=== PATIENT | female | born 1945 | race Caucasian/White ===

== ENCOUNTER 2016-07-27 15:07 | Inpatient (IN) ==
[2016-07-27] MEDS ORDERED: 0.9 % SODIUM CHLORIDE 1,000 ML IV ONE (15:54)
[2016-07-27] MEDS ORDERED: ONDANSETRON 4 MG/2 ML VIAL IV ONE (15:54)
[2016-07-27] MEDS ORDERED: PROMETHAZINE 25 MG/ML VIAL IV ONE (17:00)
[2016-07-27] MEDS ORDERED: FUROSEMIDE 40 MG/4 ML VIAL IV ONE (17:00)
[2016-07-27] MEDS ORDERED: PROMETHAZINE 50 MG/ML AMPUL IM ONE (17:02)
[2016-07-27] MEDS ORDERED: diphenhydrAMINE 50 MG/ML VIAL ONE (17:17)
[2016-07-27] MEDS ORDERED: diphenhydrAMINE 50 MG/ML VIAL IV ONE (17:32)
--- NOTE | 2016-07-27 18:26 | Cat Scan Report ---
CLINICAL INFORMATION: Reason for Exam:acute renal failure, severe refractory n/v . FINDINGS: The patient was imaged without IV contrast. She was too nauseated to drink any oral contrast. There are a few bands of scar or discoid atelectasis in the lung bases. Evaluation of abdominal organs without contrast is limited. The liver and spleen are normal in size and appear homogeneous. The gallbladder is been removed. The bile ducts are nondilated. There is atrophy of the pancreas with some fatty infiltration. The adrenals are normal. Both kidneys are relatively small with thinning of the cortex. There is no hydronephrosis in either kidney a 1 mm stone is present laterally in the lower pole of left kidney. There is no apparent mass or cyst in either kidney. There is urine in a relatively small bladder. The stomach duodenum and jejunum are abnormally distended. There are several air-fluid levels in the jejunum and duodenum. The jejunum measures up to 4 cm in thickness. The wall does not appear to be thickened or inflamed area the ileum is normal in caliber. The transition point is difficult to clearly identify. There is some stranding of the fat in the root of the mesentery in the right mid abdomen area this is surrounded by distended loops of jejunum. The colon is decompressed. There are multiple scattered diverticula, predominantly involving the sigmoid colon. The uterus and ovaries are been removed. There is no ascites abscess. There is a multilobulated midline ventral hernia which has a broad neck and contains fat. There is no entrapment of bowel. Moderate atherosclerotic disease is present in the aorta and visceral arteries within the abdomen. IMPRESSION: Mid small bowel obstruction. This may be due to an adhesion. Diverticulosis but without evidence of diverticulitis Dr. Williamson was called with results Interpreted and Authenticated by: Eduard Rhoades 07/27/16
--- NOTE | 2016-07-27 18:38 | Emergency Department Note ---
Abdominal Pain HPI - General Chief Complaint: Nausea/Vomiting/Diarrhea Stated Complaint: vomiting, abd pain Time Seen by Provider: 07/27/16 15:51 Source: patient Mode of arrival: wheelchair Limitations: no limitations - History of Present Illness HPI Narrative: 70-year-old female with an 8 day history of nausea vomiting but no diarrhea- had a small bowel movement yesterday. She was seen [address] Salazar out in [place] 3 days ago. She has chronic renal failure (stage IV but she still makes urine not on dialysis) and was seen by Dr. Hernandez who sent her to the ER today after getting laboratory this morning in [place]. denies fever or shortness of breath - Related Data Home Medications Medication Instructions Recorded Confirmed allopurinol 100 mg tablet 100 mg PO QDAY tab 12/18/14 07/27/16 atorvastatin 40 mg tablet 40 mg PO QHS tab 12/18/14 07/27/16 clonidine HCl 0.2 mg tablet 0.2 mg PO BID tab 12/18/14 07/27/16 metoprolol succinate ER 50 mg 150 mg PO QDAY tab 12/18/14 07/27/16 tablet,extended release 24 hr nitroglycerin 0.4 mg sublingual 0.4 mg SUBLINGUAL Q5-15MIN PRN tab 12/18/14 tablet ranitidine 150 mg tablet 150 mg PO QDAY tab 12/18/14 07/27/16 glipizide 10 mg tablet 10 mg PO QDAY tab 12/20/14 07/27/16 letrozole 2.5 mg tablet 2.5 mg PO QDAY tab 12/20/14 07/27/16 levothyroxine 137 mcg tablet 137 mcg PO QDAY 04/01/15 07/27/16 torsemide 20 mg tablet 40 mg PO BID tab 08/28/15 07/27/16 aspirin 325 mg tablet 325 mg PO QDAY 03/30/16 07/27/16 dipyridamole 50 mg tablet 200 mg PO BID tab 03/30/16 07/27/16 amlodipine 5 mg tablet 5 mg PO QDAY 07/12/16 07/27/16 ferrous sulfate 325 mg (65 mg 325 mg PO QDAY 07/12/16 07/27/16 iron) tablet Previous Rx's Medication Instructions Recorded calcium acetate 667 mg capsule 667 mg PO TID 30 Days 12/08/16 hydralazine 100 mg tablet 100 mg PO TID 90 Days 05/10/16 Allergies Allergy/AdvReac Type Severity Reaction Status Date / Time Sulfa (Sulfonamide Allergy Severe SWELLING/HI Verified 07/27/16 15:18 Antibiotics) VES [SULFA (SULFONAMIDE ANTIBIOTICS)] BRENTON Inhibitors Allergy Unknown Unknown Verified 07/27/16 15:18 clopidogrel [From Plavix] Allergy Unknown Unknown Verified 07/27/16 15:18 meloxicam [From Mobic] Allergy Unknown Unknown Verified 07/27/16 15:18 chlorhexidine Allergy Hives Verified 07/27/16 15:18 [From Hibiclens] Review of Systems All systems ED: reviewed and negative except as stated. Abdominal Pain PMH - Past Medical History Attestation: Yes: The following information was validated with the patient. Medical history: Reports: coronary artery disease, CVA, hyperlipidemia, hypertension, renal disease (with associated complications including chronic anemia, hyperparathyroidism,osteodystrophy,), thyroid disease, other (gout) Surgical history ED: Reports: angioplasty/stent, cholecystectomy, colectomy, hysterectomy - Social History Smoking status: Never smoker Physical Exam No acute distress. Overweight. Normocephalic atraumatic. Conjunctiva clear sclerae anicteric. No nasal discharge or congestion. Buccal mucosa is dry. Neck is supple without lymphadenopathy or thyromegaly. Heart is regular rate and rhythm no murmurs appreciated. Lungs are clear to auscultation bilaterally without wheezes rales rhonchi or respiratory distress. Abdomen is soft and diffusely tender all over. Nondistended. No peritoneal signs or guarding. Trace pedal edema bilaterally. +2 radial pulse. Alert and oriented - General Limitations: no limitations Course Vital Signs Temperature 97.6 F 07/27/16 15:08 Pulse Rate 87 07/27/16 15:08 Respiratory Rate 16 07/27/16 15:08 Blood Pressure 183/66 07/27/16 15:08 Pulse Oximetry (%) 97 07/27/16 15:08 Temperature 97.6 F 07/27/16 15:08 Pulse Rate 91 H 07/27/16 18:23 Respiratory Rate 24 07/27/16 18:23 Blood Pressure 191/50 07/27/16 18:23 Pulse Oximetry (%) 96 07/27/16 18:23 Abdominal Pain - Lab Data Lab results reviewed: Yes I reviewed the patient's lab results. Lab Results 07/27/16 07/27/16 Range/Units 16:00 16:00 POC Hct 35.0 L (36.0-48.0) % VBG Lactic Acid 0.9 (0.5-2.2) mmol/L POC Sodium 139 (133-145) mmol/L POC Potassium 3.7 (3.3-5.1) mmol/L POC Chloride 103 (96-108) mmol/L POC Total CO2 22 (22-30) mmol/L POC BUN 67 H (8-23) mg/dl POC Creatinine 3.9 H (0.6-1.1) mg/dl POC Glucose 91 (70-105) mg/dL POC WB Ioniz Calcium 1.13 L (1.16-1.32) mmol/L Magnesium 2.0 (1.6-2.5) mg/dL [place] labs are reviewed : CBC shows a white count of 14.5 hemoglobin 11.6 and platelets at 269 CMP shows a sodium of 141 potassium 3.9 chloride 104 bicarbonate 22 BUN is 78 creatinine of 3.99 and glucose 119 - Radiology Data Radiology results reviewed: Yes I reviewed the patient's radiology results. CT scan of the abdomen and pelvis with oral contrast only shows a complete small bowel obstruction with compression of the ileum. Cause of the bowel obstruction is not identified- there is no masses seen- likely adhesions per radiology A post NG tube insertion abdominal series is done- pending review Disposition Clinical Impression: Small bowel obstruction, Hypertension, essential, Chronic kidney disease, stage IV (severe) Summary: Patient was treated with IV fluids antiemetics and pain medicine- NG tube was placed after discovery of a small bowel obstruction hypertension was initially treated with furosemide, I then added back her home hydralazine. she may need her home clonidine and amlodipine as well I initially discussed this case with Dr. Hernandez, her teacher public health- she will consult when patient is admitted I also discussed this case with Dr. Magnus Ruth and Dr. Mcmahan- patient will be admitted to Dr. Ruth for surgical care of complete bowel obstruction and Dr. Mcmahan the hospitalist will consult and care for her other nonsurgical issues. Disposition: Xfer As Inpt ([facility]) Condition: Fair Referrals: Princess Carrasco MD [Primary Care Provider] - Arie Peguero MD [Physician] -
[2016-07-27] MEDS ORDERED: hydrALAZINE 20 MG/ML VIAL IV ONE (18:39)
[2016-07-27] MEDS ORDERED: MAGNESIUM SULFATE 2 GM/50 ML BAG IV PRN (20:00)
[2016-07-27] MEDS ORDERED: ACETAMINOPHEN 1,000 MG/100 ML BOTTLE IV PRN (20:00)
[2016-07-27] MEDS ORDERED: ACETAMINOPHEN 325 MG TABLET PO PRN (20:00)
[2016-07-27] MEDS ORDERED: LEVOFLOXACIN 750 MG/150 ML BAG IV SCH (20:00)
[2016-07-27] MEDS ORDERED: ONDANSETRON 4 MG/2 ML VIAL IV PRN (20:00)
[2016-07-27] MEDS ORDERED: LACTATED RINGERS 1,000 ML IV SCH (20:00)
[2016-07-27] MEDS ORDERED: POTASSIUM CHLORIDE 40 MEQ in DEXTROSE 5% IN WATER 500 ML IV PRN (20:00)
[2016-07-27] MEDS ORDERED: PROMETHAZINE 25 MG/ML VIAL IV PRN (20:00)
[2016-07-27] MEDS ORDERED: HYDROmorphone 2 MG/ML SYRINGE IV PRN (20:00)
[2016-07-27] MEDS ORDERED: 0.9 % SODIUM CHLORIDE 250 ML IV SCH (20:30)
[2016-07-27] MEDS ORDERED: SENNOSIDES/DOCUSATE SODIUM 1 TAB TABLET PO SCH (21:00)
[2016-07-27] MEDS: 0.9 % SODIUM CHLORIDE 10 ML SYRINGE IV SCH (21:00)
[2016-07-27] MEDS ORDERED: HEPARIN 5,000 UNIT/ML VIAL SQ SCH (21:00)
[2016-07-27] MEDS ORDERED: metroNIDAZOLE 500 MG/100 ML BAG IV ONE (23:01)
[2016-07-27] MEDS: metroNIDAZOLE 500 MG/100 ML BAG IV SCH (23:27)
[2016-07-27 23:57] LABS: Basophils # (Auto) 0.1 K/mcL (0.0-0.3); Basophils % (Auto) 0.5 % (0.0-2.0); Eosinophils # (Auto) 0.1 K/mcL (0.0-0.7); Eosinophils % (Auto) 0.4 % (0.0-7.0); Granulocytes % (Auto) 80.6 % (38.0-78.0); Lymphocytes # (Auto) 1.5 K/mcL (1.5-4.8); Lymphocytes % (Auto) 10.8 % (15.5-49.0); Mean Corpuscular HGB Conc 33.7 g/dL (31.0-36.0); Mean Corpuscular Hemoglobin 32.4 pg (26.0-34.0); Monocytes % (Auto) 7.7 % (1.0-9.0); Platelet Count 248 K/mcL (140-440); RBC 3.31 M/mcL (4.00-5.20); Red Cell Distribution Width 14.3 % (11.5-14.5)
[2016-07-28] MEDS ORDERED: DEXTROSE 50% 50 ML VIAL IV ONE (05:40)
[2016-07-28] MEDS ORDERED: DEXTROSE 5%-LR 1,000 ML IV SCH (05:45)
[2016-07-28] MEDS ORDERED: DEXTROSE 50% 50 ML VIAL IV PRN ×2 (05:45→13:57)
[2016-07-28 05:48] LABS: Mean Cell Volume 98.7 fL (80.0-100.0); Mean Corpuscular HGB Conc 32.3 g/dL (31.0-36.0); Mean Corpuscular Hemoglobin 31.9 pg (26.0-34.0); Platelet Count 256 K/mcL (140-440); RBC 3.25 M/mcL (4.00-5.20); Red Cell Distribution Width 15.1 % (11.5-14.5)
[2016-07-28] MEDS: 0.9 % SODIUM CHLORIDE 10 ML SYRINGE IV SCH ×5 (06:10→21:30)
[2016-07-28 06:40] LABS: ALT/SGPT 9 U/l (0-40); Albumin 3.4 gm/dL (3.2-5.2); Albumin/Globulin Ratio 1.4 (1.0-2.3); Alkaline Phosphatase 80 U/L (39-117); Bilirubin,Direct < 0.2 mg/dL (0.0-0.3); Blood Urea Nitrogen 68 mg/dl (8-23); Gamma Glutamyl Transpeptidase 14 U/L (5-36); Magnesium 1.9 mg/dL (1.6-2.5); Phosphorous 3.7 mg/dL (2.7-4.5); Uric Acid 9.4 mg/dL (2.5-8.0)
[2016-07-28] MEDS ORDERED: PANTOPRAZOLE 40 MG VIAL IV SCH (07:30)
[2016-07-28] MEDS: metroNIDAZOLE 500 MG/100 ML BAG IV SCH ×3 (07:54→21:29)
[2016-07-28] MEDS: hydrALAZINE 20 MG/ML VIAL IV PRN ×4 (08:02→22:29)
--- NOTE | 2016-07-28 08:07 | XRay Report ---
HISTORY: Reason for Exam:post ng placement and small bowel obstruction FINDINGS: There is nasogastric tube in the upper fundus of the stomach. The tip overlies the spleen. There is a dilated segment of jejunum in the left mid abdomen. The stomach is not abnormally distended. Small amount stool is present in decompressed colon. There are clips in the gallbladder fossa. IMPRESSION: Small bowel obstruction with a well-positioned nasogastric tube in the upper fundus of the stomach Interpreted and Authenticated by: Eduard Rhoades 07/28/16
--- NOTE | 2016-07-28 08:26 | XRay Report ---
HISTORY: Reason for Exam:preop for surgery for small bowel obstruction FINDINGS: The lungs are clear and well expanded. Heart size is normal and there are dense calcifications in the mitral annulus. No congestive heart failure or pleural effusion are present. There is nasogastric tube passing through the esophagus into the stomach. There has been little change since 10/02/09. IMPRESSION: Normal chest. Interpreted and Authenticated by: Eduard Rhoades 07/28/16
[2016-07-28 08:55] LABS: Anisocytosis 1+ (NONE SEEN); Band Neutrophils % 2 % (0-10); Lymphocytes % 18 % (15-49); Monocytes % (Manual) 8 % (1-9); Ovalocytes 1+ (NONE SEEN); Platelet Estimate NORMAL (NORMAL); RBC Morphology ABNORM (NORMAL); Segmented Neutrophils % 71 % (38-78)
--- NOTE | 2016-07-28 09:46 | Consultation ---
DATE OF CONSULTATION: 07/27/2016 REQUESTING PHYSICIAN: Dr. Williamson for Dr. Ruth. REASON FOR CONSULTATION: Management of medical issues. CONSULTANTS INVOLVED: Dr. Hernandez for renal failure and hypertension. HISTORY OF CHIEF COMPLAINT: The patient is a 70-year-old who lives in [place], who comes to [facility] Emergency Room with roughly 8 days onset of persistent nausea, vomiting, abdominal pain and loss of appetite. She denies associated diarrhea, bloody stool, but endorses to abdominal distention along with fever and weakness. She was evaluated a few days ago at [place] and diagnosed with URI. However, symptoms have continued to persist. In the ER, initial workup was significant for complete bowel obstruction along with systemic inflammatory response syndrome with a white count over 14,000. Surgery was consulted for evaluation. The patient received NG tube along with crystalloids. Hospitalist Service was consulted. At the time of examination, the patient is alert and oriented. She is very distressed, complains of significant sore throat from NG tube but able to provide answers to most of the questions. She endorses to prior colectomy along with cholecystectomy and hysterectomy. She denies weight loss, recent changes in medication and change in bowel habits, including change in stool caliber. REVIEW OF SYSTEMS: Ten-point review of system was performed and negative except the ones discussed above. PAST MEDICAL HISTORY: 1. CAD. 2. Hyperlipidemia. 3. History of CVA. 4. Hypertension. 5. Chronic kidney disease stage 4, managed by Dr. Hernandez. 6. Chronic anemia. 7. Hypoparathyroidism. 8. Hypothyroidism. 9. rior bowel surgeries including colectomy/hysterectomy/cholecystectomy. CURRENT MEDICATIONS: 1. Allopurinol 100 mg. 2. Atorvastatin 40 mg. 3. Clonidine 0.2 mg b.i.d. 4. Metoprolol 150 mg. 5. Ranitidine 150 mg. 6. Glipizide 10 mg. 7. Letrozole 2.5 mg. 8. Levothyroxine 137 mcg. 9. Torsemide 40 mg b.i.d. 10. Aspirin 325 mg. 11. Dipyridamole 200 mg b.i.d. 12. Amlodipine 5 mg. 13. Ferrous sulfate 325 mg. ALLERGIES: KNOWN TO: 1. SULFA. 2. BRENTON INHIBITORS. 3. PLAVIX. 4. MELOXICAM. 5. CHLORHEXIDINE. SOCIAL HISTORY: The patient lives in [place] along with her . She is a former smoker, but no history of alcoholism. She is a FULL CODE STATUS. FAMILY HISTORY: Significant for breast cancer, COPD and hypertension in mother; father alcohol dependency. PHYSICAL EXAMINATION: GENERAL: The patient is in moderate distress. BMI 32. Height 5'3''. VITAL SIGNS: Blood pressure 192/50, respiratory rate 24, temperature 97.6, pulse 100, sats 92% on room air. HEENT: Pupils symmetric. Oral cavity is dry. No ear or nose discharge. Head is normocephalic and atraumatic. NECK: No lymphadenopathy. HEART: S1, S2, tachycardia. ESM grade 1. CHEST: Diminished breath sounds posterior and lateral chest, but no adventitious sounds. ABDOMEN: Slightly distended. She has epigastric tenderness but no rebound or guarding. LOWER EXTREMITIES: No cyanosis or clubbing. No joint swelling. SKIN: No suspicious lesions. PSYCHIATRIC: Anxious, but alert and cooperative. NEURO: Nonfocal, moving all four extremities. LABS AND IMAGING: White count 13.5, hemoglobin 10.7, neutrophils 81%. INR 1. Lactic acid 0.9. Sodium 139, potassium 3.7, creatinine 3.9, baseline creatinine 2, BUN 67, calcium 1.13, magnesium 2. LFTs unremarkable. X-ray chest: Unremarkable. X-ray abdomen: Small bowel obstruction. Abdomen and pelvis CT: Small bowel obstruction. ASSESSMENT AND PLAN: An 70-year-old admitted with bowel obstruction and being managed by surgical service. Hospitalist Service consultation for management of medical issues, 1. Systemic inflammatory response syndrome secondary to SBO. Continue Flagyl, Levaquin, crystalloids and close hemodynamic monitoring. 2. Abdominal pain, will be managed on as-needed opioids; bowel obstruction, will be managed as per surgery. 3. History of prior medical issues including history of coronary artery disease. Continue aspirin, beta leanne. 4. History of gout. Continue allopurinol. 5. Hypertension. Continue amlodipine, hydralazine, clonidine and metoprolol. 6. Acute on chronic kidney disease, will be managed by Nephrology, likely secondary to volume depletion from excessive vomiting from bowel obstruction along with sepsis end organ effect. PLAN FOR TODAY: 1. Continue medical management as above. 2. Nephrology consultation. 3. Antibiotic coverage. 4. Bowel obstruction management per surgery, Dr. Ruth. AA:oscar Job ID: [id number] Doc ID: [id number] Arie Peguero MD MTDD
--- NOTE | 2016-07-28 10:37 | Internal Med Progress Note ---
Medical - PN: Subj Patient information: Note initiated : 07/28/16 at 10:34 am Service Date, if different from initiated Date: [] Patient: Dania Nesbitt 70 y/o F admitted on 07/27/16 for Small Bowel Obstruction, Hypertension, CKD. Chief Complaint: [] Interval history: 07/2717-8-zwcg-old with stage IV CKD admitted after 8 days onset of nausea vomiting abdominal pain. initial workup revealed bowel obstruction /acute renal failure from dehydration and continuous nausea vomiting. Admitted by surgery. On NG tube decompression. Possible surgery in a.m.. Nephrology on board. On IV crystalloids/IV opioids. creatinine at 4. White count 13.5. started on Levaquin and Flagyl. systolics around 190 with when necessary hydralazine orders 07/28- patient due for surgical intervention. Currently nothing by mouth/NG tube. No overnight events. Creatinine improved from 4-3.1. White count 14.8. On Levaquin and Flagyl. nephrology on board. review post operatively. Continue telemetry in light of renal failure and post surgical close monitoring. patient alert and responsive. Does not have any questions at this time. - Constitutional Vitals: Vital Signs Temp Pulse Resp BP Pulse Ox 98.5 F 100 H 16 212/56 99 07/28/16 08:00 07/28/16 08:00 07/28/16 08:00 07/28/16 08:00 07/28/16 08:00 Period Temp Pulse Resp BP Sys/Garza Pulse Ox Last 24 Hr 98.3 F-99.1 F 100-100 16-20 175-212/45-56 93-99 Intake and Output 07/27/16 07/28/16 07/28/16 21:59 05:59 13:59 Intake Total 1172 / 1172 0 / 0 Output Total 1000 / 1000 Balance 172 / 172 0 / 0 Weight 184 lb 9.6 oz Intake & Output: Intake & Output 07/27/16 07/28/16 07/28/16 21:59 05:59 13:59 Intake Total 1172 / 1172 0 / 0 Output Total 1000 / 1000 Balance 172 / 172 0 / 0 Weight 184 lb 9.6 oz Intake: IV 1172 / 1172 Lactated Ringers 1,000 ml 922 / 922 @ 100 mls/hr IV .Q10H JIAN Rx#:[id number] FLAGYL 500 mg In 100 ml 100 / 100 As IV .STK-MED ONE Rx#: [id number] Oral 0 / 0 Output: Gastric Drainage 400 / 400 [place]-Sump 400 / 400 Void Amount 600 / 600 General appearance: cooperative, no acute distress Exam: NG tube in place Sanchez is draining clear urine Nondistended abdomen Complains of sore throat Nonlabored breathing minimal anxiety Medical - PN: Obj Da - Labs CBC & Chem 7: 07/28/16 03:38 07/28/16 03:38 Labs: Abnormal Lab Results 07/28/16 07/28/16 07/27/16 03:38 03:38 23:09 WBC 14.8 H 13.5 H RBC 3.25 L 3.31 L Hgb 10.4 L 10.7 L Hct 32.1 L 31.8 L RDW 15.1 H Gran % 80.6 H Lymph % (Auto) 10.8 L Gran # 10.8 H [place] # 1.0 H RBC Morphology Abnorm A Anisocytosis 1+ A Ovalocytes 1+ A Anion Gap 17.0 H BUN 68 H Creatinine 3.1 H Glucose 32 L* Uric Acid 9.4 H Calcium 8.4 L Total Protein 5.8 L Triglycerides 194 H Meds: Medications Acetaminophen (Tylenol) 650 mg PO Q4-6HP PRN PRN Reason: PAIN/FEVER > 101 Dextrose (Dextrose 50%) 25 ml IV UD PRN PRN Reason: Hypoglycemia Diagnostic Test (Pha) (Accu-Chek) 1 each FS Q6 JIAN Last Admin: 07/28/16 05:48 Dose: 1 each Hydralazine HCl (Apresoline) 20 mg IV Q4-6HP PRN PRN Reason: Hypertension Last Admin: 07/28/16 08:02 Dose: 20 mg Hydromorphone HCl (Dilaudid) 0 mg IV Q4HP PRN PRN Reason: Pain Last Admin: 07/28/16 01:10 Dose: 0.5 mg Potassium Chloride 40 meq/ (Dextrose) 520 mls @ 130 mls/hr IV UD PRN PRN Reason: K+ = or < 3.5 Levofloxacin (Levaquin) 750 mg in 150 mls @ 100 mls/hr IV Q48H [facility] Last Infusion: 07/27/16 23:28 Dose: Infused Magnesium Sulfate (Magnesium Sulfate) 2 gm in 50 mls @ 50 mls/hr IV UD PRN PRN Reason: MG = or < 1.7 Acetaminophen (Ofirmev) 1,000 mg in 100 mls @ 200 mls/hr IV Q6HP PRN PRN Reason: PAIN/FEVER > 101 Metronidazole (Flagyl) 500 mg in 100 mls @ 100 mls/hr IV Q8H [facility] Last Admin: 07/28/16 07:54 Dose: 100 mls/hr Dextrose/Lactated Ringer's (Dextrose 5%-Lactated Ringers) 1,000 mls @ 200 mls/ hr IV .Q5H JIAN Ondansetron HCl (Zofran) 4 mg IV Q4-6HP PRN PRN Reason: Nausea And Vomiting Pantoprazole Sodium (Protonix) 40 mg IV QAMAC [facility] Last Admin: 07/28/16 08:22 Dose: 40 mg Sodium Chloride (Saline Flush) 10 ml IV Q8 [facility] Last Admin: 07/28/16 08:27 Dose: 10 ml Medical - PN: A/P - Time Spent With Patient Total time spent is greater than 50% in coordination of care (as documented) at patient's floor/unit and/or counseling patient: 25 - 35 minutes (1) Small bowel obstruction Status: Acute Assessment and plan: * Small bowel obstruction-managed by surgery. Hospitalist consult * Systemic Inflammatory response syndrome-secondary to bowel obstruction. Continue crystalloids antibiotics close hemodynamic monitoring * abdominal pain-continue as needed IV opioids * Acute on chronic renal failure-managed by nephrology. Creatinine down from 3.9- 3.1 * suboptimally controlled hypertension-managed by nephrology * prior medical issues- all oral medications held. * DM type II- Transition to sliding scale insulin Plan * Review post operatively * Continue pain management * DVT prophylaxis-SCDs until approved by surgery use of heparin Current Visit: Yes Medical - PN: Qual - VTE Deep Vein Thrombosis/Pulmonary Embolism Present on Admission: No
--- NOTE | 2016-07-28 10:39 | General Surg History&Physical ---
History of Present Illness Patient information: Note initiated : 07/28/16 at 10:34 am Service Date, if different from initiated Date: [] Patient: Dania Nesbitt 70 y/o F admitted on 07/27/16 for Small Bowel Obstruction, Hypertension, CKD. Chief Complaint: [] Chief complaint: nausea and vomiting and abdominal pain HPI: Ms. Nesbitt is a 70 year old female admitted with small bowel obstruction. The patient has an eight-day history of recurrent episodes of crampy abdoinal pain which was diffuse. She had multiple episodes of nausea with vomiting with emesis of stool-like substance. She finally came to the emergency room because her labs that were drawn and dialysis were abnormal. She had had significant increase in the urine and creatinine. She states that she was seen in the emergency room and morphine 3 days ago and was released.Her last bowel movement was on Tuesday and she has not had any flatus since then She has had multiple operations including left colon hysterectomy and gallbladdder surgery.abdominal x-rays show dilated loops of sl bowel with decompressed colon and this is confi confirmed by CT of the abdomen and pelvis. She has suspected adhesive disease with small bowbstruction and dehydration and progressive renal failure. Review of Systems - Constitutional anorexia, fatigue, malaise, weakness, weight loss - EENT Nose, mouth and throat: dizziness, vertigo - Breasts skin changes (operative changes left upper breast) - Cardiovascular dyspnea on exertion, no chest pain at rest, no claudication, no edema, no palpatations, no rapid heart rate - Respiratory no cough, no dyspnea on exertion, no wheezing, no chest congestion - Gastrointestinal abdominal pain, belching, bloating, constipation, cramping, dyspepsia, early satiety, heartburn, nausea, vomiting - Genitourinary Genitourinary: no dysuria, no flank pain, no urinary frequency - Musculoskeletal arthralgias, joint swelling - Integumentary no changing lesions, no new lesions, no pruritus, no rash - Neurological dizziness, weakness, no abnormal hearing, no confusion, no convulsions - Psychiatric no anxiety, no confusion, no depression - Endocrine cold intolerance, no palpitations, no polydipsia, no polyphagia, no polyuria - Hematologic/Lymphatic easy bruising, lymphadenopathy, no easy bleeding - Allergic/Immunologic no tongue swelling, no throat swelling, no uticaria, no wheezing (visit 79), no lip swelling (() Past History Past medical history: metabolic acidosis Renal osteodystrophy Anemia of chronic disease Hypertension uncontro Irritable bowel syndrome Diabetes mellitus type 2 uncontrolled Coronary artery disea status postpost angioplasty and [id number] Nephrotic syndrome Chronic renal failure stage IV Past surgical history: left upper extremity AV fistula Left colectomy Coronary angioplasty with stenting Cholecystectomy Total abdominal hsterectomy Left breast lumpectomy with radiation Past family history: father age 64 alcohol disease Mother is age 84 breast cancer chronic obstructive lung disease hypertension Siblings with chronic kidney disease hypertension cervical cancer Past social history: former smoker denies alcohol use Medications and Allergies Home Medications Medication Instructions Recorded Confirmed Type allopurinol 100 mg tablet 100 mg PO QDAY tab 12/18/14 07/27/16 History atorvastatin 40 mg tablet 40 mg PO QHS tab 12/18/14 07/27/16 History clonidine HCl 0.2 mg tablet 0.2 mg PO BID tab 12/18/14 07/27/16 History metoprolol succinate ER 50 mg 150 mg PO QDAY tab 12/18/14 07/27/16 History tablet,extended release 24 hr nitroglycerin 0.4 mg sublingual 0.4 mg SUBLINGUAL Q5-15MIN PRN tab 12/18/14 History tablet ranitidine 150 mg tablet 150 mg PO QDAY tab 12/18/14 07/27/16 History glipizide 10 mg tablet 10 mg PO QDAY tab 12/20/14 07/27/16 History letrozole 2.5 mg tablet 2.5 mg PO QDAY tab 12/20/14 07/27/16 History levothyroxine 137 mcg tablet 137 mcg PO QDAY 04/01/15 07/27/16 History torsemide 20 mg tablet 40 mg PO BID tab 08/28/15 07/27/16 History aspirin 325 mg tablet 325 mg PO QDAY 03/30/16 07/27/16 History dipyridamole 50 mg tablet 200 mg PO BID tab 03/30/16 07/27/16 History calcium acetate 667 mg capsule 667 mg PO TID 30 Days 05/06/16 07/27/16 Rx hydralazine 100 mg tablet 100 mg PO TID 90 Days 05/10/16 07/27/16 Rx amlodipine 5 mg tablet 5 mg PO QDAY 07/12/16 07/27/16 History ferrous sulfate 325 mg (65 mg 325 mg PO QDAY 07/12/16 07/27/16 History iron) tablet Allergies Allergy/AdvReac Type Severity Reaction Status Date / Time Sulfa (Sulfonamide Allergy Severe SWELLING/HI Verified 07/27/16 15:18 Antibiotics) VES [SULFA (SULFONAMIDE ANTIBIOTICS)] BRENTON Inhibitors Allergy Unknown Unknown Verified 07/27/16 15:18 clopidogrel [From Plavix] Allergy Unknown Unknown Verified 07/27/16 15:18 meloxicam [From Mobic] Allergy Unknown Unknown Verified 07/27/16 15:18 chlorhexidine Allergy Hives Verified 07/27/16 15:18 [From Hibiclens] Exam Temp Pulse Resp BP Pulse Ox 98.5 F 100 H 16 212/56 99 07/28/16 08:00 07/28/16 08:00 07/28/16 08:00 07/28/16 08:00 07/28/16 08:00 - General physical appearance well developed, well nourished, no distress - Eyes PERRL, normal ocular movement - ENT normal pinna, normal nares, normal mucosa, no hearing loss, no congestion - Head Head exam IM: Present: atraumatic, normocephalic - Neck no masses, no bruits, trachea midline, no lymphadectomy, no venous distension - Cardiovascular Cardiovascular exam IM: Present: normal rate and rhythm, RRR, +S1, +S2, systolic murmur. Absent: JVD Intensity IM: 2/6 - Respiratory normal expansion, normal respiratory effort, clear to percussion, clear to auscultation - Abdomen Abdomen: Present: soft, non tender, bowel sounds (hyperactive bowel sounds;well- healed surgical incision lower midline; no palpable masses) Hernia: Present: none - Genitourinary Present: normal external genitalia - Integumentary Present: no rash, no growths, no abnormal pigmentation - Neurologic Present: normal coordination, normal sensation - Musculoskeletal Present: normal gait, normal posture - Psychiatric Present: oriented to time, oriented to person, oriented to place, speech is normal, memory intact Results - Results Abdominal x-ray: report reviewed, image reviewed CT scan - abdomen: report reviewed, image reviewed Assessment and Plan (1) Small bowel obstruction Status: Acute (2) Hypertension, essential patient will have nasogastric decompression and rehydration. Baseline labs will be checked. Nephrology will beotified as well as hospitalists. She is counseled f exploratory laparotom with probable adhesional lysis in the morning. Status: Acute (3) Chronic kidney disease, stage IV (severe) Status: Chronic (4) CAD (coronary artery disease) Status: Acute (5) Diabetes mellitus, type II Status: Acute (6) Hyperparathyroidism due to renal insufficiency Status: Acute (7) Hypertension, essential Status: Acute (8) Metabolic acidosis Status: Acute Comment: CKD
[2016-07-28] MEDS ORDERED: ONDANSETRON 4 MG/2 ML VIAL IV ONE (10:40)
[2016-07-28] MEDS ORDERED: PHENYLEPHRINE 10 MG/ML VIAL IV ONE (10:40)
[2016-07-28] MEDS ORDERED: ROCURONIUM 10 MG/ML ML IV ONE (10:40)
[2016-07-28] MEDS ORDERED: LIDOCAINE HCL/PF 100 MG/5 ML SYRINGE IV ONE (10:40)
[2016-07-28] MEDS ORDERED: fentaNYL 250 MCG/5 ML VIAL IV ONE (10:40)
[2016-07-28] MEDS ORDERED: HYDROmorphone 2 MG/ML SYRINGE IV ONE (10:40)
[2016-07-28] MEDS ORDERED: MIDAZOLAM 5 MG/5 ML VIAL IV ONE (10:40)
[2016-07-28] MEDS ORDERED: PROPOFOL 200 MG/20 ML VIAL IV ONE (10:40)
[2016-07-28] MEDS ORDERED: ePHEDrine 50 MG/ML AMPUL IV ONE (10:40)
[2016-07-28] MEDS ORDERED: KETAMINE 100 MG/ML ML IV ONE (10:40)
[2016-07-28] MEDS ORDERED: DEXAMETHASONE 10 MG/ML VIAL IV ONE (10:40)
[2016-07-28] MEDS ORDERED: SUCCINYLCHOLINE 20 MG/ML ML IV ONE (10:40)
[2016-07-28] MEDS ORDERED: FLUMAZENIL 0.1 MG/ML ML IV PRN (11:37)
[2016-07-28] MEDS ORDERED: PROMETHAZINE 25 MG/ML VIAL IV PRN (11:37)
[2016-07-28] MEDS ORDERED: IPRATROPIUM/ALBUTEROL 3 ML AMPUL.NEB NEB PRN (11:37)
[2016-07-28] MEDS ORDERED: BENZOCAINE/MENTHOL 1 LOZENGE PO PRN (11:37)
[2016-07-28] MEDS ORDERED: diphenhydrAMINE 50 MG/ML VIAL IV PRN (11:37)
[2016-07-28] MEDS ORDERED: NALOXONE HCL 0.4 MG/ML VIAL IV PRN (11:37)
[2016-07-28] MEDS ORDERED: ePHEDrine 50 MG/ML AMPUL IV PRN (11:37)
[2016-07-28] MEDS ORDERED: ONDANSETRON 4 MG/2 ML VIAL IV PRN ×2 (11:37→13:57)
[2016-07-28] MEDS ORDERED: LACTATED RINGERS 250 ML IV PRN (11:37)
[2016-07-28] MEDS ORDERED: PROMETHAZINE 25 MG/ML VIAL IM ONE (11:37)
[2016-07-28] MEDS ORDERED: MEPERIDINE 25 MG/ML SYRINGE IV PRN (11:37)
[2016-07-28] MEDS ORDERED: fentaNYL 100 MCG/2 ML VIAL IV PRN (11:37)
[2016-07-28] MEDS ORDERED: MEPERIDINE 50 MG/ML SYRINGE IM ONE (11:37)
[2016-07-28] MEDS ORDERED: HYDROmorphone 2 MG/ML SYRINGE IV PRN (11:37)
[2016-07-28] MEDS ORDERED: LACTATED RINGERS 1,000 ML IV SCH ×2 (11:45→12:45)
--- NOTE | 2016-07-28 12:30 | Brief Operative Note ---
Date of procedure: 07/28/16 Pre-op diagnosis: small bowel obstruction Post-op diagnosis: other (extensive intraabdominal adhesions with small bowel obstruction at 2 different foci with closed loop obstruction) Procedure: exploratory laparotomy with extensive adhesiolysis Grafts/Implants: No Anesthesia: GETA Findings: extensive intraabdominal adhesions of omentum to root of small bowel mesentery and across 2 separate loops of bowel with closed loop obstruction Complications: none Surgeon: Brittani Ruth Estimated blood loss (cc): 25 Specimens Removed/Pathology: none sent Condition: stable Disposition: PACU
[2016-07-28] MEDS: LABETALOL 5 MG/ML ML IV PRN ×2 (13:00→13:10)
[2016-07-28] MEDS ORDERED: LABETALOL HCL 20 MG/4 ML SYRINGE IV ONE (13:00)
[2016-07-28] MEDS ORDERED: LABETALOL 5 MG/ML ML IV ONE (13:25)
[2016-07-28] MEDS ORDERED: ACETAMINOPHEN 1,000 MG/100 ML BOTTLE IV PRN (13:57)
[2016-07-28] MEDS ORDERED: MAGNESIUM SULFATE 2 GM/50 ML BAG IV PRN (13:57)
[2016-07-28] MEDS ORDERED: POTASSIUM CHLORIDE 40 MEQ in DEXTROSE 5% IN WATER 500 ML IV PRN (13:57)
[2016-07-28] MEDS: DEXTROSE 5%-LR 1,000 ML IV SCH ×4 (14:09→23:39)
[2016-07-28] MEDS: LACTATED RINGERS 1,000 ML IV SCH ×2 (14:10→20:59)
[2016-07-28] MEDS: HYDROmorphone 2 MG/ML SYRINGE IV PRN ×2 (16:56→21:28)
--- NOTE | 2016-07-28 17:27 | Nephrology Consult Note ---
History of Present Illness - Reason for Consult Patient information: Note initiated : 07/28/16 at 5:22 pm Service Date, if different from initiated Date: [] Patient: Dania Nesbitt a 70 y/o F admitted on 07/27/16 for Small Bowel Obstruction, Hypertension, CKD. Chief Complaint: [] Consult date: 07/28/16 chronic renal failure Requesting physician: Arie Peguero - Chief Complaint nausea and vomiting - History of Present Illness Ms Nesbitt is a 70 y/o pleasant white female with multiple medical co morbidities including CKD stage IV who is admitted with samll bowel obstruction Patient called me yesterday with c/o refractory nausea, vomiting for more than week, was seen in ED at [facility] on Tuesday and was advised to call given concerns of worsening renal function Patient c/o nausea and vomiting for 8 days, unable to keep anything by mouth She also had constipation She c/o diffuse abdominal pain she had no fever no sick contacts no chest pain, SOB, edema BP was extremely high as she was unable to take her home meds on evaluation in the ED sh was diagnosed to have small bowel obstruction and she underwent surgery today with lysis of adhesions Review of Systems All systems PM: reviewed and no additional remarkable complaints except as stated (as in HPI) Past History Past medical history: htn DM type 2\ CKD stage IV/V anemia of CKD renal osteodystrophy dyslipidemia CVA CAD obesity Past surgical history: history fo mastectomy for breast cancer s/p AVF surgery multiple abdominal surgeries in the past Past family history: not contributory to current hospitalisation Past social history: lives with her in [place] no current addictions Medications and Allergies Home Medications Medication Instructions Recorded Confirmed Type allopurinol 100 mg tablet 100 mg PO QDAY tab 12/18/14 07/27/16 History atorvastatin 40 mg tablet 40 mg PO QHS tab 12/18/14 07/27/16 History clonidine HCl 0.2 mg tablet 0.2 mg PO BID tab 12/18/14 07/27/16 History metoprolol succinate ER 50 mg 150 mg PO QDAY tab 12/18/14 07/27/16 History tablet,extended release 24 hr nitroglycerin 0.4 mg sublingual 0.4 mg SUBLINGUAL Q5-15MIN PRN tab 12/18/14 History tablet ranitidine 150 mg tablet 150 mg PO QDAY tab 12/18/14 07/27/16 History glipizide 10 mg tablet 10 mg PO QDAY tab 12/20/14 07/27/16 History letrozole 2.5 mg tablet 2.5 mg PO QDAY tab 12/20/14 07/27/16 History levothyroxine 137 mcg tablet 137 mcg PO QDAY 04/01/15 07/27/16 History torsemide 20 mg tablet 40 mg PO BID tab 08/28/15 07/27/16 History aspirin 325 mg tablet 325 mg PO QDAY 03/30/16 07/27/16 History dipyridamole 50 mg tablet 200 mg PO BID tab 03/30/16 07/27/16 History calcium acetate 667 mg capsule 667 mg PO TID 30 Days 05/06/16 07/27/16 Rx hydralazine 100 mg tablet 100 mg PO TID 90 Days 05/10/16 07/27/16 Rx amlodipine 5 mg tablet 5 mg PO QDAY 07/12/16 07/27/16 History ferrous sulfate 325 mg (65 mg 325 mg PO QDAY 07/12/16 07/27/16 History iron) tablet Allergies Allergy/AdvReac Type Severity Reaction Status Date / Time Sulfa (Sulfonamide Allergy Severe SWELLING/HI Verified 07/27/16 15:18 Antibiotics) VES [SULFA (SULFONAMIDE ANTIBIOTICS)] chlorhexidine Allergy Mild Hives Verified 07/28/16 16:36 [From Hibiclens] clopidogrel [From Plavix] Allergy Mild Hives Verified 07/28/16 16:36 BRENTON Inhibitors Allergy Unknown Unknown Verified 07/28/16 16:36 meloxicam [From Mobic] AdvReac Mild Gastrointestinal Verified 07/28/16 16:36 Upset Exam - Vital Signs Vital signs: Temp Pulse Resp BP Pulse Ox 97.7 F 94 H 14 179/60 96 07/28/16 15:11 07/28/16 16:45 07/28/16 16:45 07/28/16 16:45 07/28/16 16:45 - General Appearance General appearance: well-nourished, appears started age EENT: mucous membranes dry Neck: no JVD Respiratory: clear Cardiology: no rub, no edema, normal S1, normal S2 Gastrointestinal: tenderness Integumentary: no rash, warm and dry Neurologic: no focal deficit, no asterixis, alert and oriented x3 Musculoskeletal: no erythema, no cyanosis Psychiatric: mood/affect appropriate Results - Lab Results 07/28/16 03:38 07/28/16 03:38 Most recent lab results Calcium 8.4 mg/dl (8.6-10.4) L 07/28/16 03:38 Phosphorus 3.7 mg/dL (2.7-4.5) 07/28/16 03:38 Magnesium 1.9 mg/dL (1.6-2.5) 07/28/16 03:38 Assessment and Plan (1) Acute on chronic renal failure Patient had a s.creatinien of 2.4 last visit less than a mth ago s.creat was 3.9 yesterday, 3.1 today, improved with hydration acute worsening likely from dehydration from profound nausea and vomiting non oliguric will monitor closely for now has AVF ready for dialysis when and if needed please dose meds to egfr and avoid nephrotoxic meds if possible continue IVF as patient still seems volume depleted on exam uncontrolled HTN from unable to take medications on prn labetalol and hydralazine would keep BP to less than 160/100 small bowel obstruction: s/p exploratory laprotomy with lysis of adhesions Status: Acute
[2016-07-29] MEDS: HYDROmorphone 2 MG/ML SYRINGE IV PRN ×4 (01:05→20:10)
[2016-07-29] MEDS: hydrALAZINE 20 MG/ML VIAL IV PRN ×2 (04:04→11:18)
[2016-07-29] MEDS: LACTATED RINGERS 1,000 ML IV SCH ×4 (05:22→22:16)
[2016-07-29] MEDS: DEXTROSE 5%-LR 1,000 ML IV SCH (05:23)
[2016-07-29] MEDS: metroNIDAZOLE 500 MG/100 ML BAG IV SCH ×3 (05:23→22:15)
[2016-07-29 05:24] LABS: Mean Cell Volume 98.8 fL (80.0-100.0); Mean Corpuscular HGB Conc 31.7 g/dL (31.0-36.0); Mean Corpuscular Hemoglobin 31.3 pg (26.0-34.0); Platelet Count 225 K/mcL (140-440); Red Cell Distribution Width 15.3 % (11.5-14.5)
[2016-07-29] MEDS: 0.9 % SODIUM CHLORIDE 10 ML SYRINGE IV SCH ×3 (05:41→22:17)
[2016-07-29 05:50] LABS: ALT/SGPT 8 U/l (0-40); Albumin 2.8 gm/dL (3.2-5.2); Albumin/Globulin Ratio 1.1 (1.0-2.3); Alkaline Phosphatase 69 U/L (39-117); Bilirubin,Direct < 0.2 mg/dL (0.0-0.3); Blood Urea Nitrogen 50 mg/dl (8-23); Gamma Glutamyl Transpeptidase 12 U/L (5-36); Magnesium 1.8 mg/dL (1.6-2.5); Phosphorous 3.2 mg/dL (2.7-4.5); Uric Acid 7.9 mg/dL (2.5-8.0)
[2016-07-29] MEDS: PANTOPRAZOLE 40 MG VIAL IV SCH (07:06)
[2016-07-29 08:06] LABS: Band Neutrophils % 9 % (0-10); Lymphocytes % 8 % (15-49); Monocytes % (Manual) 3 % (1-9); Platelet Estimate NORMAL (NORMAL); RBC Morphology NORMAL (NORMAL); Segmented Neutrophils % 80 % (38-78)
[2016-07-29] MEDS: LEVOFLOXACIN 750 MG/150 ML BAG IV SCH (08:57)
--- NOTE | 2016-07-29 11:41 | Internal Med Progress Note ---
Medical - PN: Subj Patient information: Note initiated : 07/29/16 at 11:38 am Service Date, if different from initiated Date: [] Patient: Dania Nesbitt 70 y/o F admitted on 07/27/16 for Small Bowel Obstruction, Hypertension, CKD. Chief Complaint: [] Interval history: 07/2710-5-epnb-old with stage IV CKD admitted after 8 days onset of nausea vomiting abdominal pain. initial workup revealed bowel obstruction /acute renal failure from dehydration and continuous nausea vomiting. Admitted by surgery. On NG tube decompression. Possible surgery in a.m.. Nephrology on board. On IV crystalloids/IV opioids. creatinine at 4. White count 13.5. started on Levaquin and Flagyl. systolics around 190 with when necessary hydralazine orders 07/28- patient due for surgical intervention. Currently nothing by mouth/NG tube. No overnight events. Creatinine improved from 4-3.1. White count 14.8. On Levaquin and Flagyl. nephrology on board. review post operatively. Continue telemetry in light of renal failure and post surgical close monitoring. patient alert and responsive. Does not have any questions at this time. 07/29- Patient seen in room. No overnight events. Stable hemodynamics. NG tube in place. postoperative Pain in good control. No telemetry events. No fever chills abdominal pain. No flatus. no other concerns per patient or staff - Constitutional Vitals: Vital Signs Temp Pulse Resp BP Pulse Ox 98.7 F 89 20 188/48 99 07/29/16 11:00 07/29/16 11:00 07/29/16 11:00 07/29/16 11:00 07/29/16 11:00 Period Temp Pulse Resp BP Sys/Garza Pulse Ox Last 24 Hr 97.3 F-98.8 F 75-108 12-23 154-220/41-71 96-100 Intake and Output 07/28/16 07/29/16 07/29/16 21:59 05:59 13:59 Intake Total 1878 / 1878 1150 / 1150 1410 / 1410 Output Total 1125 / 1125 775 / 775 425 / 425 Balance 753 / 753 375 / 375 985 / 985 Weight 185 lb 9.6 oz 185 lb 9.6 oz Patient Weight 07/30/16 05:59 Weight 185 lb 9.6 oz Intake & Output: Intake & Output 07/28/16 07/29/16 07/29/16 21:59 05:59 13:59 Intake Total 1878 / 1878 1150 / 1150 1410 / 1410 Output Total 1125 / 1125 775 / 775 425 / 425 Balance 753 / 753 375 / 375 985 / 985 Weight 185 lb 9.6 oz 185 lb 9.6 oz Intake: IV 1878 / 1878 1100 / 1100 1350 / 1350 Lactated Ringers 1,000 ml 1000 / 1000 @ 150 mls/hr IV .Q6H40M JIAN Rx#:[id number] Dextrose 5% in Water 500 1700 / 1700 ml @ 130 mls/hr IV UD PRN with Potassium Chloride 40 Meq Rx#:[id number] Oral 50 / 50 60 / 60 Output: Gastric Drainage 200 / 200 300 / 300 Hawkins-Sump 100 / 100 300 / 300 Urine Catheter Amount 925 / 925 475 / 475 125 / 125 Emesis 300 / 300 Other: # Emeses 2 General appearance: cooperative, no acute distress Exam: nondistended abdomen no anxiety nG tube in place Nonlabored breathing Medical - PN: Obj Da - Labs CBC & Chem 7: 07/29/16 03:45 07/29/16 03:45 Labs: Abnormal Lab Results 07/29/16 07/29/16 07/28/16 03:45 03:45 03:38 WBC 14.4 H RBC 3.10 L Hgb 9.7 L Hct 30.6 L RDW 15.3 H Gran % Lymph % (Auto) Gran # [place] # Seg Neutrophils % 80 H Lymphocytes % 8 L RBC Morphology Anisocytosis Ovalocytes Carbon Dioxide 21 L Anion Gap 17.0 H BUN 50 H 68 H Creatinine 2.3 H 3.1 H Glucose 149 H 32 L* Uric Acid 9.4 H Calcium 8.3 L 8.4 L Total Protein 5.3 L 5.8 L Albumin 2.8 L Triglycerides 194 H 07/28/16 07/27/16 03:38 23:09 WBC 14.8 H 13.5 H RBC 3.25 L 3.31 L Hgb 10.4 L 10.7 L Hct 32.1 L 31.8 L RDW 15.1 H Gran % 80.6 H Lymph % (Auto) 10.8 L Gran # 10.8 H [place] # 1.0 H Seg Neutrophils % Lymphocytes % RBC Morphology Abnorm A Anisocytosis 1+ A Ovalocytes 1+ A Carbon Dioxide Anion Gap BUN Creatinine Glucose Uric Acid Calcium Total Protein Albumin Triglycerides Meds: Medications Dextrose (Dextrose 50%) 25 ml IV UD PRN PRN Reason: Hypoglycemia Diagnostic Test (Pha) (Accu-Chek) 1 each FS Q6 JIAN Last Admin: 07/29/16 05:40 Dose: 1 each Hydralazine HCl (Apresoline) 20 mg IV Q4-6HP PRN PRN Reason: Hypertension Last Admin: 07/29/16 11:18 Dose: 20 mg Hydromorphone HCl (Dilaudid) 0 mg IV Q4HP PRN PRN Reason: Pain Last Admin: 07/29/16 08:56 Dose: 0.5 mg Potassium Chloride 40 meq/ (Dextrose) 520 mls @ 130 mls/hr IV UD PRN PRN Reason: K+ = or < 3.5 Levofloxacin (Levaquin) 750 mg in 150 mls @ 100 mls/hr IV Q48H [facility] Last Infusion: 07/29/16 11:18 Dose: Infused Magnesium Sulfate (Magnesium Sulfate) 2 gm in 50 mls @ 50 mls/hr IV UD PRN PRN Reason: MG = or < 1.7 Acetaminophen (Ofirmev) 1,000 mg in 100 mls @ 200 mls/hr IV Q6HP PRN PRN Reason: PAIN/FEVER > 101 Lactated Ringer's (Lactated Ringers) 1,000 mls @ 150 mls/hr IV .Q6H40M [facility] Last Admin: 07/29/16 11:19 Dose: Not Given Metronidazole (Flagyl) 500 mg in 100 mls @ 100 mls/hr IV Q8H [facility] Last Infusion: 07/29/16 06:30 Dose: Infused Ondansetron HCl (Zofran) 4 mg IV Q4-6HP PRN PRN Reason: Nausea And Vomiting Last Admin: 07/29/16 08:56 Dose: 4 mg Pantoprazole Sodium (Protonix) 40 mg IV QAMAC [facility] Last Admin: 07/29/16 07:06 Dose: 40 mg Sodium Chloride (Saline Flush) 10 ml IV Q8 [facility] Last Admin: 07/29/16 05:41 Dose: 10 ml Medical - PN: A/P - Time Spent With Patient Total time spent is greater than 50% in coordination of care (as documented) at patient's floor/unit and/or counseling patient: 15 - 24 minutes (1) Small bowel obstruction Status: Acute Assessment and plan: * Small bowel obstruction-. Postop day 2. managed by surgery. NG tube in place Hospitalist consult * Systemic Inflammatory response syndrome-secondary to bowel obstruction. white count at 14.8. On ABX coverage. * abdominal pain-continue as needed IV opioids * Acute on chronic renal failure-managed by nephrology. Creatinine down from 3.9- 3.1->2.3 * Suboptimally controlled hypertension-managed by nephrology * prior medical issues- all oral medications held. * DM type II- Transition to sliding scale insulin Plan * postop management per surgery * Continue pain management * renal failure/hypertension management per nephrology Current Visit: Yes Medical - PN: Qual - VTE Deep Vein Thrombosis/Pulmonary Embolism Present on Admission: No
--- NOTE | 2016-07-29 13:19 | General Surgery Progress Note ---
Subjective Patient reports: feels better, still having pain, pain is less, no flatus, no bowel movement, afebrile Narrative: Note initiated : 07/29/16 at 1:16 pm Service Date, if different from initiated Date: [] Patient: Dania Nesbitt 70 y/o F admitted on 07/27/16 for Small Bowel Obstruction, Hypertension, CKD. Chief Complaint: [patient is having moderate amount of nausea due to malfunctioning nasogastric tube. Since that tube has been fixed she has less nausea. She has not had flatus or bowel movement. Her pain is improved and controlled with analgesics. She still has significantly elevated blood pressures.] Objective Temp Pulse Resp BP Pulse Ox 97.5 F L 102 H 19 183/47 98 07/29/16 12:00 07/29/16 12:00 07/29/16 12:00 07/29/16 12:00 07/29/16 12:00 - Additional Data Intake & Output - Last 24 hours: Intake & Output 07/27/16 07/28/16 07/29/16 07/30/16 05:59 05:59 05:59 05:59 Intake Total 1172 / 2172 4728 / 4728 1410 / 1410 Output Total 1000 / 1420 2500 / 2500 425 / 425 Balance 172 / 752 2228 / 2228 985 / 985 Weight 184 lb 9.6 oz 185 lb 9.6 oz 185 lb 9.6 oz - Additional Exam patient is lying in bed in no acute distress. She is alert awake and aware. HEENT unremarkable Neck supple no JVD Chest clear bilaterally no rales rhonchi or wheezes Heart resting tachycardia rate 110 and regular Abdomen mild distention with active bowel sounds; incision looks good Extremities positive edema Neurological exam no focal deficit - Labs 07/29/16 03:45 07/29/16 03:45 Diabetes panel 07/29/16 Range/Units 03:45 Sodium 143 (133-145) mmol/L Potassium 4.0 (3.3-5.1) mmol/L Chloride 107 (96-108) mmol/L Carbon Dioxide 21 L (22-30) mmol/L BUN 50 H (8-23) mg/dl Creatinine 2.3 H (0.6-1.1) mg/dl Glucose 149 H (70-105) mg/dL Calcium 8.3 L (8.6-10.4) mg/dl AST 19 (0-37) U/l ALT 8 (0-40) U/l Alkaline Phosphatase 69 (39-117) U/L Total Protein 5.3 L (5.9-8.4) gm/dL Albumin 2.8 L (3.2-5.2) gm/dL Triglycerides 80 (<150) mg/dl Calcium panel 07/29/16 Range/Units 03:45 Calcium 8.3 L (8.6-10.4) mg/dl Phosphorus 3.2 (2.7-4.5) mg/dL Albumin 2.8 L (3.2-5.2) gm/dL Pituitary panel 07/29/16 Range/Units 03:45 Sodium 143 (133-145) mmol/L Potassium 4.0 (3.3-5.1) mmol/L Chloride 107 (96-108) mmol/L Carbon Dioxide 21 L (22-30) mmol/L BUN 50 H (8-23) mg/dl Creatinine 2.3 H (0.6-1.1) mg/dl Glucose 149 H (70-105) mg/dL Calcium 8.3 L (8.6-10.4) mg/dl Adrenal panel 07/29/16 Range/Units 03:45 Sodium 143 (133-145) mmol/L Potassium 4.0 (3.3-5.1) mmol/L Chloride 107 (96-108) mmol/L Carbon Dioxide 21 L (22-30) mmol/L BUN 50 H (8-23) mg/dl Creatinine 2.3 H (0.6-1.1) mg/dl Glucose 149 H (70-105) mg/dL Calcium 8.3 L (8.6-10.4) mg/dl Total Bilirubin 0.3 (0.0-1.0) mg/dL AST 19 (0-37) U/l ALT 8 (0-40) U/l Alkaline Phosphatase 69 (39-117) U/L Total Protein 5.3 L (5.9-8.4) gm/dL Albumin 2.8 L (3.2-5.2) gm/dL Medical - PN: A/P - Time Spent With Patient Total time spent is greater than 50% in coordination of care (as documented) at patient's floor/unit and/or counseling patient: (1) Small bowel obstruction Status: Acute Assessment and plan: improved status post extensive adhesio lysis Plan--continue nasogastric suction Start Reglan 10 mg IV every 6 hours Continue other therapy Current Visit: Yes (2) Hypertension, essential Status: Acute Current Visit: Yes (3) Chronic kidney disease, stage IV (severe) Status: Chronic Current Visit: Yes (4) CAD (coronary artery disease) Status: Acute Current Visit: No (5) Diabetes mellitus, type II Status: Acute Current Visit: No (6) Hyperparathyroidism due to renal insufficiency Status: Acute Current Visit: No (7) Hypertension, essential Status: Acute Current Visit: No (8) Metabolic acidosis Problem details: CKD Status: Acute Current Visit: No
--- NOTE | 2016-07-29 16:53 | Nephrology Progress Note ---
Subjective Patient information: Note initiated : 07/29/16 at 4:51 pm Service Date, if different from initiated Date: [] Patient: Dania Nesbitt 70 y/o F admitted on 07/27/16 for Small Bowel Obstruction, Hypertension, CKD. Chief Complaint: [] Principal diagnosis: small bowel obstruction Interval history: post day 1 no overnight events c/o pain, still has nausea still has NG tube and is NPO blood pressure persistently elevated, on multiple meds at home, now cannot take them due to gi issues no SOB, CP,d izziness No edema Pertinent ROS: as above Objective - Vital Signs Vital signs: Vital Signs Temp Pulse Resp BP Pulse Ox 07/29/16 16:00 98.7 F 91 H 16 182/54 98 07/29/16 15:00 98.7 F 100 H 14 168/61 97 07/29/16 14:00 98.7 F 102 H 14 178/56 98 07/29/16 13:00 106 H 20 187/52 97 07/29/16 12:00 97.5 F L 102 H 19 183/47 98 07/29/16 11:00 98.7 F 89 20 188/48 99 07/29/16 08:00 99 07/29/16 07:59 101 H 14 181/52 98 07/29/16 07:26 97 07/29/16 07:00 98.8 F 105 H 16 165/54 98 07/29/16 05:58 12 154/41 97 07/29/16 05:00 14 184/55 97 07/29/16 04:35 186/57 07/29/16 04:00 98.5 F 16 190/62 98 07/29/16 03:00 14 170/58 97 07/29/16 02:00 14 171/53 97 07/29/16 01:00 16 191/53 98 07/29/16 00:00 98.2 F 15 192/48 99 07/28/16 23:00 12 187/50 98 07/28/16 22:00 13 192/50 98 07/28/16 21:00 12 199/60 97 07/28/16 20:00 98.2 F 16 189/60 99 07/28/16 19:05 98 07/28/16 19:00 23 176/61 97 Intake and Output 07/29/16 07/29/1607/29/17 05:59 13:59 21:59 Intake Total 1150 / 1150 2410 / 2410 260 / 260 Output Total 775 / 775 425 / 425 700 / 700 Balance 375 / 375 1984 -440 / -440 Intake: IV 1100 / 1100 2350 / 2350 100 / 100 Lactated Ringers 1,000 ml 1000 / 1000 1000 / 1000 @ 150 mls/hr IV .Q6H40M JIAN Rx#:[id number] Oral 50 / 50 60 / 60 160 / 160 Output: Gastric Drainage 300 / 300 250 / 250 [place]-Sump 300 / 300 250 / 250 Urine Catheter Amount 475 / 475 125 / 125 450 / 450 Emesis 300 / 300 Other: # Emeses 2 Weight 185 lb 9.6 oz Patient Weight 07/30/16 05:59 Weight 185 lb 9.6 oz Intake & Output: Intake & Output 07/29/16 07/29/16 07/29/16 05:59 13:59 21:59 Intake Total 1150 / 1150 2410 / 2410 260 / 260 Output Total 775 / 775 425 / 425 700 / 700 Balance 375 / 375 1984 -440 / -440 Weight 185 lb 9.6 oz Intake: IV 1100 / 1100 2350 / 2350 100 / 100 Lactated Ringers 1,000 ml 1000 / 1000 1000 / 1000 @ 150 mls/hr IV .Q6H40M JIAN Rx#:[id number] Oral 50 / 50 60 / 60 160 / 160 Output: Gastric Drainage 300 / 300 250 / 250 [place]-Sump 300 / 300 250 / 250 Urine Catheter Amount 475 / 475 125 / 125 450 / 450 Emesis 300 / 300 Other: # Emeses 2 - General Appearance General appearance: appears started age, chronically ill EENT: mucous membranes moist Neck: no JVD Respiratory: clear Cardiology: no rub, normal S1, normal S2 Integumentary: no rash, warm and dry Neurologic: no focal deficit, alert and oriented x3 Musculoskeletal: no deformities, no erythema Psychiatric: mood/affect appropriate - Lab 07/29/16 03:45 07/29/16 03:45 Most recent lab results Calcium 8.3 mg/dl (8.6-10.4) L 07/29/16 03:45 Phosphorus 3.2 mg/dL (2.7-4.5) 07/29/16 03:45 Magnesium 1.8 mg/dL (1.6-2.5) 07/29/16 03:45 Assessment and Plan (1) Acute on chronic renal failure s.creatinine down to 2.3, at baseline no electrolyte issues uncontrolled HTN: will start on labetaolol gtt as cannot take po meds and intermittent IV meds are not keeping it down will follow along Status: Acute
[2016-07-29] MEDS ORDERED: LABETALOL 500 MG in DEXTROSE 5% IN WATER 150 ML IV SCH (17:00)
[2016-07-29] MEDS: METOCLOPRAMIDE 10 MG/2 ML VIAL IV SCH (17:36)
[2016-07-29] MEDS: 0.9 % SODIUM CHLORIDE 250 ML IV SCH (17:50)
[2016-07-30] MEDS: METOCLOPRAMIDE 10 MG/2 ML VIAL IV SCH ×4 (00:13→17:20)
[2016-07-30] MEDS: LACTATED RINGERS 1,000 ML IV SCH ×2 (05:47→17:29)
[2016-07-30] MEDS: hydrALAZINE 20 MG/ML VIAL IV PRN ×2 (05:47→21:30)
[2016-07-30] MEDS: metroNIDAZOLE 500 MG/100 ML BAG IV SCH ×3 (05:48→22:45)
[2016-07-30 06:28] LABS: Mean Cell Volume 99.1 fL (80.0-100.0); Mean Corpuscular HGB Conc 31.7 g/dL (31.0-36.0); Mean Corpuscular Hemoglobin 31.4 pg (26.0-34.0); Platelet Count 191 K/mcL (140-440); RBC 2.66 M/mcL (4.00-5.20); Red Cell Distribution Width 15.8 % (11.5-14.5)
[2016-07-30 06:53] LABS: ALT/SGPT 8 U/l (0-40); Albumin 2.5 gm/dL (3.2-5.2); Albumin/Globulin Ratio 1.1 (1.0-2.3); Alkaline Phosphatase 74 U/L (39-117); Bilirubin,Direct < 0.2 mg/dL (0.0-0.3); Blood Urea Nitrogen 45 mg/dl (8-23); Gamma Glutamyl Transpeptidase 11 U/L (5-36); Magnesium 1.7 mg/dL (1.6-2.5); Phosphorous 1.9 mg/dL (2.7-4.5)
[2016-07-30] MEDS: PANTOPRAZOLE 40 MG VIAL IV SCH (07:35)
[2016-07-30] MEDS: 0.9 % SODIUM CHLORIDE 10 ML SYRINGE IV SCH ×3 (07:35→21:31)
[2016-07-30 07:48] LABS: Anisocytosis 1+ (NONE SEEN); Band Neutrophils % 3 % (0-10); Lymphocytes % 13 % (15-49); Monocytes % (Manual) 3 % (1-9); Ovalocytes 1+ (NONE SEEN); Platelet Estimate NORMAL (NORMAL); RBC Morphology ABNORM (NORMAL); Segmented Neutrophils % 81 % (38-78)
[2016-07-30] MEDS: HYDROmorphone 2 MG/ML SYRINGE IV PRN ×2 (08:00→12:26)
[2016-07-30] MEDS: 0.9 % SODIUM CHLORIDE 250 ML IV SCH ×2 (11:00→19:33)
--- NOTE | 2016-07-30 14:49 | Internal Med Progress Note ---
Medical - PN: Subj Patient information: Note initiated : 07/30/16 at 2:45 pm Service Date, if different from initiated Date: [] Patient: Dania Nesbitt 70 y/o F admitted on 07/27/16 for Small Bowel Obstruction, Hypertension, CKD. Chief Complaint: [] Interval history: 07/2719-4-ysrh-old with stage IV CKD admitted after 8 days onset of nausea vomiting abdominal pain. initial workup revealed bowel obstruction /acute renal failure from dehydration and continuous nausea vomiting. Admitted by surgery. On NG tube decompression. Possible surgery in a.m.. Nephrology on board. On IV crystalloids/IV opioids. creatinine at 4. White count 13.5. started on Levaquin and Flagyl. systolics around 190 with when necessary hydralazine orders 07/28- patient due for surgical intervention. Currently nothing by mouth/NG tube. No overnight events. Creatinine improved from 4-3.1. White count 14.8. On Levaquin and Flagyl. nephrology on board. review post operatively. Continue telemetry in light of renal failure and post surgical close monitoring. patient alert and responsive. Does not have any questions at this time. 3/- Patient seen in room. No overnight events. Stable hemodynamics. NG tube in place. white count 14.4. postoperative Pain in good control. No telemetry events. No fever chills abdominal pain. No flatus. no other concerns per patient or staff. 3/-downtrending leukocytosis to 12.3. Patient doing well. NG tube bilious output. No abdominal pain. at bedside. No telemetry events. especially nursing staff. - Constitutional Vitals: Vital Signs Temp Pulse Resp BP Pulse Ox 98.1 F 81 18 146/48 95 07/30/16 12:00 07/30/16 12:00 07/30/16 12:00 07/30/16 12:00 07/30/16 12:00 Period Temp Pulse Resp BP Sys/Garza Pulse Ox Last 24 Hr 98.1 F-98.9 F 68-102 12-20 119-189/40-65 91-99 Intake and Output 07/30/16 07/30/16 07/30/16 05:59 13:59 21:59 Intake Total 2444 / 2444 832 / 832 Output Total 2530 / 2530 450 / 450 Balance -86 / -86 382 / 382 Intake & Output: Intake & Output 07/30/16 07/30/16 07/30/16 05:59 13:59 21:59 Intake Total 2444 / 2444 832 / 832 Output Total 2530 / 2530 450 / 450 Balance -86 / -86 382 / 382 Intake: IV 2444 / 2444 624 / 624 Sodium Chloride 0.9% 250 240 / 240 0 / 0 ml @ 20 mls/hr IV . [id number] JIAN Rx#:[id number] Trandate 500 mg In 154 / 154 Dextrose 5% in Water 150 ml @ 2 MG/MIN 60 mls/hr IV DUR JIAN Rx#:[id number] Lactated Ringers 1,000 ml 1950 / 1950 524 / 524 @ 150 mls/hr IV .Q6H40M JIAN Rx#:[id number] Oral 208 / 208 Output: Gastric Drainage 100 / 100 300 / 300 [place]-Sump 300 / 300 Urine Catheter Amount 430 / 430 150 / 150 Void Amount 1200 / 1200 Emesis 600 / 600 Estimated Blood Loss 200 / 200 Other: # Emeses 0 General appearance: cooperative, no acute distress Exam: NG tube Foleys draining clear urine Abdomen nontender nondistended nonlabored breathing No telemetry events Medical - PN: Obj Da - Labs CBC & Chem 7: 07/30/16 03:58 07/30/16 03:58 Labs: Abnormal Lab Results 07/30/16 07/30/16 07/29/16 03:58 03:58 03:45 WBC 12.3 H RBC 2.66 L Hgb 8.4 L Hct 26.3 L RDW 15.8 H Gran % Lymph % (Auto) Gran # [place] # Seg Neutrophils % 81 H Lymphocytes % 13 L RBC Morphology Abnorm A Polychromasia Few A Anisocytosis 1+ A Ovalocytes 1+ A Chloride 109 H Carbon Dioxide 21 L Anion Gap BUN 45 H 50 H Creatinine 2.1 H 2.3 H Glucose 149 H Uric Acid Calcium 8.3 L 8.3 L Phosphorus 1.9 L Lactate Dehydrogenase 263 H Total Protein 4.7 L 5.3 L Albumin 2.5 L 2.8 L Triglycerides 07/29/16 07/28/16 07/28/16 03:45 03:38 03:38 WBC 14.4 H 14.8 H RBC 3.10 L 3.25 L Hgb 9.7 L 10.4 L Hct 30.6 L 32.1 L RDW 15.3 H 15.1 H Gran % Lymph % (Auto) Gran # [place] # Seg Neutrophils % 80 H Lymphocytes % 8 L RBC Morphology Abnorm A Polychromasia Anisocytosis 1+ A Ovalocytes 1+ A Chloride Carbon Dioxide Anion Gap 17.0 H BUN 68 H Creatinine 3.1 H Glucose 32 L* Uric Acid 9.4 H Calcium 8.4 L Phosphorus Lactate Dehydrogenase Total Protein 5.8 L Albumin Triglycerides 194 H 07/27/16 23:09 WBC 13.5 H RBC 3.31 L Hgb 10.7 L Hct 31.8 L RDW Gran % 80.6 H Lymph % (Auto) 10.8 L Gran # 10.8 H [place] # 1.0 H Seg Neutrophils % Lymphocytes % RBC Morphology Polychromasia Anisocytosis Ovalocytes Chloride Carbon Dioxide Anion Gap BUN Creatinine Glucose Uric Acid Calcium Phosphorus Lactate Dehydrogenase Total Protein Albumin Triglycerides Meds: Medications Dextrose (Dextrose 50%) 25 ml IV UD PRN PRN Reason: Hypoglycemia Diagnostic Test (Pha) (Accu-Chek) 1 each FS Q6 JIAN Last Admin: 07/30/16 11:42 Dose: 1 each Hydralazine HCl (Apresoline) 20 mg IV Q4-6HP PRN PRN Reason: Hypertension Last Admin: 07/30/16 05:47 Dose: 20 mg Hydromorphone HCl (Dilaudid) 0 mg IV Q4HP PRN PRN Reason: Pain Last Admin: 07/30/16 12:26 Dose: 0.5 mg Potassium Chloride 40 meq/ (Dextrose) 520 mls @ 130 mls/hr IV UD PRN PRN Reason: K+ = or < 3.5 Levofloxacin (Levaquin) 750 mg in 150 mls @ 100 mls/hr IV Q48H JIAN Last Infusion: 07/29/16 11:18 Dose: Infused Magnesium Sulfate (Magnesium Sulfate) 2 gm in 50 mls @ 50 mls/hr IV UD PRN PRN Reason: MG = or < 1.7 Acetaminophen (Ofirmev) 1,000 mg in 100 mls @ 200 mls/hr IV Q6HP PRN PRN Reason: PAIN/FEVER > 101 Lactated Ringer's (Lactated Ringers) 1,000 mls @ 150 mls/hr IV .Q6H40M [facility] Last Infusion: 07/30/16 11:02 Dose: 50 mls/hr Metronidazole (Flagyl) 500 mg in 100 mls @ 100 mls/hr IV Q8H [facility] Last Admin: 07/30/16 14:33 Dose: 100 mls/hr Labetalol HCl 500 mg/ Dextrose 250 mls @ 60 mls/hr IV DUR JIAN; 2 MG/MIN PRN Reason: Protocol Last Titration: 07/29/16 23:45 Dose: 0 mg/min, 0 mls/hr Sodium Chloride (Sodium Chloride 0.9%) 250 mls @ 20 mls/hr IV .[id number] [facility] Last Admin: 07/30/16 11:00 Dose: Not Given Metoclopramide HCl (Reglan) 10 mg IV Q6 [facility] Last Admin: 07/30/16 11:42 Dose: 10 mg Ondansetron HCl (Zofran) 4 mg IV Q4-6HP PRN PRN Reason: Nausea And Vomiting Last Admin: 07/29/16 08:56 Dose: 4 mg Pantoprazole Sodium (Protonix) 40 mg IV QAMAC [facility] Last Admin: 07/30/16 07:35 Dose: 40 mg Sodium Chloride (Saline Flush) 10 ml IV Q8 [facility] Last Admin: 07/30/16 07:35 Dose: 10 ml Medical - PN: A/P - Time Spent With Patient Total time spent is greater than 50% in coordination of care (as documented) at patient's floor/unit and/or counseling patient: 15 - 24 minutes (1) Small bowel obstruction Status: Acute Assessment and plan: * Small bowel obstruction-. Postop day 3. managed by surgery. NG tube draining bilious output. Hospitalist consult * Systemic Inflammatory response syndrome-secondary to bowel obstruction. white count improved to 12.3. * ostoperative abdominal pain-clinically improved. * Acute on chronic renal failure-nephrology on board. Cr 3.9- 3.1->2.3->2.1. * Suboptimally controlled hypertension-managed by nephrology.off labetalol drip. Systolics around 150. Managed by nephrology * prior medical issues- all oral medications held until patient able to take orally. * DM type II- Transition to sliding scale insulin Plan * postop management per surgery * renal failure/hypertension management per nephrology * pre-existing medical condition management -restart on home meds once patient able to take orally Current Visit: Yes Medical - PN: Qual - VTE Deep Vein Thrombosis/Pulmonary Embolism Present on Admission: No
--- NOTE | 2016-07-30 15:14 | Nephrology Progress Note ---
Subjective Patient information: Note initiated : 07/30/16 at 3:11 pm Service Date, if different from initiated Date: [] Patient: Dania Nesbitt 70 y/o F admitted on 07/27/16 for Small Bowel Obstruction, Hypertension, CKD. Chief Complaint: [] Principal diagnosis: small bowel obstruction Interval history: patient continues to be NPO as still has poor bowel movement BP control better with labetalol gtt, this is on hold for now getting IVF but now seems to be getting fluid overloaded no edema no SOB No CP no other issues reported Pertinent ROS: as above Objective - Vital Signs Vital signs: Vital Signs Temp Pulse Pulse Pulse Resp BP Pulse Ox 07/30/16 12:00 98.1 F 81 18 146/48 95 07/30/16 11:00 98 H 14 119/65 97 07/30/16 10:00 98 H 18 127/65 96 07/30/16 09:00 96 H 18 119/65 97 07/30/16 08:04 92 07/30/16 08:00 98.8 F 82 18 148/48 92 07/30/16 07:00 98.9 F 77 20 149/45 91 07/30/16 06:00 94 H 15 149/49 91 07/30/16 05:00 76 16 149/56 95 07/30/16 04:00 98.5 F 78 17 141/45 95 07/30/16 03:00 98.4 F 75 76 79 18 140/57 95 07/30/16 02:00 98.4 F 75 14 144/40 95 07/30/16 01:00 68 14 144/42 98 07/30/16 00:00 98.4 F 68 15 142/44 97 07/29/16 23:00 68 16 139/57 96 07/29/16 22:00 70 16 134/47 97 07/29/16 21:00 69 12 130/44 96 07/29/16 20:00 74 14 139/50 97 07/29/16 19:45 157/48 07/29/16 19:00 98.7 F 78 15 152/48 98 07/29/16 18:15 80 20 168/48 98 07/29/16 18:00 86 20 186/50 99 07/29/16 17:00 102 H 20 189/57 98 07/29/16 16:00 98.7 F 91 H 16 182/54 98 Intake and Output 07/30/16 07/30/16 07/30/16 05:59 13:59 21:59 Intake Total 2444 / 2444 832 / 832 Output Total 2530 / 2530 450 / 450 Balance -86 / -86 382 / 382 Intake: IV 2444 / 2444 624 / 624 Sodium Chloride 0.9% 250 240 / 240 0 / 0 ml @ 20 mls/hr IV . [id number] JIAN Rx#:[id number] Trandate 500 mg In 154 / 154 Dextrose 5% in Water 150 ml @ 2 MG/MIN 60 mls/hr IV DUR JIAN Rx#:[id number] Lactated Ringers 1,000 ml 1951 / 1949 524 / 524 @ 150 mls/hr IV .Q6H40M JIAN Rx#:[id number] Oral 208 / 208 Output: Gastric Drainage 100 / 100 300 / 300 [place]-Sump 300 / 300 Urine Catheter Amount 430 / 430 150 / 150 Void Amount 1200 / 1200 Emesis 600 / 600 Estimated Blood Loss 200 / 200 Other: # Emeses 0 Intake & Output: Intake & Output 07/30/16 07/30/16 07/30/16 05:59 13:59 21:59 Intake Total 2444 / 2444 832 / 832 Output Total 2530 / 2530 450 / 450 Balance -86 / -86 382 / 382 Intake: IV 2444 / 2444 624 / 624 Sodium Chloride 0.9% 250 240 / 240 0 / 0 ml @ 20 mls/hr IV . [id number] JIAN Rx#:[id number] Trandate 500 mg In 154 / 154 Dextrose 5% in Water 150 ml @ 2 MG/MIN 60 mls/hr IV DUR JIAN Rx#:[id number] Lactated Ringers 1,000 ml 1949 / 1950 524 / 524 @ 150 mls/hr IV .Q6H40M JIAN Rx#:[id number] Oral 208 / 208 Output: Gastric Drainage 100 / 100 300 / 300 [place]-Sump 300 / 300 Urine Catheter Amount 430 / 430 150 / 150 Void Amount 1200 / 1200 Emesis 600 / 600 Estimated Blood Loss 200 / 200 Other: # Emeses 0 - General Appearance General appearance: appears started age, obese EENT: mucous membranes dry Neck: no JVD Respiratory: clear Cardiology: no edema, normal S1, normal S2 Gastrointestinal: no tenderness Integumentary: warm and dry Neurologic: alert and oriented x3 Musculoskeletal: no cyanosis, no clubbing Psychiatric: mood/affect appropriate - Lab 07/30/16 03:58 07/30/16 03:58 Most recent lab results Calcium 8.3 mg/dl (8.6-10.4) L 07/30/16 03:58 Phosphorus 1.9 mg/dL (2.7-4.5) L 07/30/16 03:58 Magnesium 1.7 mg/dL (1.6-2.5) 07/30/16 03:58 Assessment and Plan (1) Acute on chronic renal failure s.creatinine down to 2.1, at baseline Will reduce IVF to 50cc/hour no electrolyte issues uncontrolled HTN: use labetalol gtt prn to keep systolic BP less than 160/100 Malnutrition: patient continues to be NPO, if this will be prolonged please consider TPN, albumin low at 2.5 Anemia: Hb at 8.4, Has h/o iron deficiency and CKD and recent surgery all contributing will monitor will follow along Status: Acute
--- NOTE | 2016-07-30 15:48 | General Surgery Progress Note ---
Subjective Patient reports: feels better, pain is less, no flatus, no bowel movement, afebrile Narrative: Note initiated : 07/30/16 at 3:45 pm Service Date, if different from initiated Date: [] Patient: Dania Nesbitt 70 y/o F admitted on 07/27/16 for Small Bowel Obstruction, Hypertension, CKD. Chief Complaint: [patient is doing well She states that she has less pain She denies shortness of breath or chest pain. She has not had flatus or bowel movement. She denies nausea. She has mildgeneralized edema which is notunexpected. Her blood pressure is still fluctuating widely but is generally controlled.] Objective Temp Pulse Resp BP Pulse Ox 98.1 F 81 18 146/48 95 07/30/16 12:00 07/30/16 12:00 07/30/16 12:00 07/30/16 12:00 07/30/16 12:00 - Additional Data Intake & Output - Last 24 hours: Intake & Output 07/28/16 07/29/16 07/30/16 07/31/16 05:59 05:59 05:59 05:59 Intake Total 1172 / 2172 4728 / 4728 5184 / 5184 832 / 832 Output Total 1000 / 1420 2500 / 2500 3655 / 3655 450 / 450 Balance 172 / 752 2228 / 2228 1529 / 1529 382 / 382 Weight 184 lb 9.6 oz 185 lb 9.6 oz 191 lb 4.8 oz - Additional Exam patient is sitting upright in no acute distress HEENT unremarkable Neck supple without JVD Chest clear to auscultation bilaterally no wheezes or rales Heart regular rhythm rate about 90 no murmur Abdomen nondistended and soft with hypoactive bowel sounds; incision looks good; Extremities trace edema Neurologic exam no focal motor sensory or cerebellar deficits - Labs 07/30/16 03:58 07/30/16 03:58 Diabetes panel 07/30/16 Range/Units 03:58 Sodium 145 (133-145) mmol/L Potassium 3.5 (3.3-5.1) mmol/L Chloride 109 H (96-108) mmol/L Carbon Dioxide 23 (22-30) mmol/L BUN 45 H (8-23) mg/dl Creatinine 2.1 H (0.6-1.1) mg/dl Glucose 84 (70-105) mg/dL Calcium 8.3 L (8.6-10.4) mg/dl AST 17 (0-37) U/l ALT 8 (0-40) U/l Alkaline Phosphatase 74 (39-117) U/L Total Protein 4.7 L (5.9-8.4) gm/dL Albumin 2.5 L (3.2-5.2) gm/dL Triglycerides 71 (<150) mg/dl Calcium panel 07/30/16 Range/Units 03:58 Calcium 8.3 L (8.6-10.4) mg/dl Phosphorus 1.9 L (2.7-4.5) mg/dL Albumin 2.5 L (3.2-5.2) gm/dL Pituitary panel 07/30/16 Range/Units 03:58 Sodium 145 (133-145) mmol/L Potassium 3.5 (3.3-5.1) mmol/L Chloride 109 H (96-108) mmol/L Carbon Dioxide 23 (22-30) mmol/L BUN 45 H (8-23) mg/dl Creatinine 2.1 H (0.6-1.1) mg/dl Glucose 84 (70-105) mg/dL Calcium 8.3 L (8.6-10.4) mg/dl Adrenal panel 07/30/16 Range/Units 03:58 Sodium 145 (133-145) mmol/L Potassium 3.5 (3.3-5.1) mmol/L Chloride 109 H (96-108) mmol/L Carbon Dioxide 23 (22-30) mmol/L BUN 45 H (8-23) mg/dl Creatinine 2.1 H (0.6-1.1) mg/dl Glucose 84 (70-105) mg/dL Calcium 8.3 L (8.6-10.4) mg/dl Total Bilirubin 0.2 (0.0-1.0) mg/dL AST 17 (0-37) U/l ALT 8 (0-40) U/l Alkaline Phosphatase 74 (39-117) U/L Total Protein 4.7 L (5.9-8.4) gm/dL Albumin 2.5 L (3.2-5.2) gm/dL Medical - PN: A/P - Time Spent With Patient Total time spent is greater than 50% in coordination of care (as documented) at patient's floor/unit and/or counseling patient: (1) Small bowel obstruction Status: Acute Assessment and plan: improved status post extensive adhesio lysis Plan--continue nasogastric suction milk of magnesia 30 cc every 6 hours via nasogastric tube 3 doses Continue other therapy if no bowel movement we'll get abdominal series in the morning Current Visit: Yes (2) Hypertension, essential Status: Acute Current Visit: Yes (3) Chronic kidney disease, stage IV (severe) Status: Chronic Current Visit: Yes (4) CAD (coronary artery disease) Status: Acute Current Visit: No (5) Diabetes mellitus, type II Status: Acute Current Visit: No (6) Hyperparathyroidism due to renal insufficiency Status: Acute Current Visit: No (7) Hypertension, essential Status: Acute Current Visit: No (8) Metabolic acidosis Problem details: CKD Status: Acute Current Visit: No
[2016-07-30] MEDS: MAGNESIUM HYDROXIDE 30 ML ORAL.SUSP PO SCH ×2 (17:18→23:17)
[2016-07-30] MEDS ORDERED: HYDROmorphone 2 MG/ML SYRINGE IV PRN (20:01)
[2016-07-30] MEDS ORDERED: METOPROLOL TARTRATE 5 MG/5 ML VIAL IV PRN (21:09)
[2016-07-30] MEDS ORDERED: METOPROLOL TARTRATE 5 MG/5 ML VIAL IV ONE (22:43)
[2016-07-30] MEDS ORDERED: HYDROmorphone 2 MG/ML SYRINGE ONE (23:16)
[2016-07-30] MEDS ORDERED: NITROGLYCERIN/D5W 25 MG/250 ML BOTTLE IV SCH (23:45)
[2016-07-31] MEDS: LACTATED RINGERS 1,000 ML IV SCH ×2 (00:23→04:10)
[2016-07-31] MEDS: METOCLOPRAMIDE 10 MG/2 ML VIAL IV SCH ×4 (00:24→18:58)
[2016-07-31] MEDS ORDERED: NITROGLYCERIN/D5W 250 ML IV ONE ×2 (01:09→06:29)
[2016-07-31] MEDS: 0.9 % SODIUM CHLORIDE 250 ML IV SCH ×2 (01:15→12:30)
[2016-07-31] MEDS: hydrALAZINE 20 MG/ML VIAL IV PRN ×2 (04:15→08:20)
[2016-07-31 05:01] LABS: Mean Corpuscular HGB Conc 31.3 g/dL (31.0-36.0); Mean Corpuscular Hemoglobin 31.3 pg (26.0-34.0); Platelet Count 218 K/mcL (140-440); RBC 2.74 M/mcL (4.00-5.20)
[2016-07-31] MEDS ORDERED: cloNIDine TTS 2 1 PATCH PATCH TD ONE (05:08)
[2016-07-31] MEDS ORDERED: LACTATED RINGERS 1,000 ML IV SCH (05:15)
[2016-07-31] MEDS: MAGNESIUM HYDROXIDE 30 ML ORAL.SUSP PO SCH (05:30)
[2016-07-31] MEDS: 0.9 % SODIUM CHLORIDE 10 ML SYRINGE IV SCH (05:32)
[2016-07-31 05:42] LABS: ALT/SGPT 8 U/l (0-40); Albumin 2.6 gm/dL (3.2-5.2); Albumin/Globulin Ratio 1.2 (1.0-2.3); Alkaline Phosphatase 59 U/L (39-117); Bilirubin,Direct < 0.2 mg/dL (0.0-0.3); Blood Urea Nitrogen 38 mg/dl (8-23); Gamma Glutamyl Transpeptidase 11 U/L (5-36); Phosphorous 2.1 mg/dL (2.7-4.5); Uric Acid 8.4 mg/dL (2.5-8.0)
[2016-07-31 06:58] LABS: Band Neutrophils % 1 % (0-10); Eosinophils % (Manual) 3 % (0-7); Lymphocytes % 16 % (15-49); Monocytes % (Manual) 5 % (1-9); Platelet Estimate NORMAL (NORMAL); RBC Morphology NORMAL (NORMAL); Segmented Neutrophils % 74 % (38-78)
[2016-07-31] MEDS: metroNIDAZOLE 500 MG/100 ML BAG IV SCH ×3 (08:13→21:47)
[2016-07-31] MEDS: LEVOFLOXACIN 750 MG/150 ML BAG IV SCH (10:29)
[2016-07-31] MEDS: PANTOPRAZOLE 40 MG VIAL IV SCH (10:51)
[2016-07-31] MEDS ORDERED: FUROSEMIDE 20 MG/2 ML VIAL IV ONE (10:52)
[2016-07-31] MEDS: 0.45 % SODIUM CHLORIDE 1,000 ML IV SCH (11:00)
[2016-07-31] MEDS ORDERED: amLODIPine 5 MG TABLET PO SCH (11:00)
[2016-07-31] MEDS: LABETALOL 100 MG TABLET PO SCH ×2 (11:09→20:29)
--- NOTE | 2016-07-31 12:47 | Internal Med Progress Note ---
Medical - PN: Subj Patient information: Note initiated : 07/31/16 at 12:47 pm Service Date, if different from initiated Date: [] Patient: Dania Nesbitt 70 y/o F admitted on 07/27/16 for Small Bowel Obstruction, Hypertension, CKD. Chief Complaint: [] Interval history: 07/2775-8-paij-old with stage IV CKD admitted after 8 days onset of nausea vomiting abdominal pain. initial workup revealed bowel obstruction /acute renal failure from dehydration and continuous nausea vomiting. Admitted by surgery. On NG tube decompression. Possible surgery in a.m.. Nephrology on board. On IV crystalloids/IV opioids. creatinine at 4. White count 13.5. started on Levaquin and Flagyl. systolics around 190 with when necessary hydralazine orders 07/28- patient due for surgical intervention. Currently nothing by mouth/NG tube. No overnight events. Creatinine improved from 4-3.1. White count 14.8. On Levaquin and Flagyl. nephrology on board. review post operatively. Continue telemetry in light of renal failure and post surgical close monitoring. patient alert and responsive. Does not have any questions at this time. 3/2- Patient seen in room. No overnight events. Stable hemodynamics. NG tube in place. white count 14.4. postoperative Pain in good control. No telemetry events. No fever chills abdominal pain. No flatus. no other concerns per patient or staff. 3/3-downtrending leukocytosis to 12.3. Patient doing well. NG tube bilious output. No abdominal pain. at bedside. No telemetry events. especially nursing staff. 3/4-patient doing well. Last BM this morning. NG tube no significant output. Passing flatus. Feels hungry. at bedside. No overnight fever chills nausea vomiting. No telemetry events. On nitroglycerin drip for uncontrolled hypertension along with Lopressor/IV hydralazine. Nephrology on board. Hemoglobin at 8.6. no further determinations from hospitalist service - Constitutional Vitals: Vital Signs Temp Pulse Resp BP Pulse Ox 97.7 F 106 H 18 146/76 96 07/31/16 12:00 07/31/16 08:10 07/31/16 12:00 07/31/16 12:00 07/31/16 12:00 Period Temp Pulse Resp BP Sys/Garza Pulse Ox Last 24 Hr 97.7 F-99.3 F 76-108 12-20 143-216/46-113 90-96 Intake and Output 07/30/16 07/31/16 07/31/16 21:59 05:59 13:59 Intake Total 474 / 474 751 / 751 358 / 358 Output Total 705 / 705 555 / 555 140 / 140 Balance -231 / -231 196 / 196 218 / 218 Weight 191 lb 12.8 oz Intake & Output: Intake & Output 07/30/16 07/31/16 07/31/16 21:59 05:59 13:59 Intake Total 474 / 474 751 / 751 358 / 358 Output Total 705 / 705 555 / 555 140 / 140 Balance -231 / -231 196 / 196 218 / 218 Weight 191 lb 12.8 oz Intake: IV 100 / 100 376 / 376 258 / 258 Sodium Chloride 0.9% 250 158 / 158 ml @ 20 mls/hr IV . [id number] [facility] Rx#:[id number] Lactated Ringers 1,000 ml 276 / 276 @ 150 mls/hr IV .Q6H40M [facility] Rx#:[id number] Nitroglycerin/D5w 250 ml 0 / 0 0 / 0 As IV .STK-MED [facility] Rx#: [id number] Oral 374 / 374 375 / 375 100 / 100 Output: Gastric Drainage 270 / 270 [place] 270 / 270 Urine Catheter Amount 705 / 705 285 / 285 140 / 140 Other: # Bowel Movements 1 Medical - PN: Obj Da - Labs CBC & Chem 7: 07/31/16 03:45 07/31/16 15:45 Labs: Abnormal Lab Results 07/31/16 07/31/16 07/30/16 03:45 03:45 03:58 WBC 14.0 H RBC 2.74 L Hgb 8.6 L Hct 27.5 L RDW 16.0 H Seg Neutrophils % Lymphocytes % RBC Morphology Polychromasia Anisocytosis Ovalocytes Sodium 149 H Chloride 112 H 109 H Carbon Dioxide BUN 38 H 45 H Creatinine 1.7 H 2.1 H Glucose 114 H Uric Acid 8.4 H Calcium 8.5 L 8.3 L Phosphorus 2.1 L 1.9 L Lactate Dehydrogenase 265 H 263 H Total Protein 4.8 L 4.7 L Albumin 2.6 L 2.5 L 07/30/16 07/29/16 07/29/16 03:58 03:45 03:45 WBC 12.3 H 14.4 H RBC 2.66 L 3.10 L Hgb 8.4 L 9.7 L Hct 26.3 L 30.6 L RDW 15.8 H 15.3 H Seg Neutrophils % 81 H 80 H Lymphocytes % 13 L 8 L RBC Morphology Abnorm A Polychromasia Few A Anisocytosis 1+ A Ovalocytes 1+ A Sodium Chloride Carbon Dioxide 21 L BUN 50 H Creatinine 2.3 H Glucose 149 H Uric Acid Calcium 8.3 L Phosphorus Lactate Dehydrogenase Total Protein 5.3 L Albumin 2.8 L Meds: Medications Amlodipine Besylate (Norvasc) 5 mg PO DAILY [facility] Last Admin: 07/31/16 11:09 Dose: 5 mg Dextrose (Dextrose 50%) 25 ml IV UD PRN PRN Reason: Hypoglycemia Diagnostic Test (Pha) (Accu-Chek) 1 each FS Q6 [facility] Last Admin: 07/31/16 12:29 Dose: 1 each Hydralazine HCl (Apresoline) 20 mg IV Q4-6HP PRN PRN Reason: Hypertension Last Admin: 07/31/16 08:20 Dose: 20 mg Hydromorphone HCl (Dilaudid) 0 mg IV Q4HP PRN PRN Reason: Pain Last Admin: 07/30/16 23:18 Dose: 0.5 mg Potassium Chloride 40 meq/ (Dextrose) 520 mls @ 130 mls/hr IV UD PRN PRN Reason: K+ = or < 3.5 Levofloxacin (Levaquin) 750 mg in 150 mls @ 100 mls/hr IV Q48H [facility] Last Admin: 07/31/16 10:29 Dose: 100 mls/hr Magnesium Sulfate (Magnesium Sulfate) 2 gm in 50 mls @ 50 mls/hr IV UD PRN PRN Reason: MG = or < 1.7 Acetaminophen (Ofirmev) 1,000 mg in 100 mls @ 200 mls/hr IV Q6HP PRN PRN Reason: PAIN/FEVER > 101 Metronidazole (Flagyl) 500 mg in 100 mls @ 100 mls/hr IV Q8H [facility] Last Infusion: 07/31/16 12:33 Dose: Infused Labetalol HCl 500 mg/ Dextrose 250 mls @ 60 mls/hr IV DUR [facility]IAN; 2 MG/MIN PRN Reason: Protocol Last Titration: 07/29/16 23:45 Dose: 0 mg/min, 0 mls/hr Nitroglycerin/Dextrose (Nitroglycerin/D5w) 25 mg in 250 mls @ 3 mls/hr IV .Q24H [facility]; 5 MCG/MIN PRN Reason: Protocol Last Admin: 07/31/16 01:17 Dose: Not Given Sodium Chloride (Sodium Chloride 0.9%) 250 mls @ 20 mls/hr IV .[id number] [facility] Last Infusion: 07/31/16 12:31 Dose: 20 mls/hr Lactated Ringer's (Lactated Ringers) 1,000 mls @ 50 mls/hr IV .Q20H [facility] Last Admin: 07/31/16 08:16 Dose: 50 mls/hr Sodium Chloride (Sodium Chloride 0.45%) 1,000 mls @ 20 mls/hr IV .Q24H [facility] Last Admin: 07/31/16 11:00 Dose: 20 mls/hr Labetalol HCl (Trandate) 200 mg PO TID [facility] Last Admin: 07/31/16 11:09 Dose: 200 mg Metoclopramide HCl (Reglan) 10 mg IV Q6 [facility] Last Admin: 07/31/16 12:35 Dose: 10 mg Metoprolol Tartrate (Lopressor) 5 mg IV Q8HP PRN PRN Reason: Tachyarrhythmias Last Admin: 07/30/16 22:45 Dose: 5 mg Ondansetron HCl (Zofran) 4 mg IV Q4-6HP PRN PRN Reason: Nausea And Vomiting Last Admin: 07/29/16 08:56 Dose: 4 mg Pantoprazole Sodium (Protonix) 40 mg IV QAMAC [facility] Last Admin: 07/31/16 10:51 Dose: 40 mg Medical - PN: A/P - Time Spent With Patient Total time spent is greater than 50% in coordination of care (as documented) at patient's floor/unit and/or counseling patient: 15 - 24 minutes (1) Small bowel obstruction Status: Acute Assessment and plan: * Small bowel obstruction-. Postop day 4. managed by surgery. NG tube draining bilious output. * Systemic Inflammatory response syndrome-clinically resolved. * Postoperative abdominal pain-resolved * Acute on chronic renal failure-nephrology on board. Cr 3.9- 3.1->2.3->2.1. * Suboptimally controlled hypertension-managed by nephrology.on nitroglycerin/ hydralazine Hospitalist consult * prior medical issues- restart home meds once approved by surgery * DM type II- continue sliding scale insulin plan * Cntinue postop management per surgery * Continue renal failure/hypertension management per nephrology * restart home meds Current Visit: Yes Medical - PN: Qual - VTE Deep Vein Thrombosis/Pulmonary Embolism Present on Admission: No
--- NOTE | 2016-07-31 14:08 | General Surgery Progress Note ---
Subjective Patient reports: feels better, pain is less, tolerating liquids well, flatus, bowel movement, diarrhea, afebrile Narrative: Note initiated : 07/31/16 at 2:06 pm Service Date, if different from initiated Date: [] Patient: Dania Nesbitt 70 y/o F admitted on 07/27/16 for Small Bowel Obstruction, Hypertension, CKD. Chief Complaint: [Mrs. Nesbitt continues to do well. She had multiple bowel movements and has passed large volumes of flatus. She was given clear liquids and tolerated it very well. She denies shortness of breath or chest pain. Her blood pressure is still uncontrolled but she has been started on oral medications and hopefully she'll start to stabilize. She is stable enough to be moved to the regular floor when okayed by Dr. Mcmahan.] Objective Temp Pulse Resp BP Pulse Ox 97.7 F 106 H 19 166/47 93 07/31/16 12:00 07/31/16 08:10 07/31/16 13:00 07/31/16 13:00 07/31/16 13:00 - Additional Data Intake & Output - Last 24 hours: Intake & Output 07/29/16 07/30/16 07/31/16 08/01/16 05:59 05:59 05:59 05:59 Intake Total 4728 / 4728 5184 / 5184 2117 / 2117 508 / 508 Output Total 2500 / 2500 3655 / 3655 2590 / 2590 140 / 140 Balance 2228 / 2228 1529 / 1529 -473 / -473 368 / 368 Weight 185 lb 9.6 oz 191 lb 4.8 oz 191 lb 12.8 oz - Additional Exam patient is lying in bed in no acute dis distress HEENT no abnormalities noted Neck supple no JVD Chest clear to auscultation bilaterally no rales Heart regular rate and rhythm with resting tachycardia heart rate about 108 Abdomen soft no tenderness good active bowel sounds incision looks good Extremities no cyanosis or edema Neurologic exam no focal deficits - Labs 07/31/16 03:45 07/31/16 03:45 Diabetes panel 07/31/16 Range/Units 03:45 Sodium 149 H (133-145) mmol/L Potassium 3.6 (3.3-5.1) mmol/L Chloride 112 H (96-108) mmol/L Carbon Dioxide 22 (22-30) mmol/L BUN 38 H (8-23) mg/dl Creatinine 1.7 H (0.6-1.1) mg/dl Glucose 114 H (70-105) mg/dL Calcium 8.5 L (8.6-10.4) mg/dl AST 19 (0-37) U/l ALT 8 (0-40) U/l Alkaline Phosphatase 59 (39-117) U/L Total Protein 4.8 L (5.9-8.4) gm/dL Albumin 2.6 L (3.2-5.2) gm/dL Triglycerides 67 (<150) mg/dl Calcium panel 07/31/16 Range/Units 03:45 Calcium 8.5 L (8.6-10.4) mg/dl Phosphorus 2.1 L (2.7-4.5) mg/dL Albumin 2.6 L (3.2-5.2) gm/dL Pituitary panel 07/31/16 Range/Units 03:45 Sodium 149 H (133-145) mmol/L Potassium 3.6 (3.3-5.1) mmol/L Chloride 112 H (96-108) mmol/L Carbon Dioxide 22 (22-30) mmol/L BUN 38 H (8-23) mg/dl Creatinine 1.7 H (0.6-1.1) mg/dl Glucose 114 H (70-105) mg/dL Calcium 8.5 L (8.6-10.4) mg/dl Adrenal panel 07/31/16 Range/Units 03:45 Sodium 149 H (133-145) mmol/L Potassium 3.6 (3.3-5.1) mmol/L Chloride 112 H (96-108) mmol/L Carbon Dioxide 22 (22-30) mmol/L BUN 38 H (8-23) mg/dl Creatinine 1.7 H (0.6-1.1) mg/dl Glucose 114 H (70-105) mg/dL Calcium 8.5 L (8.6-10.4) mg/dl Total Bilirubin 0.3 (0.0-1.0) mg/dL AST 19 (0-37) U/l ALT 8 (0-40) U/l Alkaline Phosphatase 59 (39-117) U/L Total Protein 4.8 L (5.9-8.4) gm/dL Albumin 2.6 L (3.2-5.2) gm/dL Medical - PN: A/P - Time Spent With Patient Total time spent is greater than 50% in coordination of care (as documented) at patient's floor/unit and/or counseling patient: (1) Small bowel obstruction Status: Acute Assessment and plan: improved status post extensive adhesio lysis Pllan--- clear liquid diet as tolerated Advanced to full liquids in the morning Discontinue Sanchez catheter Transferred to [facility] [place] when cleared by Dr. Mcmahan Current Visit: Yes (2) Hypertension, essential Status: Acute Current Visit: Yes (3) Chronic kidney disease, stage IV (severe) Status: Chronic Current Visit: Yes (4) CAD (coronary artery disease) Status: Acute Current Visit: No (5) Diabetes mellitus, type II Status: Acute Current Visit: No (6) Hyperparathyroidism due to renal insufficiency Status: Acute Current Visit: No (7) Hypertension, essential Status: Acute Current Visit: No (8) Metabolic acidosis Problem details: CKD Status: Acute Current Visit: No
--- NOTE | 2016-07-31 15:11 | Nephrology Progress Note ---
Subjective Patient information: Note initiated : 07/31/16 at 3:09 pm Service Date, if different from initiated Date: [] Patient: Dania Nesbitt 70 y/o F admitted on 07/27/16 for Small Bowel Obstruction, Hypertension, CKD. Chief Complaint: [] Principal diagnosis: small bowel obstruction Interval history: Patient feeling much better today She has been started on clear liquid diet she denies SOB, CP, dizziness She is noted to have persistently elevated HTN, not responding to NTG gtt, lopressor IV and IV hydralazine I will resume her oral meds gradually Pertinent ROS: 10 point ROS done and pertinent positive and negative documented above Objective - Vital Signs Vital signs: Vital Signs Temp Pulse Pulse Resp BP BP BP 07/31/16 14:00 170/43 07/31/16 13:00 19 166/47 07/31/16 12:00 97.7 F 18 146/76 07/31/16 08:10 106 H 20 07/31/16 07:54 102 H 18 192/65 07/31/16 07:49 108 H 07/31/16 07:00 99.3 F 100 H 18 192/57 07/31/16 05:00 100 H 19 163/50 07/31/16 04:00 99.1 F 91 H 14 193/50 07/31/16 03:45 196/56 07/31/16 03:30 193/53 07/31/16 03:15 190/55 07/31/16 03:00 91 H 14 196/52 07/31/16 02:45 202/56 07/31/16 02:30 216/58 07/31/16 02:15 199/50 07/31/16 02:00 87 16 179/54 07/31/16 01:50 186/47 07/31/16 01:45 166/51 07/31/16 01:40 179/53 07/31/16 01:35 212/51 07/31/16 01:30 195/50 07/31/16 01:25 199/49 07/31/16 01:23 203/54 07/31/16 01:21 196/54 07/31/16 01:00 83 13 199/56 07/31/16 00:15 79 07/31/16 00:00 98.7 F 90 14 169/47 07/30/16 23:00 84 17 199/51 07/30/16 22:00 107 H 19 174/113 07/30/16 21:00 97 H 17 172/58 07/30/16 20:00 99.3 F 105 H 19 181/64 07/30/16 19:34 99 H 07/30/16 19:00 95 H 17 175/52 07/30/16 18:00 91 H 16 170/50 07/30/16 17:00 76 16 174/56 07/30/16 16:00 98.3 F 93 H 16 168/48 Pulse Ox 07/31/16 14:00 07/31/16 13:00 93 07/31/16 12:00 96 07/31/16 08:10 95 07/31/16 07:54 96 07/31/16 07:49 95 07/31/16 07:00 95 07/31/16 05:00 95 07/31/16 04:00 95 07/31/16 03:45 07/31/16 03:30 07/31/16 03:15 07/31/16 03:00 95 07/31/16 02:45 07/31/16 02:30 07/31/16 02:15 07/31/16 02:00 96 07/31/16 01:50 07/31/16 01:45 07/31/16 01:40 07/31/16 01:35 07/31/16 01:30 07/31/16 01:25 07/31/16 01:23 07/31/16 01:21 07/31/16 01:00 96 07/31/16 00:15 95 07/31/16 00:00 94 07/30/16 23:00 96 07/30/16 22:00 95 07/30/16 21:00 96 07/30/16 20:00 96 07/30/16 19:34 95 07/30/16 19:00 07/30/16 18:00 90 07/30/16 17:00 94 07/30/16 16:00 95 Intake and Output 07/31/16 07/31/16 07/31/16 05:59 13:59 21:59 Intake Total 751 / 751 508 / 508 560 / 560 Output Total 555 / 555 140 / 140 300 / 300 Balance 196 / 196 368 / 368 260 / 260 Intake: IV 376 / 376 408 / 408 Sodium Chloride 0.9% 250 158 / 158 ml @ 20 mls/hr IV . [id number] [facility] Rx#:[id number] Lactated Ringers 1,000 ml 276 / 276 @ 150 mls/hr IV .Q6H40M [facility] Rx#:[id number] Nitroglycerin/D5w 250 ml 0 / 0 0 / 0 As IV .STK-MED [facility] Rx#: [id number] Oral 375 / 375 100 / 100 560 / 560 Output: Gastric Drainage 270 / 270 [place]-Sump 270 / 270 Urine Catheter Amount 285 / 285 140 / 140 300 / 300 Other: # Bowel Movements 1 Intake & Output: Intake & Output 07/31/16 07/31/16 07/31/16 05:59 13:59 21:59 Intake Total 751 / 751 508 / 508 560 / 560 Output Total 555 / 555 140 / 140 300 / 300 Balance / 196 368 / 368 260 / 260 Intake: IV 376 / 376 408 / 408 Sodium Chloride 0.9% 250 158 / 158 ml @ 20 mls/hr IV . [id number] [facility] Rx#:[id number] Lactated Ringers 1,000 ml 276 / 276 @ 150 mls/hr IV .Q6H40M [facility] Rx#:[id number] Nitroglycerin/D5w 250 ml 0 / 0 0 / 0 As IV .STK-MED [facility] Rx#: [id number] Oral 375 / 375 100 / 100 560 / 560 Output: Gastric Drainage 270 / 270 [place]-Sump 270 / 270 Urine Catheter Amount 285 / 285 140 / 140 300 / 300 Other: # Bowel Movements 1 - General Appearance General appearance: appears started age, obese EENT: mucous membranes moist Neck: no JVD Respiratory: clear Cardiology: no rub, no edema, normal S1, normal S2 Integumentary: no rash, warm and dry Neurologic: no focal deficit, alert and oriented x3 Musculoskeletal: no erythema, no cyanosis Psychiatric: mood/affect appropriate - Lab 07/31/16 03:45 07/31/16 03:45 Most recent lab results Calcium 8.5 mg/dl (8.6-10.4) L 07/31/16 03:45 Phosphorus 2.1 mg/dL (2.7-4.5) L 07/31/16 03:45 Magnesium 2.0 mg/dL (1.6-2.5) 07/31/16 03:45 Assessment and Plan (1) Acute on chronic renal failure s.creatinine down to 1.7 d/c IVF enocurage free water intake as patient is hypernatremic uncontrolled HTN: restarted on amlodipine labetalol and hydralazine BP control improving will follow and optimize meds Malnutrition: will need nepro/suplena once can tolerate po Anemia: Hb at 8.4, Has h/o iron deficiency and CKD and recent surgery all contributing will monitor will follow along Status: Acute
[2016-07-31] MEDS ORDERED: amLODIPine 5 MG TABLET PO ONE (15:15)
[2016-07-31 16:39] LABS: Blood Urea Nitrogen 38 mg/dl (8-23)
[2016-07-31] MEDS: hydrALAZINE 25 MG TABLET PO SCH ×2 (17:26→20:28)
[2016-07-31] MEDS ORDERED: DEXTROSE 50% 50 ML VIAL IV PRN (18:41)
[2016-07-31] MEDS: INSULIN LISPRO 1 UNIT/0.01 ML UNIT SQ SCH (21:47)
[2016-08-01] MEDS: METOCLOPRAMIDE 10 MG/2 ML VIAL IV SCH ×4 (00:13→18:11)
[2016-08-01] MEDS: 0.9 % SODIUM CHLORIDE 250 ML IV SCH ×2 (03:11→14:49)
[2016-08-01] MEDS: DEXTROSE 5%-LR 1,000 ML IV SCH (03:16)
[2016-08-01] MEDS: hydrALAZINE 20 MG/ML VIAL IV PRN (05:05)
[2016-08-01 05:09] LABS: Mean Cell Volume 99.5 fL (80.0-100.0); Mean Corpuscular Hemoglobin 31.9 pg (26.0-34.0); Platelet Count 196 K/mcL (140-440); RBC 2.58 M/mcL (4.00-5.20); Red Cell Distribution Width 15.7 % (11.5-14.5)
[2016-08-01] MEDS: metroNIDAZOLE 500 MG/100 ML BAG IV SCH ×3 (05:12→22:40)
[2016-08-01 05:32] LABS: ALT/SGPT 8 U/l (0-40); Albumin 2.4 gm/dL (3.2-5.2); Albumin/Globulin Ratio 1.1 (1.0-2.3); Alkaline Phosphatase 53 U/L (39-117); Bilirubin,Direct < 0.2 mg/dL (0.0-0.3); Blood Urea Nitrogen 36 mg/dl (8-23); Gamma Glutamyl Transpeptidase 11 U/L (5-36); Magnesium 2.1 mg/dL (1.6-2.5); Phosphorous 1.5 mg/dL (2.7-4.5); Uric Acid 8.7 mg/dL (2.5-8.0)
[2016-08-01 05:47] LABS: Anisocytosis 1+ (NONE SEEN); Band Neutrophils % 2 % (0-10); Eosinophils % (Manual) 4 % (0-7); Lymphocytes % 14 % (15-49); Monocytes % (Manual) 10 % (1-9); Platelet Estimate NORMAL (NORMAL); RBC Morphology ABNORM (NORMAL); Segmented Neutrophils % 70 % (38-78)
[2016-08-01] MEDS: PANTOPRAZOLE 40 MG VIAL IV SCH (07:14)
[2016-08-01] MEDS: amLODIPine 10 MG TABLET PO SCH (08:16)
[2016-08-01] MEDS: INSULIN LISPRO 1 UNIT/0.01 ML UNIT SQ SCH ×4 (08:16→21:35)
[2016-08-01] MEDS: LEVOTHYROXINE SODIUM 112 MCG TABLET PO SCH (08:18)
[2016-08-01] MEDS: LABETALOL 100 MG TABLET PO SCH ×3 (08:18→20:09)
[2016-08-01] MEDS: LEVOTHYROXINE 25 MCG TABLET PO SCH (08:18)
[2016-08-01] MEDS: hydrALAZINE 25 MG TABLET PO SCH ×3 (08:22→20:10)
[2016-08-01] MEDS ORDERED: amLODIPine 5 MG TABLET PO SCH (09:00)
--- NOTE | 2016-08-01 10:21 | Internal Med Progress Note ---
Medical - PN: Subj Patient information: Note initiated : 08/01/16 at 10:18 am Service Date, if different from initiated Date: [] Patient: Dania Nesbitt 70 y/o F admitted on 07/27/16 for Small Bowel Obstruction, Hypertension, CKD. Chief Complaint: [] Interval history: 07/[id number]-nodc-old with stage IV CKD admitted after 8 days onset of nausea vomiting abdominal pain. initial workup revealed bowel obstruction /acute renal failure from dehydration and continuous nausea vomiting. Admitted by surgery. On NG tube decompression. Possible surgery in a.m.. Nephrology on board. On IV crystalloids/IV opioids. creatinine at 4. White count 13.5. started on Levaquin and Flagyl. systolics around 190 with when necessary hydralazine orders 07/28- patient due for surgical intervention. Currently nothing by mouth/NG tube. No overnight events. Creatinine improved from 4-3.1. White count 14.8. On Levaquin and Flagyl. nephrology on board. review post operatively. Continue telemetry in light of renal failure and post surgical close monitoring. patient alert and responsive. Does not have any questions at this time. /- Patient seen in room. No overnight events. Stable hemodynamics. NG tube in place. white count 14.4. postoperative Pain in good control. No telemetry events. No fever chills abdominal pain. No flatus. no other concerns per patient or staff. 3/-downtrending leukocytosis to 12.3. Patient doing well. NG tube bilious output. No abdominal pain. at bedside. No telemetry events. especially nursing staff. /-patient doing well. Last BM this morning. NG tube no significant output. Passing flatus. Feels hungry. at bedside. No overnight fever chills nausea vomiting. No telemetry events. On nitroglycerin drip for uncontrolled hypertension along with Lopressor/IV hydralazine. Nephrology on board. Hemoglobin at 8.6. no further determinations from hospitalist service 08/01- patient doing well. Tolerating diet and advancing as per surgery recommendations. Off nitro drip. Requiring intermittent hydralazine. hypertension management ongoing as per nephrology. Patient may be able to transfer out of the unit if adequate blood pressure control achieved on oral home meds. No other concerns per staff. No overnight fever chills abdominal pain. 4 BM since yesterday. No further recommendations from hospitalist service - Constitutional Vitals: Vital Signs Temp Pulse Resp BP Pulse Ox 98.5 F 80 14 169/44 95 08/01/16 04:00 08/01/16 00:00 08/01/16 05:59 08/01/16 05:59 08/01/16 05:59 Period Temp Pulse Resp BP Sys/Garza Pulse Ox Last 24 Hr 97.7 F-99.0 F 80-96 14-23 116-210/41-93 93-97 Intake and Output 07/31/16 08/01/16 08/01/16 21:59 05:59 13:59 Intake Total 1140 / 1140 1150 / 1150 Output Total 1100 / 1100 300 / 300 400 / 400 Balance 40 / 40 850 / 850 -400 / -400 Weight 196 lb 4.8 oz Intake & Output: Intake & Output 07/31/16 08/01/16 08/01/16 21:59 05:59 13:59 Intake Total 1140 / 1140 1150 / 1150 Output Total 1100 / 1100 300 / 300 400 / 400 Balance 40 / 40 850 / 850 -400 / -400 Weight 196 lb 4.8 oz Intake: IV 100 / 100 100 / 100 Oral 1040 / 1040 1050 / 1050 Output: Gastric Drainage 100 / 100 Urine Catheter Amount 300 / 300 400 / 400 Void Amount 200 / 200 Urine/Stool Mix 500 / 500 300 / 300 Other: Meal Dinner Percent of Meal Consumed 75% Feeding Ability Independent # Emeses 0 0 General appearance: cooperative, no acute distress Exam: onlabored breathing NG tube discontinued no anxiety Medical - PN: Obj Da - Labs CBC & Chem 7: 08/01/16 03:32 08/01/16 03:32 Labs: Abnormal Lab Results 08/01/16 08/01/16 07/31/16 03:32 03:32 15:45 WBC 12.6 H RBC 2.58 L Hgb 8.2 L Hct 25.6 L RDW 15.7 H Seg Neutrophils % Lymphocytes % 14 L Monocytes % (Manual) 10 H RBC Morphology Abnorm A Polychromasia Anisocytosis 1+ A Ovalocytes RBC Fragments Few A Sodium Chloride BUN 36 H 38 H Creatinine 1.9 H 1.7 H Glucose 132 H Uric Acid 8.7 H Calcium 7.8 L 8.1 L Phosphorus 1.5 L Lactate Dehydrogenase 291 H Total Protein 4.6 L Albumin 2.4 L 07/31/16 07/31/16 07/30/16 03:45 03:45 03:58 WBC 14.0 H RBC 2.74 L Hgb 8.6 L Hct 27.5 L RDW 16.0 H Seg Neutrophils % Lymphocytes % Monocytes % (Manual) RBC Morphology Polychromasia Anisocytosis Ovalocytes RBC Fragments Sodium 149 H Chloride 112 H 109 H BUN 38 H 45 H Creatinine 1.7 H 2.1 H Glucose 114 H Uric Acid 8.4 H Calcium 8.5 L 8.3 L Phosphorus 2.1 L 1.9 L Lactate Dehydrogenase 265 H 263 H Total Protein 4.8 L 4.7 L Albumin 2.6 L 2.5 L 07/30/16 03:58 WBC 12.3 H RBC 2.66 L Hgb 8.4 L Hct 26.3 L RDW 15.8 H Seg Neutrophils % 81 H Lymphocytes % 13 L Monocytes % (Manual) RBC Morphology Abnorm A Polychromasia Few A Anisocytosis 1+ A Ovalocytes 1+ A RBC Fragments Sodium Chloride BUN Creatinine Glucose Uric Acid Calcium Phosphorus Lactate Dehydrogenase Total Protein Albumin Meds: Medications Amlodipine Besylate (Norvasc) 10 mg PO DAILY [facility] Last Admin: 08/01/16 08:16 Dose: 10 mg Dextrose (Dextrose 50%) 0 ml IV UD PRN PRN Reason: Hypoglycemia Diagnostic Test (Pha) (Accu-Chek) 1 each FS ACHS [facility] Last Admin: 08/01/16 08:17 Dose: 1 each Hydralazine HCl (Apresoline) 20 mg IV Q4-6HP PRN PRN Reason: Hypertension Last Admin: 08/01/16 05:05 Dose: 20 mg Hydralazine HCl (Apresoline) 100 mg PO TID [facility] Last Admin: 08/01/16 08:22 Dose: 100 mg Hydromorphone HCl (Dilaudid) 0 mg IV Q4HP PRN PRN Reason: Pain Last Admin: 07/30/16 23:18 Dose: 0.5 mg Potassium Chloride 40 meq/ (Dextrose) 520 mls @ 130 mls/hr IV UD PRN PRN Reason: K+ = or < 3.5 Levofloxacin (Levaquin) 750 mg in 150 mls @ 100 mls/hr IV Q48H [facility] Last Infusion: 07/31/16 12:52 Dose: Infused Magnesium Sulfate (Magnesium Sulfate) 2 gm in 50 mls @ 50 mls/hr IV UD PRN PRN Reason: MG = or < 1.7 Acetaminophen (Ofirmev) 1,000 mg in 100 mls @ 200 mls/hr IV Q6HP PRN PRN Reason: PAIN/FEVER > 101 Metronidazole (Flagyl) 500 mg in 100 mls @ 100 mls/hr IV Q8H [facility] Last Admin: 08/01/16 05:12 Dose: 100 mls/hr Labetalol HCl 500 mg/ Dextrose 250 mls @ 60 mls/hr IV DUR JIAN; 2 MG/MIN PRN Reason: Protocol Last Titration: 07/29/16 23:45 Dose: 0 mg/min, 0 mls/hr Sodium Chloride (Sodium Chloride 0.9%) 250 mls @ 20 mls/hr IV .[id number] [facility] Last Admin: 08/01/16 03:11 Dose: Not Given Sodium Chloride (Sodium Chloride 0.45%) 1,000 mls @ 20 mls/hr IV .Q24H [facility] Last Admin: 07/31/16 11:00 Dose: 20 mls/hr Insulin Human Lispro (Humalog) 0 unit SQ ACHS JIAN PRN Reason: Protocol Last Admin: 08/01/16 08:16 Dose: Not Given Labetalol HCl (Trandate) 200 mg PO TID [facility] Last Admin: 08/01/16 08:18 Dose: 200 mg Levothyroxine Sodium (Synthroid) 112 mcg PO QAMAC [facility] Last Admin: 08/01/16 08:18 Dose: 112 mcg Levothyroxine Sodium (Synthroid) 25 mcg PO QAMAC [facility] Last Admin: 08/01/16 08:18 Dose: 25 mcg Metoclopramide HCl (Reglan) 10 mg IV Q6 [facility] Last Admin: 08/01/16 07:14 Dose: 10 mg Metoprolol Tartrate (Lopressor) 5 mg IV Q8HP PRN PRN Reason: Tachyarrhythmias Last Admin: 07/30/16 22:45 Dose: 5 mg Ondansetron HCl (Zofran) 4 mg IV Q4-6HP PRN PRN Reason: Nausea And Vomiting Last Admin: 07/29/16 08:56 Dose: 4 mg Pantoprazole Sodium (Protonix) 40 mg IV QAMAC JIAN Last Admin: 08/01/16 07:14 Dose: 40 mg Medical - PN: A/P - Time Spent With Patient Total time spent is greater than 50% in coordination of care (as documented) at patient's floor/unit and/or counseling patient: 15 - 24 minutes (1) Small bowel obstruction Status: Acute Assessment and plan: * Small bowel obstruction-. Postop day 5. managed by surgery. NG tube draining bilious output. * Systemic Inflammatory response syndrome-clinically resolved. * Postoperative abdominal pain-resolved * Acute on chronic renal failure-nephrology on board. Cr 3.9- 3.1->2.3->2.1. * Suboptimally controlled hypertension-managed by nephrology.off nitroglycerin drip. Restarting on home meds as per nephrology Hospitalist consult * prior medical issues- estart home meds * DM type II- continue sliding scale insulin plan * Cntinue postop management per surgery. likely discharge in 24 hours * Continue renal failure/hypertension management per nephrology * restart home meds including allopurinol,dipyridamole,aspirin, statin, levothyroxine and torsemide Current Visit: Yes Medical - PN: Qual - VTE Deep Vein Thrombosis/Pulmonary Embolism Present on Admission: No
[2016-08-01] MEDS: CALCIUM ACETATE 667 MG CAPSULE PO SCH ×2 (12:39→18:11)
[2016-08-01] MEDS: 0.45 % SODIUM CHLORIDE 1,000 ML IV SCH (13:03)
--- NOTE | 2016-08-01 14:38 | General Surgery Progress Note ---
Subjective Patient reports: feels better, pain is less, tolerating liquids well, flatus, bowel movement, afebrile Narrative: Note initiated : 08/01/16 at 2:38 pm Service Date, if different from initiated Date: [] Patient: Dania Nesbitt 70 y/o F admitted on 07/27/16 for Small Bowel Obstruction, Hypertension, CKD. Chief Complaint: [+patient is well without complaints.. She has tolerated her full liquids without difficulty. She has had multiple bowel movements. Her blood pressure remains uncontrolledthat she is otherwise doing well. She is afebrile] Objective Temp Pulse Resp BP Pulse Ox 98.4 F 80 20 156/58 94 08/01/16 12:00 08/01/16 00:00 08/01/16 13:00 08/01/16 13:00 08/01/16 13:00 - Additional Data Intake & Output - Last 24 hours: Intake & Output 07/30/16 07/31/16 08/01/16 08/02/16 05:59 05:59 05:59 05:59 Intake Total 5184 / 5184 2117 / 2117 2798 / 2798 300 / 300 Output Total 3655 / 3655 2590 / 2590 1540 / 1540 600 / 600 Balance 1529 / 1529 -473 / -473 1258 / 1258 -300 / -300 Weight 191 lb 4.8 oz 191 lb 12.8 oz 196 lb 4.8 oz - General physical appearance no distress, no pain - Eyes PERRL - ENT no congestion - Neck no masses, no venous distension - Respiratory normal expansion, clear to auscultation - Cardiovascular Cardiovascular exam: Present: normal rate and rhythm, RRR, +S1, +S2, tachycardia. Absent: JVD - Abdomen non tender, bowel sounds, surgical scars (abdomen is nondistended she has active bowel sounds. Her incision looks good.), distended - Integumentary no rash - Neurologic normal coordination, normal sensation - Musculoskeletal normal gait - Psychiatric oriented to time, oriented to person, oriented to place, speech is normal, memory intact - Labs 08/02/16 04:34 08/02/16 04:34 Diabetes panel 07/31/16 08/01/16 Range/Units 15:45 03:32 Sodium 140 140 (133-145) mmol/L Potassium 3.5 3.3 (3.3-5.1) mmol/L Chloride 105 105 (96-108) mmol/L Carbon Dioxide 24 24 (22-30) mmol/L BUN 38 H 36 H (8-23) mg/dl Creatinine 1.7 H 1.9 H (0.6-1.1) mg/dl Glucose 132 H 105 (70-105) mg/dL Calcium 8.1 L 7.8 L (8.6-10.4) mg/dl AST 21 (0-37) U/l ALT 8 (0-40) U/l Alkaline Phosphatase 53 (39-117) U/L Total Protein 4.6 L (5.9-8.4) gm/dL Albumin 2.4 L (3.2-5.2) gm/dL Triglycerides 65 (<150) mg/dl Calcium panel 07/31/16 08/01/16 Range/Units 15:45 03:32 Calcium 8.1 L 7.8 L (8.6-10.4) mg/dl Phosphorus 1.5 L (2.7-4.5) mg/dL Albumin 2.4 L (3.2-5.2) gm/dL Pituitary panel 07/31/16 08/01/16 Range/Units 15:45 03:32 Sodium 140 140 (133-145) mmol/L Potassium 3.5 3.3 (3.3-5.1) mmol/L Chloride 105 105 (96-108) mmol/L Carbon Dioxide 24 24 (22-30) mmol/L BUN 38 H 36 H (8-23) mg/dl Creatinine 1.7 H 1.9 H (0.6-1.1) mg/dl Glucose 132 H 105 (70-105) mg/dL Calcium 8.1 L 7.8 L (8.6-10.4) mg/dl Adrenal panel 07/31/16 08/01/16 Range/Units 15:45 03:32 Sodium 140 140 (133-145) mmol/L Potassium 3.5 3.3 (3.3-5.1) mmol/L Chloride 105 105 (96-108) mmol/L Carbon Dioxide 24 24 (22-30) mmol/L BUN 38 H 36 H (8-23) mg/dl Creatinine 1.7 H 1.9 H (0.6-1.1) mg/dl Glucose 132 H 105 (70-105) mg/dL Calcium 8.1 L 7.8 L (8.6-10.4) mg/dl Total Bilirubin 0.3 (0.0-1.0) mg/dL AST 21 (0-37) U/l ALT 8 (0-40) U/l Alkaline Phosphatase 53 (39-117) U/L Total Protein 4.6 L (5.9-8.4) gm/dL Albumin 2.4 L (3.2-5.2) gm/dL Medical - PN: A/P - Time Spent With Patient Total time spent is greater than 50% in coordination of care (as documented) at patient's floor/unit and/or counseling patient: (1) Small bowel obstruction Status: Acute Assessment and plan: improved status post extensive adhesio lysis Pllan---advanced to full liquid diet with soft diet inorning [facility] cleared[facility] Possible discharge in 1-2 days Current Visit: Yes (2) Hypertension, essential Status: Acute Current Visit: Yes (3) Chronic kidney disease, stage IV (severe) Status: Chronic Current Visit: Yes (4) CAD (coronary artery disease) Status: Acute Current Visit: No (5) Diabetes mellitus, type II Status: Acute Current Visit: No (6) Hyperparathyroidism due to renal insufficiency Status: Acute Current Visit: No (7) Hypertension, essential Status: Acute Current Visit: No (8) Metabolic acidosis Problem details: CKD Status: Acute Current Visit: No
[2016-08-01] MEDS: DIPYRIDAMOLE 50 MG TABLET PO SCH (20:12)
[2016-08-01] MEDS ORDERED: FAMOTIDINE 20 MG TABLET PO SCH (21:00)
[2016-08-01] MEDS ORDERED: ATORVASTATIN 20 MG TABLET PO SCH (21:00)
[2016-08-02] MEDS: 0.9 % SODIUM CHLORIDE 250 ML IV SCH ×3 (02:16→13:57)
[2016-08-02] MEDS: METOCLOPRAMIDE 10 MG/2 ML VIAL IV SCH ×4 (02:18→17:40)
[2016-08-02] MEDS: metroNIDAZOLE 500 MG/100 ML BAG IV SCH (05:04)
[2016-08-02 06:43] LABS: Basophils # (Auto) 0.1 K/mcL (0.0-0.3); Basophils % (Auto) 0.6 % (0.0-2.0); Eosinophils # (Auto) 0.8 K/mcL (0.0-0.7); Eosinophils % (Auto) 6.4 % (0.0-7.0); Granulocytes % (Auto) 66.2 % (38.0-78.0); Lymphocytes # (Auto) 2.3 K/mcL (1.5-4.8); Lymphocytes % (Auto) 18.7 % (15.5-49.0); Mean Cell Volume 99.6 fL (80.0-100.0); Mean Corpuscular HGB Conc 31.1 g/dL (31.0-36.0); Monocytes % (Auto) 8.1 % (1.0-9.0); Platelet Count 192 K/mcL (140-440); RBC 2.63 M/mcL (4.00-5.20); Red Cell Distribution Width 16.1 % (11.5-14.5)
[2016-08-02] MEDS: LEVOTHYROXINE 25 MCG TABLET PO SCH (07:12)
[2016-08-02] MEDS: INSULIN LISPRO 1 UNIT/0.01 ML UNIT SQ SCH ×4 (07:17→21:09)
[2016-08-02] MEDS: LEVOTHYROXINE SODIUM 112 MCG TABLET PO SCH (07:20)
[2016-08-02] MEDS ORDERED: glipiZIDE 5 MG TABLET PO SCH (07:30)
[2016-08-02] MEDS ORDERED: PANTOPRAZOLE 40 MG PACKET PO SCH (07:30)
[2016-08-02 07:37] LABS: ALT/SGPT 8 U/l (0-40); Albumin 2.6 gm/dL (3.2-5.2); Albumin/Globulin Ratio 1.4 (1.0-2.3); Alkaline Phosphatase 48 U/L (39-117); Bilirubin,Direct < 0.2 mg/dL (0.0-0.3); Blood Urea Nitrogen 35 mg/dl (8-23); Gamma Glutamyl Transpeptidase 9 U/L (5-36); Magnesium 2.1 mg/dL (1.6-2.5); Phosphorous 1.7 mg/dL (2.7-4.5); Uric Acid 8.4 mg/dL (2.5-8.0)
[2016-08-02] MEDS: hydrALAZINE 20 MG/ML VIAL IV PRN (07:45)
[2016-08-02] MEDS: amLODIPine 10 MG TABLET PO SCH (08:29)
[2016-08-02] MEDS: DIPYRIDAMOLE 50 MG TABLET PO SCH ×2 (08:29→21:04)
[2016-08-02] MEDS: CALCIUM ACETATE 667 MG CAPSULE PO SCH ×3 (08:29→17:30)
[2016-08-02] MEDS: hydrALAZINE 25 MG TABLET PO SCH ×3 (08:34→21:03)
[2016-08-02] MEDS: LABETALOL 100 MG TABLET PO SCH (08:34)
[2016-08-02] MEDS: LETROZOLE 2.5 MG PO SCH ×2 (08:42→09:47)
[2016-08-02] MEDS ORDERED: METOPROLOL SUCCINATE 50 MG TAB.XL.24H PO SCH (09:00)
[2016-08-02] MEDS ORDERED: TORSEMIDE 10 MG TABLET PO SCH (09:00)
[2016-08-02] MEDS ORDERED: ALLOPURINOL 100 MG TABLET PO SCH (09:00)
[2016-08-02] MEDS ORDERED: ASPIRIN 325 MG ENTERIC COATED TABLET PO SCH (09:00)
[2016-08-02] MEDS ORDERED: hydrALAZINE 20 MG/ML VIAL IV PRN (13:36)
[2016-08-02] MEDS ORDERED: DEXTROSE 50% 50 ML VIAL IV PRN (13:36)
[2016-08-02] MEDS ORDERED: POTASSIUM CHLORIDE 40 MEQ in DEXTROSE 5% IN WATER 500 ML IV PRN (13:36)
[2016-08-02] MEDS ORDERED: LABETALOL 500 MG in DEXTROSE 5% IN WATER 150 ML IV SCH (13:36)
[2016-08-02] MEDS ORDERED: HYDROmorphone 2 MG/ML SYRINGE IV PRN (13:36)
[2016-08-02] MEDS ORDERED: MAGNESIUM SULFATE 2 GM/50 ML BAG IV PRN (13:36)
[2016-08-02] MEDS ORDERED: METOPROLOL TARTRATE 5 MG/5 ML VIAL IV PRN (13:36)
[2016-08-02] MEDS ORDERED: ONDANSETRON 4 MG/2 ML VIAL IV PRN (13:36)
--- NOTE | 2016-08-02 14:14 | Operative Note ---
DATE OF OPERATION: 07/28/2016 PREOPERATIVE DIAGNOSIS: Small bowel obstruction. POSTOPERATIVE DIAGNOSIS: Extensive intraabdominal adhesions with two __ of small bowel obstruction with a separate closed loop obstruction. PROCEDURE: Exploratory laparotomy with extensive adhesiolysis. SURGEON: Brittani Ruth MD. FINDINGS: Extensive intraabdominal adhesions of the omentum to the root of the small bowel mesentery and across two separate loops of bowel with one causing a closed loop obstruction. DESCRIPTION OF PROCEDURE: Under general anesthesia, the patient's abdomen was prepped and draped in the sterile field. A timeout procedure was carried out as per protocol. A midline incision was made. There were extensive adhesions of the omentum to the anterior abdominal wall. This had to be taken down sharply using electrocautery and Metzenbaum scissors. Once this was done, I could readily see that there were two loops of small bowel that had traversed through an opening in the omentum and were adherent to the left lateral lower pelvic gutter. This was causing obstruction. I was able to free this up using Metzenbaum scissors, and when this was done I could see that the distal bowel was decompressed suggesting that this was one area of obstruction. These loops were followed back to the area of transition, and there was a tight stricture causing a closed loop obstruction since the bowel had twisted around the stenotic area. Using Metzenbaum scissors these adhesions were released and this released the major of obstruction. The omentum was then from the rest of the loops of the bowel. There were two pieces of omentum that were densely adherent to the root of the small bowel mesentery. When these adhesions were released, another area of obstruction was encountered. The bowel was then run from the ligament of Treitz back to the ileocecal valve. There were no other areas of obstruction. There were two areas where there was a tight loop, but the bowel was not totally obstructed, but these areas were also released, and the bowel was straightened. Irrigation was carried out. The colon appeared to be uninvolved. Sponge, needle, instrument and blade counts were verified as correct. The fascia was closed using #1 Prolene. Subcutaneous tissue was irrigated and then closed with 2-0 Monocryl. The skin was closed with ruby. The patient tolerated the procedure well. She was awakened, transferred to a bed and taken to the postoperative care unit in stable, satisfactory condition. LCS:reggie Job ID: [id number] Doc ID: [id number] Brittani Ruth M.D.
--- NOTE | 2016-08-02 14:17 | General Surgery Progress Note ---
Subjective Patient reports: feels better, tolerating a regular diet, flatus, bowel movement , afebrile Narrative: Note initiated : 08/02/16 at 2:15 pm Service Date, if different from initiated Date: [] Patient: Dania Nesbitt 70 y/o F admitted on 07/27/16 for Small Bowel Obstruction, Hypertension, CKD. Chief Complaint: [atient has fully recovered from her operative procedure and her GI function is back to baseline. She is tolerating a regular dietand is stable for transfer home] Objective Temp Pulse Resp BP Pulse Ox 98.3 F 72 16 136/44 98 08/02/16 12:00 08/02/16 13:00 08/02/16 13:00 08/02/16 12:00 08/02/16 13:00 - Additional Data Intake & Output - Last 24 hours: Intake & Output 07/31/16 08/01/16 08/02/16 08/03/16 05:59 05:59 05:59 05:59 Intake Total 2117 / 2117 2798 / 2798 1600 / 1600 240 / 240 Output Total 2590 / 2590 1540 / 1540 1300 / 1300 100 / 100 Balance -473 / -473 1258 / 1258 300 / 300 140 / 140 Weight 191 lb 12.8 oz 196 lb 4.8 oz 197 lb 11.2 oz - General physical appearance well developed, no distress, no pain - ENT no congestion - Neck no venous distension - Respiratory normal expansion, normal respiratory effort, clear to auscultation - Cardiovascular Cardiovascular exam: Present: normal rate and rhythm, RRR, +S1, +S2. Absent: JVD - Abdomen soft, non tender, bowel sounds, distended (abdominal exam is totally benign) - Integumentary no rash - Neurologic normal coordination, normal sensation - Musculoskeletal normal gait, normal posture - Psychiatric oriented to time, oriented to person, oriented to place, speech is normal, memory intact - Labs 08/02/16 04:34 08/02/16 04:34 Diabetes panel 08/02/16 Range/Units 04:34 Sodium 138 (133-145) mmol/L Potassium 3.1 L (3.3-5.1) mmol/L Chloride 104 (96-108) mmol/L Carbon Dioxide 24 (22-30) mmol/L BUN 35 H (8-23) mg/dl Creatinine 2.1 H (0.6-1.1) mg/dl Glucose 109 H (70-105) mg/dL Calcium 8.0 L (8.6-10.4) mg/dl AST 20 (0-37) U/l ALT 8 (0-40) U/l Alkaline Phosphatase 48 (39-117) U/L Total Protein 4.5 L (5.9-8.4) gm/dL Albumin 2.6 L (3.2-5.2) gm/dL Triglycerides 116 (<150) mg/dl Calcium panel 08/02/16 Range/Units 04:34 Calcium 8.0 L (8.6-10.4) mg/dl Phosphorus 1.7 L (2.7-4.5) mg/dL Albumin 2.6 L (3.2-5.2) gm/dL Pituitary panel 08/02/16 Range/Units 04:34 Sodium 138 (133-145) mmol/L Potassium 3.1 L (3.3-5.1) mmol/L Chloride 104 (96-108) mmol/L Carbon Dioxide 24 (22-30) mmol/L BUN 35 H (8-23) mg/dl Creatinine 2.1 H (0.6-1.1) mg/dl Glucose 109 H (70-105) mg/dL Calcium 8.0 L (8.6-10.4) mg/dl Adrenal panel 08/02/16 Range/Units 04:34 Sodium 138 (133-145) mmol/L Potassium 3.1 L (3.3-5.1) mmol/L Chloride 104 (96-108) mmol/L Carbon Dioxide 24 (22-30) mmol/L BUN 35 H (8-23) mg/dl Creatinine 2.1 H (0.6-1.1) mg/dl Glucose 109 H (70-105) mg/dL Calcium 8.0 L (8.6-10.4) mg/dl Total Bilirubin 0.3 (0.0-1.0) mg/dL AST 20 (0-37) U/l ALT 8 (0-40) U/l Alkaline Phosphatase 48 (39-117) U/L Total Protein 4.5 L (5.9-8.4) gm/dL Albumin 2.6 L (3.2-5.2) gm/dL Medical - PN: A/P - Time Spent With Patient Total time spent is greater than 50% in coordination of care (as documented) at patient's floor/unit and/or counseling patient: (1) Small bowel obstruction Status: Acute Assessment and plan: patient is doing well and is stable for discharge from general surgery perspective Will follow-up in the office 10 August 2016 Current Visit: Yes (2) Hypertension, essential Status: Acute Current Visit: Yes (3) Chronic kidney disease, stage IV (severe) Status: Chronic Current Visit: Yes (4) CAD (coronary artery disease) Status: Acute Current Visit: No (5) Diabetes mellitus, type II Status: Acute Current Visit: No (6) Hyperparathyroidism due to renal insufficiency Status: Acute Current Visit: No (7) Hypertension, essential Status: Acute Current Visit: No (8) Metabolic acidosis Problem details: CKD Status: Acute Current Visit: No
[2016-08-02] MEDS ORDERED: POTASSIUM CHLORIDE 20 MEQ PACKET PO ONE (14:18)
[2016-08-02] MEDS ORDERED: LABETALOL 100 MG TABLET PO SCH (15:00)
--- NOTE | 2016-08-02 15:20 | Internal Med Progress Note ---
Medical - PN: Subj Patient information: Note initiated : 08/02/16 at 3:17 pm Service Date, if different from initiated Date: [] Patient: Dania Nesbitt 70 y/o F admitted on 07/27/16 for Small Bowel Obstruction, Hypertension, CKD. Chief Complaint: [] Interval history: 07/2771-3-iviq-old with stage IV CKD admitted after 8 days onset of nausea vomiting abdominal pain. initial workup revealed bowel obstruction /acute renal failure from dehydration and continuous nausea vomiting. Admitted by surgery. On NG tube decompression. Possible surgery in a.m.. Nephrology on board. On IV crystalloids/IV opioids. creatinine at 4. White count 13.5. started on Levaquin and Flagyl. systolics around 190 with when necessary hydralazine orders 07/28- patient due for surgical intervention. Currently nothing by mouth/NG tube. No overnight events. Creatinine improved from 4-3.1. White count 14.8. On Levaquin and Flagyl. nephrology on board. review post operatively. Continue telemetry in light of renal failure and post surgical close monitoring. patient alert and responsive. Does not have any questions at this time. 07/29- Patient seen in room. No overnight events. Stable hemodynamics. NG tube in place. white count 14.4. postoperative Pain in good control. No telemetry events. No fever chills abdominal pain. No flatus. no other concerns per patient or staff. 3/-downtrending leukocytosis to 12.3. Patient doing well. NG tube bilious output. No abdominal pain. at bedside. No telemetry events. especially nursing staff. 07/31-patient doing well. Last BM this morning. NG tube no significant output. Passing flatus. Feels hungry. at bedside. No overnight fever chills nausea vomiting. No telemetry events. On nitroglycerin drip for uncontrolled hypertension along with Lopressor/IV hydralazine. Nephrology on board. Hemoglobin at 8.6. no further determinations from hospitalist service 08/01- patient doing well. Tolerating diet and advancing as per surgery recommendations. Off nitro drip. Requiring intermittent hydralazine. hypertension management ongoing as per nephrology. Patient may be able to transfer out of the unit if adequate blood pressure control achieved on oral home meds. No other concerns per staff. No overnight fever chills abdominal pain. 4 BM since yesterday. No further recommendations from hospitalist service 3/6 Pt seen examined, no acute overnight events, BP high this AM but overall has shown a good trend, pt wanting to go home. Plan was for pt to go home if possible and bp ok, PT eval appreciated, they have recommended skilled PT for the patient. Discussed same with the patient who agrees to go to SNF for rehabl Low K noted and PO replacement given. Pt is clear for D/C from surgery stand point. She is able to tolerate PO diet well. Pertinent ROS: Denies headache, dizziness Denies chest pain, palpitations Denies cough or shortness of breath Denies abdominal pain, nausea or vomiting. - Constitutional Vitals: Vital Signs Temp Pulse Resp BP Pulse Ox 97.9 F 70 16 145/69 96 08/02/16 14:27 08/02/16 14:27 08/02/16 14:27 08/02/16 14:27 08/02/16 14:27 Period Temp Pulse Resp BP Sys/Garza Pulse Ox Last 24 Hr 97.9 F-98.6 F 62-88 12-20 135-191/37-69 89-100 Intake and Output 08/02/16 08/02/16 08/02/16 05:59 13:59 21:59 Intake Total 710 / 710 240 / 240 Output Total 400 / 400 100 / 100 Balance 310 / 310 140 / 140 Weight 197 lb 11.2 oz Patient Weight 08/03/16 05:59 Weight 197 lb 11.2 oz Intake & Output: Intake & Output 08/02/16 08/02/16 08/02/16 05:59 13:59 21:59 Intake Total 710 / 710 240 / 240 Output Total 400 / 400 100 / 100 Balance 310 / 310 140 / 140 Weight 197 lb 11.2 oz Intake: IV 200 / 200 Oral 510 / 510 240 / 240 Output: Void Amount 100 / 100 Urine/Stool Mix 400 / 400 Other: Meal Dinner Breakfast Percent of Meal Consumed 75% 100% Feeding Ability Assist with Tray Set Up Exam: Constitutional; Afebrile, cooperative, alert, not in distress. Eyes- No icterus, Pupils equal, reactive, No periorbital swelling Ears- Ext ear normal, hearing normal to conversation. Neck- Midline trachea, supple Respiratory system: Air Entry equal on both sides, No crackles or wheezing, no rhonchi. CVS- Rate rhythm regular, S1,S2 heard, no gallop, no rub. Abdomen- Soft nontender abdomen, no organomegaly, no tenderness, no guarding or rigidity, [employer] DES[employer]ER- AOOx3, moving all extremities, no focal deficit noted. Medical - PN: Obj Da - Labs CBC & Chem 7: 08/02/16 04:34 08/02/16 04:34 Labs: Abnormal Lab Results 08/02/16 08/02/16 08/01/16 04:34 04:34 03:32 WBC 12.3 H RBC 2.63 L Hgb 8.1 L Hct 26.2 L RDW 16.1 H Gran # 8.1 H Garza # 1.0 H Eos # 0.8 H Lymphocytes % Monocytes % (Manual) RBC Morphology Anisocytosis RBC Fragments Sodium Potassium 3.1 L Chloride BUN 35 H 36 H Creatinine 2.1 H 1.9 H Glucose 109 H Uric Acid 8.4 H 8.7 H Calcium 8.0 L 7.8 L Phosphorus 1.7 L 1.5 L Lactate Dehydrogenase 291 H Total Protein 4.5 L 4.6 L Albumin 2.6 L 2.4 L Globulin 1.9 L 08/01/16 07/31/16 07/31/16 03:32 15:45 03:45 WBC 12.6 H RBC 2.58 L Hgb 8.2 L Hct 25.6 L RDW 15.7 H Gran # Garza # Eos # Lymphocytes % 14 L Monocytes % (Manual) 10 H RBC Morphology Abnorm A Anisocytosis 1+ A RBC Fragments Few A Sodium 149 H Potassium Chloride 112 H BUN 38 H 38 H Creatinine 1.7 H 1.7 H Glucose 132 H 114 H Uric Acid 8.4 H Calcium 8.1 L 8.5 L Phosphorus 2.1 L Lactate Dehydrogenase 265 H Total Protein 4.8 L Albumin 2.6 L Globulin 07/31/16 03:45 WBC 14.0 H RBC 2.74 L Hgb 8.6 L Hct 27.5 L RDW 16.0 H Gran # Garza # Eos # Lymphocytes % Monocytes % (Manual) RBC Morphology Anisocytosis RBC Fragments Sodium Potassium Chloride BUN Creatinine Glucose Uric Acid Calcium Phosphorus Lactate Dehydrogenase Total Protein Albumin Globulin Meds: Medications Allopurinol (Zyloprim) 100 mg PO QDAY JIAN Amlodipine Besylate (Norvasc) 10 mg PO DAILY JIAN Aspirin (Ecotrin) 325 mg PO DAILY JIAN Atorvastatin Calcium (Lipitor) 40 mg PO HS JIAN Calcium Acetate (Phoslo) 667 mg PO TIDCC JIAN Dextrose (Dextrose 50%) 0 ml IV UD PRN PRN Reason: Hypoglycemia Diagnostic Test (Pha) (Accu-Chek) 1 each FS ACHS JIAN Famotidine (Pepcid) 40 mg PO HS JIAN Glipizide (Glucotrol) 10 mg PO QAMAC JIAN Hydralazine HCl (Apresoline) 20 mg IV Q8HP PRN PRN Reason: Hypertension Hydralazine HCl (Apresoline) 100 mg PO TID JIAN Hydromorphone HCl (Dilaudid) 0 mg IV Q4HP PRN PRN Reason: Pain Potassium Chloride 40 meq/ (Dextrose) 520 mls @ 130 mls/hr IV UD PRN PRN Reason: K+ = or < 3.5 Labetalol HCl 500 mg/ Dextrose 250 mls @ 60 mls/hr IV DUR JIAN; 2 MG/MIN PRN Reason: Protocol Magnesium Sulfate (Magnesium Sulfate) 2 gm in 50 mls @ 50 mls/hr IV UD PRN PRN Reason: MG = or < 1.7 Sodium Chloride (Sodium Chloride 0.9%) 250 mls @ 20 mls/hr IV .[id number] [facility] Last Admin: 08/02/16 13:56 Dose: Not Given Sodium Chloride (Sodium Chloride 0.9%) 250 mls @ 20 mls/hr IV .[id number] [facility] Last Admin: 08/02/16 13:57 Dose: Not Given Insulin Human Lispro (Humalog) 0 unit SQ ACHS JIAN PRN Reason: Protocol Labetalol HCl (Trandate) 200 mg PO TID JIAN Levothyroxine Sodium (Synthroid) 25 mcg PO QAMAC JIAN Levothyroxine Sodium (Synthroid) 112 mcg PO QAMAC JIAN Metoclopramide HCl (Reglan) 10 mg IV Q6 JIAN Metoprolol Succinate (Toprol Xl) 150 mg PO QDAY JIAN Metoprolol Tartrate (Lopressor) 5 mg IV Q8HP PRN PRN Reason: Tachyarrhythmias Dipyridamole 50 Mg (Tablet) 1 dose PO BID JIAN Ondansetron HCl (Zofran) 4 mg IV Q4-6HP PRN PRN Reason: Nausea And Vomiting Pantoprazole Sodium (Protonix) 40 mg PO BIDAC JIAN Letrozole [Femara] 2 (.5 Mg Tablet) 1 dose PO DAILY JIAN Torsemide (Demadex) 20 mg PO DAILY JIAN Medical - PN: A/P - Time Spent With Patient Total time spent is greater than 50% in coordination of care (as documented) at patient's floor/unit and/or counseling patient: - Narrative A/P Narrative: SBO- Resolved s/p surgery Hypokalemia- Po replacement given HTN- IV hydralazine used this AM, D/c clonidine patch, d/c labetalol and resume po clonidine at home dose 0.2mg bid, continue metoprolol at 150, continue amlodipine 10mg , torsemide 20mg. Monitor BP overnight Debility/ Weakness- Due to surgery/ Hospital stay, will need ongoing PT at SNF anticipate D/C to SNF in AM DM glucose levels ok, continue to monitor, sliding scale insulin. Medical - PN: Qual - VTE Deep Vein Thrombosis/Pulmonary Embolism Present on Admission: No
--- NOTE | 2016-08-02 17:01 | Nephrology Progress Note ---
Subjective Patient information: Note initiated : 08/02/16 at 4:59 pm Service Date, if different from initiated Date: [] Patient: Dania Nesbitt 70 y/o F admitted on 07/27/16 for Small Bowel Obstruction, Hypertension, CKD. Chief Complaint: [] Principal diagnosis: small bowel obstruction Interval history: no new issues eating well, started on full diet no SOB, CP, dizziness no nausea, vomiting BP control improving with resuming of home meds Pertinent ROS: as above Objective - Vital Signs Vital signs: Vital Signs Temp Pulse Pulse Pulse Resp BP Pulse Ox 08/02/16 14:27 97.9 F 70 16 145/69 96 08/02/16 13:00 72 16 98 08/02/16 12:00 98.3 F 20 136/44 97 08/02/16 11:00 62 16 150/37 96 08/02/16 10:00 66 18 135/39 100 08/02/16 09:00 84 18 163/57 99 08/02/16 08:00 88 16 184/43 99 08/02/16 07:25 98 08/02/16 07:00 77 16 191/48 97 08/02/16 06:37 72 18 98 08/02/16 05:57 12 161/47 98 08/02/16 05:00 14 152/47 98 08/02/16 04:00 98.2 F 12 157/45 98 08/02/16 03:00 16 160/43 97 08/02/16 02:00 68 20 160/48 97 08/02/16 00:49 98.6 F 16 158/49 98 08/02/16 00:00 16 154/41 98 08/01/16 23:00 16 153/47 98 08/01/16 22:00 14 148/40 89 L 08/01/16 21:00 18 140/44 94 08/01/16 20:00 98.5 F 16 175/45 97 08/01/16 19:00 20 175/47 08/01/16 18:00 20 163/44 Intake and Output 08/02/16 08/02/16 08/02/16 05:59 13:59 21:59 Intake Total 710 / 710 240 / 240 Output Total 400 / 400 100 / 100 Balance 310 / 310 140 / 140 Intake: IV 200 / 200 Oral 510 / 510 240 / 240 Output: Void Amount 100 / 100 Urine/Stool Mix 400 / 400 Other: Meal Dinner Breakfast Percent of Meal Consumed 75% 100% Feeding Ability Assist with Tray Set Up Weight 197 lb 11.2 oz Patient Weight 08/03/16 05:59 Weight 197 lb 11.2 oz Intake & Output: Intake & Output 08/02/16 08/02/16 08/02/16 05:59 13:59 21:59 Intake Total 710 / 710 240 / 240 Output Total 400 / 400 100 / 100 Balance 310 / 310 140 / 140 Weight 197 lb 11.2 oz Intake: IV 200 / 200 Oral 510 / 510 240 / 240 Output: Void Amount 100 / 100 Urine/Stool Mix 400 / 400 Other: Meal Dinner Breakfast Percent of Meal Consumed 75% 100% Feeding Ability Assist with Tray Set Up - General Appearance General appearance: appears started age, obese EENT: mucous membranes moist Neck: no JVD Respiratory: clear Cardiology: no rub, no edema, normal S1, normal S2 Gastrointestinal: no tenderness, no guarding Integumentary: no rash, warm and dry Neurologic: no asterixis, alert and oriented x3 Musculoskeletal: no erythema, no cyanosis Psychiatric: mood/affect appropriate - Lab 08/02/16 04:34 08/02/16 04:34 Most recent lab results Calcium 8.0 mg/dl (8.6-10.4) L 08/02/16 04:34 Phosphorus 1.7 mg/dL (2.7-4.5) L 08/02/16 04:34 Magnesium 2.1 mg/dL (1.6-2.5) 08/02/16 04:34 Assessment and Plan (1) Acute on chronic renal failure s.creatinine is at 2.1 baseline 2.6-3.0 so will monitor, this may get worse as BP control improves will monitor will follow in 2 weeks after discharge uncontrolled HTN: BP much control with resuming home meds will follow will follow as outpt in 2 weeks she will be discharged to rehab facility Status: Acute
[2016-08-02] MEDS: PANTOPRAZOLE 40 MG PACKET PO SCH (17:30)
[2016-08-02] MEDS ORDERED: FAMOTIDINE 20 MG TABLET PO SCH (21:00)
[2016-08-02] MEDS ORDERED: ATORVASTATIN 20 MG TABLET PO SCH (21:00)
[2016-08-02] MEDS: cloNIDine HCL 0.1 MG TABLET PO SCH (21:02)
[2016-08-02] MEDS: 0.9 % SODIUM CHLORIDE 10 ML SYRINGE IV SCH (21:04)
[2016-08-03] MEDS: METOCLOPRAMIDE 10 MG/2 ML VIAL IV SCH ×3 (00:20→12:24)
[2016-08-03] MEDS: 0.9 % SODIUM CHLORIDE 250 ML IV SCH ×2 (02:14)
[2016-08-03 06:43] LABS: Basophils # (Auto) 0.1 K/mcL (0.0-0.3); Basophils % (Auto) 0.8 % (0.0-2.0); Eosinophils % (Auto) 6.6 % (0.0-7.0); Granulocytes % (Auto) 64.4 % (38.0-78.0); Lymphocytes % (Auto) 20.4 % (15.5-49.0); Mean Cell Volume 98.6 fL (80.0-100.0); Mean Corpuscular HGB Conc 31.6 g/dL (31.0-36.0); Mean Corpuscular Hemoglobin 31.2 pg (26.0-34.0); Monocytes # (Auto) 1.1 K/mcL (0.1-0.9); Monocytes % (Auto) 7.8 % (1.0-9.0); Platelet Count 194 K/mcL (140-440); RBC 2.73 M/mcL (4.00-5.20)
[2016-08-03 07:21] LABS: ALT/SGPT 9 U/l (0-40); Albumin 2.7 gm/dL (3.2-5.2); Albumin/Globulin Ratio 1.6 (1.0-2.3); Alkaline Phosphatase 54 U/L (39-117); Bilirubin,Direct < 0.2 mg/dL (0.0-0.3); Blood Urea Nitrogen 38 mg/dl (8-23); Gamma Glutamyl Transpeptidase 11 U/L (5-36); Magnesium 2.1 mg/dL (1.6-2.5); Phosphorous 1.7 mg/dL (2.7-4.5); Uric Acid 8.6 mg/dL (2.5-8.0)
[2016-08-03] MEDS: PANTOPRAZOLE 40 MG PACKET PO SCH (07:22)
[2016-08-03] MEDS: INSULIN LISPRO 1 UNIT/0.01 ML UNIT SQ SCH ×2 (07:23→11:26)
[2016-08-03] MEDS ORDERED: LEVOTHYROXINE 25 MCG TABLET PO SCH (07:30)
[2016-08-03] MEDS ORDERED: LEVOTHYROXINE SODIUM 112 MCG TABLET PO SCH (07:30)
[2016-08-03] MEDS ORDERED: glipiZIDE 5 MG TABLET PO SCH (07:30)
[2016-08-03] MEDS: CALCIUM ACETATE 667 MG CAPSULE PO SCH ×2 (07:57→12:24)
[2016-08-03] MEDS ORDERED: METOPROLOL SUCCINATE 50 MG TAB.XL.24H PO SCH (09:00)
[2016-08-03] MEDS ORDERED: ALLOPURINOL 100 MG TABLET PO SCH (09:00)
[2016-08-03] MEDS ORDERED: LETROZOLE 2.5 MG PO SCH (09:00)
[2016-08-03] MEDS ORDERED: amLODIPine 10 MG TABLET PO SCH (09:00)
[2016-08-03] MEDS ORDERED: ASPIRIN 325 MG ENTERIC COATED TABLET PO SCH (09:00)
[2016-08-03] MEDS ORDERED: TORSEMIDE 10 MG TABLET PO SCH (09:00)
[2016-08-03] MEDS: hydrALAZINE 25 MG TABLET PO SCH (09:21)
[2016-08-03] MEDS: cloNIDine HCL 0.1 MG TABLET PO SCH (09:23)
[2016-08-03] MEDS: DIPYRIDAMOLE 50 MG TABLET PO SCH (09:24)
--- NOTE | 2016-08-03 10:28 | XRay Report ---
CLINICAL INFORMATION: Elevated white blood cell count COMPARISON: 07/27/2016. FINDINGS: Moderate cardiomegaly has increased slightly. Mediastinum and pulmonary vessels are normal. Lungs are clear. No effusions IMPRESSION: Moderate cardiomegaly. No infiltrates Interpreted and Authenticated by: Kurtis Lizama 08/03/16
--- NOTE | 2016-08-03 11:27 | Discharge Summary ---
Medical - DS: Prov Patient information: Note initiated : 08/03/16 at 11:22 am Service Date, if different from initiated Date: [] Patient: Dania Nesbitt 70 y/o F admitted on 07/27/16 for Small Bowel Obstruction, Hypertension, CKD. Chief Complaint: [] Date of admission: 07/27/16 19:50 Discharge date: 08/03/16 Primary care physician: [f_Reg Prim Care Provider] Admitting clinician: Arie Peguero Consults: Surgery- Small bowel obstruction- S/p adhesion lysis in the OR, Nephrology- CKD and Uncontrolled HTN. PT- for therapy Discharging clinician: Heraclio Youssef Medical - DS: Meds - Discharge Medications Prescriptions: amLODIPine BESYLATE [Amlodipine Besylate] 10 mg PO DAILY #1 tablet Active and Home Medications: Home Medications allopurinol 100 mg tablet 100 mg PO QDAY tab 12/18/14 [History Confirmed Last Taken 1 Week Ago] atorvastatin 40 mg tablet 40 mg PO QHS tab 12/18/14 [History Confirmed Last Taken 1 Week Ago] clonidine HCl 0.2 mg tablet 0.2 mg PO BID tab 12/18/14 [History Confirmed 07/27 Last Taken 1 Week Ago] metoprolol succinate ER 50 mg tablet,extended release 24 hr 150 mg PO QDAY tab 12/18/14 [History Confirmed 07/27/16 Last Taken 1 Week Ago] nitroglycerin 0.4 mg sublingual tablet 0.4 mg SUBLINGUAL Q5-15MIN PRN tab 12/18 [History Confirmed 07/27/16 Last Taken Unknown] ranitidine 150 mg tablet 150 mg PO QDAY tab 12/18/14 [History Confirmed Last Taken 1 Week Ago] glipizide 10 mg tablet 10 mg PO QDAY tab 12/20/14 [History Confirmed 07/27/16 Last Taken 1 Week Ago] letrozole 2.5 mg tablet 2.5 mg PO QDAY tab 12/20/14 [History Confirmed Last Taken 1 Week Ago] levothyroxine 137 mcg tablet 137 mcg PO QDAY 04/01/15 [History Confirmed Last Taken 1 Week Ago] torsemide 20 mg tablet 40 mg PO BID tab 08/28/15 [History Confirmed 07/27/16 Last Taken 1 Week Ago] aspirin 325 mg tablet 325 mg PO QDAY 03/30/16 [History Confirmed 07/27/16 Last Taken 1 Week Ago] dipyridamole 50 mg tablet 200 mg PO BID tab 03/30/16 [History Confirmed Last Taken 1 Week Ago] calcium acetate 667 mg capsule 667 mg PO TID 30 Days 05/06/16 [Rx Confirmed Last Taken 1 Week Ago] hydralazine 100 mg tablet 100 mg PO TID 90 Days 05/10/16 [Rx Confirmed 07/27/16 Last Taken 1 Week Ago] amlodipine 5 mg tablet 5 mg PO QDAY 07/12/16 [History Confirmed 07/27/16 Last Taken 1 Week Ago] ferrous sulfate 325 mg (65 mg iron) tablet 325 mg PO QDAY 07/12/16 [History Confirmed 07/27/16 Last Taken 1 Week Ago] Medical - DS: Hosp Hospital course: Mrs. Nesbitt is a 70 year old female who presented to the hospital with nausea and vomiting, due to small bowel obstruction See below for hospital Course. 07/2787-0-pvmx-old with stage IV CKD admitted after 8 days onset of nausea vomiting abdominal pain. initial workup revealed bowel obstruction /acute renal failure from dehydration and continuous nausea vomiting. Admitted by surgery. On NG tube decompression. Possible surgery in a.m.. Nephrology on board. On IV crystalloids/IV opioids. creatinine at 4. White count 13.5. started on Levaquin and Flagyl. systolics around 190 with when necessary hydralazine orders 07/28- patient due for surgical intervention. Currently nothing by mouth/NG tube. No overnight events. Creatinine improved from 4-3.1. White count 14.8. On Levaquin and Flagyl. nephrology on board. review post operatively. Continue telemetry in light of renal failure and post surgical close monitoring. patient alert and responsive. Does not have any questions at this time. 3/2- Patient seen in room. No overnight events. Stable hemodynamics. NG tube in place. white count 14.4. postoperative Pain in good control. No telemetry events. No fever chills abdominal pain. No flatus. no other concerns per patient or staff. 3/3-downtrending leukocytosis to 12.3. Patient doing well. NG tube bilious output. No abdominal pain. at bedside. No telemetry events. especially nursing staff. 3/4-patient doing well. Last BM this morning. NG tube no significant output. Passing flatus. Feels hungry. at bedside. No overnight fever chills nausea vomiting. No telemetry events. On nitroglycerin drip for uncontrolled hypertension along with Lopressor/IV hydralazine. Nephrology on board. Hemoglobin at 8.6. no further determinations from hospitalist service 08/01- patient doing well. Tolerating diet and advancing as per surgery recommendations. Off nitro drip. Requiring intermittent hydralazine. hypertension management ongoing as per nephrology. Patient may be able to transfer out of the unit if adequate blood pressure control achieved on oral home meds. No other concerns per staff. No overnight fever chills abdominal pain. 4 BM since yesterday. No further recommendations from hospitalist service 08/02 Pt seen examined, no acute overnight events, BP high this AM but overall has shown a good trend, pt wanting to go home. Plan was for pt to go home if possible and bp ok, PT eval appreciated, they have recommended skilled PT for the patient. Discussed same with the patient who agrees to go to SNF for rehabl Low K noted and PO replacement given. Pt is clear for D/C from surgery stand point. She is able to tolerate PO diet well. 08/03 Pt continues to do well, BP this AM good, tolerating PO well, ok to d/c home as per PT, needs outpatient PT, pt also wants to go home Will d/c home today with outpatient PT her WBC count was uptrending today, but she has no fever, no chills, no urinary s ymptoms. X ray chest is negative today, she has some mild inflammation at the site of IV access, but no edema, no other skin breakdown. Not sure about the etiology of WBC count, but pt does not appear to have a septic focus at this time. Even the surgical site appeared clean. Small Bowel Obstruction- s/p treatment with adhensoion lysis, Surg consult appreciated, pt was able to tolerate PO well, good BM on discharge. follow up with Surger in the clinic. HTN- BP was uncontrolled during the hospital stay, Nephrology consulted for same , we increased the dose of amlodipine from 5mg to 10mg, rest of medication remain the same, bp on discharge is in the normal range CKD- creat slightly worsening on discharge, but she has waxing and waning numbers, She will follow up with nephrology as outpatient. Leucocytosis- Likely post op- etiology not clear, clinically not clear e/o infection. Follow up with pcp for further eval. Discharge diagnosis: Small bowel obstruction. - Time Spent with Patient Total time spent providing and/or coordinating discharge services: Greater than 30 minutes Medical - DS: Exam - Constitutional Vitals: Vital Signs Temp Pulse Resp BP Pulse Ox 08/03/16 06:50 97.5 F L 64 16 164/67 96 08/03/16 04:00 98.1 F 74 24 167/63 96 08/03/16 00:00 98.1 F 71 24 142/55 94 08/02/16 20:00 98.6 F 72 24 147/56 95 08/02/16 14:27 97.9 F 70 16 145/69 96 08/02/16 13:00 72 16 98 08/02/16 12:00 98.3 F 20 136/44 97 Intake and Output 08/02/16 08/03/16 08/03/16 21:59 05:59 13:59 Intake Total 480 / 480 100 / 100 120 / 120 Balance 480 / 480 100 / 100 120 / 120 Intake: Oral 480 / 480 100 / 100 120 / 120 Other: Meal Lunch Breakfast Percent of Meal Consumed 100% 100% Feeding Ability Independent Independent # Voids 1 1 # Bowel Movements 1 Weight 198 lb Additional comments: Constitutional; Afebrile, cooperative, alert, not in distress. Eyes- No icterus, Pupils equal, reactive, No periorbital swelling Ears- Ext ear normal, hearing normal to conversation. Neck- Midline trachea, supple Respiratory system: Air Entry equal on both sides, No crackles or wheezing, no rhonchi. CVS- Rate rhythm regular, S1,S2 heard, no gallop, no rub. Abdomen- Soft nontender abdomen, no organomegaly, no tenderness, no guarding or rigidity, ruby in place, no discharge, no localized tenderness. BILLER- AOOx3, moving all extremities, no focal deficit noted. Medical - DS: Data Labs on day of discharge: Labs from last 24 hours 08/03/16 08/03/16 05:07 05:07 WBC 14.6 H RBC 2.73 L Hgb 8.5 L Hct 26.9 L MCV 98.6 MCH 31.2 MCHC 31.6 RDW 16.0 H Plt Count 194 MPV 9.1 Gran % 64.4 Lymph % (Auto) 20.4 [place] % (Auto) 7.8 Eos % (Auto) 6.6 Baso % (Auto) 0.8 Gran # 9.4 H Lymph # 3.0 [place] # 1.1 H Eos # 1.0 H Baso # 0.1 Sodium 139 Potassium 4.0 Chloride 105 Carbon Dioxide 23 Anion Gap 11.0 BUN 38 H Creatinine 2.3 H GFR Calculation 21 Glucose 54 L Uric Acid 8.6 H Calcium 8.1 L Phosphorus 1.7 L Magnesium 2.1 Total Bilirubin 0.3 Direct Bilirubin < 0.2 GGT 11 AST 21 ALT 9 Alkaline Phosphatase 54 Lactate Dehydrogenase 235 Total Protein 4.4 L Albumin 2.7 L Globulin 1.7 L Albumin/Globulin Ratio 1.6 Triglycerides 151 H Medical - DS: A/P - Patient/Caregiver Discharge Instructions Activity: as per physical therapy, increase activity as tolerated Diet: Renal Additional Instructions: Follow up with nephrology in 10-14 days Follow up with surgery as per surgery instructions. Follow up with PCP in 7-10 days Go to the ER if fever, chest pain or shortness of breath or intractable nausea and vomiting. - Follow up Plan Follow up with: Brittani Ruth MD [Physician] - 08/10/16 9:15 am Princess Carrasco MD [Primary Care Provider] - Monique Hernandez MD [Physician] - Disposition: Home, Self-Care Prognosis: Fair Rehab Potential: Fair I certify that the patient requires SNF services: No Overall status at discharge: patient is progressing back to baseline Medical - DS: Qual - VTE Deep Vein Thrombosis/Pulmonary Embolism Present on Admission: No
== END 2016-08-03 13:15 | disposition home or self-care (01) | DRG 336 ==
LOC: ED 15:07 → ICU 19:48 → MEDSUR 08-02 14:00
PROVIDERS: ADMIT Family Medicine Adult Medicine; ATTEND Internal Medicine

== ENCOUNTER 2022-02-20 13:50 | Inpatient (IN) ==
--- NOTE | 2022-02-20 14:26 | Internal Med History&Physical ---
HPI History of Present Illness Patient information: Note initiated : 02/20/22 at 2:20 pm Service Date, if different from initiated Date: [] Patient: Dania Nesbitt a 76 y/o F admitted on for Hypoglycemia, dialysis. Chief Complaint: [] Chief complaint: lethargic History of present illness: Ms. Nesbitt is a 76 year old F history of breast cancer, type 2 diabetes mellitus, end-stage renal disease on peritoneal dialysis, essential hypertensions, mixed dyslipidemia, CAD status post PCI with drug-eluting stents, CVA, gout, hypothyroidism, atrial fibrillation, presenting with lethargy and syncope. Patient is on glipizide and her is helping her to manage the medications. She was found to be extremely lethargic and syncope/near syncope by day of . EMS recall and blood glucose level was checked at the scene in the 20s. D50 X2 were given in route to the outside ER, where she was being started on D10 drip. Repeat blood sugar level was 120s, D10 drip started. Transfer request called for peritoneal dialysis capacity in our facility. [employer] Dr. Pleitez consulted for peritoneal dialysis needs. Constitutional Constitutional: Absent chills, excessive sweating, fatigue, fever(s) or weakness EENT Eyes: Absent blurry vision, change in vision, loss of vision or other visual disturbances Ears: Absent decreased hearing or tinnitus Nose, mouth and throat: Absent abnormal hearing, dry mouth, headache(s), nasal congestion or sore throat Cardiovascular Cardiovascular: Absent chest pain, chest pain at rest, edema, irregular heart rhythm or palpatations Respiratory Respiratory: Absent cough, dyspnea or wheezing Gastrointestinal Gastrointestinal: Absent abdominal pain, constipation, diarrhea, nausea or vomiting Musculoskeletal Musculoskeletal: Absent back pain, deformity, limited range of motion, muscle cramps, muscle weakness or numbness Integumentary Integumentary: Absent lesions, rash or wounds Neurological Neurological: Absent focal weakness, headache(s) or numbness Psychiatric Psychiatric: Absent anxiety, depression or hallucinations PFSH PFSH All Active Problems (Updated 02/20/22 @ 14:56 by Socrates Penny MD) Hypoglycemia associated with type 2 diabetes mellitus (Acute) On home O2 (Acute) Breast cancer (Acute) Atrial fibrillation (Acute) Hypothyroidism (acquired) (Acute) ESRD on peritoneal dialysis (Chronic) Acute non-ST elevation myocardial infarction (NSTEMI) (Acute) Abnormal electrocardiogram finding (Acute) Localized edema due to fluid overload (Chronic) Left carotid artery stenosis (Chronic) Iron deficiency anemia, unspecified (Chronic) Hypertension, essential (Chronic) History of hysterectomy (Chronic) History of coronary angioplasty (Chronic) History of colectomy (Chronic) History of cholecystectomy (Acute) Vitamin D deficiency (Acute) Stroke (Chronic) Secondary hyperparathyroidism of renal origin (Chronic) Disturbance of skin sensation (Chronic) Morbid obesity (Acute) care home current use of aspirin (Acute) IBS (irritable bowel syndrome) (Acute) Hypertension, essential (Chronic) Hyperlipidemia (Acute) Homocystinemia (Acute) Gout (Chronic) Edema (Chronic) Diabetes mellitus, type II (Chronic ~2002) CAD (coronary artery disease) (Chronic) Medical History (Updated 02/20/22 @ 14:56 by Socrates Penny MD) CAD (coronary artery disease) Diabetes mellitus, type II (~2002) Disturbance of skin sensation Numbness, tingling, burning. Edema Gout Homocystinemia Hyperlipidemia Hypertension, essential Hypertension, essential IBS (irritable bowel syndrome) manager intermediate current use of aspirin Morbid obesity Secondary hyperparathyroidism of renal origin Small bowel obstruction Stroke Most recent in March 2019; obtain records from [facility]. Vitamin D deficiency Surgical History History of cholecystectomy History of colectomy History of coronary angioplasty History of exploratory laparotomy 07/28/2016-with extensive adhesiolysis History of hysterectomy Family History Father Alcohol abuse, Onset Age: 64 Mother Malignant neoplasm of breast Chronic obstructive pulmonary disease, Onset Age: 84 Essential hypertension Unknown Malignant neoplasm of cervix Chronic Kidney Disease Disorder of metabolism Social History marital status: education level: high school occupational status: retired alcohol intake frequency: does not drink MEDS/ALLERGIES Home Medications and Allergies Home Medications Medication Instructions Recorded Confirmed Type allopurinol 100 mg tablet 100 mg PO QDAY 12/18/14 05/20/20 History atorvastatin 40 mg tablet 40 mg PO QHS 12/18/14 05/20/20 History nitroglycerin 0.4 mg sublingual 0.4 mg sublingual Q5-15MIN PRN 12/18/14 05/20/20 History tablet chest pain 3 doses ranitidine HCl 150 mg tablet 150 mg PO QDAY 12/18/14 05/20/20 History levothyroxine 137 mcg tablet 137 mcg PO QDAY 04/01/15 05/20/20 History hydralazine 100 mg tablet 100 mg PO TID 90 days #270 tabs 05/10/16 05/20/20 Rx amlodipine 10 mg tablet 10 mg PO QDAY 04/05/17 05/20/20 History glipizide 5 mg tablet, extended 5 mg PO QDAY 12/19/17 05/20/20 History release 24 hr clonidine HCl 0.2 mg tablet 0.2 mg PO TID 05/08/19 05/20/20 History torsemide 20 mg tablet 40 mg PO BID 07/10/19 05/20/20 History metoprolol succinate 50 mg 50 mg PO QDAY #90 tabs 03/20/20 05/20/20 Rx tablet,extended release 24 hr gentamicin 0.1 % topical cream 1 applic topical DIRECTED PD 01/16/21 Rx catheter #30 grams cholecalciferol (vitamin D3) 125 125 mcg PO QDAY #90 tabs 06/15/21 Rx mcg (5,000 unit) tablet Allergies Allergy/AdvReac Type Severity Reaction Status Date / Time Sulfa (Sulfonamide Allergy Severe SWELLING/HI Verified 05/20/20 11:10 Antibiotics) VES [SULFA (SULFONAMIDE ANTIBIOTICS)] adhesive Allergy Intermediate bleeding Verified 05/20/20 11:10 sores chlorhexidine Allergy Mild Hives Verified 05/20/20 11:10 [From Hibiclens] clopidogrel [From Plavix] Allergy Mild Hives Verified 05/20/20 11:10 BRENTON Inhibitors Allergy Unknown Unknown Verified 05/20/20 11:10 aspirin [From Aggrenox] AdvReac Mild pain Verified 02/20/22 14:45 dipyridamole [From Aggrenox] AdvReac Mild pain Verified 02/20/22 14:45 meloxicam [From Mobic] AdvReac Mild Gastrointestinal Verified 05/20/20 11:10 Upset sucroferric oxyhydroxide AdvReac Mild GI upset Verified 02/20/22 14:45 [From Velphoro] EXAM Constitutional General appearance: cooperative and no acute distress Head Head exam: Present atraumatic and normocephalic Eye Eye exam: Present EOMI and PERRL ENT ENT exam: Present mucous membranes moist, normal exam and normal external ear exam Additional comments: Nasal cannula in place Neck Neck exam: Present normal inspection; Absent lymphadenopathy, tenderness or thyromegaly Respiratory Respiratory exam: Absent accessory muscle use, respiratory distress or wheezes Cardiovascular Cardiovascular exam: Present bradycardia; Absent JVD GI/Abdominal GI/Abdominal exam: Present normal bowel sounds and soft; Absent organomegaly or tenderness Extremities Exam Extremities exam: Present full ROM, normal capillary refill and normal inspectio n; Absent tenderness Additional comments: AV fistula in place Neurological Exam Neurological exam: Present alert, CN II-XII intact and oriented X3; Absent motor sensory deficit Psychiatric Psychiatric exam: Present normal affect and normal mood; Absent anxious or depressed Skin Skin exam: Present dry and intact A/P Assessment and plan (1) ESRD on peritoneal dialysis: Status: Chronic (2) Acute non-ST elevation myocardial infarction (NSTEMI): Status: Acute (3) Hypertension, essential: Status: Chronic (4) Stroke: Status: Chronic Comment: Most recent in March 2019; [facility] (5) Hyperlipidemia: Status: Acute (6) Gout: Status: Chronic (7) Diabetes mellitus, type II: Status: Chronic (8) Hypothyroidism (acquired): Status: Acute (9) Atrial fibrillation: Status: Acute (10) Breast cancer: Status: Acute (11) On home O2: Status: Acute Narrative A/P Narrative: Assessment and Plans: 1. T2DM with hypoglycemia: Inpatient PCU Hold any oral hypoglycemics Accu Chek q4hr Lispro SSI q4hr Hypoglycemia protocol Diabetic diet Diabetic education 2. h/o breast cancer: Continue to follow up outpatient oncology 3. ESRD on peritoneal dialysis: Consult Dr. Pleitez for peritoneal dialysis needs 4. Essential hypertension: d/c Clonidine d/c PO Hydralazine d/c Lisinopril Hydralazine 10mg IV q4-6 hr PRN SBP>=180 and/or DBP>=110mmHg Continue Torsemide Hold Metoprolol ER due to bradycardia with heart rate in the 40s bpm 5. Dyslipidemia: Continue statin therapy 6. c/o NSTEMI s/p PCI with drug eluting stent: Aspirin Statin 7. Hypothyroidism: Continue thyroid replacement therapy 8. h/o Gout: Allopurinol 9. h/o CVA: On anticoagulation therapy Coumadin 10. h/o atrial fibrillation: Hold Metoprolol ER due to bradycardia with heart rate in the 40s bpm On anticoagulation therapy Coumadin Need to update her med list from previous hospital encounter GI ppx: Famotidine DVT ppx: Coumadin Code status: DNR Prognosis: Extremely guarded Disposition: Inpatient PCU; PT OT Time Spent With Patient Time: Total time spent is greater than 50% in coordination of care (as documented) at patient's floor/unit and/or counseling patient: Total time spent with greater than 50% in coordination of care (as documented) at patient's floor/unit and/or counseling patient:: 50 - 70 minutes
--- OUTSIDE RECORDS SUMMARY | 2022-02-20 14:31 | External Medical Summary | Continuity of Care Document ---
:1945 Author Organization [facility] Address [address] [place] [address] [place] [address] Care Team Providers Name Role Phone CarrascoPrincess Primary Care Physician Solange Shea Unavailable Unavailable Encounter [facility] Date(s): 02/17/22 - 02/17/22 [facility] [address] [place] [address] [facility] [place] [address]- [place] Encounter Diagnosis Recurrent breast cancer (Discharge Diagnosis) - 02/18/22 Bilateral hip pain (Discharge Diagnosis) - 02/17/22 Peritoneal dialysis status (Discharge Diagnosis) - 02/18/22 Ischemic dilated cardiomyopathy (Discharge Diagnosis) - 02/18/22 Dilated cardiomyopathy (Discharge Diagnosis) - 02/17/22 End stage renal disease (Discharge Diagnosis) - 02/17/22 Discharge Disposition: Home Attending Physician: Alexandro Kaye MD Admitting Physician: Alexandro Kaye MD Allergies, Adverse Reactions, Alerts Substance Reaction Severity Status carvedilol Critical Active clopidogrel Hives Mild Active chlorhexidine containing compounds Hives Mild Active sulfa drug Hives Severe Active Swelling Plavix Critical Active Hibiclens Critical Active meloxicam Upset stomach Mild Active Mobic Critical Active Assessment and Plan Extracted from: Title: ED Provider Note Author: Alexandro Kaye MD Date: Assessment/Plan 1.Bilateral hip painM25.551 Pain out of proportionto exam.X -rays obtained.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 Given her end-stage renal diseasewill avoid use of NSAIDs. Given herrecurrent malignancyand co ntraindications to NSAIDsstarting treatment of her pain with opioids. Dilaudid was administered IV initially 0.25 mgand she had no improvement in her pain with this.After an additional 0.25 mg given she haddramatic improvement. We will continue Dilaudid p.o.outpati ent for pain control.May benefit long-term from fentanyl patches. Sheappears to be declining fairly rap idly and given her multiple comorbid conditionsI have recommended that she meet with her PCP and discussgoals of care. 2.Recurrent breast enzzflZ50.919 Continues to follow with [facility] oncology.Per last oncology note treatment is essentially palliative at this time.Given her multiple recurrentNSTEMI'sand her overall poor healthwoul d likely qualify for hospicewhenshe isready. 3.End stage renal qjswwnxH40.6 Continue with peritoneal dialysis. She will work with her dialysis team to increasethe amount of fluid taken offto try to improve her edema. 4.Peritoneal dialysis ztxcsaZ98.2 5.Ischemic dilated cardiomyopathyI2 5.5 Recent PCIwith inability to initial ly afford her Brilinta.We have been able to work with the [facility] pharmacy and get her [address] B pricing which will allow her totake this medication as prescribed by hertreating cardiology team. Shehad no chest pain today so cardiac evaluation was not conducted. Dilated ckdpoeynpntttxS02.0 Orders: Dilaudid 2 mg oral tablet, 0.5 tab(s) ( 1 mg ), PO, q8hr (int), Instructions: Do not take more than 1 full tab a day., PRN: for pain, # 10 tab(s), 0 Refill(s), Pharmacy: [facility], 0.5 tab(s) PO q8hr (int),x10 day(s),PRN:for pain,Instr:Do not take more than 1 f... Brilinta (ticagrelor) 90 mg oral tablet , 1 tab(s) ( 90 mg ), PO, BID, # 60 tab(s), 0 Refill(s), called to pharmacy (Rx) ECG, 02/17/22 15:17:00 PDT, Other, Stop Date 02/17/22 15:17:00 PDT Patient Education Chronic Pain, Adult Follow Up With When Contact Information Princess Carrasco Within 5 to 7 days [address] [place] [address]- Business (1) Additional Instructions: I am glad we we re able to get your Brillinta for you at a lower major. No fractures of either hip; you do have arthritis through your lower back and hips. Treating with a very low dose of a narc otic pain medication. Please don't take more than 1/2 tab every 8 hours and no more than 1 full tabs worth per day. We will have our scheduling staff get y ou a visit w/ Dr. Hampton to go over all of your recent health changes. If you are getting worse please return to care. Please call or return to care with ques tions or concerns. Functional Status 02/17/22 Family Member Travel History No recent travel Recent Travel History No recent travel Other exposure to Infectious Disease None Immunizations Given and Recorded Vaccine Date Status Refusal Reason influenza, inactivated 03/12/19 Recorded influenza, inactivated 02/25/14 Recorded influenza, unspecified formulation1 03/13/18 Recorded pneumococcal, unspecified formulation 03/13/18 Recorded pneumococcal 13-valent vaccine 03/19/16 Recorded pneumococcal (PPSV23) 05/07/09 Recorded Td 06/30/01 Recorded 1Result Comment: Fluzone Tri-Valent High dose Medications acetaminophen 500 mg oral tablet See Instructions, Instructions: Take 1-2 tab(s) PO q6hr (int), PRN: for pain, 0 Refill(s) Start Date: 09/15/21 Status: OrderedamLODIPine 10 mg oral tablet 1 tab(s) ( 10 mg ), PO, Daily, # 90 tab(s), 0 Refill(s) Start Date: 09/15/21 Status: Orderedaspirin 81 mg oral delayed release tablet 1 tab(s) ( 81 mg ), PO, Daily, # 90 tab(s), 0 Refill(s) Start Date: 09/15/21 Status: Orderedatorvastatin 40 mg oral tablet 1 tab(s), PO, Daily, # 90 tab(s), 3 Refill(s), Pharmacy: [facility], 1 tab(s) PO Daily Start Date: 09/08/20 Status: OrderedATORVASTATIN CALCIUM 40 MG Tablet ATORVASTATIN CALCIUM 40 MG Tablet, 1 tab(s), PO, Daily, # 90 tab(s), 0 Refill(s), Pharmacy: [facility] (Now [facility]) Start Date: 01/26/22 Status: OrderedBrilinta (ticagrelor) 90 mg oral tablet 1 tab(s) ( 90 mg ), PO, BID, # 60 tab(s), 0 Refill(s), called to pharmacy (Rx) Start Date: 02/17/22 Status: Orderedcholecalciferol 25 mcg (1000 intl units) oral tablet, chewable 1 tab(s) ( 25 mcg ), Chewed, Daily, # 50 tab(s), 0 Refill(s) Start Date: 09/15/21 Status: OrderedcloNIDine 0.1 mg oral tablet 1 tab(s) ( 0.1 mg ), PO, BID, # 180 tab(s), 0 Refill(s) Start Date: 09/15/21 Status: Orderedcolchicine 0.6 mg oral capsule See Instructions, Instructions: Take 0.5 tab PO every 48 hours as needed for gout pain up to 4 doses, 0 Refill(s) Start Date: 09/15/21 Status: OrderedDilaudid 2 mg oral tablet 0.5 tab(s) ( 1 mg ), PO, q8hr (int), Instructions: Do not take more than 1 full tab a day., PRN: forpain, # 10 tab(s), 0 Refill(s), Pharmacy: [facility], 0.5 tab(s) PO q8hr (int),x10 day(s),PRN:for pain,Instr:Do not take more than 1 f... Start Date: 02/17/22 Stop Date: 02/27/22 Status: Orderedfamotidine 20 mg oral tablet 1 tab(s) ( 20 mg ), PO, Daily, # 30 tab(s), 0 Refill(s) Start Date: 09/15/21 Status: OrderedglipiZIDE 5 mg oral tablet, extended release 1 tab(s), PO, Daily, # 90 tab(s), 0 Refill(s), Pharmacy: [facility] (Now [facility]), TAKE 1 TABLET EVERY DAY, 160, cm, 06/25/20 14:03:00 PST, Height/Length Dosing, 74.75, kg, 12/18/20 10:28:00 PDT, Weight Dosing Start Date: 11/23/21 Status: OrderedhydrALAZINE 100 mg oral tablet 1 tab(s) ( 100 mg ), Tab, PO, TID, # 270 tab(s), 1 Refill(s), Pharmacy: [facility] (Now [facility]), 1 tab(s) PO TID,x90 day(s), 160, cm, 06/25/20 14:03:00 PST, Height/Length Dosing, 74.75, kg, 12/18/20 10:28:... Start Date: 11/23/21 Stop Date: 05/22/22 Status: Orderedisosorbide mononitrate 30 mg oral tablet, extended release 1 tab(s), PO, qAM, # 90 tab(s), 0 Refill(s), Pharmacy: [facility], TAKE 1 TABLET EVERY MORNING, 160, cm, 06/25/20 14:03:00 PST, Height/Length Dosing, 74.75, kg, 12/18/20 10:28:00 PDT, Weight Dosing Start Date: 11/04/21 Status: Orderedletrozole 2.5 mg oral tablet 1 tab(s) ( 2.5 mg ), PO, Daily, # 90 tab(s), 0 Refill(s) Start Date: 09/15/21 Status: Orderedlevothyroxine 137 mcg (0.137 mg) oral tablet 1 tab(s), PO, Daily, # 90 tab(s), 3 Refill(s), Pharmacy: [facility] (Now [facility]), TAKE 1 TABLET EVERY DAY, 160, cm, 06/25/20 14:03:00 PST, Height/Length Dosing, 74.75, kg, 12/18/20 10:28:00 PDT, Weight Dosing Start Date: 01/26/22 Status: Orderedlisinopril 40 mg oral tablet 1 tab(s), PO, Daily, # 90 tab(s), 0 Refill(s), Pharmacy: [facility], TAKE 1 TABLET EVERY DAY, 160, cm, 06/25/20 14:03:00 PST, Height/Length Dosing, 74.75, kg, 12/18/20 10:28:00 PDT, Weight Dosing Start Date: 11/04/21 Status: Orderedmetoprolol succinate 50 mg oral tablet, extended release 1 tab(s) ( 50 mg ), PO, BID, # 180 tab(s), 0 Refill(s) Start Date: 09/15/21 Status: OrderedMisc Prescription 0 Refill(s) Start Date: 09/15/21 Status: OrderedMisc Prescription 0 Refill(s) Start Date: 11/20/20 Status: OrderedMisc Prescription 0 Refill(s) Start Date: 11/20/20 Status: OrderedNIFEdipine 60 mg oral tablet, extended release 1 tab(s) ( 60 mg ), PO, HS, # 90 tab(s), 3 Refill(s), Pharmacy: [facility], 1 tab(s) PO HS, 160, cm, 06/25/20 14:03:00 PST, Height/Length Dosing, 74.75, kg, 12/18/20 10:28:00 PDT, Weight Dosing Start Date: 01/01/21 Status: OrderedNitrostat 0.4 mg sublingual tablet 1 tab(s) ( 0.4 mg ), Tab, SL, q5min, PRN: for chest pain, # 20 tab(s), 3 Refill(s), Pharmacy: [facility], 1 tab(s) SL q5min,PRN:for chest pain, 160, cm, 06/25/20 14:03:00 PST, Height/Length Dosing, 74.75, kg, 12/18/20 10:28:00 PDT,... Start Date: 09/22/21 Status: OrderedProAir HFA 90 mcg/inh inhalation aerosol 2 puff(s), INH, q4hr, PRN: shortness of breath or wheezing, # 8.5 gm, 0 Refill(s), Pharmacy: [facility], 2 puff(s) INH q4hr,PRN:shortness of breath or wheezing Start Date: 01/08/19 Status: Orderedspironolactone 25 mg oral tablet 1 tab(s) ( 25 mg ), PO, Daily, # 90 tab(s), 0 Refill(s) Start Date: 09/15/21 Status: Orderedtorsemide 40 mg oral tablet 1 tab(s) ( 40 mg ), PO, BID, # 180 tab(s), 0 Refill(s) Start Date: 09/15/21 Status: Orderedwarfarin 5 mg oral tablet 1 tab(s) ( 5 mg ), Tab, PO, Daily, Instructions: 1 tab Tues night; 1/2 tab other nights, # 50 tab(s), 0 Refill(s), patient has supply at home (Rx) Start Date: 09/08/20 Status: Ordered Problem List Condition Effective Dates Status Health Status Informant Blindness of right eye(Confirmed) Active Stage 4 chronic kidney Active disease(Confirmed) Systolic congestive heart Active failure(Confirmed) Meniscus degeneration(Confirmed) Active Peritoneal dialysis status(Confirmed) Active Diabetic retinopathy(Confirmed) Active Carotid artery disease(Confirmed) Active End stage renal disease(Confirmed) Active Gout(Confirmed) Active Bilateral hip pain(Confirmed) Active H/O: stroke(Confirmed) Active Hyperlipidemia(Confirmed) Active Secondary hyperparathyroidism of renal Active origin(Confirmed) Hypertension(Confirmed) Active Hypothyroidism(Confirmed) Active IBS (irritable bowel Active syndrome)(Confirmed) Ischemic dilated Active cardiomyopathy(Confirmed) Lumbar back pain(Confirmed) Active Recurrent breast cancer(Confirmed) Active Metabolic syndrome X(Confirmed) Active Neck pain(Confirmed) Active Obesity(Confirmed) Active Obstructive sleep apnea(Confirmed) Active Peripheral neuropathy(Confirmed) Active Postmenopausal state(Confirmed) Active Rotator cuff sprain(Confirmed) Active Tinnitus(Confirmed) Active TIA (transient ischemic Active attack)(Confirmed) Diabetes mellitus, type II(Confirmed) Active Procedures Procedure Date Related Diagnosis Body Site Status NSTEMI - Non-ST segment elevation VA 01/2022 Completed Ultrasound guided biopsy1 09/14/21 Co mpleted Mammogram - screening2 03/16/21 Compl eted Chest X-ray3 06/26/20 Completed Echocardiogram4 06/26/20 Completed Ultrasound liver5 06/26/20 Completed Diabetic eye exam6 12/18/19 Completed Nephrology continued care for CKD7 11/15/19 Completed Holter monitor test interpretation8 04/21/19 Completed Echocardiogram9, 10 04/19/19 Complete d Holter monitor test [id number] 04/18/19 Completed Ultrasound Carotid vhcziq85 09/13/18 Completed Lszhkkpmkvsamt30 03/18/18 Completed Chest X-ray14 03/17/18 Completed EKG15 03/17/18 Completed DEXA of hip and spine16 03/06/18 Comp leted Mammogram - uiohnajpc47 03/06/18 Comp leted Diabetic Education 01/06/17 Completed Cardiology F/U18 10/19/16 Completed NM Ehzbwtb58 09/03/16 Completed Nuclear Stress Test20 09/03/16 Comple roger Exploratory 07/28/16 Com pleted Diabetic eye exam 06/03/16 Completed Fppaxwfbr28 03/02/16 Completed Left diagnostic mammogram 09/23/15 Co mpleted Ykwqlyrszyhgnana80 09/04/15 Completed Carotid artery doppler assessment 08/27/15 Completed Carotid US 01/07/15 Completed Fqnxkuaemejcvs11 01/07/15 Completed Bone density scan25 12/06/14 Complete d Needle biopsy left qznryc65 09/10/14 Completed Ukxxqilbgko67 01/21/14 Completed Nuclear stress test 03/31/10 Complete d Cardiac catheter 10/02/09 Completed AV Fistula of left arm Compl eted Cerbral Angiogram Completed Cholecystectomy Completed Colectomy Completed Coronary angioplasty Complet ed Xwpnixqzrnyrjd55 Completed Hysterectomy Completed Left Lumpectomy Completed Mammogram - bckxtulkb57 Comp leted Oncology care w/ Dr Saldaña Completed RCA stent 11/2020 - drug-eluting Completed Stent in branch of right coronary Completed artery.30 1Ultrasound guided left breast mass and bopsy; lesion is highly concerning for breast carcinoma (see radiologists' report)2normal (see radiologists' report)3Indication: CHF: unstable angina Impression: cardiomegaly and right basilar infiltrate moderately reduced LV systolic function; global hypokinesis ejection fraction 35-40% mild mitral stenosis; mean gradient through the valve of 3 to 3.7 mild to moderate mitral insufficiency mild to moderate tricuspid insufficiency mildly elevated RVSF at 44 mmHG (see office visit note)4Impression: severely imparied LV systolic function; ejection fraction 25-30% with the use of definity echo contrast moderate to severe mitral stenosis with mild to mitral regurgitation and left atrial enlargement moderate tricuspid regurgitation with severely right ventricular systeolic pressure mild pulmonary insufficiency (see office visit note)5Impression: findings grossly normal; common duct of 4 mm; liver is of normal echogenicity hepatic veins and protal veins are within normal limits incidental note is made ofsmall right pleural effusion gallbladder not seen Impression: normal exam; nonvisualization of the yuifsivcrnj9EHFJF without background diabetic retinopathy branch retinal nicolette occlusion (see office visit note)7see scanned olgx0Xlokbdsque: cerebral infarction; unspecified Impression: negative Holter monitor per criteria (normal) (see radiologists' report)9Indication: TBT40csyvjfxj estimated ejection fraction 60-65%11Indication: embolic stroke Impression: normal (see report)12Indication: stenosis Impression: moderate atheromatous changes percent stenosis right ICA less than 50% percent stenosis left ICA 50-69% no hemodynamically significant stenosis (see radiology report)13Bilateral enlargement, left greater than right. Biventricular enlargement both midly increased. Mild to moderate concentric left ventricular hypertrophy with normal left ventricular systolic function and grade II diastolic dysfunction. Moderately severe tricupsid valve insufficency with associated moderate pulmonary hypertension. Mild mitral insufficiency and mild pulmonic valve insufficiency.14cardiomegaly w/o [id number] lead EKG revealed ST depression in leads V3 and V4 Repeat EKG showed normalization of ST dncokzjavn61Hgdkoq bone mineral density lumbar spine and both myas69Wa mammographic evidence of malignancy f/u in 1 year is hblsiqdvzxh10[facility] NW19IV Lexiscan infusion given to the patient was negative by symptoms, negative by EKG for ischemia. Nuclear images showed normal perfusion scan. Ejection fraction 68% with normal LV cavity.20ef = 68%21with extensive hjflqkgqonpz69xbysjj75Vly scanned ueqese85yi = 60%55yntirn87Evwxfpql ductal epgqlngui97Gnsdvzm polyps, diverticulosis, uncomplicated internal hemorrhoids. Repeat in 3-5 years. EF 25-30% Moderate to severe mitral bkhhzska02Sodqewlbpt: screening Impression: normal (see radiologists' report) Results Laboratory List Name Date Automated Differential 02/17/22 CBC w/ Auto Diff 02/17/22 Comprehensive Metabolic Panel2 (CMP2) 02/17/22 Most recent to oldest [Reference Range]: 1 Creatinine Level [0.55-1.30 mg/dL] 7.52 mg/dL 1 *CRIT* (02/17/22 3:30 PM) AGAP [9-18] 16 (02/17/22 3:30 PM) Albumin Level [3.4-5.0 g/dL] 2.4 g/dL *LOW* (02/17/22 3:30 PM) Alk Phos [46-116 U/L] 164 U/L *HI* (02/17/22 3:30 PM) Basophil Auto [0.00-0.20 K/mcL] 0.03 K/mcL (02/17/22 3:30 PM) Bili Total [0.2-1.0 mg/dL] 0.5 mg/dL (02/17/22 3:30 PM) BUN [7-18 mg/dL] 61 mg/dL *HI* (02/17/22 3:30 PM) Chloride Level [98-107 mmol/L] 96 mmol/L *LOW* (02/17/22 3:30 PM) CO2 [21-32 mmol/L] 27 mmol/L (02/17/22 3:30 PM) Eos Auto [0.00-0.45 K/mcL] 0.32 K/mcL (02/17/22 3:30 PM) Glucose Level [74-106 mg/dL] 64 mg/dL *LOW* (02/17/22 3:30 PM) Hct [35.0-45.0 %] 31.9 % *LOW* (02/17/22 3:30 PM) Hgb [12.0-16.0 g/dL] 10.4 g/dL *LOW* (02/17/22 3:30 PM) Lymph Auto [1.00-4.80 K/mcL] 0.85 K/mcL *LOW* (02/17/22 3:30 PM) MCH [26.0-34.0 pg] 30.1 pg (02/17/22 3:30 PM) MCHC [31.0-37.0 g/dL] 32.6 g/dL (02/17/22 3:30 PM) MCV [80.0-100.0 fL] 92.5 fL (02/17/22 3:30 PM) Hodgeman Auto [0.00-0.80 K/mcL] 0.80 K/mcL (02/17/22 3:30 PM) MPV [8.0-12.0 fL] 10.8 fL (02/17/22 3:30 PM) Neutro Auto [1.80-7.70 K/mcL] 9.59 K/mcL *HI* (02/17/22 3:30 PM) Platelet [150-400] 263 (02/17/22 3:30 PM) Potassium Level [3.5-5.1 mmol/L] 4.2 mmol/L (02/17/22 3:30 PM) RBC [4.00-5.30 M/uL] 3.45 M/uL *LOW* (02/17/22 3:30 PM) RDW [10.0-15.0 %] 18.0 % *HI* (02/17/22 3:30 PM) Sodium Level [136-145 mmol/L] 135 mmol/L *LOW* (02/17/22 3:30 PM) Protein Total [6.4-8.2 g/dL] 5.8 g/dL *LOW* (02/17/22 3:30 PM) WBC [4.00-10.00 K/mcL] 11.60 K/mcL *HI* (02/17/22 3:30 PM) Calcium Level [8.5-10.1 mg/dL] 8.0 mg/dL *LOW* (02/17/22 3:30 PM) ALT/SGPT [14-63 U/L] 285 U/L *HI* (02/17/22 3:30 PM) AST/SGOT [15-37 U/L] 214 U/L *HI* (02/17/22 3:30 PM) Auto Eos % [0.0-6.0 %] 2.8 % (02/17/22 3:30 PM) Auto Lymph % [20.0-45.0 %] 7.3 % *LOW* (02/17/22 3:30 PM) Auto Neut % [36.0-70.0 %] 82.6 % *HI* (02/17/22 3:30 PM) Auto Baso % [0.0-2.0 %] 0.3 % (02/17/22 3:30 PM) Auto Hodgeman % [1.0-10.0 %] 6.9 % (02/17/22 3:30 PM) BUN/Creat Ratio [7-18] 8 (02/17/22 3:30 PM) A/G Ratio [1.0-2.2] 0.7 *LOW* (02/17/22 3:30 PM) eGFR AA [>=60] 7 *LOW* (02/17/22 3:30 PM) eGFR Non AA [>=60] 6 *LOW* (02/17/22 3:30 PM) 1Result Comment: called critical to Dr. Kaye @1630adiology Reports Exam Date Time Procedure Performing Provider Status 02/17/22 4:14 PM XR Hips Oscar w/ Pelvis 3-4 Views Fritz Garcia (Verified) Notes:(XR Hips Oscar w/ Pelvis 3-4 Views) Reason For Exam: bilateral hip painXR Hips Oscar w/ Pelvis 3-4 Views [facility] DATE OF EXAM: 02/17/2022 4:14 PM HISTORY: bilateral hip pain. PROVIDER: Alexandro Kaye COMPARISON: . TECHNIQUE: 5 images FINDINGS: There is no evidence of bony displacement or fracture. Spondylosis is seen in the lumbar spine. There are mild osteoarthritis changes seen in both hips. No evidence of bony destruction IMPRESSION: Mild bilateral hip osteoarthritis. Spondylosis of the lumbar spine THIS IS AN ELECTRONICALLY SIGNED REPORT IN [id number] BY Eduardo Cortez M.D. on 02/17/2022 4:53 PM sghcprovider Final Signed (Electronic Signature): MD Eduardo Cortez 02/17/22 4:53 pm Technologist: RAINA Vital Signs Most recent to oldest 1 2 3 [Reference Range]: Height 160.020 cm (02/17/22 2:20 PM) Height/Length Dosing 160.020 cm (02/17/22 3:41 PM) Weight 88.450 kg (02/17/22 2:20 PM) Weight Dosing 88.450 kg (02/17/22 3:41 PM) Temperature Temporal [36.3-37.8 36.4 DegC DegC] (02/17/22 2:20 PM) Temperature Temporal Artery 36.2 DegC [36.3-37.8 DegC] *LOW* (02/17/22 2:29 PM) Peripheral Pulse Rate [60-100 60 bpm 65 bpm 65 bpm bpm] (02/17/22 6:48 PM) (02/17/22 6:00 PM) (02/17/22 5:3 9 PM) Respiratory Rate [14-20 br/min] 18 br/min 18 br/min 18 br/min (02/17/22 4:55 PM) (02/17/22 4:27 PM) (02/17/22 3:3 2 PM) Blood Pressure [90-140/60-90 126/61 mmHg 144/63 mmHg 146 /63 mmHg mmHg] (02/17/22 6:48 PM) *HI* *HI* (02/17/22 6:00 PM) (02/17/22 5:39 PM) Mean Arterial Pressure, Cuff 87 mmHg [65-100 mmHg] (02/17/22 4:55 PM) SpO2 [92-100 %] 98 % 98 % 98 % (02/17/22 6:48 PM) (02/17/22 6:00 PM) (02/17/22 5:3 9 PM) Oxygen Flow Rate 2 L/min 2 L/min 2 L/min (02/17/22 4:55 PM) (02/17/22 4:27 PM) (02/17/22 3:3 2 PM) Oxygen Therapy Nasal cannula Nasal cannula Nasal cannula (02/17/22 4:55 PM) (02/17/22 4:27 PM) (02/17/22 3:3 2 PM) Social History Social History Type Response Tobacco Never tobacco user Tobacco U se:. Sex Hospital Discharge Instructions Patient Wuqcmsitk17/21/2022 19:40:41Chronic Pain, AdultChronic Pain, Adult Chronic pain is a type of pain that lasts or keeps coming back for at least 36 months. You may have headaches, pain in the abdomen, or pain in other areas of the body. Chronic pain may be related jacqueline illness, such as fibromyalgia or complex regional pain syndrome. Chronic pain may also be related to an injury or a health condition. Sometimes, the cause of chronic pain is not known. Chronic pain can make it hard for you to do daily activities. If not treated, chronic pain can lead to anxiety and depression. Treatment depends on the cause and severity of your pain. You may need to work with a pain specialist to come up with a treatment plan. The plan may include medicine, counseling, and physical therapy. Many people benefit from a combination of two or more types of treatment tocontrol their pain. Follow these instructions at home: Medicines Take ppce-qvk-uovrbma and prescription medicines only as told by your health care provider. Ask your health care provider if the medicine prescribed to you: Requires you to avoid driving or using machinery. Can cause constipation. You may need to take these actions to prevent or treat constipation: Drink enough fluid to keep your urine pale yellow. Take fuet-ken-dynqduc or prescription medicines. Eat foods that are high in fiber, such as beans, whole grains, and fresh fruits and vegetables. Limit foods that are high in fat and processed sugars, such as fried or sweet foods. Treatment plan Follow your treatment plan as told by your health care provider. This may include: Gentle, regular exercise. Eating a healthy diet that includes foods such as vegetables, fruits, fish, and lean meats. Cognitive or behavioral therapy that changes the way you think or act in response to the pain. This may help improve how you feel. Working with a physical therapist. Meditation, yoga, acupuncture, or massage therapy. Aroma, color, light, or sound therapy. Local electrical stimulation. The electrical pulses help to relieve pain by temporarily stoppingthe nerve impulses that cause you to feel pain. Injections. These deliver numbing or pain-relieving medicines into the spine or the area of pain. Lifestyle Ask your health care provider whether you should keep a pain diary. Your health care provider will tell you what information to write in the diary. This may include when you have pain, what the pain feels like, and how medicines and other behaviors or treatments help to reduce the pain. Consider talking with a mental health care provider about how to manage chronic pain. Consider joining a chronic pain support group. Try to control or lower your stress levels. Talk with your health care provider about ways to dothis. General instructions Learn as much as you can about how to manage your chronic pain. Ask your health care provider ifan intensive pain rehabilitation program or a chronic pain specialist would be helpful. Check your pain level as told by your health care provider. Ask your health care provider if youshould use a pain scale. It is up to you to get the results of any tests that were done. Ask your health care provider, or the department that is doing the tests, when your results will be ready. Keep all follow-up visits as told by your health care provider. This is important. Contact a health care provider if: Your pain gets worse, or you have new pain. You have trouble sleeping. You have trouble doing your normal activities. Your pain is not controlled with treatment. You have side effects from pain medicine. You feel weak. You notice any other changes that show that your condition is getting worse. Get help right away if: You lose feeling or have numbness in your body. You lose control of bowel or bladder function. Your pain suddenly gets much worse. You develop shaking or chills. You develop confusion. You develop chest pain. You have trouble breathing or shortness of breath. You pass out. You have thoughts about hurting yourself or others. If you ever feel like you may hurt yourself or others, or have thoughts about taking your own life, get help right away. Go to your nearest emergency department or: Call your local emergency services (912 in the [place] Call a suicide crisis helpline, such as the National Suicide Prevention Lifeline at . This is open 24 hours a day in the [place] Text the Crisis Text Line at 521526 (in the [place] Summary Chronic pain is a type of pain that lasts or keeps coming back for at least 36 months. Chronic pain may be related to an illness, injury, or other health condition. Sometimes, the cause of chronic pain is not known. Treatment depends on the cause and severity of your pain. Many people benefit from a combination of two or more types of treatment to control their pain. Follow your treatment plan as told by your health care provider. This information is not intended to replace advice given to you by your health care provider. Make sure you discuss any questions you have with your health care provider. Document Revised: 01/31/2020 Document Reviewed: 01/31/2020 [employer] Patient Education 2021 [employer]. Follow Up Care02/17/2022 14:22:32With:Princess Carrasco Address: [address] [place] [address]- [facility] (1) When:5 to 7 days Comments:I am glad we were able to get your Brillinta for you at a lower major.No fractures of either hip; you do have arthritis through your lower back and hips.Treating with a very low dose of a narcotic painmedication. Please don't take more than 1/2 tab every 8 hours and no more than 1 full tabs worth perday.We will have our scheduling staff get you a visit w/ Dr. Hampton to go over all of your recent health changes.If you are getting worse please return to care.Please call or return to care with questions or concerns. XR Pelvis and Hip - bilateral Views DomainUser, Generated: PERFORM DomainUser, Generated: PERFORM, VERIFY Event Display: Radiology Report Authored Date: [id number] [facility] DATE OF EXAM: 02/17/2022 4:14 PM HISTORY: bilateral hip pain. PROVIDER: Alexandro Kaye COMPARISON: . TECHNIQUE: 5 images FINDINGS: There is no evidence of bony displacement or fracture. Spondylosis is seen in the lumbar spine. There are mild osteoarthritis changes seen in both hips. No evidence of bony destruction IMPRESSION: Mild bilateral hip osteoarthritis. Spondylosis of the lumbar spine THIS IS AN ELECTRONICALLY SIGNED REPORT IN [id number] BY Eduardo Cortez M.D. on 02/17/2022 4:53 PM sghcprovider Final Signed (Electronic Signature): MD Eduardo Cortez 02/17/22 4:53 pm Technologist: RAINA Patient Care team information PersonnelName: Princess Carrasco MD Address: Address: [address] [place] [address], [place] [address]- [place] Name: Solange Shea
--- OUTSIDE RECORDS SUMMARY | 2022-02-20 14:31 | External Medical Summary | CCD ---
:1945 Author Organization [facility] Care Team Providers Name Role Phone Princess Carrasco Primary Care Provider [phone] Allergies, Adverse Reactions, Alerts Substance Reaction Status carvedilol Critical Active clopidogrel Hives Active sulfa drug Hives Active Swelling Plavix Critical Active Hibiclens Critical Active meloxicam Upset stomach Active Mobic Critical Active chlorhexidine containing compounds Hives Activ e BRENTON inhibitors Critical Active Problem List Condition Effective Dates Status Non-ST elevation WI (NSTEMI) Active Chronic renal disease Resolved Stage 4 chronic kidney disease Active Coronary artery disease Active Meniscus degeneration Active Diabetic retinopathy Active Carotid artery disease Active Gout Active H/O: stroke Active Hyperlipidemia Active Secondary hyperparathyroidism of renal origin Active Hypertension Active Hypothyroidism Active Infiltrating ductal carcinoma of left breast Active IBS (irritable bowel syndrome) Active Lumbar back pain Active Metabolic syndrome X Active Neck pain Active Obesity Active Obstructive sleep apnea Active Peripheral neuropathy Active Postmenopausal state Active Small bowel obstruction Active Rotator cuff sprain Active Tinnitus Active TIA (transient ischemic attack) Active Diabetes mellitus, type II Active Medications Medication Instructions Start Date End Date Status aspirin 325 mg oral delayed 1 tab(s) ( 325 mg ), PO, 09/04/2018 Ordered release tablet Daily, # 90 tab(s), 0 Refill(s) Nitrostat 0.4 mg sublingual 1 tab(s) ( 0.4 mg ), SL, 01/27/2017 Ordered tablet q5min, PRN: for chest pain, # 25 tab(s), 0 Refill(s) Puralin PM Nightime Sleep Aid Puralin PM Nightime Slee p Aid, Instructions: prn, 0 Refill(s) 01/27/2017 Ordered prn warfarin See Instructions, Instructio ns: Take 2.5mg M,W,F and 5mg all other days., 0 Refill(s) 12/21/2019 Ordered Take 2.5mg M,W,F and 5mg all other days. Misc Prescription 0 Refill(s) 02/08/2019 Ordered cholecalciferol 2000 intl 1 tab(s) ( 2,000 03/21/2018 Ordered units oral tablet International_Unit ), PO, Daily, 0 Refill(s) [facility] Prescription 0 Refill(s) 03/21/2018 Ordered Misc Prescription 0 Refill(s) 03/21/2018 Ordered letrozole 2.5 mg oral tablet 1 tab(s) ( 2.5 mg ), PO, 05/16/2018 Ordered HS, # 90 tab(s), 3 Refill(s), Pharmacy: [facility], 1 tab(s) PO HS sevelamer hydrochloride 800 mg 1 tab(s) ( 800 mg ), PO , BID, Instructions: with meals, # 180 tab(s), 0 Refill(s) 03/22/2019 Ordered oral tablet with meals cloNIDine 0.2 mg oral tablet 1 tab(s), PO, TID, # 270 11/02/2019 Ordered tab(s), 3 Refill(s), Pharmacy: [facility], 1 tab(s) PO TID glipiZIDE 5 mg oral tablet, 1 tab(s), PO, Daily, # 90 11/02/2019 Ordered extended release tab(s), 3 Refill(s), Pharmacy: [facility], 1 tab(s) PO Daily levothyroxine 137 mcg (0.137 1 tab(s), PO, Daily, # 90 11/02/2019 Ordered mg) oral tablet tab(s), 3 Refill(s), Pharmacy: [facility], 1 tab(s) PO Daily amLODIPine 10 mg oral tablet 1 tab(s), PO, Daily, # 90 11/02/2019 Ordered tab(s), 3 Refill(s), Pharmacy: [facility], 1 tab(s) PO Daily allopurinol 100 mg oral tablet 1 tab(s), PO, Daily, # 90 11/02/2019 Ordered tab(s), 3 Refill(s), Pharmacy: [facility], 1 tab(s) PO Daily hydrALAZINE 100 mg oral tablet 1 tab(s), PO, TID, # 270 11/02/2019 Ordered tab(s), 3 Refill(s), Pharmacy: [facility], 1 tab(s) PO TID Pepcid 20 mg oral tablet 1 tab(s) ( 20 mg ), PO, 11/02/2019 Ordered Once a day (at bedtime), # 90 tab(s), 3 Refill(s), Pharmacy: [facility], 1 tab(s) PO Once a day (at bedtime) atorvastatin 40 mg oral tablet 1 tab(s), PO, Daily, # 90 11/02/2019 Ordered tab(s), 4 Refill(s), Pharmacy: [facility], 1 tab(s) PO Daily torsemide 20 mg oral tablet See Instructions, Instruct ions: Take 2 tablets in the morning and 2 tablets at noon., # 360 tab(s), 4 Refill(s), Pharmacy: [facility], Take 2 tablets in the morning and 2 tablets at noon. 11/02/2019 Ordered Take 2 tablets in the morning and 2 tablets at noon. metoprolol succinate 100 mg 1 tab(s) ( 100 mg ), PO, 11/02/2019 Ordered oral tablet, extended release Daily, # 90 tab(s), 3 Refill(s), Pharmacy: [facility], 1 tab(s) PO Daily ProAir HFA 90 mcg/inh 2 puff(s), INH, q4hr, PRN: 01/08/2019 Ordered inhalation aerosol shortness of breath or wheezing, # 8.5 gm, 0 Refill(s), Pharmacy: [facility], 2 puff(s) INH q4hr,PRN:shortness of breath or wheezing cilostazol 100 mg oral tablet 1 tab(s) ( 100 mg ), PO, 07/20/2019 Ordered BID, # 60 tab(s), 0 Refill(s), Pharmacy: [facility], 1 tab(s) PO BID Immunizations Vaccine Date Status Refusal Reason influenza, inactivated 03/12/2019 Recorded influenza, inactivated 02/25/2014 Recorded influenza, unspecified formulation1 03/13/2018 Recorded pneumococcal, unspecified formulation 03/13/2018 Recorded pneumococcal 13-valent vaccine 03/19/2016 Recorded Td 06/30/2001 Recorded pneumococcal (PPSV23) 05/07/2009 Recorded 1Result Comment: Fluzone Tri-Valent High dose Results Most recent to oldest [Reference Range]: 1 INR POC 2.8 (12/21/2019 09:26:00) Procedures Procedures Date Related Diagnosis AV Fistula of left arm Bone density scan1 12/06/2014 02:00:00 Cardiac catheter 10/02/2009 02:00:00 Cardiology F/U2 10/19/2016 02:00:00 Carotid artery doppler assessment 08/27/2015 02:00:00 Carotid US 01/07/2015 02:00:00 Cerbral Angiogram Chest X-ray3 03/17/2018 02:00:00 Cholecystectomy Colectomy Colonoscopy4 01/21/2014 02:00:00 Coronary angioplasty DEXA of hip and spine5 03/06/2018 02:00:00 Diabetic Education 01/06/2017 02:00:00 Diabetic eye exam 06/03/2016 02:00:00 Echocardiogram6 01/07/2015 02:00:00 Echocardiogram7 03/18/2018 02:00:00 Echocardiogram8, 9 04/19/2019 02:00:00 Dlhunbkzraovdgpf00 09/04/2015 02:00:00 EKG11 03/17/2018 02:00:00 Exploratory jfbjyiscpm21 07/28/2016 02:00:00 Holter monitor test vaixfaucelvnme29 04/21/2019 02:00:00 Holter monitor test [id number] 04/18/2019 02:00:00 Hysterectomy Left Lumpectomy Left diagnostic mammogram 09/23/2015 02:00:00 Fbtcbaymz71 03/02/2016 02:00:00 Mammogram - dbvydiocc64 03/06/2018 02:00:00 Mammogram - qpvqlsayr20 Needle biopsy left klfocd38 09/10/2014 02:00:00 Nephrology continued care for CKD19 11/15/2019 02:00:00 NM Tonulrq35 09/03/2016 02:00:00 Nuclear stress test 03/31/2010 02:00:00 Nuclear Stress Test21 09/03/2016 02:00:00 Oncology care w/ Dr SternPiper Ultrasound Carotid dyjxta99 09/13/2018 14:00:00 [facility] DX9gumdvcqetvzk w/o BJQ9Uaittyw polyps, diverticulosis, uncomplicated internal hemorrhoids. Repeat in 3-5 years.5Normal bone mineral density lumbar spine and both dvqs5ev = 60%7Bilateral enlargement, left greater than right. Biventricular enlargement both midly increased. Mild to moderate concentric left ventricular hypertrophy with normal left ventricular systolic function and grade II diastolic dysfunction. Moderately severe tricupsid valve insufficency with associated moderate pulmonary hypertension. Mild mitral insufficiency and mild pulmonic valve insufficiency.8Indication: CAD 9visually estimated ejection fraction 60-65%10See scanned [id number] lead EKG revealed ST depression in leads V3 and V4 Repeat EKG showed normalization of ST ehzplknffq74vclr extensive Indication: cerebral infarction; unspecified Impression: negative Holter monitor per criteria (normal) (see radiologists' report)14Indication: embolic stroke Impression: normal (see report)[id number] mammographic evidence of malignancy f/u in 1 year is bkvgzlypdso98Kksnecdejb: screening Impression: normal (see radiologists' report)18Invasive ductal telswtxve22fom scanned [id number] Lexiscan infusion given to the patient was negative by symptoms, negative by EKG for ischemia. Nuclear images showed normal perfusion scan. Ejection fraction 68% with normal LV cavity.21ef = 68%22Indication: stenosis Impression: moderate atheromatous changes percent stenosis right ICA less than 50% percent stenosis left ICA 50-69% no hemodynamically significant stenosis (see radiology report)
--- OUTSIDE RECORDS SUMMARY | 2022-02-20 14:31 | External Medical Summary | Continuity of Care Document ---
:1945 Author Organization [facility] Address [address] [place] [facility] [address] Care Team Providers Name Role Phone Princess Carrasco Primary Care Physician Solange Shea Unavailable Unavailable Encounter [facility] Date(s): 02/19/22 - 02/19/22 [facility] [address] [place] [facility] [place] [address]- [place] Discharge Disposition: Home Attending Physician: KAVITHA CONLEY DO Allergies, Adverse Reactions, Alerts Substance Reaction Severity Status carvedilol Critical Active clopidogrel Hives Mild Active sulfa drug Hives Severe Active Swelling Plavix Critical Active Hibiclens Critical Active meloxicam Upset stomach Mild Active Mobic Critical Active chlorhexidine containing compounds Hives Mild Active Assessment and Plan Future Appointments Functional Status 02/19/22 Other exposure to Infectious Disease None Immunizations [...] Daily, # 90 tab(s), 3 Refill(s), Pharmacy: [facility], 1 tab(s) PO Daily Start Date: 09/08/20 Status: OrderedATORVASTATIN CALCIUM 40 MG Tablet ATORVASTATIN CALCIUM 40 MG Tablet, 1 tab(s), PO, Daily, # 90 tab(s), 0 Refill(s), Pharmacy: [facility] (Now [facility]) Start Date: 01/26/22 [...] forpain, # 10 tab(s), 0 Refill(s), Pharmacy: [facility], 0.5 tab(s) PO q8hr (int),x10 day(s),PRN:for pain,Instr:Do not take more than 1 f... Start Date: 02/19/22 Stop Date: 03/01/22 Status: Orderedfamotidine 20 mg oral tablet 1 tab(s) ( 20 mg ), PO, Daily, # 30 tab(s), 0 Refill(s) Start Date: 09/15/21 Status: OrderedglipiZIDE 5 mg oral tablet, extended release 1 tab(s), PO, Daily, # 90 tab(s), 0 Refill(s), Pharmacy: [facility] (Now [facility]), TAKE 1 TABLET EVERY DAY, 160, cm, 06/25/20 14:03:00 PST, Height/Length Dosing, 74.75, kg, 12/18/20 10:28:00 PDT, Weight Dosing Start Date: 11/23/21 Status: OrderedhydrALAZINE 100 mg oral tablet 1 tab(s) ( 100 mg ), Tab, PO, TID, # 270 tab(s), 1 Refill(s), Pharmacy: [facility] (Now [facility]), 1 tab(s) PO TID,x90 day(s), 160, cm, 06/25/20 14:03:00 PST, Height/Length Dosing, 74.75, kg, 12/18/20 10:28:... Start Date: 11/23/21 Stop Date: 05/22/22 Status: Orderedisosorbide mononitrate 30 mg oral tablet, extended release 1 tab(s), PO, qAM, # 90 tab(s), 0 Refill(s), Pharmacy: [facility], TAKE 1 TABLET EVERY [...] Daily, # 90 tab(s), 3 Refill(s), Pharmacy: [facility] (Now [facility]), TAKE 1 TABLET EVERY DAY, 160, cm, 06/25/20 14:03:00 PST, Height/Length Dosing, 74.75, kg, 12/18/20 10:28:00 PDT, Weight Dosing Start Date: 01/26/22 Status: Orderedlisinopril 40 mg oral tablet 1 tab(s), PO, Daily, # 90 tab(s), 0 Refill(s), Pharmacy: [facility], TAKE 1 TABLET EVERY [...] HS, # 90 tab(s), 3 Refill(s), Pharmacy: [facility], 1 tab(s) PO HS, 160, cm, 06/25/20 14:03:00 PST, Height/Length Dosing, 74.75, kg, 12/18/20 10:28:00 PDT, Weight Dosing Start Date: 01/01/21 Status: OrderedNitrostat 0.4 mg sublingual tablet 1 tab(s) ( 0.4 mg ), Tab, SL, q5min, PRN: for chest pain, # 20 tab(s), 3 Refill(s), [facility], 1 tab(s) SL q5min,PRN:for chest pain, 160, cm, 06/25/20 14:03:00 PST, Height/Length Dosing, 74.75, kg, 12/18/20 10:28:00 PDT,... Start Date: 09/22/21 Status: OrderedProAir HFA 90 mcg/inh inhalation aerosol 2 puff(s), INH, q4hr, PRN: shortness of breath or wheezing, # 8.5 gm, 0 Refill(s), Pharmacy: [facility], 2 puff(s) INH q4hr,PRN:shortness of breath [...] Site Status NSTEMI - Non-ST segment elevation OK 01/2022 Completed Ultrasound guided biopsy1 09/14/21 Co mpleted Mammogram - screening2 03/16/21 Compl eted Chest X-ray3 1/28/21 Completed Echocardiogram4 06/26/20 Completed Ultrasound liver5 06/26/20 Completed Diabetic eye exam6 12/18/19 Completed Nephrology continued care for CKD7 11/15/19 Completed Holter monitor test interpretation8 04/21/19 Completed Echocardiogram9, 10 04/19/19 Complete d Holter monitor test wpvjqfwpzvqfoh95 04/18/19 Completed Ultrasound Carotid yvbcdk12 09/13/18 Completed Jkbwujzaycekrr03 03/18/18 Completed Chest X-ray14 03/17/18 Completed EKG15 03/17/18 Completed DEXA of hip and spine16 03/06/18 Comp leted Mammogram - oemcyyybz08 03/06/18 Comp leted Diabetic Education 01/06/17 Completed Cardiology F/U18 10/19/16 Completed NM Uqdfeip31 09/03/16 Completed Nuclear Stress Test20 09/03/16 Comple roger Exploratory ylujisfqwv32 07/28/16 Com pleted Diabetic eye exam 06/03/16 Completed Gogtwzgpu61 03/02/16 Completed Left diagnostic mammogram 09/23/15 Co mpleted Vlfkyetephmwszge52 09/04/15 Completed Carotid artery doppler assessment 08/27/15 Completed Carotid US 01/07/15 Completed Hidblunethpikn20 01/07/15 Completed Bone density scan25 12/06/14 Complete d Needle biopsy left gsnypk56 09/10/14 Completed Tykoyrlwysf45 01/21/14 Completed Nuclear stress test 03/31/10 Complete d Cardiac catheter 10/02/09 Completed AV Fistula of left arm Compl eted Cerbral Angiogram Completed Cholecystectomy Completed Colectomy Completed Coronary angioplasty Complet ed Urpudjlunkyuvh36 Completed Hysterectomy Completed Left Lumpectomy Completed Mammogram - pcgxaodmb54 Comp leted Oncology care w/ Dr Saldaña [...] seen Impression: normal exam; nonvisualization of the bseiqonlwlf2BXESM without background diabetic retinopathy branch retinal nicolette occlusion (see office visit note)7see scanned vwfh8Kmrkjfcbmd: cerebral infarction; unspecified Impression: negative Holter monitor per criteria (normal) (see radiologists' report)9Indication: BVW38ayzpekdc estimated ejection fraction 60-65%11Indication: embolic stroke Impression: [...] insufficiency and mild pulmonic valve insufficiency.14cardiomegaly w/o [id number] lead EKG revealed ST depression in leads V3 and V4 Repeat EKG showed normalization of ST uhilzelyaq16Gujjbf bone mineral density lumbar spine and both bztz35Cj mammographic evidence of malignancy f/u in 1 year is mtmfqacwqsm90[facility] NW19IV Lexiscan infusion given to the patient was negative by symptoms, negative by EKG for ischemia. Nuclear images showed normal perfusion scan. Ejection fraction 68% with normal LV cavity.20ef = 68%21with extensive wkkxenmfdlzc47rkwkeh59Ric scanned phfxus07yb = 60%55ibdszb62Uonzrmsl ductal tnqbaoqim64Xpubjeg polyps, diverticulosis, uncomplicated internal hemorrhoids. Repeat in 3-5 years. EF 25-30% Moderate to severe mitral toxzlspm03Jxjaydlktm: screening Impression: normal (see radiologists' report) Results Laboratory List Name Date Blood Glucose Monitoring POC 02/19/22 Blood Glucose Monitoring POC 02/19/22 Blood Glucose Monitoring POC 02/19/22 Blood Glucose Monitoring POC 02/19/22 Blood Glucose Monitoring POC 02/19/22 Blood Glucose Monitoring POC 02/19/22 Blood Glucose Monitoring POC 02/19/22 Blood Glucose Monitoring POC 02/19/22 Most recent to 1 2 3 4 5 6 7 8 oldest [Reference Range]: Blood Glucose, 123 mg/dL 113 mg/dL 137 mg/dL 83 mg/dL 103 mg/dL 133 mg/d L 136 mg/dL 42 mg/dL Capillary. POC (02/19/22 3:48 PM) (02/19/22 3:34 PM) (02/19/22 3:07 PM ) (02/19/22 2:33 PM) (02/19/22 2:06 PM) (02/19/22 1:47 PM) (02/19/22 1:32 PM) *<LLOW* [60-150 mg/dL] ( 02/19/22 1:06 PM) Vital Signs Most recent to oldest 1 2 3 [Reference Range]: Height/Length Dosing 160.020 cm (02/19/22 1:20 PM) Height/Length Estimated 160.020 cm (02/19/22 1:04 PM) Weight Dosing 88.450 kg (02/19/22 1:20 PM) Weight Estimated 88.450 kg (02/19/22 1:04 PM) Peripheral Pulse Rate [60-100 71 bpm 63 bpm 63 bpm bpm] (02/19/22 3:15 PM) (02/19/22 3:00 PM) (02/19/22 2:3 0 PM) Blood Pressure [90-140/60-90 136/81 mmHg 129/61 mmHg 123 /60 mmHg mmHg] (02/19/22 3:15 PM) (02/19/22 3:00 PM) (02/19/22 2:3 0 PM) Mean Arterial Pressure, Cuff 99 mmHg 84 mmHg 81 mmHg [65-100 mmHg] (02/19/22 3:15 PM) (02/19/22 3:00 PM) (02/19/22 2:3 0 PM) SpO2 [92-100 %] 99 % 100 % 100 % (02/19/22 3:15 PM) (02/19/22 3:00 PM) (02/19/22 2:3 0 PM) Oxygen Flow Rate 3 L/min 3 L/min 3 L/min (02/19/22 3:15 PM) (02/19/22 3:00 PM) (02/19/22 2:3 0 PM) Oxygen Therapy Nasal cannula Nasal cannula Nasal cannula (02/19/22 3:15 PM) (02/19/22 3:00 PM) (02/19/22 2:3 0 PM) Social History Social History Type Response Tobacco Never tobacco user Tobacco U se:. Sex Hospital Discharge Instructions Patient Sbcfflezm84/23/2022 17:50:04Peripheral Vascular Disease, Yebu-zu-Srod Peripheral Vascular Disease Peripheral vascular disease (PVD) is a disease of the blood vessels that carry blood from the heart to the rest of the body. PVD is also called peripheral artery disease (PAD) or poor circulation. PVD affects most of the body. But it affects the legs and feet the most. PVD can lead to acute limb ischemia. This happens when there is a sudden stop of blood flow to an arm or leg. This is a medical emergency. What are the causes? The most common cause of PVD is a buildup of a fatty substance (plaque) inside your arteries. This decreases blood flow. Plaque can break off and block blood in a smaller artery. This can lead to acutelimb ischemia. Other common causes of PVD include: Blood clots inside the blood vessels. Injuries to blood vessels. Irritation and swelling of blood vessels. Sudden tightening of the blood vessel (spasms). What increases the risk? A family history of PVD. Medical conditions, including: High cholesterol. Diabetes. High blood pressure. Heart disease. Past problems with blood clots. Past injury, such as mathews or a broken bone. Other conditions, such as: Buerger's disease. This is caused by swollen or irritated blood vessels in your hands and feet. Arthritis. defects that affect the arteries in your legs. Kidney disease. Using tobacco or nicotine products. Not getting enough exercise. Being very overweight (obese). Being 50 years old or older. What are the signs or symptoms? Cramps in your butt, legs, and feet. Pain and weakness in your legs when you are active that goes away when you rest. Leg pain when at rest. Leg numbness, tingling, or weakness. Coldness in a leg or foot, especially when compared with the other leg or foot. Skin or hair changes. These can include: Hair loss. Shiny skin. Pale or bluish skin. Thick toenails. Being unable to get or keep an erection. Tiredness (fatigue). Weak pulse or no pulse in the feet. Wounds and sores on the toes, feet, or legs. These take longer to heal. How is this treated? Underlying causes are treated first. Other conditions, like diabetes, high cholesterol, and blood pressure, are also treated. Treatment may include: Lifestyle changes, such as: Quitting smoking. Getting regular exercise. Having a diet low in fat and cholesterol. Not drinking alcohol. Taking medicines, such as: Blood thinners. Medicines to improve blood flow. Medicines to improve your blood cholesterol. Procedures to: Open the arteries and restore blood flow. Insert a small mesh tube (stent) to keep a blocked vessel open. Create a new path for blood to flow to the body (peripheral bypass). Remove tissue from a wound. Remove an affected leg or arm. Follow these instructions at home: Medicines Take ggvv-njz-wgwavhd and prescription medicines only as told by your doctor. If you are taking blood thinners: Talk with your doctor before you take any medicines that have aspirin, or NSAIDs, such as ibuprofen. Take medicines exactly as told. Take them at the same time each day. Avoid doing things that could hurt or bruise you. Take action to prevent falls. Wear an alert bracelet or carry a card that shows you are taking blood thinners. Lifestyle Get regular exercise. Ask your doctor about how to stay active. Talk with your doctor about keeping a healthy weight. If needed, ask about losing weight. Eat a diet that is low in fat and cholesterol. If you need help, talk with your doctor. Do not drink alcohol. Do not smoke or use any products that contain nicotine or tobacco. If you need help quitting, ask your doctor. General instructions Take good care of your feet. To do this: Wear shoes that fit well and feel good. Check your feet often for any cuts or sores. Get a flu shot (influenza vaccine) each year. Keep all follow-up visits. Where to find more information Society for Vascular Surgery: vascular.org [place] Heart [employer]: heart.org National Heart, Lung, and Blood [place]: nhlbi.nih.gov Contact a doctor if: You have cramps in your legs when you walk. You have leg pain when you rest. Your leg or foot feels cold. Your skin changes. You cannot get or keep an erection. You have cuts or sores on your legs or feet that do not heal. Get help right away if: You have sudden changes in the color and feeling of your arms or legs, such as: Your arm or leg turns cold, numb, and blue. Your arm or leg becomes red, warm, swollen, painful, or numb. You have any signs of a stroke. "BE FAST" is an easy way to remember the main warning signs: B - Balance. Dizziness, sudden trouble walking, or loss of balance. E - Eyes. Trouble seeing or a change in how you see. F - Face. Sudden weakness or loss of feeling of the face. The face or eyelid may droop on one side. A - Arms. Weakness or loss of feeling in an arm. This happens all of a sudden and most often on one side of the body. S - Speech. Sudden trouble speaking, slurred speech, or trouble understanding what people say. T - Time. Time to call emergency services. Write down what time symptoms started. You have other signs of a stroke, such as: A sudden, very bad headache with no known cause. Feeling like you may vomit (nausea). Vomiting. A seizure. You have chest pain or trouble breathing. These symptoms may be an emergency. Get help right away. Call your local emergency services (911 in the [place] Do not wait to see if the symptoms will go away. Do not drive yourself to the hospital. Summary Peripheral vascular disease (PVD) is a disease of the blood vessels. PVD affects the legs and feet the most. Symptoms may include leg pain or leg numbness, tingling, and weakness. Treatment may include lifestyle changes, medicines, and procedures. This information is not intended to replace advice given to you by your health care provider. Make sure you discuss any questions you have with your health care provider. Document Revised: 11/17/2020 Document Reviewed: 11/17/2020 [employer] Patient Education 2021 Fon. 02/19/2022 17:50:04Hypoglycemia, Zeoa-su-AwifWzrwibekilkl Hypoglycemia is when the sugar (glucose) level in your blood is too low. Low blood sugar can happen to people who have diabetes and people who do not have diabetes. Low blood sugar can happen quickly, and it can be an emergency. What are the causes? This condition happens most often in people who have diabetes. It may be caused by: Diabetes medicine. Not eating enough, or not eating often enough. Doing more physical activity. Drinking alcohol on an empty stomach. If you do not have diabetes, this condition may be caused by: A tumor in the pancreas. Not eating enough, or not eating for long periods at a time (fasting). A very bad infection or illness. Problems after having weight loss (bariatric) surgery. Kidney failure or liver failure. Certain medicines. What increases the risk? This condition is more likely to develop in people who: Have diabetes and take medicines to lower their blood sugar. Abuse alcohol. Have a very bad illness. What are the signs or symptoms? Mild Hunger. Sweating and feeling clammy. Feeling dizzy or light-headed. Being sleepy or having trouble sleeping. Feeling like you may vomit (nauseous). A fast heartbeat. A headache. Blurry vision. Mood changes, such as: Being grouchy. Feeling worried or nervous (anxious). Tingling or loss of feeling (numbness) around your mouth, lips, or tongue. Moderate Confusion and poor judgment. Behavior changes. Weakness. Uneven heartbeat. Trouble with moving (coordination). Very low Very low blood sugar (severe hypoglycemia) is a medical emergency. It can cause: Fainting. Seizures. Loss of consciousness (coma). . How is this treated? Treating low blood sugar Low blood sugar is often treated by eating or drinking something that has sugar in it right away. The food or drink should contain 15 grams of a fast-acting carb (carbohydrate). Options include: 4 oz (120 mL) of fruit juice. 4 oz (120 mL) of regular soda (not diet soda). A few pieces of hard candy. Check food labels to see how many pieces to eat for 15 grams. 1 Tbsp (15 mL) of sugar or honey. 4 glucose tablets. 1 tube of glucose gel. Treating low blood sugar if you have diabetes If you can think clearly and swallow safely, follow the 15:15 rule: Take 15 grams of a fast-acting carb. Talk with your doctor about how much you should take. Always keep a source of fast-acting carb with you, such as: Glucose tablets (take 4 tablets). A few pieces of hard candy. Check food labels to see how many pieces to eat for 15 grams. 4 oz (120 mL) of fruit juice. 4 oz (120 mL) of regular soda (not diet soda). 1 Tbsp (15 mL) of honey or sugar. 1 tube of glucose gel. Check your blood sugar 15 minutes after you take the carb. If your blood sugar is still at or below 70 mg/dL (3.9 mmol/L), take 15 grams of a carb again. If your blood sugar does not go above 70 mg/dL (3.9 mmol/L) after 3 tries, get help right away. After your blood sugar goes back to normal, eat a meal or a snack within 1 hour. Treating very low blood sugar If your blood sugar is below 54 mg/dL (3 mmol/L), you have very low blood sugar, or severe hypoglycemia. This is an emergency. Get medical help right away. If you have very low blood sugar and you cannot eat or drink, you will need to be given a hormone called glucagon. A family member or friend should learn how to check your blood sugar and how to give you glucagon. Ask your doctor if you need to have an emergency glucagon kit at home. Very low blood sugar may also need to be treated in a hospital. Follow these instructions at home: General instructions Take uiiu-tsu-gnbplpk and prescription medicines only as told by your doctor. Stay aware of your blood sugar as told by your doctor. If you drink alcohol: Limit how much you have to: 01 drink a day for women who are not . 02 drinks a day for men. Know how much alcohol is in your drink. In the [place] one drink equals one 12 oz bottle of beer (355 mL), one 5 oz glass of wine (148 mL), or one 1 oz glass of hard liquor (44 mL). Be sure to eat food when you drink alcohol. Know that your body absorbs alcohol quickly. This may lead to low blood sugar later. Be sure to keep checking your blood sugar. Keep all follow-up visits. If you have diabetes: Always have a fast-acting carb (15 grams) with you to treat low blood sugar. Follow your diabetes care plan as told by your doctor. Make sure you: Know the symptoms of low blood sugar. Check your blood sugar as often as told. Always check it before and after exercise. Always check your blood sugar before you drive. Take your medicines as told. Follow your meal plan. Eat on time. Do not skip meals. Share your diabetes care plan with: Your work or school. People you live with. Carry a card or wear jewelry that says you have diabetes. Where to find more information [place] Diabetes Association: www.diabetes.org Contact a doctor if: You have trouble keeping your blood sugar in your target range. You have low blood sugar often. Get help right away if: You still have symptoms after you eat or drink something that contains 15 grams of fast-acting carb, and you cannot get your blood sugar above 70 mg/dL by following the 15:15 rule. Your blood sugar is below 54 mg/dL (3 mmol/L). You have a seizure. You faint. These symptoms may be an emergency. Get help right away. Call your local emergency services (911 in the [place] Do not wait to see if the symptoms will go away. Do not drive yourself to the hospital. Summary Hypoglycemia happens when the level of sugar (glucose) in your blood is too low. Low blood sugar can happen to people who have diabetes and people who do not have diabetes. Low blood sugar can happen quickly, and it can be an emergency. Make sure you know the symptoms of low blood sugar and know how to treat it. Always keep a source of sugar (fast-acting carb) with you to treat low blood sugar. This information is not intended to replace advice given to you by your health care provider. Make sure you discuss any questions you have with your health care provider. Document Revised: 04/16/2021 Document Reviewed: 04/16/2021 [employer] Patient Education 2021 Fon. Follow Up Care02/19/2022 13:04:28With:Princess Carrasco Address: [address] [place] [address]- [facility] (1) When:2 to 4 days only if needed Comments:Follow up with Dr. Carrasco next week. Wrap your legs with rubén bandaged. Continue to watch your blood sugars and eat frequent small meals. Take restReturn if symptoms worsen Patient Care team information PersonnelName: Princess Carrasco MD Address: [address] [place] [place] [address] [place] Name: Solange Shea
--- OUTSIDE RECORDS SUMMARY | 2022-02-20 14:31 | External Medical Summary | CCD ---
:1945 Author Organization [facility] and [facility] Care Team Providers Name Role Phone Princess Carrasco Primary Care Provider [phone] Allergies, Adverse Reactions, Alerts Substance Reaction Status carvedilol Critical Active clopidogrel Hives Active sulfa drug Hives Active Swelling Plavix Critical Active Hibiclens Critical Active meloxicam Upset stomach Active Mobic Critical Active chlorhexidine containing compounds Hives Activ e BRENTON inhibitors Critical Active Problem List Condition Effective Dates Status Non-ST elevation CT (NSTEMI) Active Chronic renal disease Active Coronary artery disease Active Meniscus [...] Medication Instructions Start Date End Date Status Zantac 150 oral tablet 1 tab(s) ( 150 mg ), PO, 04/28/2017 Ordered Daily, # 90 tab(s), 4 Refill(s), Pharmacy: [facility], 1 tab(s) PO Daily aspirin 325 mg oral delayed 1 tab(s) [...] Instructions: prn, 0 Refill(s) 01/27/2017 Ordered prn allopurinol 100 mg oral 1 tab(s) ( 100 mg ), PO, 07/24/2018 Ordered tablet Daily, # 90 tab(s), 3 Refill(s), Pharmacy: [facility], 1 tab(s) PO Daily prasugrel 10 mg oral tablet 1 tab(s) ( 10 mg ), PO, 03/27/2018 Ordered Daily, # 60 tab(s), 0 Refill(s), Pharmacy: [facility], 1 tab(s) PO Daily,x60 day(s) cholecalciferol 2000 intl 1 tab(s) ( 2,000 03/21/2018 Ordered units oral tablet International_Unit ), PO, Daily, 0 Refill(s) Misc Prescription 0 Refill(s) 03/21/2018 Ordered Misc Prescription 0 Refill(s) 03/21/2018 Ordered glipiZIDE 5 mg oral tablet, 1 tab(s) ( 5 mg ), PO, 05/16/2018 Ordered extended release Daily, # 90 tab(s), 3 Refill(s), Pharmacy: [facility], 1 tab(s) PO Daily raNITIdine 150 mg oral tablet 1 tab(s) ( 150 mg ), Tab, 05/16/2018 Ordered PO, BID, # 180 tab(s), 4 Refill(s), Pharmacy: [facility], 1 tab(s) PO BID amLODIPine 10 mg oral tablet 1 tab(s) ( 10 mg ), PO, 05/16/2018 Ordered Daily, # 90 tab(s), 3 Refill(s), Pharmacy: [facility], 1 tab(s) PO Daily hydrALAZINE 100 mg oral 1 tab(s) ( 100 mg ), PO, 05/16/2018 Ordered tablet TID, # 270 tab(s), 3 Refill(s), Pharmacy: [facility], 1 tab(s) PO TID letrozole 2.5 mg oral tablet 1 tab(s) ( 2.5 mg ), PO, 05/16/2018 Ordered HS, # 90 tab(s), 3 Refill(s), Pharmacy: [facility], 1 tab(s) PO HS levothyroxine 137 mcg (0.137 1 tab(s) ( 137 mcg ), PO, 05/16/2018 Ordered mg) oral tablet Daily, # 90 tab(s), 3 Refill(s), Pharmacy: [facility], 1 tab(s) PO Daily metoprolol succinate 100 mg 1 tab(s) ( 100 mg ), PO, 05/16/2018 Ordered oral tablet, extended release Daily, # 90 tab(s), 3 Refill(s), Pharmacy: [facility], 1 tab(s) PO Daily torsemide 20 mg oral tablet See Instructions, Instruct ions: Take 2 tablets in the morning and 2 tablets at noon., # 360 tab(s), 4 Refill(s), Pharmacy: [facility], Take 2 tablets in the morning and 2 tablets at noon. 05/16/2018 Ordered Take 2 tablets in the morning and 2 tablets at noon. cloNIDine 0.2 mg oral tablet 1 tab(s) ( 0.2 mg ), PO, 05/16/2018 Ordered TID, # 270 tab(s), 3 Refill(s), Pharmacy: [facility], 1 tab(s) PO TID Shingrix intramuscular 0.5 mL, IM, Once, # 0.5 07/28/2017 Ordered injection mL, 0 Refill(s), Pharmacy: [facility], 0.5 mL IM Once Shingrix Shingrix, See Instructions, Instructions: For shingrix vaccine, # 2 EA, 0 Refill(s), Supply 07/28/2017 Ordered For shingrix vaccine atorvastatin 40 mg oral 1 tab(s), PO, Daily, # 90 06/29/2018 Ordered tablet tab(s), 4 Refill(s), Pharmacy: [facility] ProAir HFA 90 mcg/inh 2 puff(s), INH, q4hr, PRN: 01/08/2019 Ordered inhalation aerosol shortness of breath or wheezing, # 8.5 gm, 0 Refill(s), Pharmacy: [facility], 2 puff(s) INH q4hr,PRN:shortness of breath or wheezing Immunizations Vaccine Date Status Refusal Reason influenza, unspecified formulation1 03/13/2018 Recorded pneumococcal, unspecified formulation 03/13/2018 Recorded pneumococcal 13-valent vaccine 03/19/2016 Recorded Td 06/30/2001 Recorded pneumococcal (PPSV23) 05/07/2009 Recorded influenza, inactivated 02/25/2014 Recorded 1Result Comment: Fluzone Tri-Valent High dose Vital Signs Most recent to oldest [Reference Range]: 1 Temperature Temporal [36.3-37.8 DegC] 36.5 DegC (01/08/2019 16:11:00) Peripheral Pulse Rate [60-100 bpm] 78 bpm (01/08/2019 16:11:00) Blood Pressure [90-140/60-90 mmHg] <content ID='[id number]'>126</content>/<content ID='[id number]'>80</content> mmHg (01/08/2019 16:11:00) Oxygen Saturation 90 % (01/08/2019 16:21:00) SpO2 [92-100 %] 87 % *LOW* (01/08/2019 16:11:00) Most recent to oldest [Reference Range]: 1 Height 160 cm (01/08/2019 16:11:00) Height/Length Measured (inches) 62.99 in (01/08/2019 16:11:00) Procedures Procedures Date Related Diagnosis AV Fistula [...] 02:00:00 Echocardiogram6 01/07/2015 02:00:00 Echocardiogram7 03/18/2018 02:00:00 Echocardiography8 09/04/2015 02:00:00 EKG9 03/17/2018 02:00:00 Exploratory skmtvcfoeb47 07/28/2016 02:00:00 Hysterectomy Left Lumpectomy Left diagnostic mammogram 09/23/2015 02:00:00 Nxxyfqfhw94 03/02/2016 02:00:00 Mammogram - hiarmcohc68 03/06/2018 02:00:00 Needle biopsy left 09/10/2014 02:00:00 NM Wwsviwy92 09/03/2016 02:00:00 Nuclear stress test 03/31/2010 02:00:00 Nuclear Stress Test15 09/03/2016 02:00:00 Oncology care w/ Dr Saldaña Ultrasound Carotid xdrlxe79 09/13/2018 14:00:00 [facility] HG7etlqboouijvx w/o SIQ7Stvibhd polyps, diverticulosis, uncomplicated internal hemorrhoids. Repeat in 3-5 years.5Normal bone mineral density lumbar spine and both naoc2ma = 60%7Bilateral enlargement, left greater than right. Biventricular enlargement both midly increased. Mild to moderate concentric left ventricular hypertrophy with normal left ventricular systolic function and grade II diastolic dysfunction. Moderately severe tricupsid valve insufficency with associated moderate pulmonary hypertension. Mild mitral insufficiency and mild pulmonic valve insufficiency.8See scanned ujslhi000 lead EKG revealed ST depression in leads V3 and V4 Repeat EKG showed normalization of ST qoefdqgpnw91sujg extensive zygvhqibclct56 inxesj90Zt mammographic evidence of malignancy f/u in 1 year is vdwwkwfkbvb28Tpbwdeiz ductal krgidlrax93VK Lexiscan infusion given to the patient was negative by symptoms, negative by EKG for ischemia. Nuc lear images showed normal perfusion scan. Ejection fraction 68% with normal LV cavity.15ef = 68%16Indication: stenosis Impression: moderate atheromatous changes percent stenosis right ICA less than 50% percent stenosis left ICA 50-69% no hemodynamically significant stenosis (see radiology report)
--- OUTSIDE RECORDS SUMMARY | 2022-02-20 14:31 | External Medical Summary | CCD ---
:1945 Author Organization [facility] and [facility] Care Team Providers Name Role Phone STACEY MORALES Referring Provider [phone] Princess Carrasco Primary Care Provider [phone] Allergies, Adverse Reactions, Alerts Substance Reaction Status carvedilol Critical Active clopidogrel Hives Active sulfa drug Hives Active Swelling Plavix Critical Active Hibiclens Critical Active meloxicam Upset stomach Active Mobic Critical Active chlorhexidine containing compounds Hives Activ e BRENTON inhibitors Critical Active Problem List Condition Effective Dates Status Non-ST elevation [place] (NSTEMI) Active Chronic renal disease Resolved Stage [...] Instructions: prn, 0 Refill(s) 01/27/2017 Ordered prn Misc Prescription 0 Refill(s) 02/08/2019 Ordered cholecalciferol 2000 intl 1 tab(s) ( 2,000 03/21/2018 Ordered units oral tablet International_Unit ), PO, Daily, 0 Refill(s) Misc Prescription 0 Refill(s) 03/21/2018 Ordered Misc Prescription 0 Refill(s) 03/21/2018 Ordered letrozole 2.5 mg oral tablet 1 tab(s) ( 2.5 mg ), PO, 05/16/2018 Ordered HS, # 90 tab(s), 3 Refill(s), Pharmacy: [facility], 1 tab(s) PO HS sevelamer hydrochloride 800 mg 1 tab(s) ( 800 mg ), PO , BID, Instructions: with meals, # 180 tab(s), 0 Refill(s) 03/22/2019 Ordered oral tablet with meals cloNIDine 0.2 mg oral tablet 1 tab(s), PO, TID, # 270 11/02/2019 Ordered tab(s), 3 Refill(s), Pharmacy: [facility], 1 tab(s) PO TID glipiZIDE 5 mg oral tablet, 1 tab(s), PO, Daily, # 90 11/02/2019 Ordered extended release tab(s), 3 Refill(s), Pharmacy: [facility], 1 tab(s) PO Daily levothyroxine 137 mcg (0.137 1 tab(s), PO, Daily, # 90 11/02/2019 Ordered mg) oral tablet tab(s), 3 Refill(s), Pharmacy: [facility], 1 tab(s) PO Daily amLODIPine 10 mg oral tablet 1 tab(s), PO, Daily, # 90 11/02/2019 Ordered tab(s), 3 Refill(s), Pharmacy: [facility], 1 tab(s) PO Daily allopurinol 100 mg oral tablet 1 tab(s), PO, Daily, # 90 11/02/2019 Ordered tab(s), 3 Refill(s), Pharmacy: [facility], 1 tab(s) PO Daily hydrALAZINE 100 mg oral tablet 1 tab(s), PO, TID, # 270 11/02/2019 Ordered tab(s), 3 Refill(s), Pharmacy: [facility], 1 tab(s) PO TID Pepcid 20 mg oral tablet 1 tab(s) ( 20 mg ), PO, 11/02/2019 Ordered Once a day (at bedtime), # 90 tab(s), 3 Refill(s), Pharmacy: [facility], 1 tab(s) PO Once a day (at bedtime) atorvastatin 40 mg oral tablet 1 tab(s), PO, Daily, # 90 11/02/2019 Ordered tab(s), 4 Refill(s), Pharmacy: [facility], 1 tab(s) PO Daily torsemide 20 mg oral tablet See Instructions, Instruct ions: Take 2 tablets in the morning and 2 tablets at noon., # 360 tab(s), 4 Refill(s), Pharmacy: [facility], Take 2 tablets in the morning and 2 tablets at noon. 11/02/2019 Ordered Take 2 tablets in the morning and 2 tablets at noon. metoprolol succinate 100 mg 1 tab(s) ( 100 mg ), PO, 11/02/2019 Ordered oral tablet, extended release Daily, # 90 tab(s), 3 Refill(s), Pharmacy: [facility], 1 tab(s) PO Daily ProAir HFA 90 mcg/inh 2 puff(s), INH, q4hr, PRN: 01/08/2019 Ordered inhalation aerosol shortness of breath or wheezing, # 8.5 gm, 0 Refill(s), Pharmacy: [facility], 2 puff(s) INH q4hr,PRN:shortness of breath or wheezing cilostazol 100 mg oral tablet 1 tab(s) ( 100 mg ), PO, 07/20/2019 Ordered BID, # 60 tab(s), 0 Refill(s), Pharmacy: [facility], 1 tab(s) PO BID Immunizations Vaccine Date Status Refusal Reason influenza, inactivated 03/12/2019 Recorded influenza, inactivated 02/25/2014 Recorded influenza, unspecified formulation1 03/13/2018 Recorded pneumococcal, unspecified formulation 03/13/2018 Recorded pneumococcal 13-valent vaccine 03/19/2016 Recorded Td 06/30/2001 Recorded pneumococcal (PPSV23) 05/07/2009 Recorded 1Result Comment: Fluzone Tri-Valent High dose Results Most recent to oldest [Reference Range]: 1 Creatinine Level [0.7-1.2 mg/dL] 3.3 mg/dL *HI* (05/13/2020 09:31:00) AGAP [9-18] 12 (05/13/2020:31:00) Albumin Level [3.5-5.0 g/dL] 3.8 g/dL (05/13/2020::00) Basophil Auto [0.00-0.20 K/mcL] 0.20 K/mcL (05/13/2020::00) BUN [7-17 mg/dL] 79 mg/dL *HI* (05/13/2020:00) Chloride Level [98.0-110.0 mmol/L] 103.0 mmol/L (05/13/2020::00) CO2 [22-30 mmol/L] 28 mmol/L (05/13/2020:) Eos Auto [0.00-0.45 K/mcL] 0.75 K/mcL *HI* (05/13/2020::) Glucose Level [70-100 mg/dL] 89 mg/dL (05/13/2020::00) Hct [35.0-45.0 %] 33.6 % *LOW* (05/13/2020::00) Hgb [12.0-16.0 g/dL] 10.3 g/dL *LOW* (05/13/2020::) Lymph Auto [1.0-4.8 K/mcL] 2.2 K/mcL (05/13/2020::00) MCH [26-34 pg] 28 pg (05/13/2020::00) MCHC [31-37 g/dL] 31 g/dL (05/13/2020::00) MCV [83-104 fL] 93 fL (05/13/2020::00) Laporte Auto [0.00-0.80 K/mcL] 0.85 K/mcL *HI* (05/13/2020::00) MPV [6-10 fL] 7 fL (05/13/2020::00) Neutro Auto [1.8-7.7 K/mcL] 6.1 K/mcL (05/13/2020:31:00) Phos [2.5-4.5 mg/dL] 5.9 mg/dL *HI* (05/13/2020 09:31:00) Platelet [150-400 x10-3/uL] 221 x10-3/uL (05/13/2020 09:31:00) Potassium Level [3.5-5.0 mmol/L] 4.5 mmol/L (05/13/2020 09:31:00) RBC [4.0-5.3 M/uL] 3.6 M/uL *LOW* (05/13/2020 09:31:00) RDW [10-15 %] 16 % *HI* (05/13/2020:31:00) Sodium Level [135-145 mmol/L] 138 mmol/L (05/13/2020::00) WBC [3.8-9.8 K/mcL] 10.1 K/mcL *HI* (05/13/2020:31:00) Calcium Level [8.4-10.2 mg/dL] 9.9 mg/dL (05/13/2020 09:31:00) Auto Eos % [0.0-6.0 %] 7.4 % *HI* (05/13/2020 09:31:00) Auto Lymph % [20.0-45.0 %] 21.8 % (05/13/2020 09:31:00) Auto Neut % [36.0-67.4 %] 60.4 % (05/13/2020 09:31:00) Auto Baso % [0.0-2.0 %] 2.0 % (05/13/2020 09:31:00) Auto Laporte % [1.0-10.0 %] 8.4 % (05/13/2020 09:31:00) BUN/Creat Ratio [7-18] 24 *HI* (05/13/2020 09:31:00) eGFR AA 17 *NA* (05/13/2020:31:00) eGFR Non AA 14 *NA* (05/13/2020 09:31:00) Procedures Procedures Date Related Diagnosis AV Fistula of left arm Bone density scan1 12/06/2014 02:00:00 Cardiac catheter 10/02/2009 02:00:00 Cardiology F/U2 10/19/2016 02:00:00 Carotid artery doppler assessment 08/27/2015 02:00:00 Carotid US 01/07/2015 02:00:00 Cerbral Angiogram Chest X-ray3 03/17/2018 02:00:00 Cholecystectomy Colectomy Colonoscopy4 01/21/2014 02:00:00 Coronary angioplasty DEXA of hip and spine5 03/06/2018 02:00:00 Diabetic Education 01/06/2017 02:00:00 Diabetic eye exam 06/03/2016 02:00:00 Diabetic eye exam6 12/18/2019 02:00:00 Echocardiogram7 01/07/2015 02:00:00 Echocardiogram8 03/18/2018 02:00:00 Echocardiogram9, 10 04/19/2019 02:00:00 Ricneeydkaiohyvu54 09/04/2015 02:00:00 EKG12 03/17/2018 02:00:00 Exploratory lqvppezlvk51 07/28/2016 02:00:00 Holter monitor test kkwhekwytlmmkz50 04/21/2019 02:00:00 Holter monitor test hbjzgnxjdqawym31 04/18/2019 02:00:00 Hysterectomy Left Lumpectomy Left diagnostic mammogram 09/23/2015 02:00:00 Pdskqyyjt57 03/02/2016 02:00:00 Mammogram - hcvkpwkoi38 03/06/2018 02:00:00 Mammogram - njsqqoaof65 Needle biopsy left qmuhtp19 09/10/2014 02:00:00 Nephrology continued care for CKD20 11/15/2019 02:00:00 NM Nqjlvui52 09/03/2016 02:00:00 Nuclear stress test 03/31/2010 02:00:00 Nuclear Stress Test22 09/03/2016 02:00:00 Oncology care w/ Dr Saldaña Ultrasound Carotid apajfz03 09/13/2018 14:00:00 9[facility]afptv8[facility] ND0iixvtzlihipt w/o RSX1Vyxdkab polyps, diverticulosis, uncomplicated internal hemorrhoids. Repeat in 3-5 years.5Normal bone mineral density lumbar spine and both hips6 NIDDM without background diabetic retinopathy branch retinal nicolette occlusion (see office visit note)7ef = 60%8Bilateral enlargement, left greater than right. Biventricular enlargement both midly increased. Mild to moderate concentric left ventricular hypertrophy with normal left ventricular systolic function and grade II diastolic dysfunction. Moderately severe tricupsid valve insufficency with associated moderate pulmonary hypertension. Mild mitral insufficiency and mild pulmonic valve insufficiency.9Indication: CAD 10visually estimated ejection fraction 60-65%11See scanned [id number] lead EKG revealed ST depression in leads V3 and V4 Repeat EKG showed normalization of ST yumgaqspvb05cbqv extensive jhhjupglnitl21 Indication: cerebral infarction; unspecified Impression: negative Holter monitor per criteria (normal) (see radiologists' report)15Indication: embolic stroke Impression: normal (see report)80jiykko30Lk mammographic evidence of malignancy f/u in 1 year is wisqggkoenh54Smolnwfvbl: screening Impression: normal (see radiologists' report)19Invasive ductal dgtzlfscw16pyh scanned zrco47XQ Lexiscan infusion given to the patient was negative by symptoms, negative by EKG for ischemia. Nuclear images showed normal perfusion scan. Ejection fraction 68% with normal LV cavity.22ef = 68%23Indication: stenosis Impression: moderate atheromatous changes percent stenosis right ICA less than 50% percent stenosis left ICA 50-69% no hemodynamically significant stenosis (see radiology report)
--- OUTSIDE RECORDS SUMMARY | 2022-02-20 14:31 | External Medical Summary | CCD ---
:1945 Author Organization [facility] and [facility] Care Team Providers Name Role Phone Princess Carrasco Primary Care Provider [phone] Allergies, Adverse Reactions, Alerts Substance Reaction Status carvedilol Critical Active clopidogrel Hives Active sulfa drug Hives Active Swelling Plavix Critical Active Hibiclens Critical Active meloxicam Upset stomach Active Mobic Critical Active chlorhexidine containing compounds Hives Activ e BRENTON inhibitors Critical Active Problem List Condition Effective Dates Status Non-ST elevation [place] (NSTEMI) Active Chronic renal disease Active Coronary [...] Daily, # 90 tab(s), 4 Refill(s), Pharmacy: [facility], 1 tab(s) PO [...] Daily, # 90 tab(s), 3 Refill(s), Pharmacy: [facility], 1 tab(s) PO Daily prasugrel 10 mg oral tablet 1 tab(s) ( 10 mg ), PO, 03/27/2018 Ordered Daily, # 60 tab(s), 0 Refill(s), Pharmacy: [facility], 1 tab(s) PO Daily,x60 day(s) cholecalciferol 2000 intl 1 tab(s) ( 2,000 03/21/2018 Ordered units oral tablet International_Unit ), PO, Daily, 0 Refill(s) Misc Prescription 0 Refill(s) 03/21/2018 Ordered Misc Prescription 0 Refill(s) 03/21/2018 Ordered glipiZIDE 5 mg oral tablet, 1 tab(s) ( 5 mg ), PO, 05/16/2018 Ordered extended release Daily, # 90 tab(s), 3 Refill(s), Pharmacy: [facility], 1 tab(s) PO Daily raNITIdine 150 mg oral tablet 1 tab(s) ( 150 mg ), Tab, 05/16/2018 Ordered PO, BID, # 180 tab(s), 4 Refill(s), Pharmacy: [facility], 1 tab(s) PO BID amLODIPine 10 mg oral tablet 1 tab(s) ( 10 mg ), PO, 05/16/2018 Ordered Daily, # 90 tab(s), 3 Refill(s), Pharmacy: [facility], 1 tab(s) PO Daily hydrALAZINE 100 mg oral 1 tab(s) ( 100 mg ), PO, 05/16/2018 Ordered tablet TID, # 270 tab(s), 3 Refill(s), Pharmacy: [facility], 1 tab(s) PO TID letrozole 2.5 mg oral tablet 1 tab(s) ( 2.5 mg ), PO, 05/16/2018 Ordered HS, # 90 tab(s), 3 Refill(s), Pharmacy: [facility], 1 tab(s) PO HS levothyroxine 137 mcg (0.137 1 tab(s) ( 137 mcg ), PO, 05/16/2018 Ordered mg) oral tablet Daily, # 90 tab(s), 3 Refill(s), Pharmacy: [facility], 1 tab(s) PO Daily metoprolol succinate 100 mg 1 tab(s) ( 100 mg ), PO, 05/16/2018 Ordered oral tablet, extended release Daily, # 90 tab(s), 3 Refill(s), Pharmacy: [facility], 1 tab(s) PO Daily torsemide 20 mg oral tablet See Instructions, Instruct ions: Take 2 tablets in the morning and 2 tablets at noon., # 360 tab(s), 4 Refill(s), Pharmacy: [facility], Take 2 tablets in the morning and 2 tablets at noon. 05/16/2018 Ordered Take 2 tablets in the morning and 2 tablets at noon. cloNIDine 0.2 mg oral tablet 1 tab(s) ( 0.2 mg ), PO, 05/16/2018 Ordered TID, # 270 tab(s), 3 Refill(s), Pharmacy: [facility], 1 tab(s) PO TID Shingrix intramuscular 0.5 mL, IM, Once, # 0.5 07/28/2017 Ordered injection mL, 0 Refill(s), Pharmacy: [facility], 0.5 mL IM Once Shingrix Shingrix, See Instructions, Instructions: For shingrix vaccine, # 2 EA, 0 Refill(s), Supply 07/28/2017 Ordered For shingrix vaccine atorvastatin 40 mg oral 1 tab(s), PO, Daily, # 90 06/29/2018 Ordered tablet tab(s), 4 Refill(s), Pharmacy: [facility] ProAir HFA 90 mcg/inh 2 puff(s), INH, q4hr, PRN: 01/08/2019 Ordered inhalation aerosol shortness of breath or wheezing, # 8.5 gm, 0 Refill(s), Pharmacy: [facility], 2 puff(s) INH q4hr,PRN:shortness of breath [...] (01/08/2019 16:11:00) Blood Pressure [90-140/60-90 mmHg] <content ID='[id number]'>126</content>/<content ID='[id number]'>80</content> mmHg (01/08/2019 16:11:00) Oxygen Saturation 90 % [...] Echocardiography8 09/04/2015 02:00:00 EKG9 03/17/2018 02:00:00 Exploratory idyudoenyn72 07/28/2016 02:00:00 Hysterectomy Left Lumpectomy Left diagnostic mammogram 09/23/2015 02:00:00 Ldtpsmliw40 03/02/2016 02:00:00 Mammogram - hlyulidby83 03/06/2018 02:00:00 Needle biopsy left 09/10/2014 02:00:00 NM Anevudn44 09/03/2016 02:00:00 Nuclear stress test 03/31/2010 02:00:00 Nuclear Stress Test15 09/03/2016 02:00:00 Oncology care w/ Dr Saldaña Ultrasound Carotid frzirw87 09/13/2018 14:00:00 6sfsvcv6Qtrtk Clinics IU0fbcvlkwrkkie w/o MAN1Fojkcho polyps, diverticulosis, uncomplicated internal hemorrhoids. Repeat in 3-5 years.5Normal bone mineral density lumbar spine and both lyfk2ap = 60%7Bilateral enlargement, left greater than right. Biventricular enlargement both midly increased. Mild to moderate concentric left ventricular hypertrophy with normal left ventricular systolic function and grade II diastolic dysfunction. Moderately severe tricupsid valve insufficency with associated moderate pulmonary hypertension. Mild mitral insufficiency and mild pulmonic valve insufficiency.8See scanned runwdc985 lead [address]KG revealed ST depression in leads V3 and V4 Repeat EKG showed normalization of ST peppxsbiuy69vcnz extensive nvyifgrenxtj12 nimqfi26Bl mammographic evidence of malignancy f/u in 1 year is woxaotqgbtl54Yuhpuian ductal iljezcjnt84EF Lexiscan infusion given to the patient was negative by symptoms, negative by EKG for ischemia. Nuc lear images showed normal perfusion scan. Ejection fraction 68% with normal LV cavity.15ef = 68%16Indication: stenosis Impression: moderate atheromatous changes percent stenosis right ICA less than 50% percent stenosis left ICA 50-69% no hemodynamically significant stenosis (see radiology report)
--- OUTSIDE RECORDS SUMMARY | 2022-02-20 14:31 | External Medical Summary | CCD ---
:1945 Author Organization [facility] Care Team Providers Name Role Phone Princess Carrasco Primary Care Provider [phone] Allergies, Adverse Reactions, Alerts Substance Reaction Status carvedilol Critical Active clopidogrel Hives Active sulfa drug Hives Active Swelling Plavix Critical Active Hibiclens Critical Active meloxicam Upset stomach Active Mobic Critical Active chlorhexidine containing compounds Hives Activ e BRENTON inhibitors Critical Active Problem List Condition Effective Dates Status Non-ST elevation [place] (NSTEMI) Active Chronic renal disease Resolved Stage [...] prn, 0 Refill(s) 01/27/2017 Ordered prn warfarin 5 mg oral tablet 1 tab(s) ( 5 mg ), PO, 11/30/2019 Ordered Daily, # 90 tab(s), 3 Refill(s), Pharmacy: [facility], 1 tab(s) PO Daily Misc Prescription 0 Refill(s) 02/08/2019 Ordered cholecalciferol 2000 intl 1 tab(s) ( 2,000 03/21/2018 Ordered units oral tablet International_Unit ), PO, Daily, 0 Refill(s) [facility] Prescription 0 Refill(s) 03/21/2018 Ordered Misc Prescription 0 Refill(s) 03/21/2018 Ordered letrozole 2.5 mg oral tablet 1 tab(s) ( 2.5 mg ), PO, 05/16/2018 Ordered HS, # 90 tab(s), 3 Refill(s), Pharmacy: [facility], 1 tab(s) PO HS sevelamer hydrochloride 800 mg 1 tab(s) ( 800 mg ), PO , BID, Instructions: with meals, # 180 tab(s), 0 Refill(s) 03/22/2019 Ordered oral tablet with meals cloNIDine 0.2 mg oral tablet 1 tab(s), PO, TID, # 270 11/02/2019 Ordered tab(s), 3 Refill(s), Pharmacy: [facility], 1 tab(s) PO TID glipiZIDE 5 mg oral tablet, 1 tab(s), PO, Daily, # 90 11/02/2019 Ordered extended release tab(s), 3 Refill(s), Pharmacy: [facility], 1 tab(s) PO Daily levothyroxine 137 mcg (0.137 1 tab(s), PO, Daily, # 90 11/02/2019 Ordered mg) oral tablet tab(s), 3 Refill(s), Pharmacy: [facility], 1 tab(s) PO Daily amLODIPine 10 mg oral tablet 1 tab(s), PO, Daily, # 90 11/02/2019 Ordered tab(s), 3 Refill(s), Pharmacy: [facility], 1 tab(s) PO Daily allopurinol 100 mg oral tablet 1 tab(s), PO, Daily, # 90 11/02/2019 Ordered tab(s), 3 Refill(s), Pharmacy: [facility], 1 tab(s) PO Daily hydrALAZINE 100 mg oral tablet 1 tab(s), PO, TID, # 270 11/02/2019 Ordered tab(s), 3 Refill(s), Pharmacy: [facility], 1 tab(s) PO TID Pepcid 20 mg oral tablet 1 tab(s) ( 20 mg ), PO, 11/02/2019 Ordered Once a day (at bedtime), # 90 tab(s), 3 Refill(s), Pharmacy: [facility], 1 tab(s) PO Once a day (at bedtime) atorvastatin 40 mg oral tablet 1 tab(s), PO, Daily, # 90 11/02/2019 Ordered tab(s), 4 Refill(s), Pharmacy: [facility], 1 tab(s) PO Daily torsemide 20 mg oral tablet See Instructions, Instruct ions: Take 2 tablets in the morning and 2 tablets at noon., # 360 tab(s), 4 Refill(s), Pharmacy: [facility], Take 2 tablets in the morning and 2 tablets at noon. 11/02/2019 Ordered Take 2 tablets in the morning and 2 tablets at noon. metoprolol succinate 100 mg 1 tab(s) ( 100 mg ), PO, 11/02/2019 Ordered oral tablet, extended release Daily, # 90 tab(s), 3 Refill(s), Pharmacy: [facility], 1 tab(s) PO Daily ProAir HFA 90 mcg/inh 2 puff(s), INH, q4hr, PRN: 01/08/2019 Ordered inhalation aerosol shortness of breath or wheezing, # 8.5 gm, 0 Refill(s), Pharmacy: [facility], 2 puff(s) INH q4hr,PRN:shortness of breath or wheezing Coumadin 1 mg oral tablet 1 tab(s) ( 1 mg ), PO, Daily , Instructions: take as directed, # 30 tab(s), 0 Refill(s), Pharmacy: [facility], 1 tab(s) PO Daily,Instr:take as directed 12/04/2019 Ordered take as directed cilostazol 100 mg oral tablet 1 tab(s) ( 100 mg ), PO, 07/20/2019 Ordered BID, # 60 tab(s), 0 Refill(s), Pharmacy: [facility], 1 tab(s) PO BID Immunizations Vaccine Date Status Refusal Reason influenza, inactivated 03/12/2019 Recorded influenza, inactivated 02/25/2014 Recorded influenza, unspecified formulation1 03/13/2018 Recorded pneumococcal, unspecified formulation 03/13/2018 Recorded pneumococcal 13-valent vaccine 03/19/2016 Recorded Td 06/30/2001 Recorded pneumococcal (PPSV23) 05/07/2009 Recorded 1Result Comment: Fluzone Tri-Valent High dose Results Most recent to oldest [Reference Range]: 1 INR POC 1.8 (12/04/2019 09:28:00) Procedures Procedures Date Related Diagnosis AV Fistula [...] Echocardiogram7 03/18/2018 02:00:00 Echocardiogram8, 9 04/19/2019 02:00:00 Wfxzwmhhftcazpnp52 09/04/2015 02:00:00 EKG11 03/17/2018 02:00:00 Exploratory kaotwsjoyw48 07/28/2016 02:00:00 Holter monitor test yzsjnihydcrceo40 04/21/2019 02:00:00 Holter monitor test ehjzypbxtaaoen99 04/18/2019 02:00:00 Hysterectomy Left Lumpectomy Left diagnostic mammogram 09/23/2015 02:00:00 Jgkaqhoyi71 03/02/2016 02:00:00 Mammogram - xymjwpcjv49 03/06/2018 02:00:00 Mammogram - idmydexqe55 Needle biopsy left 09/10/2014 02:00:00 Nephrology continued care for CKD19 11/15/2019 02:00:00 NM Osxpxax62 09/03/2016 02:00:00 Nuclear stress test 03/31/2010 02:00:00 Nuclear Stress Test21 09/03/2016 02:00:00 Oncology care w/ Dr Saldaña Ultrasound Carotid diwgpt24 09/13/2018 14:00:00 8ihnerd8[facility]je [facility] DZ5lpenwzxvtfun w/o DRQ7Milhvnm polyps, diverticulosis, uncomplicated internal hemorrhoids. Repeat in 3-5 years.5Normal bone mineral density lumbar spine and both ntkg6gx = 60%7Bilateral enlargement, left greater than right. Biventricular enlargement both midly increased. Mild to moderate concentric left ventricular hypertrophy with normal left ventricular systolic function and grade II diastolic dysfunction. Moderately severe tricupsid valve insufficency with associated moderate pulmonary hypertension. Mild mitral insufficiency and mild pulmonic valve insufficiency.8Indication: CAD 9visually estimated ejection fraction 60-65%10See scanned aduvjb9063 lead EKG revealed ST depression in leads V3 and V4 Repeat EKG showed normalization of ST mqzpdukqzf92slxp extensive goeywuytdgsz22 Indication: cerebral infarction; unspecified Impression: negative Holter monitor per criteria (normal) (see radiologists' report)14Indication: embolic stroke Impression: normal (see report)63eqlekm84Et mammographic evidence of malignancy f/u in 1 year is bzvpvvvpkab10Wlbmbhtrhq: screening Impression: normal (see radiologists' report)18Invasive ductal wilsticfv56zad scanned pral75UU Lexiscan infusion given to the patient was negative by symptoms, negative by EKG for ischemia. Nuclear images showed normal perfusion scan. Ejection fraction 68% with normal LV cavity.21ef = 68%22Indication: stenosis Impression: moderate atheromatous changes percent stenosis right ICA less than 50% percent stenosis left ICA 50-69% no hemodynamically significant stenosis (see radiology report)
--- OUTSIDE RECORDS SUMMARY | 2022-02-20 14:32 | External Medical Summary | CCD ---
:1945 Author Organization [facility] Care Team Providers Name Role Phone Princess Carrasco Primary Care Provider [phone] Allergies, Adverse Reactions, Alerts Substance Reaction Status carvedilol Critical Active clopidogrel Hives Active sulfa drug Hives Active Swelling Plavix Critical Active Hibiclens Critical Active meloxicam Upset stomach Active Mobic Critical Active chlorhexidine containing compounds Hives Activ e BRENTON inhibitors Critical Active Problem List Condition Effective Dates Status Non-ST elevation [place] (NSTEMI) Active Chronic renal disease Resolved Stage [...] tablet International_Unit ), PO, Daily, 0 Refill(s) [facility] Prescription 0 Refill(s) 03/21/2018 Ordered Misc Prescription 0 Refill(s) 03/21/2018 Ordered letrozole 2.5 mg oral tablet 1 tab(s) ( 2.5 mg ), PO, 05/16/2018 Ordered HS, # 90 tab(s), 3 Refill(s), Pharmacy: [facility], 1 tab(s) PO HS sevelamer hydrochloride 800 mg 1 tab(s) ( 800 mg ), PO , BID, Instructions: with meals, # 180 tab(s), 0 Refill(s) 03/22/2019 Ordered oral tablet with meals cloNIDine 0.2 mg oral tablet 1 tab(s), PO, TID, # 270 11/02/2019 Ordered tab(s), 3 Refill(s), Pharmacy: [facility], 1 tab(s) PO TID glipiZIDE 5 mg oral tablet, 1 tab(s), PO, Daily, # 90 11/02/2019 Ordered extended release tab(s), 3 Refill(s), Pharmacy: [facility], 1 tab(s) PO Daily levothyroxine 137 mcg (0.137 1 tab(s), PO, Daily, # 90 11/02/2019 Ordered mg) oral tablet tab(s), 3 Refill(s), Pharmacy: [facility], 1 tab(s) PO Daily amLODIPine 10 mg oral tablet 1 tab(s), PO, Daily, # 90 11/02/2019 Ordered tab(s), 3 Refill(s), Pharmacy: [facility], 1 tab(s) PO Daily allopurinol 100 mg oral tablet 1 tab(s), PO, Daily, # 90 11/02/2019 Ordered tab(s), 3 Refill(s), Pharmacy: [facility], 1 tab(s) PO Daily hydrALAZINE 100 mg oral tablet 1 tab(s), PO, TID, # 270 11/02/2019 Ordered tab(s), 3 Refill(s), Pharmacy: [facility], 1 tab(s) PO TID Pepcid 20 mg oral tablet 1 tab(s) ( 20 mg ), PO, 11/02/2019 Ordered Once a day (at bedtime), # 90 tab(s), 3 Refill(s), Pharmacy: [facility], 1 tab(s) PO Once a day (at bedtime) atorvastatin 40 mg oral tablet 1 tab(s), PO, Daily, # 90 11/02/2019 Ordered tab(s), 4 Refill(s), Pharmacy: [facility], 1 tab(s) PO Daily torsemide 20 mg oral tablet See Instructions, Instruct ions: Take 2 tablets in the morning and 2 tablets at noon., # 360 tab(s), 4 Refill(s), Pharmacy: [facility], Take 2 tablets in the morning and 2 tablets at noon. 11/02/2019 Ordered Take 2 tablets in the morning and 2 tablets at noon. metoprolol succinate 100 mg 1 tab(s) ( 100 mg ), PO, 11/02/2019 Ordered oral tablet, extended release Daily, # 90 tab(s), 3 Refill(s), Pharmacy: [facility], 1 tab(s) PO Daily ProAir HFA 90 mcg/inh 2 puff(s), INH, q4hr, PRN: 01/08/2019 Ordered inhalation aerosol shortness of breath or wheezing, # 8.5 gm, 0 Refill(s), Pharmacy: [facility], 2 puff(s) INH q4hr,PRN:shortness of breath or wheezing cilostazol 100 mg oral tablet 1 tab(s) ( 100 mg ), PO, 07/20/2019 Ordered BID, # 60 tab(s), 0 Refill(s), Pharmacy: [facility], 1 tab(s) PO BID Immunizations Vaccine Date Status Refusal Reason influenza, inactivated 03/12/2019 Recorded influenza, inactivated 02/25/2014 Recorded influenza, unspecified formulation1 03/13/2018 Recorded pneumococcal, unspecified formulation 03/13/2018 Recorded pneumococcal 13-valent vaccine 03/19/2016 Recorded Td 06/30/2001 Recorded pneumococcal (PPSV23) 05/07/2009 Recorded 1Result Comment: Fluzone Tri-Valent High dose Results Most recent to oldest [Reference Range]: 1 INR POC 3.1 (12/31/2019 09:02:00) Procedures Procedures Date Related Diagnosis AV Fistula [...] Echocardiogram7 03/18/2018 02:00:00 Echocardiogram8, 9 04/19/2019 02:00:00 Vybmcioqdadqyuct53 09/04/2015 02:00:00 EKG11 03/17/2018 02:00:00 Exploratory owfrcisjun96 07/28/2016 02:00:00 Holter monitor test jfaqbwlpsgbais18 04/21/2019 02:00:00 Holter monitor test hhtxcmyqvxjhcd39 04/18/2019 02:00:00 Hysterectomy Left Lumpectomy Left diagnostic mammogram 09/23/2015 02:00:00 Krcfznsia97 03/02/2016 02:00:00 Mammogram - isexjrpbj38 03/06/2018 02:00:00 Mammogram - fujofwbxv52 Needle biopsy left ymgbjb41 09/10/2014 02:00:00 Nephrology continued care for CKD19 11/15/2019 02:00:00 NM Tejscgk69 09/03/2016 02:00:00 Nuclear stress test 03/31/2010 02:00:00 Nuclear Stress Test21 09/03/2016 02:00:00 Oncology care w/ Dr SternPiper Ultrasound Carotid ynndjr89 09/13/2018 14:00:00 3hfhxlb2Ewvdl Clinics FS7pgqxeiagbrmt w/o IWG5Zymocyy polyps, diverticulosis, uncomplicated internal hemorrhoids. Repeat in 3-5 years.5Normal bone mineral density lumbar spine and both qumi8pe = 60%7Bilateral enlargement, left greater than right. Biventricular enlargement both midly increased. Mild to moderate concentric left ventricular hypertrophy with normal left ventricular systolic function and grade II diastolic dysfunction. Moderately severe tricupsid valve insufficency with associated moderate pulmonary hypertension. Mild mitral insufficiency and mild pulmonic valve insufficiency.8Indication: CAD 9visually estimated ejection fraction 60-65%10See scanned zooznd3912 lead EKG revealed ST depression in leads V3 and V4 Repeat EKG showed normalization of ST ftazqywbog17mpuj extensive uligeayzjngz59 Indication: cerebral infarction; unspecified Impression: negative Holter monitor per criteria (normal) (see radiologists' report)14Indication: embolic stroke Impression: normal (see report)21nlqemt20Bw mammographic evidence of malignancy f/u in 1 year is fcjlkfyttzu24Fjvclahmfm: screening Impression: normal (see radiologists' report)18Invasive ductal ntywzwpqs33ezr scanned brab88GS Lexiscan infusion given to the patient was negative by symptoms, negative by EKG for ischemia. Nuclear images showed normal perfusion scan. Ejection fraction 68% with normal LV cavity.21ef = 68%22Indication: stenosis Impression: moderate atheromatous changes percent stenosis right ICA less than 50% percent stenosis left ICA 50-69% no hemodynamically significant stenosis (see radiology report)
--- OUTSIDE RECORDS SUMMARY | 2022-02-20 14:32 | External Medical Summary | CCD ---
:1945 Author Organization [facility] and [facility] Care Team Providers Name Role Phone Princess Carrasco Primary Care Provider [phone] Agnes Briceno Referring Provider [phone] Allergies, Adverse Reactions, Alerts Substance Reaction Status carvedilol Critical Active clopidogrel Hives Active sulfa drug Hives Active Swelling Plavix Critical Active Hibiclens Critical Active meloxicam Upset stomach Active Mobic Critical Active chlorhexidine containing compounds Hives Activ e BRENTON inhibitors Critical Active Problem List Condition Effective Dates Status Non-ST elevation [place] (NSTEMI) Active Chronic renal disease Resolved Stage [...] prn Misc Prescription 0 Refill(s) 02/08/2019 Ordered warfarin See Instructions, Instructio ns: Take 5mg Mon and 2.5mg all other days., 0 Refill(s) 02/20/2020 Ordered Take 5mg Mon and 2.5mg all other days. cholecalciferol 2000 intl 1 tab(s) ( 2,000 03/21/2018 Ordered units oral tablet International_Unit ), PO, Daily, 0 Refill(s) Misc Prescription 0 Refill(s) 03/21/2018 Ordered Misc Prescription 0 Refill(s) 03/21/2018 Ordered letrozole 2.5 mg oral tablet 1 tab(s) ( 2.5 mg ), PO, 05/16/2018 Ordered HS, # 90 tab(s), 3 Refill(s), Pharmacy: [facility], 1 tab(s) PO HS sevelamer hydrochloride 800 mg 1 tab(s) ( 800 mg ), PO , BID, Instructions: with meals, # 180 tab(s), 0 Refill(s) 03/22/2019 Ordered oral tablet with meals cloNIDine 0.2 mg oral tablet 1 tab(s), PO, TID, # 270 11/02/2019 Ordered tab(s), 3 Refill(s), Pharmacy: [facility], 1 tab(s) PO TID glipiZIDE 5 mg oral tablet, 1 tab(s), PO, Daily, # 90 11/02/2019 Ordered extended release tab(s), 3 Refill(s), Pharmacy: [facility], 1 tab(s) PO Daily levothyroxine 137 mcg (0.137 1 tab(s), PO, Daily, # 90 11/02/2019 Ordered mg) oral tablet tab(s), 3 Refill(s), Pharmacy: [facility], 1 tab(s) PO Daily amLODIPine 10 mg oral tablet 1 tab(s), PO, Daily, # 90 11/02/2019 Ordered tab(s), 3 Refill(s), Pharmacy: [facility], 1 tab(s) PO Daily allopurinol 100 mg oral tablet 1 tab(s), PO, Daily, # 90 11/02/2019 Ordered tab(s), 3 Refill(s), Pharmacy: [facility], 1 tab(s) PO Daily hydrALAZINE 100 mg oral tablet 1 tab(s), PO, TID, # 270 11/02/2019 Ordered tab(s), 3 Refill(s), Pharmacy: [facility], 1 tab(s) PO TID Pepcid 20 mg oral tablet 1 tab(s) ( 20 mg ), PO, 11/02/2019 Ordered Once a day (at bedtime), # 90 tab(s), 3 Refill(s), Pharmacy: [facility], 1 tab(s) PO Once a day (at bedtime) atorvastatin 40 mg oral tablet 1 tab(s), PO, Daily, # 90 11/02/2019 Ordered tab(s), 4 Refill(s), Pharmacy: [facility], 1 tab(s) PO Daily torsemide 20 mg oral tablet See Instructions, Instruct ions: Take 2 tablets in the morning and 2 tablets at noon., # 360 tab(s), 4 Refill(s), Pharmacy: [facility], Take 2 tablets in the morning and 2 tablets at noon. 11/02/2019 Ordered Take 2 tablets in the morning and 2 tablets at noon. metoprolol succinate 100 mg 1 tab(s) ( 100 mg ), PO, 11/02/2019 Ordered oral tablet, extended release Daily, # 90 tab(s), 3 Refill(s), Pharmacy: [facility], 1 tab(s) PO Daily ProAir HFA 90 mcg/inh 2 puff(s), INH, q4hr, PRN: 01/08/2019 Ordered inhalation aerosol shortness of breath or wheezing, # 8.5 gm, 0 Refill(s), Pharmacy: [facility], 2 puff(s) INH q4hr,PRN:shortness of breath or wheezing cilostazol 100 mg oral tablet 1 tab(s) ( 100 mg ), PO, 07/20/2019 Ordered BID, # 60 tab(s), 0 Refill(s), Pharmacy: [facility], 1 tab(s) PO BID Immunizations Vaccine Date Status Refusal Reason influenza, inactivated 03/12/2019 Recorded influenza, inactivated 02/25/2014 Recorded influenza, unspecified formulation1 03/13/2018 Recorded pneumococcal, unspecified formulation 03/13/2018 Recorded pneumococcal 13-valent vaccine 03/19/2016 Recorded Td 06/30/2001 Recorded pneumococcal (PPSV23) 05/07/2009 Recorded 1Result Comment: Fluzone Tri-Valent High dose Results Most recent to oldest [Reference Range]: 1 Creatinine Level [0.7-1.2 mg/dL] 3.0 mg/dL *HI* (03/13/2020 09:08:00) AGAP [9-18] 12 (03/13/2020 09:08:00) Chol/HDL Ratio [0.00-4.88] 3.06 (03/13/2020 10:04:00) LDL [0-130 mg/dL] 41 mg/dL (03/13/2020 10:04:00) Trig [<=150 mg/dL] 163 mg/dL *HI* (03/13/2020 10:04:00) TSH [0.40-4.20 uIU/mL] 0.58 uIU/mL 1 (03/13/2020 10:04:00) Albumin Level [3.5-5.0 g/dL] 3.6 g/dL (03/13/2020 09:08:00) BUN [7-17 mg/dL] 60 mg/dL 2 *CRIT* (03/13/2020 09:08:00) Chloride Level [98.0-110.0 mmol/L] 105.0 mmol/L (03/13/2020 09:08:00) CO2 [22-30 mmol/L] 28 mmol/L (03/13/2020 09:08:00) Glucose Level [70-100 mg/dL] 116 mg/dL *HI* (03/13/2020 09:08:00) Hct [35.0-45.0 %] 33.1 % *LOW* (03/13/2020 09:08:00) HDL [>=40 mg/dL] 36 mg/dL *LOW* (03/13/2020 10:04:00) Hgb [12.0-16.0 g/dL] 10.1 g/dL *LOW* (03/13/2020 09:08:00) Magnesium [1.6-2.3 mg/dL] 2.2 mg/dL (03/13/2020 09:08:00) Phos [2.5-4.5 mg/dL] 5.2 mg/dL *HI* (03/13/2020 09:08:00) Potassium Level [3.5-5.0 mmol/L] 4.3 mmol/L (03/13/2020 09:08:00) Sodium Level [135-145 mmol/L] 141 mmol/L (03/13/2020 09:08:00) Calcium Level [8.4-10.2 mg/dL] 9.8 mg/dL (03/13/2020 09:08:00) Cholesterol [0-200 mg/dL] 110 mg/dL (03/13/2020 10:04:00) VLDL [0-40 mg/dL] 33 mg/dL (03/13/2020 10:04:00) BUN/Creat Ratio [7-18] 20 *HI* (03/13/2020 09:08:00) eGFR AA 20 *NA* (03/13/2020 09:08:00) eGFR Non AA 16 *NA* (03/13/2020 09:08:00) CHD Risk 33 % 3 *NA* (03/13/2020 10:04:00) 1Interpretive Data: Test is 3rd Generation TSH and performed using the Siemens Immulite [id number] Comment: Critical Result called to Erin Fuentes RN, RBV 03/13/20 @[id number] Data: CHD Risk % Ranges Male 0-7 Dangerous 7-15 High 15-25 Average 25-37 Below Average Female 0-12 Dangerous 12-18 High 18-27 Average 27-40 Below Average Procedures Procedures Date Related Diagnosis AV Fistula [...] Echocardiogram8 03/18/2018 02:00:00 Echocardiogram9, 10 04/19/2019 02:00:00 Xsqvutqundwnlbdd30 09/04/2015 02:00:00 EKG12 03/17/2018 02:00:00 Exploratory rpxznalews94 07/28/2016 02:00:00 Holter monitor test czyxuujenyfhaz22 04/21/2019 02:00:00 Holter monitor test ltbidhjpozapvo45 04/18/2019 02:00:00 Hysterectomy Left Lumpectomy Left diagnostic mammogram 09/23/2015 02:00:00 Dwqtnvoow63 03/02/2016 02:00:00 Mammogram - rifocmzss16 03/06/2018 02:00:00 Mammogram - ngnvkeodp41 Needle biopsy left 09/10/2014 02:00:00 Nephrology continued care for CKD20 11/15/2019 02:00:00 NM Claftpn34 09/03/2016 02:00:00 Nuclear stress test 03/31/2010 02:00:00 Nuclear Stress Test22 09/03/2016 02:00:00 Oncology care w/ Dr Piper Ultrasound Carotid fyjrbq01 09/13/2018 14:00:00 2pbaqjc7Pzmmj Clinics FX0xiscodnouvda w/o DRW6Qreixfp polyps, diverticulosis, uncomplicated internal hemorrhoids. Repeat in [...] CAD 10visually estimated ejection fraction 60-65%11See scanned sbkvrr0887 lead EKG revealed ST depression in leads V3 and V4 Repeat EKG showed normalization of ST seqryeoksg22ihzk extensive ocihpuhified76 Indication: cerebral infarction; unspecified Impression: negative Holter monitor per criteria (normal) (see radiologists' report)15Indication: embolic stroke Impression: normal (see report)85xjwmbx27Gv mammographic evidence of malignancy f/u in 1 year is bkikhlagujp86Anxbnhdjdb: screening Impression: normal (see radiologists' report)19Invasive ductal pwlhcncqw24vgg scanned gzar24GX Lexiscan infusion given to the patient was negative by symptoms, negative by EKG for ischemia. Nuclear images showed normal perfusion scan. Ejection fraction 68% with normal LV cavity.22ef = 68%23Indication: stenosis Impression: moderate atheromatous changes percent stenosis right ICA less than 50% percent stenosis left ICA 50-69% no hemodynamically significant stenosis (see radiology report)
--- OUTSIDE RECORDS SUMMARY | 2022-02-20 14:32 | External Medical Summary | CCD ---
:1945 Author Organization [facility] Care Team Providers Name Role Phone Princess Carrasco Primary Care Provider [phone] Allergies, Adverse Reactions, Alerts Substance Reaction Status carvedilol Critical Active clopidogrel Hives Active sulfa drug Hives Active Swelling Plavix Critical Active Hibiclens Critical Active meloxicam Upset stomach Active Mobic Critical Active chlorhexidine containing compounds Hives Activ e BRENTON inhibitors Critical Active Problem List Condition Effective Dates Status Non-ST elevation SC (NSTEMI) Active Chronic renal disease Resolved Stage [...] prn warfarin See Instructions, Instructio ns: Take 5mg M,F and 2.5mg all other days., 0 Refill(s) 01/10/2020 Ordered Take 5mg M,F and 2.5mg all other days. Misc Prescription 0 Refill(s) 02/08/2019 Ordered cholecalciferol 2000 intl 1 tab(s) ( 2,000 03/21/2018 Ordered units oral tablet International_Unit ), PO, Daily, 0 Refill(s) Misc Prescription 0 Refill(s) 03/21/2018 Ordered Misc Prescription 0 Refill(s) 03/21/2018 Ordered letrozole 2.5 mg oral tablet 1 tab(s) ( 2.5 mg ), PO, 05/16/2018 Ordered HS, # 90 tab(s), 3 Refill(s), Pharmacy: [facility], 1 tab(s) PO HS sevelamer hydrochloride 800 mg 1 tab(s) ( 800 mg ), PO , BID, Instructions: with meals, # 180 tab(s), 0 Refill(s) 03/22/2019 Ordered oral tablet with meals cloNIDine 0.2 mg oral tablet 1 tab(s), PO, TID, # 270 11/02/2019 Ordered tab(s), 3 Refill(s), Pharmacy: [facility], 1 tab(s) PO TID glipiZIDE 5 mg oral tablet, 1 tab(s), PO, Daily, # 90 11/02/2019 Ordered extended release tab(s), 3 Refill(s), Pharmacy: [facility], 1 tab(s) PO Daily levothyroxine 137 mcg (0.137 1 tab(s), PO, Daily, # 90 11/02/2019 Ordered mg) oral tablet tab(s), 3 Refill(s), Pharmacy: [facility], 1 tab(s) PO Daily amLODIPine 10 mg oral tablet 1 tab(s), PO, Daily, # 90 11/02/2019 Ordered tab(s), 3 Refill(s), Pharmacy: [facility], 1 tab(s) PO Daily allopurinol 100 mg oral tablet 1 tab(s), PO, Daily, # 90 11/02/2019 Ordered tab(s), 3 Refill(s), Pharmacy: [facility], 1 tab(s) PO Daily hydrALAZINE 100 mg oral tablet 1 tab(s), PO, TID, # 270 11/02/2019 Ordered tab(s), 3 Refill(s), Pharmacy: [facility], 1 tab(s) PO TID Pepcid 20 mg oral tablet 1 tab(s) ( 20 mg ), PO, 11/02/2019 Ordered Once a day (at bedtime), # 90 tab(s), 3 Refill(s), Pharmacy: [facility], 1 tab(s) PO Once a day (at bedtime) atorvastatin 40 mg oral tablet 1 tab(s), PO, Daily, # 90 11/02/2019 Ordered tab(s), 4 Refill(s), Pharmacy: [facility], 1 tab(s) PO Daily torsemide 20 mg oral tablet See Instructions, Instruct ions: Take 2 tablets in the morning and 2 tablets at noon., # 360 tab(s), 4 Refill(s), Pharmacy: [facility], Take 2 tablets in the morning and 2 tablets at noon. 11/02/2019 Ordered Take 2 tablets in the morning and 2 tablets at noon. metoprolol succinate 100 mg 1 tab(s) ( 100 mg ), PO, 11/02/2019 Ordered oral tablet, extended release Daily, # 90 tab(s), 3 Refill(s), Pharmacy: [facility], 1 tab(s) PO Daily ProAir HFA 90 mcg/inh 2 puff(s), INH, q4hr, PRN: 01/08/2019 Ordered inhalation aerosol shortness of breath or wheezing, # 8.5 gm, 0 Refill(s), Pharmacy: [facility], 2 puff(s) INH q4hr,PRN:shortness of breath or wheezing cilostazol 100 mg oral tablet 1 tab(s) ( 100 mg ), PO, 07/20/2019 Ordered BID, # 60 tab(s), 0 Refill(s), Pharmacy: [facility], 1 tab(s) PO BID Immunizations Vaccine Date Status Refusal Reason influenza, inactivated 03/12/2019 Recorded influenza, inactivated 02/25/2014 Recorded influenza, unspecified formulation1 03/13/2018 Recorded pneumococcal, unspecified formulation 03/13/2018 Recorded pneumococcal 13-valent vaccine 03/19/2016 Recorded Td 06/30/2001 Recorded pneumococcal (PPSV23) 05/07/2009 Recorded 1Result Comment: Fluzone Tri-Valent High dose Results Most recent to oldest [Reference Range]: 1 INR POC 3.4 (02/07/2020 09:23:00) Procedures Procedures Date Related Diagnosis AV Fistula [...] Echocardiogram8 03/18/2018 02:00:00 Echocardiogram9, 10 04/19/2019 02:00:00 Fcddezszgcsritmy64 09/04/2015 02:00:00 EKG12 03/17/2018 02:00:00 Exploratory nxodqyxntt14 07/28/2016 02:00:00 Holter monitor test maekmulhfkcfty49 04/21/2019 02:00:00 Holter monitor test iympjnviagixog17 04/18/2019 02:00:00 Hysterectomy Left Lumpectomy Left diagnostic mammogram 09/23/2015 02:00:00 Zahhaqbbd47 03/02/2016 02:00:00 Mammogram - sjnjipayg40 03/06/2018 02:00:00 Mammogram - woadboqkz95 Needle biopsy left acssil86 09/10/2014 02:00:00 Nephrology continued care for CKD20 11/15/2019 02:00:00 NM Gudbpzj92 09/03/2016 02:00:00 Nuclear stress test 03/31/2010 02:00:00 Nuclear Stress Test22 09/03/2016 02:00:00 Oncology care w/ Dr Saldaña Ultrasound Carotid lnmgei57 09/13/2018 14:00:00 7oexqkg8Xzebf Clinics MV0qnswccthhmga w/o AHF1Ipwxeqf polyps, diverticulosis, uncomplicated internal hemorrhoids. Repeat in [...] CAD 10visually estimated ejection fraction 60-65%11See scanned mpwzjq9308 lead EKG revealed ST depression in leads V3 and V4 Repeat EKG showed normalization of ST syqejpbedy23vmme extensive edxddhlkprwi93 Indication: cerebral infarction; unspecified Impression: negative Holter monitor per criteria (normal) (see radiologists' report)15Indication: embolic stroke Impression: normal (see report)69lmixby78Vm mammographic evidence of malignancy f/u in 1 year is pgoaktbyujx92Icyegxzjse: screening Impression: normal (see radiologists' report)19Invasive ductal usxlkpkeu37hcv scanned xbjx80RA Lexiscan infusion given to the patient was negative by symptoms, negative by EKG for ischemia. Nuclear images showed normal perfusion scan. Ejection fraction 68% with normal LV cavity.22ef = 68%23Indication: stenosis Impression: moderate atheromatous changes percent stenosis right ICA less than 50% percent stenosis left ICA 50-69% no hemodynamically significant stenosis (see radiology report)
--- OUTSIDE RECORDS SUMMARY | 2022-02-20 14:32 | External Medical Summary | CCD ---
:1945 Author Organization [facility] Care Team Providers Name Role Phone Princess Crarasco Primary Care Provider [phone] Jayy Bacon Consulting Provider [phone] Allergies, Adverse Reactions, Alerts Substance Reaction Status [...] HS, # 90 tab(s), 3 Refill(s), Pharmacy: [facility], 1 tab(s) PO HS sevelamer hydrochloride 800 mg 1 tab(s) ( 800 mg ), PO , BID, Instructions: with meals, # 180 tab(s), 0 Refill(s) 03/22/2019 Ordered oral tablet with meals cloNIDine 0.2 mg oral tablet 1 tab(s), PO, TID, # 270 11/02/2019 Ordered tab(s), 3 Refill(s), Pharmacy: [facility], 1 tab(s) PO TID glipiZIDE 5 mg oral tablet, 1 tab(s), PO, Daily, # 90 11/02/2019 Ordered extended release tab(s), 3 Refill(s), Pharmacy: [facility], 1 tab(s) PO Daily levothyroxine 137 mcg (0.137 1 tab(s), PO, Daily, # 90 11/02/2019 Ordered mg) oral tablet tab(s), 3 Refill(s), Pharmacy: [facility], 1 tab(s) PO Daily amLODIPine 10 mg oral tablet 1 tab(s), PO, Daily, # 90 11/02/2019 Ordered tab(s), 3 Refill(s), Pharmacy: [facility], 1 tab(s) PO Daily allopurinol 100 mg oral tablet 1 tab(s), PO, Daily, # 90 11/02/2019 Ordered tab(s), 3 Refill(s), Pharmacy: [facility], 1 tab(s) PO Daily hydrALAZINE 100 mg oral tablet 1 tab(s), PO, TID, # 270 11/02/2019 Ordered tab(s), 3 Refill(s), Pharmacy: [facility], 1 tab(s) PO TID Pepcid 20 mg oral tablet 1 tab(s) ( 20 mg ), PO, 11/02/2019 Ordered Once a day (at bedtime), # 90 tab(s), 3 Refill(s), Pharmacy: [facility], 1 tab(s) PO Once a day (at bedtime) atorvastatin 40 mg oral tablet 1 tab(s), PO, Daily, # 90 11/02/2019 Ordered tab(s), 4 Refill(s), Pharmacy: [facility], 1 tab(s) PO Daily torsemide 20 mg oral tablet See Instructions, Instruct ions: Take 2 tablets in the morning and 2 tablets at noon., # 360 tab(s), 4 Refill(s), Pharmacy: [facility], Take 2 tablets in the morning and 2 tablets at noon. 11/02/2019 Ordered Take 2 tablets in the morning and 2 tablets at noon. metoprolol succinate 100 mg 1 tab(s) ( 100 mg ), PO, 11/02/2019 Ordered oral tablet, extended release Daily, # 90 tab(s), 3 Refill(s), Pharmacy: [facility], 1 tab(s) PO Daily ProAir HFA 90 mcg/inh 2 puff(s), INH, q4hr, PRN: 01/08/2019 Ordered inhalation aerosol shortness of breath or wheezing, # 8.5 gm, 0 Refill(s), Pharmacy: [facility], 2 puff(s) INH q4hr,PRN:shortness of breath or wheezing cilostazol 100 mg oral tablet 1 tab(s) ( 100 mg ), PO, 07/20/2019 Ordered BID, # 60 tab(s), 0 Refill(s), Pharmacy: [facility], 1 tab(s) PO BID Immunizations Vaccine Date Status Refusal Reason influenza, inactivated 03/12/2019 Recorded influenza, inactivated 02/25/2014 Recorded influenza, unspecified formulation1 03/13/2018 Recorded pneumococcal, unspecified formulation 03/13/2018 Recorded pneumococcal 13-valent vaccine 03/19/2016 Recorded Td 06/30/2001 Recorded pneumococcal (PPSV23) 05/07/2009 Recorded 1Result Comment: Fluzone Tri-Valent High dose Vital Signs Most recent to oldest 1 2 3 [Reference Range]: Temperature Temporal 36.5 DegC 36.4 DegC [36.3-37.8 DegC] (06/25/2020 15:18:00) (06/25/2020 13:51:00) Temperature Temporal 97.7 DegF (DegF) [97.3-100 DegF] (06/25/2020 15:18:00) Peripheral Pulse Rate 102 bpm 106 bpm 105 bpm [60-100 bpm] *HI* *HI* *HI* (06/25/2020 15:18:00) (06/25/2020 14:46:00) ( 14:06:00) Respiratory Rate [14-20 18 br/min 18 br/min 18 br/mi n br/min] (06/25/2020 15:18:00) (06/25/2020 14:46:00) ( 14:06:00) Blood Pressure <content ID='[id number] '>154</content>/<content ID='[id number]'>86</content> mmHg <content ID='[id number]'>158</content>/<content ID='[id number]'>74</content> mmHg <content ID='[id number]'>153</berny nt>/<content ID='[id number]'>70</content> mmHg [90-140/60-90 mmHg] *HI* *HI* *HI* (06/25/2020 15:18:00) (06/25/2020 14:46:00) ( 14:06:00) SpO2 [92-100 %] 97 % 96 % 93 % (06/25/2020 15:18:00) (06/25/2020 14:46:00) ( 14:06:00) Oxygen Flow Rate 2 L/min 2 L/min (06/25/2020 15:18:00) (06/25/2020 14:46:00) Oxygen Therapy Nasal cannula Nasal cannula Room air (06/25/2020 15:18:00) (06/25/2020 14:46:00) ( 14:06:00) Most recent to oldest [Reference Range]: 1 2 3 Height 160.000 cm (06/25/2020 13:51:00) Height/Length Dosing 160.000 cm (06/25/2020 14:03:51) Weight 80.780 kg (06/25/2020 13:51:00) Weight Dosing 80.780 kg (06/25/2020 14:03:52) Results Most recent to oldest [Reference Range]: 1 Creatinine Level [0.7-1.2 mg/dL] 2.9 mg/dL *HI* (06/25/2020 13:53:00) D-Dimer [<=500 ng/mL] 152 ng/mL 1 (06/25/2020 13:53:00) AGAP [9-18] 20 *HI* (06/25/2020 13:53:00) INR [0.9-1.1] 1.0 2 (06/25/2020 13:53:00) Albumin Level [3.5-5.0 g/dL] 4.0 g/dL (06/25/2020 13:53:00) Alk Phos [38-126 unit/L] 84 unit/L (06/25/2020 13:53:00) Basophil Auto [0.00-0.20 K/mcL] 0.06 K/mcL (06/25/2020 13:53:00) Bili Total [0.2-1.3 mg/dL] 0.8 mg/dL (06/25/2020 13:53:00) BUN [7-17 mg/dL] 66 mg/dL *HI* (06/25/2020 13:53:00) Chloride Level [98.0-110.0 mmol/L] 106.0 mmol/L (06/25/2020 13:53:00) Total CK [30-135 unit/L] 870 unit/L *HI* (06/25/2020 13:53:00) CO2 [22-30 mmol/L] 20 mmol/L *LOW* (06/25/2020 13:53:00) Eos Auto [0.00-0.45 K/mcL] 0.00 K/mcL (06/25/2020 13:53:00) Glucose Level [70-100 mg/dL] 150 mg/dL *HI* (06/25/2020 13:53:00) Hct [35.0-45.0 %] 31.1 % *LOW* (06/25/2020 13:53:00) Hgb [12.0-16.0 g/dL] 10.1 g/dL *LOW* (06/25/2020 13:53:00) Lymph Auto [1.0-4.8 K/mcL] 1.4 K/mcL (06/25/2020 13:53:00) MCH [26-34 pg] 29 pg (06/25/2020 13:53:00) MCHC [31-37 g/dL] 33 g/dL (06/25/2020 13:53:00) MCV [80-100 fL] 90 fL 3 (06/25/2020 13:53:00) Dolores Auto [0.00-0.80 K/mcL] 0.91 K/mcL *HI* (06/25/2020 13:53:00) MPV [8-12 fL] 11 fL 4 (06/25/2020 13:53:00) Neutro Auto [1.8-7.7 K/mcL] 13.9 K/mcL *HI* (06/25/2020 13:53:00) Platelet [150-400 x10-3/uL] 285 x10-3/uL (06/25/2020 13:53:00) Potassium Level [3.5-5.0 mmol/L] 4.6 mmol/L (06/25/2020 13:53:00) PT [9.30-11.40 second(s)] 10.00 second(s) (06/25/2020 13:53:00) PTT [21.0-31.0 second(s)] 24.1 second(s) 5 (06/25/2020 13:53:00) RBC [4.0-5.3 M/uL] 3.4 M/uL *LOW* (06/25/2020 13:53:00) RDW [10-15 %] 16 % *HI* (06/25/2020 13:53:00) Sodium Level [135-145 mmol/L] 141 mmol/L (06/25/2020 13:53:00) Protein Total [6.3-8.5 g/dL] 7.0 g/dL (06/25/2020 13:53:00) WBC [4.0-10.0 K/mcL] 16.4 K/mcL 6 *HI* (06/25/2020 13:53:00) Troponin-I [<=0.05 ng/mL] 12.90 ng/mL 7, 8 *CRIT* (06/25/2020 13:53:00) Calcium Level [8.4-10.2 mg/dL] 9.9 mg/dL (06/25/2020 13:53:00) ALT/SGPT [9-52 unit/L] 22 unit/L (06/25/2020 13:53:00) AST/SGOT [14-36 unit/L] 114 unit/L *HI* (06/25/2020 13:53:00) Auto Eos % [0.0-6.0 %] 0.0 % (06/25/2020 13:53:00) Auto Lymph % [20.0-45.0 %] 8.4 % *LOW* (06/25/2020 13:53:00) Auto Neut % [36.0-70.0 %] 85.0 % 9 *HI* (06/25/2020 13:53:00) Auto Baso % [0.0-2.0 %] 0.4 % (06/25/2020 13:53:00) Auto Dolores % [1.0-10.0 %] 5.6 % (06/25/2020 13:53:00) BUN/Creat Ratio [7-18] 23 *HI* (06/25/2020 13:53:00) A/G Ratio [1.0-2.2] 1.3 (06/25/2020 13:53:00) eGFR AA 20 *NA* (06/25/2020 13:53:00) eGFR Non AA 17 *NA* (06/25/2020 13:53:00) 1Interpretive Data: D-Dimer Concentration Remarks <=500 ng/mL Pulmonary embolism/DVT unlikely. If clinical suspicion remains, follow standard investigative procedures >500ng/mL Pulmonary embolism/DVT cannot be ruled out. Follow standard investigation procedures for the investigation of pulmonary embolism/WJI0Filsngxtmkus Data: Note:ANTICOAGULANT THERAPY 2.0 - 3.53Interpretive Data: NOTE reference range changes as of 61179Nnmehramlwur Data: NOTE reference range changes as of 45261Fplhgotnflja Data: Note: CRITICAL VALUES: HIGH 60 SEC 90 SEC (ON HEPRIN)6Interpretive Data: NOTE [place] of 532[address]Noudff Comment: Called to Dr. Bacon [id number] Data: Troponin I Interpretation: 0.00-0.05 Negative 0.06-0.50 Borderline > 0.5 Rxghtfuf0Dtqctfnmryqw Data: NOTE reference range changes as of 06/05/2020 Radiology Reports Exam Date Time Procedure Performing Provider Status 06/25/2020 14:36:57 XR Chest 1 View Ran RT, Princess; Auth (V erified) Notes:(XR Chest 1 View) Reason For Exam: SOBReport_Name: TIMO PEÑA Date of 1945 : Study: XR CHEST 1 VIEW Facility: [facility] Physician: JAYY BACON MD Date of 06/25/2020 2:15:17 PM Service: CLINICAL: Shortness of breath. TECHNIQUE: Portable chest x-ray. COMPARISON: December 2018 two view chest x-ray. FINDINGS: Cardiomegaly with mild vascular congestion. The diaphragms, pleura, osseous structures are stable. IMPRESSION: Cardiomegaly with mild vascular congestion. In the setting of shortness of breath, this could be an exacerbation of congestive heart failure. MB/tml Dd: 06/25/2020 2:43 PM Dt: 06/25/2020 3:17 PM Dictated by Kishor Alicea MD Signed by KISHOR ALICEA at 06/25/2020 5:18:59 PM Final Signed (Electronic Signature): KISHOR ALICEA 06/25/20 7:41 pm Technologist: AMANDA Procedures Procedures Date Related Diagnosis AV Fistula [...] Echocardiogram8 03/18/2018 02:00:00 Echocardiogram9, 10 04/19/2019 02:00:00 Nfxmjfczhsewxcnl69 09/04/2015 02:00:00 EKG12 03/17/2018 02:00:00 Exploratory uvsyanqheq53 07/28/2016 02:00:00 Holter monitor test jocpqfjdjzqdha58 04/21/2019 02:00:00 Holter monitor test mncaizdjyyzzhm19 04/18/2019 02:00:00 Hysterectomy Left Lumpectomy Left diagnostic mammogram 09/23/2015 02:00:00 Cgjsucdgr50 03/02/2016 02:00:00 Mammogram - zpxmlangy61 03/06/2018 02:00:00 Mammogram - egxdlzoht89 Needle biopsy left ryegyn66 09/10/2014 02:00:00 Nephrology continued care for CKD20 11/15/2019 02:00:00 NM Zjxxhbo41 09/03/2016 02:00:00 Nuclear stress test 03/31/2010 02:00:00 Nuclear Stress Test22 09/03/2016 02:00:00 Oncology care w/ Dr SternPiper Ultrasound Carotid wrbemf10 09/13/2018 14:00:00 1kptbwq0Jrfmv Clinics EG7ecjqnqjaubud w/o LLX7Tvdhemp polyps, diverticulosis, uncomplicated internal hemorrhoids. Repeat in [...] CAD 10visually estimated ejection fraction 60-65%11See scanned otcilu6675 lead EKG revealed ST depression in leads V3 and V4 Repeat EKG showed normalization of ST goisngkabt99sdxq extensive kdrhyczmxtis28 Indication: cerebral infarction; unspecified Impression: negative Holter monitor per criteria (normal) (see radiologists' report)15Indication: embolic stroke Impression: normal (see report)75vtwnto56Ny mammographic evidence of malignancy f/u in 1 year is ptkorywkfvm23Odtzkaevep: screening Impression: normal (see radiologists' report)19Invasive ductal qlcvgzqit83ekv scanned rjbz04RN Lexiscan infusion given to the patient was negative by symptoms, negative by EKG for ischemia. Nuclear images showed normal perfusion scan. Ejection fraction 68% with normal LV cavity.22ef = 68%23Indication: stenosis Impression: moderate atheromatous changes percent stenosis right ICA less than 50% percent stenosis left ICA 50-69% no hemodynamically significant stenosis (see radiology report)
--- OUTSIDE RECORDS SUMMARY | 2022-02-20 14:32 | External Medical Summary | Continuity of Care Document ---
:1945 Author Organization [facility] Address [address] [place] [address] Care Team Providers Name Role Phone Princess Carrasco Primary Care Physician Solange Shea Unavailable Unavailable Encounter [facility] Date(s): 09/24/21 - 09/24/21 [facility] [address] [place] [address]- [place] Encounter Diagnosis Carotid artery disease (Discharge Diagnosis) - 09/24/21 Systolic congestive heart failure (Discharge Diagnosis) - 09/24/21 Breast cancer (Discharge Diagnosis) - 09/24/21 Stage 4 chronic kidney disease (Discharge Diagnosis) - 09/24/21 Discharge Disposition: Home Attending Physician: Princess Carrasco MD Allergies, Adverse Reactions, Alerts Substance Reaction Severity Status carvedilol Critical Active Plavix Critical Active chlorhexidine containing compounds Hives Mild Active clopidogrel Hives Mild Active sulfa drug Hives Severe Active Swelling Hibiclens Critical Active meloxicam Upset stomach Mild Active Mobic Critical Active Assessment and Plan Extracted from: Title: f/u NSTEMI, left breast cancer Author: Alf Carrasco MD Date: 09/24/21 Depression Screen PHQ 2 PHQ 9 Feeling Down, Depressed, Hopeless: Not a t all Detailed Depression Screen Score: 0 Initial Depression Screen Score: 0 score Difficulty at Work, Home, Getting Along: Not difficult at all Little Interest - Pleasure in Activities : Not at all Feeling Bad About Yourself: Not at all Feeling Tired or Little Energy: Not at a ll Moving or Speaking Slowly: Not at all Poor Appetite or Overeating: Not at all Thoughts Better Off or Hurting Self : Not at all Total Depression Screen Score: 0 Trouble Concentrating: Not at all Trouble Falling or Staying Asleep: Not a t all 1.Carotid artery yktwvviG35.9 did discuss that not CABG candidate d ue to aortic calcifications. medical management. 2.Breast bbrporZ74.919 did discuss that is likely not candid ate for surgery given heart, but will talk with Dr. Connelly and discuss with her. palliative care may be best option, but will explore what else would be open to her. 3.Stage 4 chronic kidney srfgfbgY93 .4 on peritoneal dialysis 4.Systolic congestive heart failure I50.20 stable Functional Status 09/24/21 History of Fall in Last 3 Months [place] No Recent Travel History No recent travel Other [...] 90 tab(s), 3 Refill(s), Pharmacy: [facility], 1 tab(s) PO Daily Start Date: 09/08/20 Status: Orderedcholecalciferol 25 mcg (1000 intl units) [...] doses, 0 Refill(s) Start Date: 09/15/21 Status: Orderedfamotidine 20 mg oral tablet 1 tab(s) ( 20 mg ), PO, Daily, # 30 tab(s), 0 Refill(s) Start Date: 09/15/21 Status: OrderedglipiZIDE 5 mg oral tablet, extended release 1 tab(s), PO, Daily, # 90 tab(s), 0 Refill(s), Pharmacy: [facility], TAKE 1 TABLET EVERY DAY, 160, cm, 06/25/20 14:03:00 PST, Height/Length Dosing, 74.75, kg, 12/18/20 10:28:00 PDT, Weight Dosing Start Date: 08/17/21 Status: OrderedhydrALAZINE 100 mg oral tablet 1 tab(s) ( 100 mg ), PO, TID, # 270 tab(s), 0 Refill(s) Start Date: 09/15/21 Status: OrderedImdur 30 mg oral tablet, extended release 1 tab(s) ( 30 mg ), PO, qAM, # 90 tab(s), 3 Refill(s), Pharmacy: [facility], 1 tab(s) PO qAM, 160, cm, 06/25/20 14:03:00 PST, Height/Length Dosing, 74.75, kg, 12/18/20 10:28:00 PDT, Weight Dosing Start Date: 01/01/21 Status: Orderedletrozole 2.5 mg oral tablet 1 tab(s) ( 2.5 mg ), PO, Daily, # 90 tab(s), 0 Refill(s) Start Date: 09/15/21 Status: Orderedlevothyroxine 137 mcg (0.137 mg) oral tablet 1 tab(s), PO, Daily, # 90 tab(s), 0 Refill(s), Pharmacy: [facility], TAKE 1 TABLET EVERY DAY, 160, cm, 06/25/20 14:03:00 PST, Height/Length Dosing, 74.75, kg, 12/18/20 10:28:00 PDT, Weight Dosing Start Date: 08/17/21 Status: Orderedlisinopril 40 mg oral tablet 1 tab(s), PO, Daily, # 90 tab(s), 0 Refill(s), Pharmacy: [facility], TAKE 1 TABLET EVERY DAY, 160, cm, 06/25/20 14:03:00 PST, Height/Length Dosing, 74.75, kg, 12/18/20 10:28:00 PDT, Weight Dosing Start Date: 08/17/21 Status: Orderedmetoprolol succinate 50 mg oral tablet, [...] 90 tab(s), 3 Refill(s), Pharmacy: [facility], 1 tab(s) PO HS, 160, cm, 06/25/20 14:03:00 PST, Height/Length Dosing, 74.75, kg, 12/18/20 10:28:00 PDT, Weight Dosing Start Date: 01/01/21 Status: OrderedNitrostat 0.4 mg sublingual tablet 1 tab(s) ( 0.4 mg ), Tab, SL, q5min, PRN: for chest pain, # 20 tab(s), 3 Refill(s), [facility], 1 tab(s) SL q5min,PRN:for chest pain, 160, cm, 06/25/20 14:03:00 PST, Height/Length Dosing, 74.75, kg, 12/18/20 10:28:00 PDT,... Start Date: 09/22/21 Status: OrderedProAir HFA 90 mcg/inh inhalation aerosol 2 puff(s), INH, q4hr, PRN: shortness of breath or wheezing, # 8.5 gm, 0 Refill(s), Pharmacy: [facility], 2 puff(s) INH q4hr,PRN:shortness [...] congestive heart Active failure(Confirmed) Meniscus degeneration(Confirmed) Active Diabetic retinopathy(Confirmed) Active Carotid artery disease(Confirmed) Active Gout(Confirmed) Active H/O: stroke(Confirmed) Active Hyperlipidemia(Confirmed) Active Secondary hyperparathyroidism of renal Active origin(Confirmed) Hypertension(Confirmed) Active Hypothyroidism(Confirmed) Active IBS (irritable bowel Active syndrome)(Confirmed) Lumbar back pain(Confirmed) Active Metabolic syndrome X(Confirmed) Active Neck pain(Confirmed) Active Obesity(Confirmed) Active Obstructive sleep apnea(Confirmed) Active Peripheral neuropathy(Confirmed) Active Postmenopausal state(Confirmed) Active Rotator cuff sprain(Confirmed) Active Tinnitus(Confirmed) Active TIA (transient ischemic Active attack)(Confirmed) Diabetes mellitus, type II(Confirmed) Active Procedures Procedure Date Related Diagnosis Body Site Status Ultrasound guided biopsy1 09/14/21 Co mpleted Mammogram - screening2 03/16/21 Compl eted Chest X-ray3 06/26/20 Completed Echocardiogram4 06/26/20 Completed Ultrasound liver5 06/26/20 Completed Diabetic eye exam6 12/18/19 Completed Nephrology continued care for CKD7 6/18/20 Completed Holter monitor test interpretation8 04/21/19 Completed Echocardiogram9, 10 04/19/19 Complete d Holter monitor test iwxkwijdnzroeg81 04/18/19 Completed Ultrasound Carotid epklkd74 09/13/18 Completed Swrnqdziqccxrm80 03/18/18 Completed Chest X-ray14 03/17/18 Completed EKG15 03/17/18 Completed DEXA of hip and spine16 03/06/18 Comp leted Mammogram - apxnujpkm38 03/06/18 Comp leted Diabetic Education 01/06/17 Completed Cardiology F/U18 10/19/16 Completed NM Orssfao06 09/03/16 Completed Nuclear Stress Test20 09/03/16 Comple roger Exploratory xfirnirxcv39 07/28/16 Com pleted Diabetic eye exam 06/03/16 Completed Nfuzecywc03 03/02/16 Completed Left diagnostic mammogram 09/23/15 Co mpleted Afpvabrxvxazhkjw90 09/04/15 Completed Carotid artery doppler assessment 08/27/15 Completed Carotid US 01/07/15 Completed Llmctelqaylpyd36 01/07/15 Completed Bone density scan25 12/06/14 Complete d Needle biopsy left fsxfen11 09/10/14 Completed Njobwfpvbyx14 01/21/14 Completed Nuclear stress test 03/31/10 Complete d Cardiac catheter 10/02/09 Completed AV Fistula of left arm Compl eted Cerbral Angiogram Completed Cholecystectomy Completed Colectomy Completed Coronary angioplasty Complet ed Hzfrrnglvluslw24 Completed Hysterectomy Completed Left Lumpectomy Completed Mammogram - ietdflrcb82 Comp leted Oncology care w/ Dr Saldaña [...] seen Impression: normal exam; nonvisualization of the zgsodogfkap7YOMPD without background diabetic retinopathy branch retinal nicolette occlusion (see office visit note)7see scanned aufu5Wjoascfbbt: cerebral infarction; unspecified Impression: negative Holter monitor per criteria (normal) (see radiologists' report)9Indication: QSD22lgphgprx estimated ejection fraction 60-65%11Indication: embolic stroke Impression: [...] insufficiency and mild pulmonic valve insufficiency.14cardiomegaly w/o [id number] lead [address]KG revealed ST depression in leads V3 and V4 Repeat EKG showed normalization of ST nwetmbucbh22Twvtoc bone mineral density lumbar spine and both enrc63Cy mammographic evidence of malignancy f/u in 1 year is kpyiqizvtll76[facility]xt [facility] NW19IV Lexiscan infusion given to the patient was negative by symptoms, negative by EKG for ischemia. Nuclear images showed normal perfusion scan. Ejection fraction 68% with normal LV cavity.20ef = 68%21with extensive knnyjmqkpiwm91fcquqd77Xwt scanned txjcbm56sm = 60%26whmzrz61Vthwgrwn ductal eomapojvt07Sambeoe polyps, diverticulosis, uncomplicated internal hemorrhoids. Repeat in 3-5 years. EF 25-30% Moderate to severe mitral nljivwmz07Amrpffexnc: screening Impression: normal (see radiologists' report) Vital Signs Most recent to oldest [Reference Range]: 1 Temperature Temporal [36.3-37.8 DegC] 36.5 DegC (09/24/21 3:58 PM) Peripheral Pulse Rate [60-100 bpm] 73 bpm (09/24/21 3:58 PM) Blood Pressure [90-140/60-90 mmHg] 138/79 mmHg (09/24/21 3:58 PM) SpO2 [92-100 %] 99 % (09/24/21 3:58 PM) Social History Social History Type Response Tobacco Never tobacco user Tobacco U se:. Sex Hospital Discharge Instructions Follow Up [facility]09/21/2021 01:10:38With:Princess Carrasco Address: [address] [place] [address], [place] [phone]- Business (1) When: Unknown Comments:I will talk with Dr. Connelly and then talk with you.If you are needing something for pain, let me know. Care Team PersonnelName: Princess Carrasco MD Address: [address] [place] [address], [place] [address]- [place]Name: Solange Shea
--- OUTSIDE RECORDS SUMMARY | 2022-02-20 14:32 | External Medical Summary | CCD ---
:1945 Author Organization [facility] Care Team Providers Name Role Phone STACEY MORALES Referring Provider [phone] Princess Carrasco Primary Care Provider [phone] Allergies, Adverse Reactions, Alerts Substance Reaction Status carvedilol Critical Active clopidogrel Hives Active sulfa drug Hives Active Swelling Plavix Critical Active Hibiclens Critical Active meloxicam Upset stomach Active Mobic Critical Active chlorhexidine containing compounds Hives Activ e BRENTON inhibitors Critical Active Problem List Condition Effective Dates Status Non-ST elevation [place] (NSTEMI) Active Chronic renal disease Active Coronary [...] Daily, # 90 tab(s), 4 Refill(s), Pharmacy: [facility], 1 tab(s) [...] Daily, # 90 tab(s), 3 Refill(s), Pharmacy: [facility], 1 tab(s) PO Daily prasugrel 10 mg oral tablet 1 tab(s) ( 10 mg ), PO, 03/27/2018 Ordered Daily, # 60 tab(s), 0 Refill(s), Pharmacy: [facility], 1 tab(s) PO Daily,x60 day(s) cholecalciferol 2000 intl 1 tab(s) ( 2,000 03/21/2018 Ordered units oral tablet International_Unit ), PO, Daily, 0 Refill(s) Misc Prescription 0 Refill(s) 03/21/2018 Ordered Misc Prescription 0 Refill(s) 03/21/2018 Ordered glipiZIDE 5 mg oral tablet, 1 tab(s) ( 5 mg ), PO, 05/16/2018 Ordered extended release Daily, # 90 tab(s), 3 Refill(s), Pharmacy: [facility], 1 tab(s) PO Daily raNITIdine 150 mg oral tablet 1 tab(s) ( 150 mg ), Tab, 05/16/2018 Ordered PO, BID, # 180 tab(s), 4 Refill(s), Pharmacy: [facility], 1 tab(s) PO BID amLODIPine 10 mg oral tablet 1 tab(s) ( 10 mg ), PO, 05/16/2018 Ordered Daily, # 90 tab(s), 3 Refill(s), Pharmacy: [facility], 1 tab(s) PO Daily hydrALAZINE 100 mg oral 1 tab(s) ( 100 mg ), PO, 05/16/2018 Ordered tablet TID, # 270 tab(s), 3 Refill(s), Pharmacy: [facility], 1 tab(s) PO TID letrozole 2.5 mg oral tablet 1 tab(s) ( 2.5 mg ), PO, 05/16/2018 Ordered HS, # 90 tab(s), 3 Refill(s), Pharmacy: [facility], 1 tab(s) PO HS levothyroxine 137 mcg (0.137 1 tab(s) ( 137 mcg ), PO, 05/16/2018 Ordered mg) oral tablet Daily, # 90 tab(s), 3 Refill(s), Pharmacy: [facility], 1 tab(s) PO Daily metoprolol succinate 100 mg 1 tab(s) ( 100 mg ), PO, 05/16/2018 Ordered oral tablet, extended release Daily, # 90 tab(s), 3 Refill(s), Pharmacy: [facility], 1 tab(s) PO Daily torsemide 20 mg oral tablet See Instructions, Instruct ions: Take 2 tablets in the morning and 2 tablets at noon., # 360 tab(s), 4 Refill(s), Pharmacy: [facility], Take 2 tablets in the morning and 2 tablets at noon. 05/16/2018 Ordered Take 2 tablets in the morning and 2 tablets at noon. cloNIDine 0.2 mg oral tablet 1 tab(s) ( 0.2 mg ), PO, 05/16/2018 Ordered TID, # 270 tab(s), 3 Refill(s), Pharmacy: [facility], 1 tab(s) PO TID Shingrix intramuscular 0.5 mL, IM, Once, # 0.5 07/28/2017 Ordered injection mL, 0 Refill(s), Pharmacy: [facility], 0.5 mL IM Once Shingrix Shingrix, See Instructions, Instructions: For shingrix vaccine, # 2 EA, 0 Refill(s), Supply 07/28/2017 Ordered For shingrix vaccine atorvastatin 40 mg oral 1 tab(s), PO, Daily, # 90 06/29/2018 Ordered tablet tab(s), 4 Refill(s), Pharmacy: [facility] ProAir HFA 90 mcg/inh 2 puff(s), INH, q4hr, PRN: 01/08/2019 Ordered inhalation aerosol shortness of breath or wheezing, # 8.5 gm, 0 Refill(s), Pharmacy: [facility], 2 puff(s) INH q4hr,PRN:shortness of breath or wheezing Immunizations Vaccine Date Status Refusal Reason influenza, unspecified formulation1 03/13/2018 Recorded pneumococcal, unspecified formulation 03/13/2018 Recorded pneumococcal 13-valent vaccine 03/19/2016 Recorded Td 06/30/2001 Recorded pneumococcal (PPSV23) 05/07/2009 Recorded influenza, inactivated 02/25/2014 Recorded 1Result Comment: Fluzone Tri-Valent High dose Results Most recent to oldest [Reference Range]: 1 Creatinine Level [0.7-1.2 mg/dL] 3.3 mg/dL *HI* (01/08/2019 17:04:00) AGAP [9-18] 12 (01/08/2019 17:04:00) BUN [7-17 mg/dL] 72 mg/dL 1 *CRIT* (01/08/2019 17:04:00) Chloride Level [98.0-110.0 mmol/L] 108.0 mmol/L (01/08/2019 17:04:00) CO2 [22-30 mmol/L] 25 mmol/L (01/08/2019 17:04:00) Glucose Level [70-100 mg/dL] 97 mg/dL (01/08/2019 17:04:00) Hct [35.0-45.0 %] 28.7 % *LOW* (01/08/2019 17:06:00) Hgb [12.0-16.0 g/dL] 8.9 g/dL *LOW* (01/08/2019 17:06:00) Magnesium [1.6-2.3 mg/dL] 2.4 mg/dL *HI* (01/08/2019 17:06:00) Potassium Level [3.5-5.0 mmol/L] 4.3 mmol/L (01/08/2019 17:04:00) Sodium Level [135-145 mmol/L] 141 mmol/L (01/08/2019 17:04:00) Calcium Level [8.4-10.2 mg/dL] 9.9 mg/dL (01/08/2019 17:04:00) BUN/Creat Ratio [7-18] 22 *HI* (01/08/2019 17:04:00) BNP [0-100 pg/mL] 1510 pg/mL *HI* (01/08/2019 17:04:00) eGFR AA 18 *NA* (01/08/2019 17:04:00) eGFR Non AA 14 *NA* (01/08/2019 17:04:00) 1Result Comment: called to and repeated back by Anna Procedures Procedures Date Related Diagnosis AV Fistula [...] Echocardiography8 09/04/2015 02:00:00 EKG9 03/17/2018 02:00:00 Exploratory ratvjrslob06 07/28/2016 02:00:00 Hysterectomy Left Lumpectomy Left diagnostic mammogram 09/23/2015 02:00:00 Ubwwmbspa73 03/02/2016 02:00:00 Mammogram - keyxdnkoa47 03/06/2018 02:00:00 Needle biopsy left mlinft00 09/10/2014 02:00:00 NM Mbvknlx47 09/03/2016 02:00:00 Nuclear stress test 03/31/2010 02:00:00 Nuclear Stress Test15 09/03/2016 02:00:00 Oncology care w/ [facility] Ul[facility]ound Carotid 09/13/2018 14:00:00 8skbtmz2[facility] GT4yvrbgnyhahoo w/o ESW4Yvkaeph polyps, diverticulosis, uncomplicated internal hemorrhoids. Repeat in 3-5 years.5Normal bone mineral density lumbar spine and both qied0ce = 60%7Bilateral enlargement, left greater than right. Biventricular enlargement both midly increased. Mild to moderate concentric left ventricular hypertrophy with normal left ventricular systolic function and grade II diastolic dysfunction. Moderately severe tricupsid valve insufficency with associated moderate pulmonary hypertension. Mild mitral insufficiency and mild pulmonic valve insufficiency.8See scanned kjwhol526 lead EKG revealed ST depression in leads V3 and V4 Repeat EKG showed normalization of ST jiyqgeomye77wyub extensive goasuyeemlzx97 qyokwh75Sh mammographic evidence of malignancy f/u in 1 year is gjvdhdnoogf18Batggcyo ductal kweycneij65FB Lexiscan infusion given to the patient was negative by symptoms, negative by EKG for ischemia. Nuc lear images showed normal perfusion scan. Ejection fraction 68% with normal LV cavity.15ef = 68%16Indication: stenosis Impression: moderate atheromatous changes percent stenosis right ICA less than 50% percent stenosis left ICA 50-69% no hemodynamically significant stenosis (see radiology report)
--- OUTSIDE RECORDS SUMMARY | 2022-02-20 14:32 | External Medical Summary | CCD ---
:1945 Author Organization [facility] Care Team Providers Name Role Phone Princess Carrasco Primary Care Provider [phone] Allergies, Adverse Reactions, Alerts Substance Reaction Status carvedilol Critical Active clopidogrel Hives Active sulfa drug Hives Active Swelling Plavix Critical Active Hibiclens Critical Active meloxicam Upset stomach Active Mobic Critical Active chlorhexidine containing compounds Hives Activ e BRENTON inhibitors Critical Active Problem List Condition Effective Dates Status Non-ST elevation [place] (NSTEMI) Active Chronic renal disease Active Coronary [...] Daily, # 90 tab(s), 4 Refill(s), Pharmacy: [facility], 1 tab(s) PO [...] Daily, # 90 tab(s), 3 Refill(s), Pharmacy: [facility], 1 tab(s) PO Daily prasugrel 10 mg oral tablet 1 tab(s) ( 10 mg ), PO, 03/27/2018 Ordered Daily, # 60 tab(s), 0 Refill(s), Pharmacy: [facility], 1 tab(s) PO Daily,x60 day(s) cholecalciferol 2000 intl 1 tab(s) ( 2,000 03/21/2018 Ordered units oral tablet International_Unit ), PO, Daily, 0 Refill(s) Misc Prescription 0 Refill(s) 03/21/2018 Ordered Misc Prescription 0 Refill(s) 03/21/2018 Ordered glipiZIDE 5 mg oral tablet, 1 tab(s) ( 5 mg ), PO, 05/16/2018 Ordered extended release Daily, # 90 tab(s), 3 Refill(s), Pharmacy: [facility], 1 tab(s) PO Daily raNITIdine 150 mg oral tablet 1 tab(s) ( 150 mg ), Tab, 05/16/2018 Ordered PO, BID, # 180 tab(s), 4 Refill(s), Pharmacy: [facility], 1 tab(s) PO BID amLODIPine 10 mg oral tablet 1 tab(s) ( 10 mg ), PO, 05/16/2018 Ordered Daily, # 90 tab(s), 3 Refill(s), Pharmacy: [facility], 1 tab(s) PO Daily hydrALAZINE 100 mg oral 1 tab(s) ( 100 mg ), PO, 05/16/2018 Ordered tablet TID, # 270 tab(s), 3 Refill(s), Pharmacy: [facility], 1 tab(s) PO TID letrozole 2.5 mg oral tablet 1 tab(s) ( 2.5 mg ), PO, 05/16/2018 Ordered HS, # 90 tab(s), 3 Refill(s), Pharmacy: [facility], 1 tab(s) PO HS levothyroxine 137 mcg (0.137 1 tab(s) ( 137 mcg ), PO, 05/16/2018 Ordered mg) oral tablet Daily, # 90 tab(s), 3 Refill(s), Pharmacy: [facility], 1 tab(s) PO Daily metoprolol succinate 100 mg 1 tab(s) ( 100 mg ), PO, 05/16/2018 Ordered oral tablet, extended release Daily, # 90 tab(s), 3 Refill(s), Pharmacy: [facility], 1 tab(s) PO Daily torsemide 20 mg oral tablet See Instructions, Instruct ions: Take 2 tablets in the morning and 2 tablets at noon., # 360 tab(s), 4 Refill(s), Pharmacy: [facility], Take 2 tablets in the morning and 2 tablets at noon. 05/16/2018 Ordered Take 2 tablets in the morning and 2 tablets at noon. cloNIDine 0.2 mg oral tablet 1 tab(s) ( 0.2 mg ), PO, 05/16/2018 Ordered TID, # 270 tab(s), 3 Refill(s), Pharmacy: [facility], 1 tab(s) PO TID Shingrix intramuscular 0.5 mL, IM, Once, # 0.5 07/28/2017 Ordered injection mL, 0 Refill(s), Pharmacy: [facility], 0.5 mL IM Once Shingrix Shingrix, See Instructions, Instructions: For shingrix vaccine, # 2 EA, 0 Refill(s), Supply 07/28/2017 Ordered For shingrix vaccine atorvastatin 40 mg oral 1 tab(s), PO, Daily, # 90 06/29/2018 Ordered tablet tab(s), 4 Refill(s), Pharmacy: [facility] ProAir HFA 90 mcg/inh 2 puff(s), INH, q4hr, PRN: 01/08/2019 Ordered inhalation aerosol shortness of breath or wheezing, # 8.5 gm, 0 Refill(s), Pharmacy: [facility], 2 puff(s) INH q4hr,PRN:shortness of [...] (01/08/2019 16:11:00) Blood Pressure [90-140/60-90 mmHg] <content ID='[id number]'>126</content>/<content ID='[id number]'>80</content> mmHg (01/08/2019 16:11:00) Oxygen Saturation 90 % [...] Echocardiography8 09/04/2015 02:00:00 EKG9 03/17/2018 02:00:00 Exploratory oukfxzkpmw02 07/28/2016 02:00:00 Hysterectomy Left Lumpectomy Left diagnostic mammogram 09/23/2015 02:00:00 Crpgqllpw30 03/02/2016 02:00:00 Mammogram - fidsnrjra26 03/06/2018 02:00:00 Needle biopsy left 09/10/2014 02:00:00 NM Dnnwcaf79 09/03/2016 02:00:00 Nuclear stress test 03/31/2010 02:00:00 Nuclear Stress Test15 09/03/2016 02:00:00 Oncology care w/ Dr Saldaña Ultrasound Carotid 09/13/2018 14:00:00 7xsjzjr8[facility]qm [facility] RX7syucyjdbgbwj w/o KXE3Ogizyro polyps, diverticulosis, uncomplicated internal hemorrhoids. Repeat in 3-5 years.5Normal bone mineral density lumbar spine and both nprn5hg = 60%7Bilateral enlargement, left greater than right. Biventricular enlargement both midly increased. Mild to moderate concentric left ventricular hypertrophy with normal left ventricular systolic function and grade II diastolic dysfunction. Moderately severe tricupsid valve insufficency with associated moderate pulmonary hypertension. Mild mitral insufficiency and mild pulmonic valve insufficiency.8See scanned lead EKG revealed ST depression in leads V3 and V4 Repeat EKG showed normalization of ST oynotstjhr47bpcz extensive jzxyjynknbdm88 iqfday20Cc mammographic evidence of malignancy f/u in 1 year is blfpizfhfdx48Zqplqjmj ductal yeprzwfjp69YO Lexiscan infusion given to the patient was negative by symptoms, negative by EKG for ischemia. Nuc lear images showed normal perfusion scan. Ejection fraction 68% with normal LV cavity.15ef = 68%16Indication: stenosis Impression: moderate atheromatous changes percent stenosis right ICA less than 50% percent stenosis left ICA 50-69% no hemodynamically significant stenosis (see radiology report)
--- OUTSIDE RECORDS SUMMARY | 2022-02-20 14:32 | External Medical Summary | CCD ---
:1945 Author Organization [facility] Care Team Providers Name Role Phone Princess Carrasco Primary Care Provider [phone] Allergies, Adverse Reactions, Alerts Substance Reaction Status carvedilol Critical Active clopidogrel Hives Active sulfa drug Hives Active Swelling Plavix Critical Active Hibiclens Critical Active meloxicam Upset stomach Active Mobic Critical Active chlorhexidine containing compounds Hives Activ e BRENTON inhibitors Critical Active Problem List Condition Effective Dates Status Non-ST elevation [place] (NSTEMI) Active Chronic renal disease Resolved Stage [...] HS, # 90 tab(s), 3 Refill(s), Pharmacy: [facility], 1 tab(s) PO HS sevelamer hydrochloride 800 mg 1 tab(s) ( 800 mg ), PO , BID, Instructions: with meals, # 180 tab(s), 0 Refill(s) 03/22/2019 Ordered oral tablet with meals cloNIDine 0.2 mg oral tablet 1 tab(s), PO, TID, # 270 11/02/2019 Ordered tab(s), 3 Refill(s), Pharmacy: [facility], 1 tab(s) PO TID glipiZIDE 5 mg oral tablet, 1 tab(s), PO, Daily, # 90 11/02/2019 Ordered extended release tab(s), 3 Refill(s), Pharmacy: [facility], 1 tab(s) PO Daily levothyroxine 137 mcg (0.137 1 tab(s), PO, Daily, # 90 11/02/2019 Ordered mg) oral tablet tab(s), 3 Refill(s), Pharmacy: [facility], 1 tab(s) PO Daily amLODIPine 10 mg oral tablet 1 tab(s), PO, Daily, # 90 11/02/2019 Ordered tab(s), 3 Refill(s), Pharmacy: [facility], 1 tab(s) PO Daily allopurinol 100 mg oral tablet 1 tab(s), PO, Daily, # 90 11/02/2019 Ordered tab(s), 3 Refill(s), Pharmacy: [facility], 1 tab(s) PO Daily hydrALAZINE 100 mg oral tablet 1 tab(s), PO, TID, # 270 11/02/2019 Ordered tab(s), 3 Refill(s), Pharmacy: [facility], 1 tab(s) PO TID Pepcid 20 mg oral tablet 1 tab(s) ( 20 mg ), PO, 11/02/2019 Ordered Once a day (at bedtime), # 90 tab(s), 3 Refill(s), Pharmacy: [facility], 1 tab(s) PO Once a day (at bedtime) atorvastatin 40 mg oral tablet 1 tab(s), PO, Daily, # 90 11/02/2019 Ordered tab(s), 4 Refill(s), Pharmacy: [facility], 1 tab(s) PO Daily torsemide 20 mg oral tablet See Instructions, Instruct ions: Take 2 tablets in the morning and 2 tablets at noon., # 360 tab(s), 4 Refill(s), Pharmacy: [facility], Take 2 tablets in the morning and 2 tablets at noon. 11/02/2019 Ordered Take 2 tablets in the morning and 2 tablets at noon. metoprolol succinate 100 mg 1 tab(s) ( 100 mg ), PO, 11/02/2019 Ordered oral tablet, extended release Daily, # 90 tab(s), 3 Refill(s), Pharmacy: [facility], 1 tab(s) PO Daily ProAir HFA 90 mcg/inh 2 puff(s), INH, q4hr, PRN: 01/08/2019 Ordered inhalation aerosol shortness of breath or wheezing, # 8.5 gm, 0 Refill(s), Pharmacy: [facility], 2 puff(s) INH q4hr,PRN:shortness of breath or wheezing cilostazol 100 mg oral tablet 1 tab(s) ( 100 mg ), PO, 07/20/2019 Ordered BID, # 60 tab(s), 0 Refill(s), Pharmacy: [facility], 1 tab(s) PO BID Immunizations Vaccine Date Status Refusal Reason influenza, inactivated 03/12/2019 Recorded influenza, inactivated 02/25/2014 Recorded influenza, unspecified formulation1 03/13/2018 Recorded pneumococcal, unspecified formulation 03/13/2018 Recorded pneumococcal 13-valent vaccine 03/19/2016 Recorded Td 06/30/2001 Recorded pneumococcal (PPSV23) 05/07/2009 Recorded 1Result Comment: Fluzone Tri-Valent High dose Procedures Procedures Date Related Diagnosis AV Fistula [...] Echocardiogram8 03/18/2018 02:00:00 Echocardiogram9, 10 04/19/2019 02:00:00 Arnapumbwqfmxsqp87 09/04/2015 02:00:00 EKG12 03/17/2018 02:00:00 Exploratory khhhgbfayi90 07/28/2016 02:00:00 Holter monitor test boeuuaaiiyoajm89 04/21/2019 02:00:00 Holter monitor test xddleexbroiwpb32 04/18/2019 02:00:00 Hysterectomy Left Lumpectomy Left diagnostic mammogram 09/23/2015 02:00:00 Grqlsuvel12 03/02/2016 02:00:00 Mammogram - lvkpcnebt45 03/06/2018 02:00:00 Mammogram - qsctwevjb53 Needle biopsy left wrehvf30 09/10/2014 02:00:00 Nephrology continued care for CKD20 11/15/2019 02:00:00 NM Qysiczr00 09/03/2016 02:00:00 Nuclear stress test 03/31/2010 02:00:00 Nuclear Stress Test22 09/03/2016 02:00:00 Oncology care w/ Dr Piper Ultrasound Carotid kjnpog20 09/13/2018 14:00:00 8hmdqmh8[facility]udv Clinics RQ0wcxplkcpfzyk w/o KVF8Adzhgfm polyps, diverticulosis, uncomplicated internal hemorrhoids. Repeat in [...] CAD 10visually estimated ejection fraction 60-65%11See scanned bfyabh1706 [address]KG [address] ST depression in leads V3 and V4 Repeat EKG showed normalization of ST onyktwayql98fdfw extensive jrutvgkbofyc54 Indication: cerebral infarction; unspecified Impression: negative Holter monitor per criteria (normal) (see radiologists' report)15Indication: embolic stroke Impression: normal (see report)17efuays37Wz mammographic evidence of malignancy f/u in 1 year is yefqttrfkmd34Gbhiabgpfb: screening Impression: normal (see radiologists' report)19Invasive ductal dijeylggt70xfr scanned fszm53PM Lexiscan infusion given to the patient was negative by symptoms, negative by EKG for ischemia. Nuclear images showed normal perfusion scan. Ejection fraction 68% with normal LV cavity.22ef = 68%23Indication: stenosis Impression: moderate atheromatous changes percent stenosis right ICA less than 50% percent stenosis left ICA 50-69% no hemodynamically significant stenosis (see radiology report)
--- OUTSIDE RECORDS SUMMARY | 2022-02-20 14:32 | External Medical Summary | CCD ---
:1945 Author Organization [facility] Care Team Providers Name Role Phone Princess Carrasco Primary Care Provider [phone] Agnes Briceno Referring Provider [phone] Allergies, Adverse Reactions, Alerts Substance Reaction Status carvedilol Critical Active clopidogrel Hives Active sulfa drug Hives Active Swelling Plavix Critical Active Hibiclens Critical Active meloxicam Upset stomach Active Mobic Critical Active chlorhexidine containing compounds Hives Activ e BRENTON inhibitors Critical Active Problem List Condition Effective Dates Status Non-ST elevation [place] (NSTEMI) Active Chronic renal disease Resolved Stage [...] Refill(s), Pharmacy: [facility], 1 tab(s) PO HS sevelamer hydrochloride 800 mg 1 tab(s) ( 800 mg ), PO , BID, Instructions: with meals, # 180 tab(s), 0 Refill(s) 03/22/2019 Ordered oral tablet with meals cloNIDine 0.2 mg oral tablet 1 tab(s), PO, TID, # 270 11/02/2019 Ordered tab(s), 3 Refill(s), Pharmacy: [facility], 1 tab(s) PO TID glipiZIDE 5 mg oral tablet, 1 tab(s), PO, Daily, # 90 11/02/2019 Ordered extended release tab(s), 3 Refill(s), Pharmacy: [facility], 1 tab(s) PO Daily levothyroxine 137 mcg (0.137 1 tab(s), PO, Daily, # 90 11/02/2019 Ordered mg) oral tablet tab(s), 3 Refill(s), Pharmacy: [facility], 1 tab(s) PO Daily amLODIPine 10 mg oral tablet 1 tab(s), PO, Daily, # 90 11/02/2019 Ordered tab(s), 3 Refill(s), Pharmacy: [facility], 1 tab(s) PO Daily allopurinol 100 mg oral tablet 1 tab(s), PO, Daily, # 90 11/02/2019 Ordered tab(s), 3 Refill(s), Pharmacy: [facility], 1 tab(s) PO Daily hydrALAZINE 100 mg oral tablet 1 tab(s), PO, TID, # 270 11/02/2019 Ordered tab(s), 3 Refill(s), Pharmacy: [facility], 1 tab(s) PO TID Pepcid 20 mg oral tablet 1 tab(s) ( 20 mg ), PO, 11/02/2019 Ordered Once a day (at bedtime), # 90 tab(s), 3 Refill(s), Pharmacy: [facility], 1 tab(s) PO Once a day (at bedtime) atorvastatin 40 mg oral tablet 1 tab(s), PO, Daily, # 90 11/02/2019 Ordered tab(s), 4 Refill(s), Pharmacy: [facility], 1 tab(s) PO Daily torsemide 20 mg oral tablet See Instructions, Instruct ions: Take 2 tablets in the morning and 2 tablets at noon., # 360 tab(s), 4 Refill(s), Pharmacy: [facility], Take 2 tablets in the morning and 2 tablets at noon. 11/02/2019 Ordered Take 2 tablets in the morning and 2 tablets at noon. metoprolol succinate 100 mg 1 tab(s) ( 100 mg ), PO, 11/02/2019 Ordered oral tablet, extended release Daily, # 90 tab(s), 3 Refill(s), Pharmacy: [facility], 1 tab(s) PO Daily ProAir HFA 90 mcg/inh 2 puff(s), INH, q4hr, PRN: 01/08/2019 Ordered inhalation aerosol shortness of breath or wheezing, # 8.5 gm, 0 Refill(s), Pharmacy: [facility], 2 puff(s) INH q4hr,PRN:shortness of breath or wheezing cilostazol 100 mg oral tablet 1 tab(s) ( 100 mg ), PO, 07/20/2019 Ordered BID, # 60 tab(s), 0 Refill(s), Pharmacy: [facility], 1 tab(s) PO BID Immunizations Vaccine Date Status Refusal Reason influenza, inactivated 03/12/2019 Recorded influenza, inactivated 02/25/2014 Recorded influenza, unspecified formulation1 03/13/2018 Recorded pneumococcal, unspecified formulation 03/13/2018 Recorded pneumococcal 13-valent vaccine 03/19/2016 Recorded Td 06/30/2001 Recorded pneumococcal (PPSV23) 05/07/2009 Recorded 1Result Comment: Fluzone Tri-Valent High dose Results Most recent to oldest [Reference Range]: 1 Creatinine Level [0.7-1.2 mg/dL] 3.1 mg/dL *HI* (11/08/2019 09:20:00) AGAP [9-18] 12 (11/08/2019:20:00) Albumin Level [3.5-5.0 g/dL] 3.8 g/dL (11/08/201920:00) Basophil Auto [0.00-0.20 K/mcL] 0.18 K/mcL (11/08/201920:00) BUN [7-17 mg/dL] 73 mg/dL 1 *CRIT* (11/08/201900) Chloride Level [98.0-110.0 mmol/L] 103.0 mmol/L (11/08/201920:00) CO2 [22-30 mmol/L] 26 mmol/L (11/08/2019) Eos Auto [0.00-0.45 K/mcL] 0.59 K/mcL *HI* (11/08/2019:) Glucose Level [70-100 mg/dL] 89 mg/dL (11/08/2019:00) Hct [35.0-45.0 %] 33.6 % *LOW* (11/08/2019:) Hgb [12.0-16.0 g/dL] 10.5 g/dL *LOW* (11/08/2019:) Lymph Auto [1.0-4.8 K/mcL] 2.0 K/mcL (11/08/201920:00) Magnesium [1.6-2.3 mg/dL] 2.2 mg/dL (11/08/201920:00) MCH [26-34 pg] 29 pg (11/08/201920:00) MCHC [31-37 g/dL] 31 g/dL (11/08/2019:20:00) MCV [83-104 fL] 93 fL (11/08/201920:00) Boyle Auto [0.00-0.80 K/mcL] 0.76 K/mcL (11/08/201920:00) MPV [6-10 fL] 8 fL (11/08/2019:20:00) Neutro Auto [1.8-7.7 K/mcL] 6.8 K/mcL (11/08/2019 09:20:00) Phos [2.5-4.5 mg/dL] 5.2 mg/dL *HI* (11/08/2019:20:00) Platelet [150-400 x10-3/uL] 230 x10-3/uL (11/08/2019:20:00) Potassium Level [3.5-5.0 mmol/L] 4.1 mmol/L (11/08/2019:20:00) RBC [4.0-5.3 M/uL] 3.6 M/uL *LOW* (11/08/2019:20:00) RDW [10-15 %] 15 % (11/08/2019::) Sodium Level [135-145 mmol/L] 137 mmol/L (11/08/2019:20:00) WBC [3.8-9.8 K/mcL] 10.3 K/mcL *HI* (11/08/2019) Calcium Level [8.4-10.2 mg/dL] 10.5 mg/dL *HI* (11/08/2019:20:00) Auto Eos % [0.0-6.0 %] 5.7 % (11/08/2019:20:00) Auto Lymph % [20.0-45.0 %] 19.3 % *LOW* (11/08/2019:20:) Auto Neut % [36.0-67.4 %] 65.9 % (11/08/2019:20:00) Auto Baso % [0.0-2.0 %] 1.8 % (11/08/2019:20:00) Auto Boyle % [1.0-10.0 %] 7.4 % (11/08/2019:20:00) BUN/Creat Ratio [7-18] 24 *HI* (11/08/2019:20:00) Iron PRL [37-145 mcg/dL] 57 mcg/dL *NA* (11/08/2019:20:00) UIBC PRL [112-346 mcg/dL] 173 mcg/dL *NA* (11/08/2019 09:20:00) TIBC PRL [228-428] 230 *NA* (11/08/2019 09:20:00) % Trans Sat PRL [15-50 %] 24 % 2 *NA* (11/08/2019 09:20:00) Ferritin PRL [30-400 ng/mL] 528.7 ng/mL 3 *HI* (11/08/2019 09:20:00) eGFR AA 19 *NA* (11/08/2019 09:20:00) eGFR Non AA 16 *NA* (11/08/2019 09:20:00) 1Result Comment: Called to/ read back nurse [id number] Comment: Performed at: [facility] [address] [place], [place] [id number] Comment: Intake of high doses of biotin can lead to a false decrease in results. Recommend fasting specimen. Performed at: [facility] [address] [place], [place] [address] Procedures Procedures Date Related Diagnosis AV Fistula [...] Echocardiogram7 03/18/2018 02:00:00 Echocardiogram8, 9 04/19/2019 02:00:00 Jwgpmjskszuiqynq28 09/04/2015 02:00:00 EKG11 03/17/2018 02:00:00 Exploratory bycvpefxzy28 07/28/2016 02:00:00 Holter monitor test liqayyonumzezf78 04/21/2019 02:00:00 Holter monitor test iqvhrrsldrjefz98 04/18/2019 02:00:00 Hysterectomy Left Lumpectomy Left diagnostic mammogram 09/23/2015 02:00:00 Lyblokczo28 03/02/2016 02:00:00 Mammogram - irseksyyr38 03/06/2018 02:00:00 Mammogram - jziauzfwl88 Needle biopsy left vqdodt57 09/10/2014 02:00:00 NM Vqoaszw62 09/03/2016 02:00:00 Nuclear stress test 03/31/2010 02:00:00 Nuclear Stress Test20 09/03/2016 02:00:00 Oncology care w/ Dr Saldaña Ultrasound Carotid zhuwcm35 09/13/2018 14:00:00 1avqovv7[facility]ball Clinics AQ1pteyflyjnpqo w/o ROF1Bpdtrhm polyps, diverticulosis, uncomplicated internal hemorrhoids. Repeat in 3-5 years.5Normal bone mineral density lumbar spine and both wxrr6yl = 60%7Bilateral enlargement, left greater than right. Biventricular enlargement both midly increased. Mild to moderate concentric left ventricular hypertrophy with normal left ventricular systolic function and grade II diastolic dysfunction. Moderately severe tricupsid valve insufficency with associated moderate pulmonary hypertension. Mild mitral insufficiency and mild pulmonic valve insufficiency.8Indication: CAD 9visually estimated ejection fraction 60-65%10See scanned azynhm4414 lead EKG revealed ST depression in leads V3 and V4 Repeat EKG showed normalization of ST qulrpnhtmm41cowr extensive vgicvsdgghcb12 Indication: cerebral infarction; unspecified Impression: negative Holter monitor per criteria (normal) (see radiologists' report)14Indication: embolic stroke Impression: normal (see report)78biqbgf43Uc mammographic evidence of malignancy f/u in 1 year is lncpguylkcj23Pumqakyfzr: screening Impression: normal (see radiologists' report)18Invasive ductal pxtbpdihb63EW Lexiscan infusion given to the patient was negative by symptoms, negative by EKG for ischemia. Nuc lear images showed normal perfusion scan. Ejection fraction 68% with normal LV cavity.20ef = 68%21Indication: stenosis Impression: moderate atheromatous changes percent stenosis right ICA less than 50% percent stenosis left ICA 50-69% no hemodynamically significant stenosis (see radiology report)
--- OUTSIDE RECORDS SUMMARY | 2022-02-20 14:32 | External Medical Summary | CCD ---
:1945 Author Organization [facility] Care Team Providers Name Role Phone Princess Carrasco Primary Care Provider [phone] Agnes Briceno Referring Provider [phone] Allergies, Adverse Reactions, Alerts Substance Reaction Status [...] HS, # 90 tab(s), 3 Refill(s), Pharmacy: [facility], 1 tab(s) PO HS sevelamer hydrochloride 800 mg 1 tab(s) ( 800 mg ), PO , BID, Instructions: with meals, # 180 tab(s), 0 Refill(s) 03/22/2019 Ordered oral tablet with meals cloNIDine 0.2 mg oral tablet 1 tab(s), PO, TID, # 270 11/02/2019 Ordered tab(s), 3 Refill(s), Pharmacy: [facility], 1 tab(s) PO TID glipiZIDE 5 mg oral tablet, 1 tab(s), PO, Daily, # 90 11/02/2019 Ordered extended release tab(s), 3 Refill(s), Pharmacy: [facility], 1 tab(s) PO Daily levothyroxine 137 mcg (0.137 1 tab(s), PO, Daily, # 90 11/02/2019 Ordered mg) oral tablet tab(s), 3 Refill(s), Pharmacy: [facility], 1 tab(s) PO Daily amLODIPine 10 mg oral tablet 1 tab(s), PO, Daily, # 90 11/02/2019 Ordered tab(s), 3 Refill(s), Pharmacy: [facility], 1 tab(s) PO Daily allopurinol 100 mg oral tablet 1 tab(s), PO, Daily, # 90 11/02/2019 Ordered tab(s), 3 Refill(s), Pharmacy: [facility], 1 tab(s) PO Daily hydrALAZINE 100 mg oral tablet 1 tab(s), PO, TID, # 270 11/02/2019 Ordered tab(s), 3 Refill(s), Pharmacy: [facility], 1 tab(s) PO TID Pepcid 20 mg oral tablet 1 tab(s) ( 20 mg ), PO, 11/02/2019 Ordered Once a day (at bedtime), # 90 tab(s), 3 Refill(s), Pharmacy: [facility], 1 tab(s) PO Once a day (at bedtime) atorvastatin 40 mg oral tablet 1 tab(s), PO, Daily, # 90 11/02/2019 Ordered tab(s), 4 Refill(s), Pharmacy: [facility], 1 tab(s) PO Daily torsemide 20 mg oral tablet See Instructions, Instruct ions: Take 2 tablets in the morning and 2 tablets at noon., # 360 tab(s), 4 Refill(s), Pharmacy: [facility], Take 2 tablets in the morning and 2 tablets at noon. 11/02/2019 Ordered Take 2 tablets in the morning and 2 tablets at noon. metoprolol succinate 100 mg 1 tab(s) ( 100 mg ), PO, 11/02/2019 Ordered oral tablet, extended release Daily, # 90 tab(s), 3 Refill(s), Pharmacy: [facility], 1 tab(s) PO Daily ProAir HFA 90 mcg/inh 2 puff(s), INH, q4hr, PRN: 01/08/2019 Ordered inhalation aerosol shortness of breath or wheezing, # 8.5 gm, 0 Refill(s), Pharmacy: [facility], 2 puff(s) INH q4hr,PRN:shortness of breath or wheezing cilostazol 100 mg oral tablet 1 tab(s) ( 100 mg ), PO, 07/20/2019 Ordered BID, # 60 tab(s), 0 Refill(s), Pharmacy: [facility], 1 tab(s) PO BID Immunizations Vaccine Date Status Refusal Reason influenza, inactivated 03/12/2019 Recorded influenza, inactivated 02/25/2014 Recorded influenza, unspecified formulation1 03/13/2018 Recorded pneumococcal, unspecified formulation 03/13/2018 Recorded pneumococcal 13-valent vaccine 03/19/2016 Recorded Td 06/30/2001 Recorded pneumococcal (PPSV23) 05/07/2009 Recorded 1Result Comment: Fluzone Tri-Valent High dose Results Most recent to oldest [Reference Range]: 1 Creatinine Level [0.7-1.2 mg/dL] 2.9 mg/dL *HI* (01/10/2020 09:34:00) AGAP [9-18] 11 (01/10/2020 09:34:00) Albumin Level [3.5-5.0 g/dL] 3.8 g/dL (01/10/2020 09:34:00) BUN [7-17 mg/dL] 67 mg/dL 1 *CRIT* (01/10/2020:34:00) Chloride Level [98.0-110.0 mmol/L] 105.0 mmol/L (01/10/2020:34:00) CO2 [22-30 mmol/L] 27 mmol/L (01/10/2020:34:00) Glucose Level [70-100 mg/dL] 139 mg/dL *HI* (01/10/2020:34:00) Hct [35.0-45.0 %] 33.9 % *LOW* (01/10/2020:34:00) Hgb [12.0-16.0 g/dL] 10.3 g/dL *LOW* (01/10/2020 09:34:00) Phos [2.5-4.5 mg/dL] 5.6 mg/dL *HI* (01/10/2020:34:00) Potassium Level [3.5-5.0 mmol/L] 4.3 mmol/L (01/10/2020:34:00) Sodium Level [135-145 mmol/L] 139 mmol/L (01/10/2020:34:00) Calcium Level [8.4-10.2 mg/dL] 9.7 mg/dL (01/10/2020 09:34:00) BUN/Creat Ratio [7-18] 23 *HI* (01/10/2020:34:00) Vitamin B12 PRL [232-1245 pg/mL] 585.7 pg/mL 2 *NA* (01/10/2020 09:34:00) Folate PRL [4.2-19.9 ng/mL] 15.8 ng/mL 3 *NA* (01/10/2020 09:34:00) eGFR AA 20 *NA* (01/10/2020 09:34:00) eGFR Non AA 17 *NA* (01/10/2020 09:34:00) 1Result Comment: Reported to Dr CarrascoOimkswnl1Ivkgjd Comment: Intake of high doses of biotin can lead to false increase in results. Recommend fasting specimen. Performed at: [facility] [address] [place], [place] [address]Vsyirc Comment: Intake of high doses of biotin can lead to false increase in results. Recommend fasting specimen. Performed at: [facility] [address] [place], [place] [address] Procedures Procedures Date Related Diagnosis AV Fistula [...] Echocardiogram8 03/18/2018 02:00:00 Echocardiogram9, 10 04/19/2019 02:00:00 Lggvtieearbsbyjq55 09/04/2015 02:00:00 EKG12 03/17/2018 02:00:00 Exploratory pvdropunza53 07/28/2016 02:00:00 Holter monitor test lydnbqrukbboit45 04/21/2019 02:00:00 Holter monitor test swvkhogognqjpv04 04/18/2019 02:00:00 Hysterectomy Left Lumpectomy Left diagnostic mammogram 09/23/2015 02:00:00 Enjvuomrw92 03/02/2016 02:00:00 Mammogram - cpdjouzmj97 03/06/2018 02:00:00 Mammogram - nkudptusw93 Needle biopsy left nirqow35 09/10/2014 02:00:00 Nephrology continued care for CKD20 11/15/2019 02:00:00 NM L[place]85 09/03/2016 02:00:00 Nuclear stress test 03/31/2010 02:00:00 Nuclear Stress Test22 09/03/2016 02:00:00 Oncology care w/ Dr Saldaña Ultrasound Carotid ppivup69 09/13/2018 14:00:00 3wsjohk7Lznxn Clinics XG7fcvnhtlvbltw w/o XGD6Occounn polyps, diverticulosis, uncomplicated internal hemorrhoids. Repeat in [...] CAD 10visually estimated ejection fraction 60-65%11See scanned [id number] lead EKG revealed ST depression in leads V3 and V4 Repeat EKG showed normalization of ST tbnexjsqla63lrxz extensive zzjgzvdryyaj72 Indication: cerebral infarction; unspecified Impression: negative Holter monitor per criteria (normal) (see radiologists' report)15Indication: embolic stroke Impression: normal (see report)16ekjuhi91Fg mammographic evidence of malignancy f/u in 1 year is abbspvdleqx94Cqaisfuvpa: screening Impression: normal (see radiologists' report)19Invasive ductal xwtcjonhu59bzh scanned advq90XR Lexiscan infusion given to the patient was negative by symptoms, negative by EKG for ischemia. Nuclear images showed normal perfusion scan. Ejection fraction 68% with normal LV cavity.22ef = 68%23Indication: stenosis Impression: moderate atheromatous changes percent stenosis right ICA less than 50% percent stenosis left ICA 50-69% no hemodynamically significant stenosis (see radiology report)
--- OUTSIDE RECORDS SUMMARY | 2022-02-20 14:32 | External Medical Summary | Continuity of Care Document ---
:1945 Author Organization [facility] Address [address] [place] [address] Care Team Providers Name Role Phone Princess Carrasco Primary Care Physician Solange Shea Unavailable Unavailable Encounter [facility] Date(s): 05/28/21 - 05/28/21 [facility] [address] [facility] [place] [id number]- [place] Encounter Diagnosis Diabetes (Discharge Diagnosis) - 05/28/21 Discharge Disposition: Home Attending Physician: Princess Carrasco MD Admitting Physician: Princess Carrasco MD Allergies, Adverse Reactions, Alerts Substance Reaction Severity Status carvedilol Critical Active clopidogrel Hives Mild Active sulfa drug Hives Severe Active Swelling Plavix Critical Active Hibiclens Critical Active meloxicam Upset stomach Mild Active Mobic Critical Active chlorhexidine containing compounds Hives Mild Active Immunizations Given and Recorded Vaccine Date Status Refusal Reason influenza, inactivated 03/12/19 Recorded influenza, inactivated 02/25/14 Recorded influenza, unspecified formulation1 03/13/18 Recorded pneumococcal, unspecified formulation 03/13/18 Recorded pneumococcal 13-valent vaccine 03/19/16 Recorded pneumococcal (PPSV23) 05/07/09 Recorded Td 06/30/01 Recorded 1Result Comment: Fluzone Tri-Valent High dose Medications allopurinol 100 mg oral tablet 1 tab(s), PO, Daily, # 90 tab(s), 3 Refill(s), Pharmacy: [facility], 1 tab(s) PO Daily Start Date: 09/08/20 Status: Orderedatorvastatin 40 mg oral tablet 1 tab(s), PO, Daily, # 90 tab(s), 3 Refill(s), Pharmacy: [facility], 1 tab(s) PO Daily Start Date: 09/08/20 Status: Orderedcholecalciferol 2000 intl units oral tablet 1 tab(s) ( 2,000 International_Unit ), PO, Daily, 0 Refill(s) Start Date: 03/21/18 Status: OrderedcloNIDine 0.1 mg oral tablet 1 tab(s) ( 0.1 mg ), Tab, PO, TID, # 270 tab(s), 3 Refill(s), Pharmacy: [facility], 1 tab(s) PO TID Start Date: 09/08/20 Status: OrderedEffient 10 mg oral tablet 1 tab(s) ( 10 mg ), PO, Daily, # 90 tab(s), 3 Refill(s), Pharmacy: [facility], 1 tab(s) PO Daily Start Date: 09/08/20 Status: Orderedfamotidine 10 mg oral tablet 1 tab(s) ( 10 mg ), Tab, PO, Daily, Instructions: may repeat dose if needed, not to exceed 2 tablets/day, # 90 tab(s), 0 Refill(s) Start Date: 11/20/20 Status: OrderedglipiZIDE 5 mg oral tablet, extended release 1 tab(s), PO, Daily, # 90 tab(s), 3 Refill(s), Pharmacy: [facility], 1 tab(s) PO Daily Start Date: 09/08/20 Status: OrderedhydrALAZINE 100 mg oral tablet 1 tab(s), PO, TID, # 270 tab(s), 3 Refill(s), Pharmacy: [facility], 1 tab(s) PO TID Start Date: 09/08/20 Status: OrderedImdur 30 mg oral tablet, extended release 1 tab(s) ( 30 mg ), PO, qAM, # 90 tab(s), 3 Refill(s), Pharmacy: [facility], 1 tab(s) PO qAM, 160, cm, 06/25/20 14:03:00 PST, Height/Length Dosing, 74.75, kg, 12/18/20 10:28:00 PDT, Weight Dosing Start Date: 01/01/21 Status: Orderedlevothyroxine 137 mcg (0.137 mg) oral tablet 1 tab(s), PO, Daily, # 90 tab(s), 3 Refill(s), Pharmacy: [facility], 1 tab(s) PO Daily Start Date: 09/08/20 Status: Orderedlisinopril 40 mg oral tablet 1 tab(s) ( 40 mg ), PO, Daily, # 90 tab(s), 3 Refill(s), Pharmacy: [facility], 1 tab(s) PO Daily Start Date: 09/08/20 Status: Orderedmetoprolol succinate 100 mg oral tablet, extended release 1 tab(s) ( 100 mg ), PO, BID, # 180 tab(s), 3 Refill(s), Pharmacy: [facility], 1 tab(s) PO BID,x90 day(s), 160, cm, 06/25/20 14:03:00 PST, Height/Length Dosing, 74.75, kg, 12/18/20 10:28:00 PDT, Weight Dosing Start Date: 01/02/21 Stop Date: 12/28/21 Status: OrderedMiraLax oral powder for reconstitution ( 17 gm ), PO, Daily, Instructions: dissolve in water before taking, # 527 gm, 1 Refill(s), [facility] 17 gm PO Daily,Instr:dissolve in water before taking, 160, cm, 06/25/20 14:03:00 PST, Height/Length Dosing, 74.75, kg, 12/18/20... Start Date: 12/18/20 Status: OrderedMisc Prescription 0 Refill(s) Start Date: 11/20/20 Status: OrderedMisc Prescription 0 Refill(s) Start Date: 11/20/20 Status: OrderedNIFEdipine 60 mg oral tablet, extended release 1 tab(s) ( 60 mg ), PO, HS, # 90 tab(s), 3 Refill(s), Pharmacy: [facility], 1 tab(s) PO HS, 160, cm, 06/25/20 14:03:00 PST, Height/Length Dosing, 74.75, kg, 12/18/20 10:28:00 PDT, Weight Dosing Start Date: 01/01/21 Status: OrderedNitrostat 0.4 mg sublingual tablet 1 tab(s) ( 0.4 mg ), SL, q5min, PRN: for chest pain, # 25 tab(s), 0 Refill(s) Start Date: 01/27/17 Status: OrderedProAir HFA 90 mcg/inh inhalation aerosol 2 puff(s), INH, q4hr, PRN: shortness of breath or wheezing, # 8.5 gm, 0 Refill(s), Pharmacy: [facility], 2 puff(s) INH q4hr,PRN:shortness of breath or wheezing Start Date: 01/08/19 Status: Orderedtorsemide 20 mg oral tablet See Instructions, Instructions: Take 2 tablets in the morning and 2 tablets at noon., # 360 EA, 3 Refill(s), Pharmacy: [facility], Take 2 tablets in the morning and 2 tablets at noon., 160, cm, 06/25/20 14:03:00 PST, Height/Length D... Start Date: 03/31/21 Status: Orderedwarfarin 5 mg oral tablet 1 [...] Procedure Date Related Diagnosis Body Site Status Mammogram - screening1 03/16/21 Compl eted Chest X-ray2 06/26/20 Completed Echocardiogram3 06/26/20 Completed Ultrasound liver4 06/26/20 Completed Diabetic eye exam5 12/18/19 Completed Nephrology continued care for CKD6 11/15/19 Completed Holter monitor test interpretation7 04/21/19 Completed Echocardiogram8, 9 04/19/19 Completed Holter monitor test vwyvxsooyvurop39 04/18/19 Completed Ultrasound Carotid keovpm24 09/13/18 Completed Tdclsryjgsrbbs58 03/18/18 Completed Chest X-ray13 03/17/18 Completed EKG14 03/17/18 Completed DEXA of hip and spine15 03/06/18 Comp leted Mammogram - hsvgkutak33 03/06/18 Comp leted Diabetic Education 01/06/17 Completed Cardiology F/U17 10/19/16 Completed NM Xmhkxsl62 09/03/16 Completed Nuclear Stress Test19 09/03/16 Comple roger Exploratory 07/28/16 Com pleted Diabetic eye exam 06/03/16 Completed Ofwfafrfv09 03/02/16 Completed Left diagnostic mammogram 09/23/15 Co mpleted Vgyrnisvyygwobwu93 09/04/15 Completed Carotid artery doppler assessment 08/27/15 Completed Carotid US 01/07/15 Completed Hfeuerdvjwypot30 01/07/15 Completed Bone density scan24 12/06/14 Complete d Needle biopsy left woxvib95 09/10/14 Completed Enehwhveipb77 01/21/14 Completed Nuclear stress test 03/31/10 Complete d Cardiac catheter 10/02/09 Completed AV Fistula of left arm Compl eted Cerbral Angiogram Completed Cholecystectomy Completed Colectomy Completed Coronary angioplasty Complet ed Yidufxmezfbkqz03 Completed Hysterectomy Completed Left Lumpectomy Completed Mammogram - yexhboiah13 Comp leted Oncology care w/ Dr Saldaña Completed RCA stent 11/2020 - drug-eluting Completed Stent in branch of right coronary Completed artery.29 1normal (see radiologists' report)2Indication: CHF: unstable angina Impression: cardiomegaly and right basilar infiltrate moderately reduced LV systolic function; global hypokinesis ejection fraction 35-40% mild mitral stenosis; mean gradient through the valve of 3 to 3.7 mild to moderate mitral insufficiency mild to moderate tricuspid insufficiency mildly elevated RVSF at 44 mmHG (see office visit note)3Impression: severely imparied LV systolic function; ejection fraction 25-30% with the use of definity echo contrast moderate to severe mitral stenosis with mild to mitral regurgitation and left atrial enlargement moderate tricuspid regurgitation with severely right ventricular systeolic pressure mild pulmonary insufficiency (see office visit note)4Impression: findings grossly normal; common duct of 4 mm; liver is of normal echogenicity hepatic veins and protal veins are within normal limits incidental note is made ofsmall right pleural effusion gallbladder not seen Impression: normal exam; nonvisualization of the xfoqemyiqqr7TXBQZ without background diabetic retinopathy branch retinal nicolette occlusion (see office visit note)6see scanned etsg5Lycvmstlts: cerebral infarction; unspecified Impression: negative Holter monitor per criteria (normal) (see radiologists' report)8Indication: UWO4xuawjzzs estimated ejection fraction 60-65%10Indication: embolic stroke Impression: normal (see report)11Indication: stenosis Impression: moderate atheromatous changes percent stenosis right ICA less than 50% percent stenosis left ICA 50-69% no hemodynamically significant stenosis (see radiology report)12Bilateral enlargement, left greater than right. Biventricular enlargement both midly increased. Mild to moderate concentric left ventricular hypertrophy with normal left ventricular systolic function and grade II diastolic dysfunction. Moderately severe tricupsid valve insufficency with associated moderate pulmonary hypertension. Mild mitral insufficiency and mild pulmonic valve insufficiency.13cardiomegaly w/o [id number] lead EKG revealed ST depression in leads V3 and V4 Repeat EKG showed normalization of ST ryewtyoifo72Xdeitk bone mineral density lumbar spine and both fxfp87Yi mammographic evidence of malignancy f/u in 1 year is kqaspbeqvro24[facility] NW18IV Lexiscan infusion given to the patient was negative by symptoms, negative by EKG for ischemia. Nuclear images showed normal perfusion scan. Ejection fraction 68% with normal LV cavity.19ef = 68%20with extensive iaatbhfvgpti14idzdiu74Fze scanned ylvvnt28bk = 60%79zgmwyr38Ffoswmjo ductal vshgkterj30Qbijyee polyps, diverticulosis, uncomplicated internal hemorrhoids. Repeat in 3-5 years. EF 25-30% Moderate to severe mitral vcpidtdw71Mkukixwyfh: screening Impression: normal (see radiologists' report) Results Laboratory List Name Date Glycohemoglobin 05/28/21 Most recent to oldest [Reference Range]: 1 Glycohemoglobin [3.8-5.7 %] 6.1 % *HI* (05/28/21 6:31 PM) Mean Glucose [79-115 mg/dL] 128 mg/dL *HI* (05/28/21 6:31 PM) Social History Social History Type Response Smoking Status Never (less than 100 in life time) entered on: 07/15/20 Sex
--- OUTSIDE RECORDS SUMMARY | 2022-02-20 14:32 | External Medical Summary | CCD ---
:1945 Author Organization [facility] Care Team Providers Name Role Phone Princess Carrasco Primary Care Provider [phone] Allergies, Adverse Reactions, Alerts Substance Reaction Status carvedilol Critical Active clopidogrel Hives Active sulfa drug Hives Active Swelling Plavix Critical Active Hibiclens Critical Active meloxicam Upset stomach Active Mobic Critical Active chlorhexidine containing compounds Hives Activ e BRENTON inhibitors Critical Active Problem List Condition Effective Dates Status Non-ST elevation UT (NSTEMI) Active Chronic renal disease Resolved Stage 4 chronic kidney disease Active Systolic congestive heart failure Active Coronary artery disease Active Meniscus degeneration [...] prn Misc Prescription 0 Refill(s) 02/08/2019 Ordered Brilinta (ticagrelor) 90 mg 1 tab(s) ( 90 mg ), PO, 07/15/2020 Ordered oral tablet BID, # 60 tab(s), 0 Refill(s), Pharmacy: [facility], 1 tab(s) PO BID cholecalciferol 2000 intl 1 tab(s) ( 2,000 03/21/2018 Ordered units oral tablet International_Unit ), PO, Daily, 0 Refill(s) Misc Prescription 0 Refill(s) 03/21/2018 Ordered Misc Prescription 0 Refill(s) 03/21/2018 Ordered letrozole 2.5 mg oral tablet 1 tab(s) ( 2.5 mg ), PO, 05/16/2018 Ordered HS, # 90 tab(s), 3 Refill(s), Pharmacy: [facility], 1 tab(s) PO HS sevelamer hydrochloride 800 mg 1 tab(s) ( 800 mg ), PO , BID, Instructions: with meals, # 180 tab(s), 0 Refill(s) 03/22/2019 Ordered oral tablet with meals cloNIDine 0.2 mg oral tablet 1 tab(s), PO, TID, # 270 11/02/2019 Ordered tab(s), 3 Refill(s), Pharmacy: [facility], 1 tab(s) PO TID glipiZIDE 5 mg oral tablet, 1 tab(s), PO, Daily, # 90 11/02/2019 Ordered extended release tab(s), 3 Refill(s), Pharmacy: [facility], 1 tab(s) PO Daily levothyroxine 137 mcg (0.137 1 tab(s), PO, Daily, # 90 11/02/2019 Ordered mg) oral tablet tab(s), 3 Refill(s), Pharmacy: [facility], 1 tab(s) PO Daily amLODIPine 10 mg oral tablet 1 tab(s), PO, Daily, # 90 11/02/2019 Ordered tab(s), 3 Refill(s), Pharmacy: [facility], 1 tab(s) PO Daily allopurinol 100 mg oral tablet 1 tab(s), PO, Daily, # 90 11/02/2019 Ordered tab(s), 3 Refill(s), Pharmacy: [facility], 1 tab(s) PO Daily hydrALAZINE 100 mg oral tablet 1 tab(s), PO, TID, # 270 11/02/2019 Ordered tab(s), 3 Refill(s), Pharmacy: [facility], 1 tab(s) PO TID Pepcid 20 mg oral tablet 1 tab(s) ( 20 mg ), PO, 11/02/2019 Ordered Once a day (at bedtime), # 90 tab(s), 3 Refill(s), Pharmacy: [facility], 1 tab(s) PO Once a day (at bedtime) atorvastatin 40 mg oral tablet 1 tab(s), PO, Daily, # 90 11/02/2019 Ordered tab(s), 4 Refill(s), Pharmacy: [facility], 1 tab(s) PO Daily torsemide 20 mg oral tablet See Instructions, Instruct ions: Take 2 tablets in the morning and 2 tablets at noon., # 360 tab(s), 4 Refill(s), Pharmacy: [facility], Take 2 tablets in the morning and 2 tablets at noon. 11/02/2019 Ordered Take 2 tablets in the morning and 2 tablets at noon. metoprolol succinate 100 mg 1 tab(s) ( 100 mg ), PO, 11/02/2019 Ordered oral tablet, extended release Daily, # 90 tab(s), 3 Refill(s), Pharmacy: [facility], 1 tab(s) PO Daily ProAir HFA 90 mcg/inh 2 puff(s), INH, q4hr, PRN: 01/08/2019 Ordered inhalation aerosol shortness of breath or wheezing, # 8.5 gm, 0 Refill(s), Pharmacy: [facility], 2 puff(s) INH q4hr,PRN:shortness of breath or wheezing cilostazol 100 mg oral tablet 1 tab(s) ( 100 mg ), PO, 07/20/2019 Ordered BID, # 60 tab(s), 0 Refill(s), Pharmacy: [facility], 1 tab(s) PO BID Immunizations Vaccine Date Status Refusal Reason influenza, inactivated 03/12/2019 Recorded influenza, inactivated 02/25/2014 Recorded influenza, unspecified formulation1 03/13/2018 Recorded pneumococcal, unspecified formulation 03/13/2018 Recorded pneumococcal 13-valent vaccine 03/19/2016 Recorded Td 06/30/2001 Recorded pneumococcal (PPSV23) 05/07/2009 Recorded 1Result Comment: Fluzone Tri-Valent High dose Vital Signs Most recent to oldest [Reference Range]: 1 Temperature Temporal [36.3-37.8 DegC] 36.5 DegC (07/15/2020 13:56:00) Peripheral Pulse Rate [60-100 bpm] 73 bpm (07/15/2020 13:56:00) Blood Pressure [90-140/60-90 mmHg] <content ID='[id number]'>112</content>/<content ID='[id number]'>62</content> mmHg (07/15/2020 13:56:00) SpO2 [92-100 %] 97 % (07/15/2020 13:56:00) Procedures Procedures Date Related Diagnosis AV Fistula [...] Echocardiogram8 03/18/2018 02:00:00 Echocardiogram9, 10 04/19/2019 02:00:00 Rlqpyhsrcsncyf18 Nbfmqeurxcbdecxg64 09/04/2015 02:00:00 EKG13 03/17/2018 02:00:00 Exploratory veekkncuxn60 07/28/2016 02:00:00 Holter monitor test xpycipzlswpbxm25 04/21/2019 02:00:00 Holter monitor test jpqlmvmedqzfpg28 04/18/2019 02:00:00 Hysterectomy Left Lumpectomy Left diagnostic mammogram 09/23/2015 02:00:00 Wolfgyzoh86 03/02/2016 02:00:00 Mammogram - nddrtvodl81 03/06/2018 02:00:00 Mammogram - pnikygliw39 Needle biopsy left wukyxj84 09/10/2014 02:00:00 Nephrology continued care for CKD21 11/15/2019 02:00:00 NM Uqjitqw65 09/03/2016 02:00:00 Nuclear stress test 03/31/2010 02:00:00 Nuclear Stress Test23 09/03/2016 02:00:00 Oncology care w/ Dr Saldaña Stent in branch of right coronary artery.24 Ultrasound Carotid awejxb77 09/13/2018 14:00:00 0ybbbwx8[facility] HD0bpotdiutzonl w/o KBY3Dbrzzmd polyps, diverticulosis, uncomplicated internal hemorrhoids. Repeat in [...] valve insufficiency.9Indication: CAD 10visually estimated ejection fraction 60-65% EF 25-30% Moderate to severe mitral shkctgxg92Hkg scanned pwseue1068 lead EKG revealed ST depression in leads V3 and V4 Repeat EKG showed normalization of ST zmnnzidjeb37qhja extensive ftkcxejpddbs26 Indication: cerebral infarction; unspecified Impression: negative Holter monitor per criteria (normal) (see radiologists' report)16Indication: embolic stroke Impression: normal (see report)67myieql88Rd mammographic evidence of malignancy f/u in 1 year is otmqwcfedjr66Dfvtmfnzoy: screening Impression: normal (see radiologists' report)20Invasive ductal ihxgairdi15ebw scanned xbkd64OJ Lexiscan infusion given to the patient was negative by symptoms, negative by EKG for ischemia. Nuclear images showed normal perfusion scan. Ejection fraction 68% with normal LV cavity.23ef = 68%527557Gguuwmmehd: stenosis Impression: moderate atheromatous changes percent stenosis right ICA less than 50% percent stenosis left ICA 50-69% no hemodynamically significant stenosis (see radiology report)
--- OUTSIDE RECORDS SUMMARY | 2022-02-20 14:32 | External Medical Summary | CCD ---
:1945 Author Organization [facility] Care Team Providers Name Role Phone Princess Carrasco Primary Care Provider [phone] Markus Trujillo Consulting Provider [phone] Allergies, Adverse Reactions, Alerts Substance Reaction Status carvedilol Critical Active clopidogrel Hives Active sulfa drug Hives Active Swelling Plavix Critical Active Hibiclens Critical Active meloxicam Upset stomach Active Mobic Critical Active chlorhexidine containing compounds Hives Activ e BRENTON inhibitors Critical Active Problem List Condition Effective Dates Status Non-ST elevation [place] (NSTEMI) Active Chronic renal disease Resolved Stage [...] Daily, # 90 tab(s), 3 Refill(s), Pharmacy: [facility], 1 tab(s) PO Daily [...] HS, # 90 tab(s), 3 Refill(s), Pharmacy: [facility], 1 tab(s) PO HS sevelamer hydrochloride 800 mg 1 tab(s) ( 800 mg ), PO , BID, Instructions: with meals, # 180 tab(s), 0 Refill(s) 03/22/2019 Ordered oral tablet with meals cloNIDine 0.2 mg oral tablet 1 tab(s), PO, TID, # 270 11/02/2019 Ordered tab(s), 3 Refill(s), Pharmacy: [facility], 1 tab(s) PO TID glipiZIDE 5 mg oral tablet, 1 tab(s), PO, Daily, # 90 11/02/2019 Ordered extended release tab(s), 3 Refill(s), Pharmacy: [facility], 1 tab(s) PO Daily levothyroxine 137 mcg (0.137 1 tab(s), PO, Daily, # 90 11/02/2019 Ordered mg) oral tablet tab(s), 3 Refill(s), Pharmacy: [facility], 1 tab(s) PO Daily amLODIPine 10 mg oral tablet 1 tab(s), PO, Daily, # 90 11/02/2019 Ordered tab(s), 3 Refill(s), Pharmacy: [facility], 1 tab(s) PO Daily allopurinol 100 mg oral tablet 1 tab(s), PO, Daily, # 90 11/02/2019 Ordered tab(s), 3 Refill(s), Pharmacy: [facility], 1 tab(s) PO Daily hydrALAZINE 100 mg oral tablet 1 tab(s), PO, TID, # 270 11/02/2019 Ordered tab(s), 3 Refill(s), Pharmacy: [facility], 1 tab(s) PO TID Pepcid 20 mg oral tablet 1 tab(s) ( 20 mg ), PO, 11/02/2019 Ordered Once a day (at bedtime), # 90 tab(s), 3 Refill(s), Pharmacy: [facility], 1 tab(s) PO Once a day (at bedtime) atorvastatin 40 mg oral tablet 1 tab(s), PO, Daily, # 90 11/02/2019 Ordered tab(s), 4 Refill(s), Pharmacy: [facility], 1 tab(s) PO Daily torsemide 20 mg oral tablet See Instructions, Instruct ions: Take 2 tablets in the morning and 2 tablets at noon., # 360 tab(s), 4 Refill(s), Pharmacy: [facility], Take 2 tablets in the morning and 2 tablets at noon. 11/02/2019 Ordered Take 2 tablets in the morning and 2 tablets at noon. metoprolol succinate 100 mg 1 tab(s) ( 100 mg ), PO, 11/02/2019 Ordered oral tablet, extended release Daily, # 90 tab(s), 3 Refill(s), Pharmacy: [facility], 1 tab(s) PO Daily ProAir HFA 90 mcg/inh 2 puff(s), INH, q4hr, PRN: 01/08/2019 Ordered inhalation aerosol shortness of breath or wheezing, # 8.5 gm, 0 Refill(s), Pharmacy: [facility], 2 puff(s) INH q4hr,PRN:shortness of breath or wheezing Coumadin 1 mg oral tablet 1 tab(s) ( 1 mg ), PO, Daily , Instructions: take as directed, # 30 tab(s), 0 Refill(s), Pharmacy: [facility], 1 tab(s) PO Daily,Instr:take as directed 12/04/2019 Ordered take as directed cilostazol 100 mg oral tablet 1 tab(s) ( 100 mg ), PO, 07/20/2019 Ordered BID, # 60 tab(s), 0 Refill(s), Pharmacy: [facility], 1 tab(s) PO BID Immunizations Vaccine Date Status Refusal Reason influenza, inactivated 03/12/2019 Recorded influenza, inactivated 02/25/2014 Recorded influenza, unspecified formulation1 03/13/2018 Recorded pneumococcal, unspecified formulation 03/13/2018 Recorded pneumococcal 13-valent vaccine 03/19/2016 Recorded Td 06/30/2001 Recorded pneumococcal (PPSV23) 05/07/2009 Recorded 1Result Comment: Fluzone Tri-Valent High dose Results Most recent to oldest [Reference Range]: 1 INR POC 3.4 (12/07/2019 08:56:00) Procedures Procedures Date Related Diagnosis AV Fistula [...] Echocardiogram7 03/18/2018 02:00:00 Echocardiogram8, 9 04/19/2019 02:00:00 Onqwuevuqttawwso77 09/04/2015 02:00:00 EKG11 03/17/2018 02:00:00 Exploratory dticmcrvgs50 07/28/2016 02:00:00 Holter monitor test rlyifbbyzddkau57 04/21/2019 02:00:00 Holter monitor test bxbjvofgfslled75 04/18/2019 02:00:00 Hysterectomy Left Lumpectomy Left diagnostic mammogram 09/23/2015 02:00:00 Aaultgvfh91 03/02/2016 02:00:00 Mammogram - zdkvknakb30 03/06/2018 02:00:00 Mammogram - rfusqtrcq91 Needle biopsy left 09/10/2014 02:00:00 Nephrology continued care for CKD19 11/15/2019 02:00:00 NM Bjhzxjo30 09/03/2016 02:00:00 Nuclear stress test 03/31/2010 02:00:00 Nuclear Stress Test21 09/03/2016 02:00:00 Oncology care w/ Dr Saldaña Ultrasound Carotid vzjxuz59 09/13/2018 14:00:00 1jlteyi8[facility] II1lsmzgzuogdzh w/o LJA3Antctia polyps, diverticulosis, uncomplicated internal hemorrhoids. Repeat in 3-5 years.5Normal bone mineral density lumbar spine and both xxrp8wa = 60%7Bilateral enlargement, left greater than right. Biventricular enlargement both midly increased. Mild to moderate concentric left ventricular hypertrophy with normal left ventricular systolic function and grade II diastolic dysfunction. Moderately severe tricupsid valve insufficency with associated moderate pulmonary hypertension. Mild mitral insufficiency and mild pulmonic valve insufficiency.8Indication: CAD 9visually estimated ejection fraction 60-65%10See scanned usyvwi6323 lead EKG revealed ST depression in leads V3 and V4 Repeat EKG showed normalization of ST lbticcqhnl52yirx extensive wdznkqhquasl18 Indication: cerebral infarction; unspecified Impression: negative Holter monitor per criteria (normal) (see radiologists' report)14Indication: embolic stroke Impression: normal (see report)10haeirx97Ma mammographic evidence of malignancy f/u in 1 year is nvvyanqdrjp13Lpozdfowar: screening Impression: normal (see radiologists' report)18Invasive ductal giiswdyfj09hmu scanned wrzz47IG Lexiscan infusion given to the patient was negative by symptoms, negative by EKG for ischemia. Nuclear images showed normal perfusion scan. Ejection fraction 68% with normal LV cavity.21ef = 68%22Indication: stenosis Impression: moderate atheromatous changes percent stenosis right ICA less than 50% percent stenosis left ICA 50-69% no hemodynamically significant stenosis (see radiology report)
--- OUTSIDE RECORDS SUMMARY | 2022-02-20 14:32 | External Medical Summary | Continuity of Care Document ---
:1945 Author Organization [facility] Address [address] [place] [address] Care Team Providers Name Role Phone Princess Carrasco Primary Care Physician Solange Shea Unavailable Unavailable Encounter [facility] Date(s): 05/28/21 - 05/28/21 [facility] [address] [place] [place] [address]- [place] Encounter Diagnosis Peripheral neuropathy (Discharge Diagnosis) - 05/28/21 Diabetes mellitus, type II (Discharge Diagnosis) - 05/28/21 Discharge Disposition: Home Attending Physician: Princess Carrasco MD Allergies, Adverse Reactions, Alerts Substance Reaction Severity Status carvedilol Critical Active clopidogrel Hives Mild Active sulfa drug Hives Severe Active Swelling Plavix Critical Active Hibiclens Critical Active meloxicam Upset stomach Mild Active Mobic Critical Active chlorhexidine containing compounds Hives Mild Active Assessment and Plan Extracted from: Title: diabetic neuropathy; diabetic Author: Danilo MEJIA, Abilio zuñigaly Date: 05/28/21 shoes Depression Screen PHQ 2 PHQ 9 Feeling Down, Depressed, Hopeless: Not a t all Detailed Depression Screen Score: 2 Little Interest - Pleasure in Activities : Not at all Difficulty at Work, Home, Getting Along: Not difficult at all Feeling Bad About Yourself: Not at all Feeling Tired or Little Energy: Several days Moving or Speaking Slowly: Not at all Poor Appetite or Overeating: Not at all Thoughts Better Off or Hurting Self : Not at all Trouble Concentrating: Not at all Trouble Falling or Staying Asleep: Sever al days 1.Diabetes mellitus, type IIE11.9 will check a1c. continue glipizide. Ordered: Glycohemoglobin PRL, Blood, Routine col lect, 05/28/21, Lab Collect, Diabetes, Order for future visit 2.Peripheral gmmgxrchluK18.9 does have diabetic neuropathy as well as callus and flat foot deformity. would benefit from diabetic shoes and will get prescription for this. Functional Status 05/28/21 History of Fall in Last 3 Months [...] Daily, # 90 tab(s), 3 Refill(s), Pharmacy: [facility], 1 tab(s) PO Daily Start Date: 09/08/20 Status: Orderedatorvastatin 40 mg oral tablet 1 tab(s), PO, Daily, # 90 tab(s), 3 Refill(s), Pharmacy: [facility], 1 tab(s) PO Daily Start Date: 09/08/20 Status: Orderedcholecalciferol 2000 intl units oral tablet 1 tab(s) ( 2,000 International_Unit ), PO, Daily, 0 Refill(s) Start Date: 03/21/18 Status: OrderedcloNIDine 0.1 mg oral tablet 1 tab(s) ( 0.1 mg ), Tab, PO, TID, # 270 tab(s), 3 Refill(s), Pharmacy: [facility], 1 tab(s) PO TID Start Date: 09/08/20 Status: OrderedEffient 10 mg oral tablet 1 tab(s) ( 10 mg ), PO, Daily, # 90 tab(s), 3 Refill(s), Pharmacy: [facility], 1 tab(s) PO Daily Start Date: 09/08/20 Status: Orderedfamotidine 10 mg oral tablet 1 tab(s) ( 10 mg ), Tab, PO, Daily, Instructions: may repeat dose if needed, not to exceed 2 tablets/day, # 90 tab(s), 0 Refill(s) Start Date: 11/20/20 Status: OrderedglipiZIDE 5 mg oral tablet, extended release 1 tab(s), PO, Daily, # 90 tab(s), 3 Refill(s), Pharmacy: [facility], 1 tab(s) PO Daily Start Date: 09/08/20 Status: OrderedhydrALAZINE 100 mg oral tablet 1 tab(s), PO, TID, # 270 tab(s), 3 Refill(s), Pharmacy: [facility], 1 tab(s) PO TID Start Date: 09/08/20 Status: OrderedImdur 30 mg oral tablet, extended release 1 tab(s) ( 30 mg ), PO, qAM, # 90 tab(s), 3 Refill(s), Pharmacy: [facility], 1 tab(s) PO qAM, 160, cm, 06/25/20 14:03:00 PST, Height/Length Dosing, 74.75, kg, 12/18/20 10:28:00 PDT, Weight Dosing Start Date: 01/01/21 Status: Orderedlevothyroxine 137 mcg (0.137 mg) oral tablet 1 tab(s), PO, Daily, # 90 tab(s), 3 Refill(s), Pharmacy: [facility], 1 tab(s) PO Daily Start Date: 09/08/20 Status: Orderedlisinopril 40 mg oral tablet 1 tab(s) ( 40 mg ), PO, Daily, # 90 tab(s), 3 Refill(s), Pharmacy: [facility], 1 tab(s) PO Daily Start Date: 09/08/20 Status: Orderedmetoprolol succinate 100 mg oral tablet, extended release 1 tab(s) ( 100 mg ), PO, BID, # 180 tab(s), 3 Refill(s), Pharmacy: [facility], 1 tab(s) PO BID,x90 day(s), 160, cm, 06/25/20 14:03:00 PST, Height/Length Dosing, 74.75, kg, 12/18/20 10:28:00 PDT, Weight Dosing Start Date: 01/02/21 Stop Date: 12/28/21 Status: OrderedMiraLax oral powder for reconstitution ( 17 gm ), PO, Daily, Instructions: dissolve in water before taking, # 527 gm, 1 Refill(s), Pharmacy: [facility], 17 gm PO Daily,Instr:dissolve in water before taking, 160, cm, 06/25/20 14:03:00 PST, Height/Length Dosing, 74.75, kg, 12/18/20... Start Date: 12/18/20 Status: OrderedMisc Prescription 0 Refill(s) Start Date: 11/20/20 Status: OrderedMisc Prescription 0 Refill(s) Start Date: 11/20/20 Status: OrderedNIFEdipine 60 mg oral tablet, extended release 1 tab(s) ( 60 mg ), PO, HS, # 90 tab(s), 3 Refill(s), Pharmacy: [facility], 1 tab(s) PO [...] wheezing, # 8.5 gm, 0 Refill(s), Pharmacy: [facility], 2 puff(s) INH q4hr,PRN:shortness of breath or wheezing Start Date: 01/08/19 Status: Orderedtorsemide 20 mg oral tablet See Instructions, Instructions: Take 2 tablets in the morning and 2 tablets at noon., # 360 EA, 3 Refill(s), Pharmacy: [facility], Take 2 tablets in [...] Echocardiogram8, 9 04/19/19 Completed Holter monitor test mfqpubxriynfqa46 04/18/19 Completed Ultrasound Carotid nefxkc95 09/13/18 Completed Qobkgkixfcckia26 03/18/18 Completed Chest X-ray13 03/17/18 Completed EKG14 03/17/18 Completed DEXA of hip and spine15 03/06/18 Comp leted Mammogram - davespkfz26 03/06/18 Comp leted Diabetic Education 01/06/17 Completed Cardiology F/U17 10/19/16 Completed NM Wyugeko77 09/03/16 Completed Nuclear Stress Test19 09/03/16 Comple roger Exploratory ujrtyuffgp01 07/28/16 Com pleted Diabetic eye exam 06/03/16 Completed Bhogpligq87 03/02/16 Completed Left diagnostic mammogram 09/23/15 Co mpleted Vwmjcmvloqcdekgg71 09/04/15 Completed Carotid artery doppler assessment 08/27/15 Completed Carotid US 01/07/15 Completed Fauapwzyuyjwdy43 01/07/15 Completed Bone density scan24 12/06/14 Complete d Needle biopsy left ghgduh42 09/10/14 Completed Rbhdoarpkhd64 01/21/14 Completed Nuclear stress test 03/31/10 Complete d Cardiac catheter 10/02/09 Completed AV Fistula of left arm Compl eted Cerbral Angiogram Completed Cholecystectomy Completed Colectomy Completed Coronary angioplasty Complet ed Lwerennauebcex64 Completed Hysterectomy Completed Left Lumpectomy Completed Mammogram - sftloovby58 Comp leted Oncology care w/ Dr Saldaña [...] seen Impression: normal exam; nonvisualization of the wiqkzvrurpb7WHSYH without background diabetic retinopathy branch retinal nicolette occlusion (see office visit note)6see scanned ojtx5Gudufmpgic: cerebral infarction; unspecified Impression: negative Holter monitor per criteria (normal) (see radiologists' report)8Indication: RTT6fswctzei estimated ejection fraction 60-65%10Indication: embolic stroke Impression: [...] insufficiency and mild pulmonic valve insufficiency.13cardiomegaly w/o [id number] depression in leads V3 and V4 Repeat EKG showed normalization of ST sffnvncrye48Xmrzfo bone mineral density lumbar spine and both isfn72Ma mammographic evidence of malignancy f/u in 1 year is qagsfaxxasb98[facility] NW18IV Lexiscan infusion given to the patient was negative by symptoms, negative by EKG for ischemia. Nuclear images showed normal perfusion scan. Ejection fraction 68% with normal LV cavity.19ef = 68%20with extensive huilotlfowdx09vadrdu50Tqo scanned ewejvl91pa = 60%11gpplkp11Bwliqtda ductal ppiaftgwu78Hwcbnyn polyps, diverticulosis, uncomplicated internal hemorrhoids. Repeat in 3-5 years. EF 25-30% Moderate to severe mitral gjvyhrgk14Semnglpwet: screening Impression: normal (see radiologists' report) Vital Signs Most recent to oldest [Reference Range]: 1 Temperature Temporal [36.3-37.8 DegC] 36.4 DegC (05/28/21 1:33 PM) Peripheral Pulse Rate [60-100 bpm] 66 bpm (05/28/21 1:33 PM) Blood Pressure [90-140/60-90 mmHg] 129/72 mmHg (05/28/21 1:33 PM) SpO2 [92-100 %] 93 % (05/28/21 1:33 PM) Social History Social History Type Response Smoking Status Never (less than 100 in life time) entered on: 07/15/20 Sex Hospital Discharge Instructions Follow Up Care05/26/2021 01:04:37With:Princess Carrasco Address: [address] [place] [address]- [facility] (1) When: Unknown Comments:I will send in this note and prescription for diabetic shoes.We will check the diabetes test - a1c.
--- OUTSIDE RECORDS SUMMARY | 2022-02-20 14:32 | External Medical Summary | Continuity of Care Document ---
:[address] [facility] Address [address] [place] [address] Care Team Providers Name Role Phone Princess Carrasco Primary Care Physician Solange Shea Unavailable Unavailable Encounter [facility] Date(s): 08/25/21 - 08/25/21 [facility] [address] [place] [address]- [place] Encounter Diagnosis Ankle pain (Discharge Diagnosis) - 08/25/21 Discharge Disposition: Home Attending Physician: Daysi Fleming Allergies, Adverse Reactions, Alerts Substance Reaction Severity Status carvedilol Critical Active chlorhexidine containing compounds Hives Mild Active clopidogrel Hives Mild Active sulfa drug Hives Severe Active Swelling Plavix Critical Active Hibiclens Critical Active meloxicam Upset stomach Mild Active Mobic Critical Active Functional Status 08/25/21 History of Fall in Last 3 Months [...] 90 tab(s), 0 Refill(s), Pharmacy: [facility], TAKE 1 TABLET EVERY DAY, 160, cm, 06/25/20 14:03:00 PST, Height/Length Dosing, 74.75, kg, 12/18/20 10:28:00 PDT, Weight Dosing Start Date: 08/17/21 Status: Orderedatorvastatin 40 mg oral tablet 1 tab(s), PO, Daily, # 90 tab(s), 3 Refill(s), Pharmacy: [facility], 1 tab(s) PO Daily Start Date: 09/08/20 Status: Orderedcholecalciferol 2000 intl units oral tablet 1 tab(s) ( 2,000 International_Unit ), PO, Daily, 0 Refill(s) Start Date: 03/21/18 Status: OrderedcloNIDine 0.1 mg oral tablet 1 tab(s) ( 0.1 mg ), Tab, PO, TID, # 270 tab(s), 3 Refill(s), Pharmacy: [facility], 1 tab(s) PO TID Start Date: 09/08/20 Status: Orderedfamotidine 10 mg oral tablet 1 tab(s) ( 10 mg ), Tab, PO, Daily, Instructions: may repeat dose if needed, not to exceed 2 tablets/day, # 90 tab(s), 0 Refill(s) Start Date: 11/20/20 Status: OrderedglipiZIDE 5 mg oral tablet, extended release 1 tab(s), PO, Daily, # 90 tab(s), 0 Refill(s), Pharmacy: [facility], TAKE 1 TABLET EVERY DAY, 160, cm, 06/25/20 14:03:00 PST, Height/Length Dosing, 74.75, kg, 12/18/20 10:28:00 PDT, Weight Dosing Start Date: 08/17/21 Status: OrderedhydrALAZINE 100 mg oral tablet 1 tab(s), PO, TID, # 270 tab(s), 0 Refill(s), Pharmacy: [facility], TAKE 1 TABLETTHREE TIMES DAILY, 160, cm, 06/25/20 14:03:00 PST, Height/Length Dosing, 74.75, kg, 12/18/20 10:28:00 PDT, Weight Dosing Start Date: 08/17/21 Status: OrderedImdur 30 mg oral tablet, extended release 1 tab(s) ( 30 mg ), PO, qAM, # 90 tab(s), 3 Refill(s), Pharmacy: [facility], 1 tab(s) PO qAM, 160, cm, 06/25/20 14:03:00 PST, Height/Length Dosing, 74.75, kg, 12/18/20 10:28:00 PDT, Weight Dosing Start Date: 01/01/21 Status: Orderedlevothyroxine 137 mcg (0.137 mg) oral tablet 1 tab(s), PO, Daily, # 90 tab(s), 0 Refill(s), Pharmacy: [facility], TAKE 1 TABLET EVERY DAY, 160, cm, 06/25/20 14:03:00 PST, Height/Length Dosing, 74.75, kg, 12/18/20 10:28:00 PDT, Weight Dosing Start Date: 08/17/21 Status: Orderedlisinopril 40 mg oral tablet 1 tab(s), PO, Daily, # 90 tab(s), 0 Refill(s), Pharmacy: [facility], TAKE 1 TABLET EVERY DAY, 160, cm, 06/25/20 14:03:00 PST, Height/Length Dosing, 74.75, kg, 12/18/20 10:28:00 PDT, Weight Dosing Start Date: 08/17/21 Status: Orderedmetoprolol succinate 100 mg oral tablet, extended release 1 tab(s) ( 100 mg ), PO, BID, # 180 tab(s), 3 Refill(s), Pharmacy: [facility], 1 tab(s) PO BID,x90 day(s), 160, cm, 06/25/20 14:03:00 PST, Height/Length Dosing, 74.75, kg, 12/18/20 10:28:00 PDT, Weight Dosing Start Date: 01/02/21 Stop Date: 12/28/21 Status: OrderedMiraLax oral powder for reconstitution ( 17 gm ), PO, Daily, Instructions: dissolve in water before taking, # 527 gm, 1 Refill(s), Pharmacy: [facility], 17 gm PO Daily,Instr:dissolve in water before taking, 160, cm, 06/25/20 14:03:00 PST, Height/Length Dosing, 74.75, kg, 12/18/20... Start Date: 12/18/20 Status: OrderedMisc Prescription 0 Refill(s) Start Date: 11/20/20 Status: OrderedMisc Prescription 0 Refill(s) Start Date: 11/20/20 Status: OrderedNIFEdipine 60 mg oral tablet, extended release 1 tab(s) ( 60 mg ), PO, HS, # 90 tab(s), 3 Refill(s), Pharmacy: [facility], 1 tab(s) PO HS, 160, cm, 06/25/20 14:03:00 PST, Height/Length Dosing, 74.75, kg, 12/18/20 10:28:00 PDT, Weight Dosing Start Date: 01/01/21 Status: OrderedNitrostat 0.4 mg sublingual tablet 1 tab(s) ( 0.4 mg ), SL, q5min, PRN: for chest pain, # 25 tab(s), 0 Refill(s) Start Date: 01/27/17 Status: OrderedpredniSONE 20 mg oral tablet 2 tab(s) ( 40 mg ), PO, Daily, x 5 day(s), # 10 tab(s), 0 Refill(s), 08/30/21, Pharmacy: [facility], 2 tab(s) PO Daily,x5 day(s), 160, cm, 06/25/20 14:03:00 PST, Height/Length Dosing, 74.75, kg, 12/18/20 10:28:00 PDT, Weight Dosing Start Date: 08/25/21 Stop Date: 08/30/21 Status: OrderedProAir HFA 90 mcg/inh inhalation aerosol 2 puff(s), INH, q4hr, PRN: shortness of breath or wheezing, # 8.5 gm, 0 Refill(s), Pharmacy: [facility], 2 puff(s) INH q4hr,PRN:shortness of breath or wheezing Start Date: 01/08/19 Status: Orderedtorsemide 20 mg oral tablet See Instructions, Instructions: Take 2 tablets in the morning and 2 tablets at noon., # 360 EA, 3 Refill(s), Pharmacy: [facility], Take 2 tablets [...] Echocardiogram8, 9 04/19/19 Completed Holter monitor test ljvsgraobuenvf29 04/18/19 Completed Ultrasound Carotid 09/13/18 Completed Nhqfwrmyxqzmjb82 03/18/18 Completed Chest X-ray13 03/17/18 Completed EKG14 03/17/18 Completed DEXA of hip and spine15 03/06/18 Comp leted Mammogram - ckhegtwil47 03/06/18 Comp leted Diabetic Education 01/06/17 Completed Cardiology F/U17 10/19/16 Completed NM Pxbsitu69 09/03/16 Completed Nuclear Stress Test19 09/03/16 Comple roger Exploratory xrinnscjfk97 07/28/16 Com pleted Diabetic eye exam 06/03/16 Completed Ozgynegpb99 03/02/16 Completed Left diagnostic mammogram 09/23/15 Co mpleted Wyntqwvlnpyurzzl29 09/04/15 Completed Carotid artery doppler assessment 08/27/15 Completed Carotid US 01/07/15 Completed Axjgyuvqrtpjgp63 01/07/15 Completed Bone density scan24 12/06/14 Complete d Needle biopsy left jkypao81 09/10/14 Completed Igcdfevlbll14 01/21/14 Completed Nuclear stress test 03/31/10 Complete d Cardiac catheter 10/02/09 Completed AV Fistula of left arm Compl eted Cerbral Angiogram Completed Cholecystectomy Completed Colectomy Completed Coronary angioplasty Complet ed Udmhihqcszdfbu27 Completed Hysterectomy Completed Left Lumpectomy Completed Mammogram - kkhrnjnko67 Comp leted Oncology care w/ Dr Saldaña [...] seen Impression: normal exam; nonvisualization of the suygwavaetp0FQOYN without background diabetic retinopathy branch retinal nicolette occlusion (see office visit note)6see scanned swed0Ahodyhloco: cerebral infarction; unspecified Impression: negative Holter monitor per criteria (normal) (see radiologists' report)8Indication: KVM7vtisxkjr estimated ejection fraction 60-65%10Indication: embolic stroke Impression: [...] insufficiency and mild pulmonic valve insufficiency.13cardiomegaly w/o [id number] lead EKG revealed ST depression in leads V3 and V4 Repeat EKG showed normalization of ST ajiswtlfkv00Bqstxo bone mineral density lumbar spine and both sxfy90Ew mammographic evidence of malignancy f/u in 1 year is zhpisfbyiar36[facility] NW18IV Lexiscan infusion given to the patient was negative by symptoms, negative by EKG for ischemia. Nuclear images showed normal perfusion scan. Ejection fraction 68% with normal LV cavity.19ef = 68%20with extensive rqsaikqrlupd81jvgprp00Qpy scanned kwfgws37nz = 60%51zgegus41Dnkzstxg ductal mhcfhbrcv63Atjeinw polyps, diverticulosis, uncomplicated internal hemorrhoids. Repeat in 3-5 years. EF 25-30% Moderate to severe mitral gafzwvke81Hhdicrushj: screening Impression: normal (see radiologists' report) Vital Signs Most recent to oldest [Reference Range]: 1 Temperature Temporal [36.3-37.8 DegC] 36.4 DegC (08/25/21 2:41 PM) Peripheral Pulse Rate [60-100 bpm] 69 bpm (08/25/21 2:41 PM) Blood Pressure [90-140/60-90 mmHg] 127/72 mmHg (08/25/21 2:41 PM) SpO2 [92-100 %] 97 % (08/25/21 2:41 PM) Social History Social History Type Response Tobacco Never tobacco user Tobacco U se:. Sex Hospital Discharge Instructions Patient Psltpeskg76/29/2022 17:17:02GoutGout Gout is a condition that causes painful swelling of the joints. Gout is a type of inflammation of the joints (arthritis). This condition is caused by having too much uric acid in the body. Uric acid marky chemical that forms when the body breaks down substances called purines. Purines are important forbuilding body proteins. When the body has too much uric acid, sharp crystals can form and build up inside the joints. This causes pain and swelling. Gout attacks can happen quickly and may be very painful (acute gout). Over time, the attacks can affect more joints and become more frequent (chronic gout). Gout can also cause uric acid to build up under the skin and inside the kidneys. What are the causes? This condition is caused by too much uric acid in your blood. This can happen because: Your kidneys do not remove enough uric acid from your blood. This is the most common cause. Your body makes too much uric acid. This can happen with some cancers and cancer treatments. It can also occur if your body is breaking down too many red blood cells (hemolytic anemia). You eat too many foods that are high in purines. These foods include organ meats and some seafood. Alcohol, especially beer, is also high in purines. A gout attack may be triggered by trauma or stress. What increases the risk? You are more likely to develop this condition if you: Have a family history of gout. Are male and middle-aged. Are female and have gone through menopause. Are obese. Frequently drink alcohol, especially beer. Are dehydrated. Lose weight too quickly. Have an organ transplant. Have lead poisoning. Take certain medicines, including aspirin, cyclosporine, diuretics, levodopa, and niacin. Have kidney disease. Have a skin condition called psoriasis. What are the signs or symptoms? An attack of acute gout happens quickly. It usually occurs in just one joint. The most common place is the big toe. Attacks often start at night. Other joints that may be affected include joints of thefeet, ankle, knee, fingers, wrist, or elbow. Symptoms of this condition may include: Severe pain. Warmth. Swelling. Stiffness. Tenderness. The affected joint may be very painful to touch. Shiny, red, or purple skin. Chills and fever. Chronic gout may cause symptoms more frequently. More joints may be involved. You may also have white or yellow lumps (tophi) on your hands or feet or in other areas near your joints. How is this diagnosed? This condition is diagnosed based on your symptoms, medical history, and physical exam. You may havetests, such as: Blood tests to measure uric acid levels. Removal of joint fluid with a thin needle (aspiration) to look for uric acid crystals. X-rays to look for joint damage. How is this treated? Treatment for this condition has two phases: treating an acute attack and preventing future attacks.Acute gout treatment may include medicines to reduce pain and swelling, including: NSAIDs. Steroids. These are strong anti-inflammatory medicines that can be taken by mouth (orally) or injected into a joint. Colchicine. This medicine relieves pain and swelling when it is taken soon after an attack. It can be given by mouth or through an IV. Preventive treatment may include: Daily use of smaller doses of NSAIDs or colchicine. Use of a medicine that reduces uric acid levels in your blood. Changes to your diet. You may need to see a dietitian about what to eat and drink to prevent gout. Follow these instructions at home: During a gout attack If directed, put ice on the affected area: Put ice in a plastic bag. Place a towel between your skin and the bag. Leave the ice on for 20 minutes, 23 times a day. Raise (elevate) the affected joint above the level of your heart as often as possible. Rest the joint as much as possible. If the affected joint is in your leg, you may be given crutches to use. Follow instructions from your health care provider about eating or drinking restrictions. Avoiding future gout attacks Follow a low-purine diet as told by your dietitian or health care provider. Avoid foods and drinks that are high in purines, including liver, kidney, anchovies, asparagus, delacruz, mushrooms, mussels, and beer. Maintain a healthy weight or lose weight if you are overweight. If you want to lose weight, talkwith your health care provider. It is important that you do not lose weight too quickly. Start or maintain an exercise program as told by your health care provider. Eating and drinking Drink enough fluids to keep your urine pale yellow. If you drink alcohol: Limit how much you use to: 01 drink a day for women. 02 drinks a day for men. Be aware of how much alcohol is in your drink. In the [place] one drink equals one 12 oz bottle ofbeer (355 mL) one 5 oz glass of wine (148 mL), or one 1 oz glass of hard liquor (44 mL). General instructions Take bnwm-ecp-kcuzmsr and prescription medicines only as told by your health care provider. Do not drive or use heavy machinery while taking prescription pain medicine. Return to your normal activities as told by your health care provider. Ask your health care provider what activities are safe for you. Keep all follow-up visits as told by your health care provider. This is important. Contact a health care provider if you have: Another gout attack. Continuing symptoms of a gout attack after 10 days of treatment. Side effects from your medicines. Chills or a fever. Burning pain when you urinate. Pain in your lower back or belly. Get help right away if you: Have severe or uncontrolled pain. Cannot urinate. Summary Gout is painful swelling of the joints caused by inflammation. The most common site of pain is the big toe, but it can affect other joints in the body. Medicines and dietary changes can help to prevent and treat gout attacks. This information is not intended to replace advice given to you by your health care provider. Make sure you discuss any questions you have with your health care provider. Document Revised: 12/06/2018 Document Reviewed: 12/06/2018 [employer] Patient Education 2020 [employer]. Follow Up [facility]08/25/2021 14:33:20With:Return to this practice Address:Unknown When: Unknown Comments:Call for appointment in 5-7 days if worsening or not improving.With: Princess Carrasco Address: [address] [place] [address], [place] [address]- [facility] (1) When: Unknown Care Team PersonnelName: Princess Carrasco MD Address: [address] [place] [address] [place] [address]- [place]Name: Solange Shea
--- OUTSIDE RECORDS SUMMARY | 2022-02-20 14:32 | External Medical Summary | CCD ---
:1945 Author Organization [facility] Care Team Providers Name Role Phone Princess Carrasco Primary Care Provider [phone] Allergies, Adverse Reactions, Alerts Substance Reaction Status carvedilol Critical Active clopidogrel Hives Active sulfa drug Hives Active Swelling Plavix Critical Active Hibiclens Critical Active meloxicam Upset stomach Active Mobic Critical Active chlorhexidine containing compounds Hives Activ e BRENTON inhibitors Critical Active Problem List Condition Effective Dates Status Non-ST elevation [place] (NSTEMI) Active Chronic renal disease Resolved Stage [...] Medication Instructions Start Date End Date Status cloNIDine 0.2 mg oral tablet 1 tab(s), PO, TID, # 270 11/02/2019 Ordered tab(s), 3 Refill(s), Pharmacy: [facility], 1 tab(s) PO TID glipiZIDE 5 mg oral tablet, 1 tab(s), PO, Daily, # 90 11/02/2019 Ordered extended release tab(s), 3 Refill(s), Pharmacy: [facility], 1 tab(s) PO Daily levothyroxine 137 mcg (0.137 1 tab(s), PO, Daily, # 90 11/02/2019 Ordered mg) oral tablet tab(s), 3 Refill(s), Pharmacy: [facility], 1 tab(s) PO Daily amLODIPine 10 mg oral tablet 1 tab(s), PO, Daily, # 90 11/02/2019 Ordered tab(s), 3 Refill(s), Pharmacy: [facility], 1 tab(s) PO Daily allopurinol 100 mg oral tablet 1 tab(s), PO, Daily, # 90 11/02/2019 Ordered tab(s), 3 Refill(s), Pharmacy: [facility], 1 tab(s) PO Daily hydrALAZINE 100 mg oral tablet 1 tab(s), PO, TID, # 270 11/02/2019 Ordered tab(s), 3 Refill(s), Pharmacy: [facility], 1 tab(s) PO TID Pepcid 20 mg oral tablet 1 tab(s) ( 20 mg ), PO, 11/02/2019 Ordered Once a day (at bedtime), # 90 tab(s), 3 Refill(s), Pharmacy: [facility], 1 tab(s) PO Once a day (at bedtime) atorvastatin 40 mg oral tablet 1 tab(s), PO, Daily, # 90 11/02/2019 Ordered tab(s), 4 Refill(s), Pharmacy: [facility], 1 tab(s) PO Daily torsemide 20 mg oral tablet See Instructions, Instruct ions: Take 2 tablets in the morning and 2 tablets at noon., # 360 tab(s), 4 Refill(s), Pharmacy: [facility], Take 2 tablets in the morning and 2 tablets at noon. 11/02/2019 Ordered Take 2 tablets in the morning and 2 tablets at noon. metoprolol succinate 100 mg 1 tab(s) ( 100 mg ), PO, 11/02/2019 Ordered oral tablet, extended release Daily, # 90 tab(s), 3 Refill(s), Pharmacy: [facility], 1 tab(s) PO Daily Effient 10 mg oral tablet 1 tab(s) ( 10 mg ), PO, 07/18/2020 Ordered Daily, # 30 tab(s), 11 Refill(s), Pharmacy: [facility], 1 tab(s) PO Daily ProAir HFA 90 mcg/inh 2 puff(s), INH, q4hr, PRN: 01/08/2019 Ordered inhalation aerosol shortness of breath or wheezing, # 8.5 gm, 0 Refill(s), Pharmacy: [facility], 2 puff(s) INH q4hr,PRN:shortness of breath or wheezing aspirin 325 mg oral delayed 1 tab(s) [...] HS, # 90 tab(s), 3 Refill(s), Pharmacy: [facility], 1 tab(s) PO HS sevelamer hydrochloride 800 mg 1 tab(s) ( 800 mg ), PO , BID, Instructions: with meals, # 180 tab(s), 0 Refill(s) 03/22/2019 Ordered oral tablet with meals spironolactone 25 mg oral 1 tab(s) ( 25 mg ), PO, 07/17/2020 Ordered tablet Daily, # 90 tab(s), 0 Refill(s) captopril 12.5 mg oral tablet 1 tab(s) ( 12.5 mg ), PO, 07/17/2020 Ordered q8hr, 0 Refill(s) metoprolol succinate 25 mg 1 tab(s) ( 25 mg ), PO, 07/17/2020 Ordered oral tablet, extended release BID, # 180 tab(s), 0 Refill(s) Immunizations Vaccine Date Status Refusal Reason influenza, inactivated 03/12/2019 Recorded influenza, inactivated 02/25/2014 Recorded influenza, unspecified formulation1 03/13/2018 Recorded pneumococcal, unspecified formulation 03/13/2018 Recorded pneumococcal 13-valent vaccine 03/19/2016 Recorded Td 06/30/2001 Recorded pneumococcal (PPSV23) 05/07/2009 Recorded 1Result Comment: Fluzone Tri-Valent High dose Vital Signs Most recent to oldest [Reference Range]: 1 Temperature Temporal [36.3-37.8 DegC] 36.5 DegC (07/25/2020 13:17:00) Peripheral Pulse Rate [60-100 bpm] 84 bpm (07/25/2020 13:17:00) Blood Pressure [90-140/60-90 mmHg] <content ID='[id number]'>129</content>/<content ID='[id number]'>72</content> mmHg (07/25/2020 13:17:00) SpO2 [92-100 %] 97 % (07/25/2020 13:17:00) Procedures Procedures Date Related Diagnosis Diabetic eye exam1 12/18/2019 02:00:00 Echocardiogram2 Ultrasound Carotid duplex3 09/13/2018 14:00:00 Cholecystectomy Echocardiogram4 06/26/2020 02:00:00 Nuclear stress test 03/31/2010 02:00:00 Carotid artery doppler assessment 08/27/2015 02:00:00 Nuclear Stress Test5 09/03/2016 02:00:00 Exploratory laparotomy6 07/28/2016 02:00:00 AV Fistula of left arm NM Cardiac7 09/03/2016 02:00:00 Left Lumpectomy Cardiac catheter 10/02/2009 02:00:00 Coronary angioplasty Cerbral Angiogram Echocardiography8 09/04/2015 02:00:00 Holter monitor test interpretation9 04/21/2019 02:00:00 Hysterectomy Left diagnostic mammogram 09/23/2015 02:00:00 Bone density scan10 12/06/2014 02:00:00 EKG11 03/17/2018 02:00:00 Diabetic eye exam 06/03/2016 02:00:00 Cabgytphq84 03/02/2016 02:00:00 Holter monitor test bhxesihqjyzqra62 04/18/2019 02:00:00 Tggdjgjsrpygje39 03/18/2018 02:00:00 Oncology care w/ Dr Saldaña Hmhbpjphiyqkzt96 01/07/2015 02:00:00 Mammogram - asoypzplm75 03/06/2018 02:00:00 Cardiology F/U17 10/19/2016 02:00:00 DEXA of hip and spine18 03/06/2018 02:00:00 Carotid US 01/07/2015 02:00:00 Chest X-ray19 06/26/2020 02:00:00 Soemrtlezmajcx08, 21 04/19/2019 02:00:00 Colectomy Ultrasound liver22 06/26/2020 02:00:00 Needle biopsy left lolqcg08 09/10/2014 02:00:00 Mammogram - ebkiyttpj86 Stent in branch of right coronary artery.25 Diabetic Education 01/06/2017 02:00:00 Chest X-ray26 03/17/2018 02:00:00 Nephrology continued care for CKD27 11/15/2019 02:00:00 Zbdaynygijw01 01/21/2014 02:00:00 1NIDDM without background diabetic retinopathy branch retinal nicolette occlusion (see office visit note) EF 25-30% Moderate to severe mitral dsgwqrzn5Dqldcnhguc: stenosis Impression: moderate atheromatous changes percent stenosis right ICA less than 50% percent stenosis left ICA 50-69% no hemodynamically significant stenosis (see radiology report)4Impression: severely imparied LV systolic function; ejection fraction 25-30% with the use of definity echo contrast moderate to severe mitral stenosis with mild to mitral regurgitation and left atrial enlargement moderate tricuspid regurgitation with severely right ventricular systeolic pressure mild pulmonary insufficiency (see office visit note)5ef = 68%6with extensive fhtlryoczvhr2DB Lexiscan infusion given to the patient was negative by symptoms, negative by EKG for ischemia. Nuclear images showed normal perfusion scan. Ejection fraction 68% with normal LV cavity.8See scanned bqwuej7Vnksvyefek: cerebral infarction; unspecified Impression: negative Holter monitor per criteria (normal) (see radiologists' report)[id number] lead EKG revealed ST depression in leads V3 and V4 Repeat EKG showed normalization of ST ohaptzxefg20efkfvq94Jghrfagcor: embolic stroke Impression: normal (see report)14Bilateral enlargement, left greater than right. Biventricular enlargement both midly increased. Mild to moderate concentric left ventricular hypertrophy with normal left ventricular systolic function and grade II diastolic dysfunction. Moderately severe tricupsid valve insufficency with associated moderate pulmonary hypertension. Mild mitral insufficiency and mild pulmonic valve insufficiency.15ef = 60%16No mammographic evidence of malignancy f/u in 1 year is vahbiuanwcz43[facility] YK77Mgyssz bone mineral density lumbar spine and both vjei73Nlomqzusva: CHF: unstable angina Impression: cardiomegaly and right basilar infiltrate moderately reduced LV systolic function; global hypokinesis ejection fraction 35-40% mild mitral stenosis; mean gradient through the valve of 3 to 3.7 mild to moderate mitral insufficiency mild to moderate tricuspid insufficiency mildly elevated RVSF at 44 mmHG (see office visit note)20Indication: JLM99eahrqdjx estimated ejection fraction 60-65%22Impression: findings grossly normal; common duct of 4 mm; liver is of normal echogenicity hepatic veins and protal veins are within normal limits incidental note is made ofsmall right pleural effusion gallbladder not seen Impression: normal exam; nonvisualization of the taorrjazquo75Sknezruv ductal xvzjkyiic39Qxteovzzml: screening Impression: normal (see radiologists' report)[id number] w/o VAW35rub scanned note28 Colonic polyps, diverticulosis, uncomplicated internal hemorrhoids. Repeat in 3-5 years.
--- OUTSIDE RECORDS SUMMARY | 2022-02-20 14:32 | External Medical Summary | CCD ---
:1945 Author Organization [facility] Care Team Providers Name Role Phone Princess Carrasco Primary Care Provider [phone] Allergies, Adverse Reactions, Alerts Substance Reaction Status carvedilol Critical Active clopidogrel Hives Active sulfa drug Hives Active Swelling Plavix Critical Active Hibiclens Critical Active meloxicam Upset stomach Active Mobic Critical Active chlorhexidine containing compounds Hives Activ e BRENTON inhibitors Critical Active Problem List Condition Effective Dates Status Non-ST elevation [place] (NSTEMI) Active Chronic renal disease Resolved Stage [...] 90 tab(s), 3 Refill(s), Pharmacy: [facility], 1 tab(s) PO HS sevelamer hydrochloride 800 mg 1 tab(s) ( 800 mg ), PO , BID, Instructions: with meals, # 180 tab(s), 0 Refill(s) 03/22/2019 Ordered oral tablet with meals cloNIDine 0.2 mg oral tablet 1 tab(s), PO, TID, # 270 11/02/2019 Ordered tab(s), 3 Refill(s), Pharmacy: [facility], 1 tab(s) PO TID glipiZIDE 5 mg oral tablet, 1 tab(s), PO, Daily, # 90 11/02/2019 Ordered extended release tab(s), 3 Refill(s), Pharmacy: [facility], 1 tab(s) PO Daily levothyroxine 137 mcg (0.137 1 tab(s), PO, Daily, # 90 11/02/2019 Ordered mg) oral tablet tab(s), 3 Refill(s), Pharmacy: [facility], 1 tab(s) PO Daily amLODIPine 10 mg oral tablet 1 tab(s), PO, Daily, # 90 11/02/2019 Ordered tab(s), 3 Refill(s), Pharmacy: [facility], 1 tab(s) PO Daily allopurinol 100 mg oral tablet 1 tab(s), PO, Daily, # 90 11/02/2019 Ordered tab(s), 3 Refill(s), Pharmacy: [facility], 1 tab(s) PO Daily hydrALAZINE 100 mg oral tablet 1 tab(s), PO, TID, # 270 11/02/2019 Ordered tab(s), 3 Refill(s), Pharmacy: [facility], 1 tab(s) PO TID Pepcid 20 mg oral tablet 1 tab(s) ( 20 mg ), PO, 11/02/2019 Ordered Once a day (at bedtime), # 90 tab(s), 3 Refill(s), Pharmacy: [facility], 1 tab(s) PO Once a day (at bedtime) atorvastatin 40 mg oral tablet 1 tab(s), PO, Daily, # 90 11/02/2019 Ordered tab(s), 4 Refill(s), Pharmacy: [facility], 1 tab(s) PO Daily torsemide 20 mg oral tablet See Instructions, Instruct ions: Take 2 tablets in the morning and 2 tablets at noon., # 360 tab(s), 4 Refill(s), Pharmacy: [facility], Take 2 tablets in the morning and 2 tablets at noon. 11/02/2019 Ordered Take 2 tablets in the morning and 2 tablets at noon. metoprolol succinate 100 mg 1 tab(s) ( 100 mg ), PO, 11/02/2019 Ordered oral tablet, extended release Daily, # 90 tab(s), 3 Refill(s), Pharmacy: [facility], 1 tab(s) PO Daily ProAir HFA 90 mcg/inh 2 puff(s), INH, q4hr, PRN: 01/08/2019 Ordered inhalation aerosol shortness of breath or wheezing, # 8.5 gm, 0 Refill(s), Pharmacy: [facility], 2 puff(s) INH q4hr,PRN:shortness of breath or wheezing cilostazol 100 mg oral tablet 1 tab(s) ( 100 mg ), PO, 07/20/2019 Ordered BID, # 60 tab(s), 0 Refill(s), Pharmacy: [facility], 1 tab(s) PO BID Immunizations Vaccine Date Status Refusal Reason influenza, inactivated 03/12/2019 Recorded influenza, inactivated 02/25/2014 Recorded influenza, unspecified formulation1 03/13/2018 Recorded pneumococcal, unspecified formulation 03/13/2018 Recorded pneumococcal 13-valent vaccine 03/19/2016 Recorded Td 06/30/2001 Recorded pneumococcal (PPSV23) 05/07/2009 Recorded 1Result Comment: Fluzone Tri-Valent High dose Results Most recent to oldest [Reference Range]: 1 INR POC 4.8 (01/10/2020 09:52:00) Procedures Procedures Date Related Diagnosis AV Fistula [...] Echocardiogram8 03/18/2018 02:00:00 Echocardiogram9, 10 04/19/2019 02:00:00 Sbvcdlqmfpjbnmnb51 09/04/2015 02:00:00 EKG12 03/17/2018 02:00:00 Exploratory dhoibufphb72 07/28/2016 02:00:00 Holter monitor test matkxmgjsmhgjk33 04/21/2019 02:00:00 Holter monitor test wyvkyapxxnayfp50 04/18/2019 02:00:00 Hysterectomy Left Lumpectomy Left diagnostic mammogram 09/23/2015 02:00:00 Pedowswek18 03/02/2016 02:00:00 Mammogram - eyrbbpcaw48 03/06/2018 02:00:00 Mammogram - Needle biopsy left sjxonx86 09/10/2014 02:00:00 Nephrology continued care for CKD20 11/15/2019 02:00:00 NM Haxblqe14 09/03/2016 02:00:00 Nuclear stress test 03/31/2010 02:00:00 Nuclear Stress Test22 09/03/2016 02:00:00 Oncology care w/ Dr Saldaña Ultrasound Carotid yphnip25 09/13/2018 14:00:00 3[facility]jdno5[facility] NP9qwhohnohpgwr w/o AJV8Ddlcdqi polyps, diverticulosis, uncomplicated internal hemorrhoids. Repeat in [...] CAD 10visually estimated ejection fraction 60-65%11See scanned yuegjh4559 lead EKG revealed ST depression in leads V3 and V4 Repeat EKG showed normalization of ST nszzrsusfg68rbty extensive nhvgnlybvaop20 Indication: cerebral infarction; unspecified Impression: negative Holter monitor per criteria (normal) (see radiologists' report)15Indication: embolic stroke Impression: normal (see report)75ppxrnb08Jz mammographic evidence of malignancy f/u in 1 year is lxmbuwfjdas95Psrccvosiu: screening Impression: normal (see radiologists' report)19Invasive ductal fzlcngipu42hzt scanned ueok81NK Lexiscan infusion given to the patient was negative by symptoms, negative by EKG for ischemia. Nuclear images showed normal perfusion scan. Ejection fraction 68% with normal LV cavity.22ef = 68%23Indication: stenosis Impression: moderate atheromatous changes percent stenosis right ICA less than 50% percent stenosis left ICA 50-69% no hemodynamically significant stenosis (see radiology report)
--- OUTSIDE RECORDS SUMMARY | 2022-02-20 14:32 | External Medical Summary | CCD ---
:1945 Author Organization [facility] Care Team Providers Name Role Phone STACEY MORALES Referring Provider [phone] Princess Carrasco Primary Care Provider [phone] Allergies, Adverse Reactions, Alerts Substance Reaction Status carvedilol Critical Active clopidogrel Hives Active sulfa drug Hives Active Swelling Plavix Critical Active Hibiclens Critical Active meloxicam Upset stomach Active Mobic Critical Active chlorhexidine containing compounds Hives Activ e BRENTON inhibitors Critical Active Problem List Condition Effective Dates Status Non-ST elevation [place] (NSTEMI) Active Chronic renal disease Active Coronary [...] Daily, # 90 tab(s), 4 Refill(s), Pharmacy: [facility] [...] Daily, # 90 tab(s), 3 Refill(s), Pharmacy: [facility], 1 tab(s) PO Daily prasugrel 10 mg oral tablet 1 tab(s) ( 10 mg ), PO, 03/27/2018 Ordered Daily, # 60 tab(s), 0 Refill(s), Pharmacy: [facility], 1 tab(s) PO Daily,x60 day(s) cholecalciferol 2000 intl 1 tab(s) ( 2,000 03/21/2018 Ordered units oral tablet International_Unit ), PO, Daily, 0 Refill(s) Misc Prescription 0 Refill(s) 03/21/2018 Ordered Misc Prescription 0 Refill(s) 03/21/2018 Ordered glipiZIDE 5 mg oral tablet, 1 tab(s) ( 5 mg ), PO, 05/16/2018 Ordered extended release Daily, # 90 tab(s), 3 Refill(s), Pharmacy: [facility], 1 tab(s) PO Daily raNITIdine 150 mg oral tablet 1 tab(s) ( 150 mg ), Tab, 05/16/2018 Ordered PO, BID, # 180 tab(s), 4 Refill(s), Pharmacy: [facility], 1 tab(s) PO BID amLODIPine 10 mg oral tablet 1 tab(s) ( 10 mg ), PO, 05/16/2018 Ordered Daily, # 90 tab(s), 3 Refill(s), Pharmacy: [facility], 1 tab(s) PO Daily hydrALAZINE 100 mg oral 1 tab(s) ( 100 mg ), PO, 05/16/2018 Ordered tablet TID, # 270 tab(s), 3 Refill(s), [facility] Daily, # 90 tab(s), 3 Refill(s), Pharmacy: [facility], 1 tab(s) PO Daily metoprolol succinate 100 mg 1 tab(s) ( 100 mg ), PO, 05/16/2018 Ordered oral tablet, extended release Daily, # 90 tab(s), 3 Refill(s), Pharmacy: [facility], 1 tab(s) PO Daily torsemide 20 mg oral tablet See Instructions, Instruct ions: Take 2 tablets in the morning and 2 tablets at noon., # 360 tab(s), 4 Refill(s), Pharmacy: [facility], Take 2 tablets in the morning and 2 tablets at noon. 05/16/2018 Ordered Take 2 tablets in the morning and 2 tablets at noon. cloNIDine 0.2 mg oral tablet 1 tab(s) ( 0.2 mg ), PO, 05/16/2018 Ordered TID, # 270 tab(s), 3 Refill(s), Pharmacy: [facility], 1 tab(s) PO TID Shingrix intramuscular 0.5 mL, IM, Once, # 0.5 07/28/2017 Ordered injection mL, 0 Refill(s), Pharmacy: [facility], 0.5 mL IM Once Shingrix Shingrix, See Instructions, Instructions: For shingrix vaccine, # 2 EA, 0 Refill(s), Supply 07/28/2017 Ordered For shingrix vaccine atorvastatin 40 mg oral 1 tab(s), PO, Daily, # 90 06/29/2018 Ordered tablet tab(s), 4 Refill(s), Pharmacy: [facility] ProAir HFA 90 mcg/inh 2 puff(s), INH, q4hr, PRN: 01/08/2019 Ordered inhalation aerosol shortness of breath or wheezing, # 8.5 gm, 0 Refill(s), Pharmacy: [facility], 2 puff(s) INH q4hr,PRN:shortness of [...] [0-100 pg/mL] 1510 pg/mL *HI* (01/08/2019 17:04:00) Iron PRL [37-145 mcg/dL] 25 mcg/dL *LOW* (01/08/2019 17:06:00) UIBC PRL [112-346 mcg/dL] 244 mcg/dL *NA* (01/08/2019 17:06:00) TIBC PRL [228-428] 269 *NA* (01/08/2019 17:06:00) % Trans Sat PRL [15-50 %] 9 % 2 *LOW* (01/08/2019 17:06:00) eGFR AA 18 *NA* (01/08/2019 17:04:00) eGFR Non AA 14 *NA* (01/08/2019 17:04:00) 1Result Comment: called to and repeated back by [id number] Comment: Performed at: [facility] [address] [place], [place] [address] Procedures Procedures Date Related Diagnosis AV Fistula [...] Echocardiography8 09/04/2015 02:00:00 EKG9 03/17/2018 02:00:00 Exploratory 07/28/2016 02:00:00 Hysterectomy Left Lumpectomy Left diagnostic mammogram 09/23/2015 02:00:00 Ijgigziqk60 03/02/2016 02:00:00 Mammogram - zylvjtfcw18 03/06/2018 02:00:00 Needle biopsy left snkkyz84 09/10/2014 02:00:00 NM Oxufszm39 09/03/2016 02:00:00 Nuclear stress test 03/31/2010 02:00:00 Nuclear Stress Test15 09/03/2016 02:00:00 Oncology care w/ [facility] Carotid yvtptm05 09/13/2018 14:00:00 [facility] RF8vknoffkpttsx w/o YDE9Lxklkzk polyps, diverticulosis, uncomplicated internal hemorrhoids. Repeat in 3-5 years.5Normal bone mineral density lumbar spine and both llmo3qk = 60%7Bilateral enlargement, left greater than right. Biventricular enlargement both midly increased. Mild to moderate concentric left ventricular hypertrophy with normal left ventricular systolic function and grade II diastolic dysfunction. Moderately severe tricupsid valve insufficency with associated moderate pulmonary hypertension. Mild mitral insufficiency and mild pulmonic valve insufficiency.8See scanned pzdehd670 lead EKG revealed ST depression in leads V3 and V4 Repeat EKG showed normalization of ST ciqjdbvahh55lxcw extensive qtuxztgnemxh99 jilskv17Ml mammographic evidence of malignancy f/u in 1 year is ilirwvwmslb27Ffsehomv ductal cquyljpyi03AP Lexiscan infusion given to the patient was negative by symptoms, negative by EKG for ischemia. Nuc lear images showed normal perfusion scan. Ejection fraction 68% with normal LV cavity.15ef = 68%16Indication: stenosis Impression: moderate atheromatous changes percent stenosis right ICA less than 50% percent stenosis left ICA 50-69% no hemodynamically significant stenosis (see radiology report)
--- OUTSIDE RECORDS SUMMARY | 2022-02-20 14:32 | External Medical Summary | CCD ---
:1945 Author Organization [facility] Care Team Providers Name Role Phone Princess Carrasco Primary Care Provider [phone] Allergies, Adverse Reactions, Alerts Substance Reaction Status carvedilol Critical Active clopidogrel Hives Active sulfa drug Hives Active Swelling Plavix Critical Active Hibiclens Critical Active meloxicam Upset stomach Active Mobic Critical Active chlorhexidine containing compounds Hives Activ e BRENTON inhibitors Critical Active Problem List Condition Effective Dates Status Non-ST elevation IA (NSTEMI) Active Chronic renal disease Resolved Stage [...] Daily, # 90 tab(s), 3 Refill(s), Pharmacy: [facility], 1 tab(s) PO Daily Misc Prescription 0 Refill(s) 02/08/2019 Ordered cholecalciferol 2000 intl 1 tab(s) ( 2,000 03/21/2018 Ordered units oral tablet International_Unit ), PO, Daily, 0 Refill(s) [facility] Prescription 0 Refill(s) 03/21/2018 Ordered Misc Prescription 0 Refill(s) 03/21/2018 Ordered letrozole 2.5 mg oral tablet 1 tab(s) ( 2.5 mg ), PO, 05/16/2018 Ordered HS, # 90 tab(s), 3 Refill(s), Pharmacy: [facility], 1 tab(s) PO HS sevelamer hydrochloride 800 mg 1 tab(s) ( 800 mg ), PO , BID, Instructions: with meals, # 180 tab(s), 0 Refill(s) 03/22/2019 Ordered oral tablet with meals cloNIDine 0.2 mg oral tablet 1 tab(s), PO, TID, # 270 11/02/2019 Ordered tab(s), 3 Refill(s), Pharmacy: [facility], 1 tab(s) PO TID glipiZIDE 5 mg oral tablet, 1 tab(s), PO, Daily, # 90 11/02/2019 Ordered extended release tab(s), 3 Refill(s), Pharmacy: [facility], 1 tab(s) PO Daily levothyroxine 137 mcg (0.137 1 tab(s), PO, Daily, # 90 11/02/2019 Ordered mg) oral tablet tab(s), 3 Refill(s), Pharmacy: [facility], 1 tab(s) PO Daily amLODIPine 10 mg oral tablet 1 tab(s), PO, Daily, # 90 11/02/2019 Ordered tab(s), 3 Refill(s), Pharmacy: [facility], 1 tab(s) PO Daily allopurinol 100 mg oral tablet 1 tab(s), PO, Daily, # 90 11/02/2019 Ordered tab(s), 3 Refill(s), Pharmacy: [facility], 1 tab(s) PO [...] 8.5 gm, 0 Refill(s), Pharmacy: [facility], 2 puff(s) INH q4hr,PRN:shortness of breath or wheezing Coumadin 1 mg oral tablet 1 tab(s) ( 1 mg ), PO, Daily , Instructions: take as directed, # 30 tab(s), 0 Refill(s), Pharmacy: [facility], 1 tab(s) PO Daily,Instr:take as directed 12/04/2019 Ordered take as directed cilostazol 100 mg oral tablet 1 tab(s) ( 100 mg ), PO, 07/20/2019 Ordered BID, # 60 tab(s), 0 Refill(s), Pharmacy: [facility], 1 tab(s) PO BID Immunizations Vaccine Date Status Refusal Reason influenza, inactivated 03/12/2019 Recorded influenza, inactivated 02/25/2014 Recorded influenza, unspecified formulation1 03/13/2018 Recorded pneumococcal, unspecified formulation 03/13/2018 Recorded pneumococcal 13-valent vaccine 03/19/2016 Recorded Td 06/30/2001 Recorded pneumococcal (PPSV23) 05/07/2009 Recorded 1Result Comment: Fluzone Tri-Valent High dose Results Most recent to oldest [Reference Range]: 1 INR POC 7.7 *>HHI* (12/18/2019 10:23:00) Procedures Procedures Date Related Diagnosis AV Fistula [...] Echocardiogram7 03/18/2018 02:00:00 Echocardiogram8, 9 04/19/2019 02:00:00 Mebqaetbeicvtphn82 09/04/2015 02:00:00 EKG11 03/17/2018 02:00:00 Exploratory jlfmumahrf74 07/28/2016 02:00:00 Holter monitor test eifpdktraxdvyw24 04/21/2019 02:00:00 Holter monitor test hseiqqgtehnrhg10 04/18/2019 02:00:00 Hysterectomy Left Lumpectomy Left diagnostic mammogram 09/23/2015 02:00:00 Trzwxxtnk30 03/02/2016 02:00:00 Mammogram - tvlpzvfsu65 03/06/2018 02:00:00 Mammogram - xzaepanxw03 Needle biopsy left vocetv68 09/10/2014 02:00:00 Nephrology continued care for CKD19 11/15/2019 02:00:00 NM Gxjayyw96 09/03/2016 02:00:00 Nuclear stress test 03/31/2010 02:00:00 Nuclear Stress Test21 09/03/2016 02:00:00 Oncology care w/ Dr Saldaña Ultrasound Carotid plnqov01 09/13/2018 14:00:00 8rsbohv6Yvsnz Clinics NQ9bhrsymwllvzd w/o WBN4Mztwnlp polyps, diverticulosis, uncomplicated internal hemorrhoids. Repeat in 3-5 years.5Normal bone mineral density lumbar spine and both zrdz9rx = 60%7Bilateral enlargement, left greater than right. Biventricular enlargement both midly increased. Mild to moderate concentric left ventricular hypertrophy with normal left ventricular systolic function and grade II diastolic dysfunction. Moderately severe tricupsid valve insufficency with associated moderate pulmonary hypertension. Mild mitral insufficiency and mild pulmonic valve insufficiency.8Indication: CAD 9visually estimated ejection fraction 60-65%10See scanned ecvzjt9667 lead EKG revealed ST depression in leads V3 and V4 Repeat EKG showed normalization of ST pqmklsobkt02leaf extensive tcdpicqoiosk37 Indication: cerebral infarction; unspecified Impression: negative Holter monitor per criteria (normal) (see radiologists' report)14Indication: embolic stroke Impression: normal (see report)15zrmplb09Sb mammographic evidence of malignancy f/u in 1 year is czbejzxbjao71Bjpgvnluwm: screening Impression: normal (see radiologists' report)18Invasive ductal qmkcvllhs07orp scanned royo43JD Lexiscan infusion given to the patient was negative by symptoms, negative by EKG for ischemia. Nuclear images showed normal perfusion scan. Ejection fraction 68% with normal LV cavity.21ef = 68%22Indication: stenosis Impression: moderate atheromatous changes percent stenosis right ICA less than 50% percent stenosis left ICA 50-69% no hemodynamically significant stenosis (see radiology report)
--- OUTSIDE RECORDS SUMMARY | 2022-02-20 14:33 | External Medical Summary | CCD ---
:1945 Author Organization [facility] Care Team Providers Name Role Phone STACEY MORALES Referring Provider [phone] Princess Carrasco Primary Care Provider [phone] Allergies, Adverse Reactions, Alerts Substance Reaction Status carvedilol Critical Active clopidogrel Hives Active sulfa drug Hives Active Swelling Plavix Critical Active Hibiclens Critical Active meloxicam Upset stomach Active Mobic Critical Active chlorhexidine containing compounds Hives Activ e BRENTON inhibitors Critical Active Problem List Condition Effective Dates Status Non-ST elevation MA (NSTEMI) Active Chronic renal disease Active Coronary [...] Daily, # 90 tab(s), 4 Refill(s), Pharmacy: [facility], 1 tab(s) PO Daily [...] Daily, # 90 tab(s), 3 Refill(s), Pharmacy: [facility], 1 tab(s) PO Daily prasugrel 10 mg oral tablet 1 tab(s) ( 10 mg ), PO, 03/27/2018 Ordered Daily, # 60 tab(s), 0 Refill(s), Pharmacy: [facility], 1 tab(s) PO Daily,x60 day(s) cholecalciferol 2000 intl 1 tab(s) ( 2,000 03/21/2018 Ordered units oral tablet International_Unit ), PO, Daily, 0 Refill(s) Misc Prescription 0 Refill(s) 03/21/2018 Ordered Misc Prescription 0 Refill(s) 03/21/2018 Ordered glipiZIDE 5 mg oral tablet, 1 tab(s) ( 5 mg ), PO, 05/16/2018 Ordered extended release Daily, # 90 tab(s), 3 Refill(s), Pharmacy: [facility], 1 tab(s) PO Daily raNITIdine 150 mg oral tablet 1 tab(s) ( 150 mg ), Tab, 05/16/2018 Ordered PO, BID, # 180 tab(s), 4 Refill(s), Pharmacy: [facility], 1 tab(s) PO BID amLODIPine 10 mg oral tablet 1 tab(s) ( 10 mg ), PO, 05/16/2018 Ordered Daily, # 90 tab(s), 3 Refill(s), Pharmacy: [facility], 1 tab(s) PO Daily hydrALAZINE 100 mg oral 1 tab(s) ( 100 mg ), PO, 05/16/2018 Ordered tablet TID, # 270 tab(s), 3 Refill(s), Pharmacy: [facility], 1 tab(s) PO TID letrozole 2.5 mg oral tablet 1 tab(s) ( 2.5 mg ), PO, 05/16/2018 Ordered HS, # 90 tab(s), 3 Refill(s), Pharmacy: [facility], 1 tab(s) PO HS levothyroxine 137 mcg (0.137 1 tab(s) ( 137 mcg ), PO, 05/16/2018 Ordered mg) oral tablet Daily, # 90 tab(s), 3 Refill(s), Pharmacy: [facility], 1 tab(s) PO Daily metoprolol succinate 100 mg 1 tab(s) ( 100 mg ), PO, 05/16/2018 Ordered oral tablet, extended release Daily, # 90 tab(s), 3 Refill(s), Pharmacy: [facility], 1 tab(s) PO Daily torsemide 20 mg oral tablet See Instructions, Instruct ions: Take 2 tablets in the morning and 2 tablets at noon., # 360 tab(s), 4 Refill(s), Pharmacy: [facility] Delivery, Take 2 tablets in the morning and 2 tablets at noon. 05/16/2018 Ordered Take 2 tablets in the morning and 2 tablets at noon. cloNIDine 0.2 mg oral tablet 1 tab(s) ( 0.2 mg ), PO, 05/16/2018 Ordered TID, # 270 tab(s), 3 Refill(s), Pharmacy: [facility], 1 tab(s) PO TID Shingrix intramuscular 0.5 mL, IM, Once, # 0.5 07/28/2017 Ordered injection mL, 0 Refill(s), Pharmacy: [facility] Delivery, 0.5 mL IM Once Shingrix Shingrix, See Instructions, Instructions: For shingrix vaccine, # 2 EA, 0 Refill(s), Supply 07/28/2017 Ordered For shingrix vaccine atorvastatin 40 mg oral 1 tab(s), PO, Daily, # 90 06/29/2018 Ordered tablet tab(s), 4 Refill(s), Pharmacy: [facility] ProAir HFA 90 mcg/inh 2 puff(s), INH, q4hr, PRN: 01/08/2019 Ordered inhalation aerosol shortness of breath or wheezing, # 8.5 gm, 0 Refill(s), Pharmacy: [facility], 2 puff(s) INH q4hr,PRN:shortness of breath [...] Comment: called to and repeated back by [id number] Comment: Performed at: [facility] [address] [place], [place] [address] Procedures Procedures Date Related Diagnosis AV Fistula [...] Echocardiography8 09/04/2015 02:00:00 EKG9 03/17/2018 02:00:00 Exploratory vokfzyvdkv55 07/28/2016 02:00:00 Hysterectomy Left Lumpectomy Left diagnostic mammogram 09/23/2015 02:00:00 Nyzuogxka13 03/02/2016 02:00:00 Mammogram - ndpuakjcn85 03/06/2018 02:00:00 Needle biopsy left ibjbmn44 09/10/2014 02:00:00 NM Ofxzwrs91 09/03/2016 02:00:00 Nuclear stress test 03/31/2010 02:00:00 Nuclear Stress Test15 09/03/2016 02:00:00 Oncology care w/ [facility] Ul[facility]ound Carotid upkqrx54 09/13/2018 14:00:00 0lryrkd2Dzbbp Clinics KA9kcbcnwaiadvw w/o DGP5Pxqtazd polyps, diverticulosis, uncomplicated internal hemorrhoids. Repeat in 3-5 years.5Normal bone mineral density lumbar spine and both lshg3gk = 60%7Bilateral enlargement, left greater than right. [...] V4 Repeat EKG showed normalization of ST qpjnsdmfbb96ybht extensive sbuezayhyhph23 hddvyj04Ey mammographic evidence of malignancy f/u in 1 year is bwpruxatgej08Snujsdgy ductal wuuydmhzd47FS Lexiscan infusion given to the patient was negative by symptoms, negative by EKG for ischemia. Nuc lear images showed normal perfusion scan. Ejection fraction 68% with normal LV cavity.15ef = 68%16Indication: stenosis Impression: moderate atheromatous changes percent stenosis right ICA less than 50% percent stenosis left ICA 50-69% no hemodynamically significant stenosis (see radiology report)
--- OUTSIDE RECORDS SUMMARY | 2022-02-20 14:33 | External Medical Summary | CCD ---
:1945 Author Organization [facility] Care Team Providers Name Role Phone Princess Carrasco Primary Care Provider [phone] Allergies, Adverse Reactions, Alerts Substance Reaction Status [...] 270 11/02/2019 Ordered tab(s), 3 Refill(s), Pharmacy: [facility], 1 tab(s) PO TID glipiZIDE 5 mg oral tablet, 1 tab(s), PO, Daily, # 90 11/02/2019 Ordered extended release tab(s), 3 Refill(s), Pharmacy: [facility], 1 tab(s) PO Daily levothyroxine 137 mcg (0.137 1 tab(s), PO, Daily, # 90 11/02/2019 Ordered mg) oral tablet tab(s), 3 Refill(s), Pharmacy: [facility], 1 tab(s) PO Daily amLODIPine 10 mg oral tablet 1 tab(s), PO, Daily, # 90 11/02/2019 Ordered tab(s), 3 Refill(s), Pharmacy: [facility], 1 tab(s) PO Daily allopurinol 100 mg oral tablet 1 tab(s), PO, Daily, # 90 11/02/2019 Ordered tab(s), 3 Refill(s), Pharmacy: [facility], 1 tab(s) PO Daily hydrALAZINE 100 mg oral tablet 1 tab(s), PO, TID, # 270 11/02/2019 Ordered tab(s), 3 Refill(s), Pharmacy: [facility], 1 tab(s) PO TID Pepcid 20 mg oral tablet 1 tab(s) ( 20 mg ), PO, 11/02/2019 Ordered Once a day (at bedtime), # 90 tab(s), 3 Refill(s), Pharmacy: [facility], 1 tab(s) PO Once a day (at bedtime) atorvastatin 40 mg oral tablet 1 tab(s), PO, Daily, # 90 11/02/2019 Ordered tab(s), 4 Refill(s), Pharmacy: [facility], 1 tab(s) PO Daily torsemide 20 mg oral tablet See Instructions, Instruct ions: Take 2 tablets in the morning and 2 tablets at noon., # 360 tab(s), 4 Refill(s), Pharmacy: [facility], Take 2 tablets in the morning and 2 tablets at noon. 11/02/2019 Ordered Take 2 tablets in the morning and 2 tablets at noon. metoprolol succinate 100 mg 1 tab(s) ( 100 mg ), PO, 11/02/2019 Ordered oral tablet, extended release Daily, # 90 tab(s), 3 Refill(s), Pharmacy: [facility], 1 tab(s) PO Daily Effient 10 mg oral tablet 1 tab(s) ( 10 mg ), PO, 07/18/2020 Ordered Daily, # 30 tab(s), 11 Refill(s), Pharmacy: [facility], 1 tab(s) PO Daily ProAir HFA 90 mcg/inh 2 puff(s), INH, q4hr, PRN: 01/08/2019 Ordered inhalation aerosol shortness of breath or wheezing, # 8.5 gm, 0 Refill(s), Pharmacy: [facility], 2 puff(s) INH q4hr,PRN:shortness of [...] HS, # 90 tab(s), 3 Refill(s), Pharmacy: [facility], 1 tab(s) [...] High dose Procedures Procedures Date Related Diagnosis Diabetic eye exam1 12/18/2019 02:00:00 Echocardiogram2 Ultrasound Carotid duplex3 09/13/2018 14:00:00 Cholecystectomy Echocardiogram4 06/26/2020 02:00:00 Nuclear stress test 03/31/2010 02:00:00 Carotid artery doppler assessment 08/27/2015 02:00:00 Nuclear Stress Test5 09/03/2016 02:00:00 Exploratory laparotomy6 07/28/2016 02:00:00 AV Fistula of left arm Left Lumpectomy NM Cardiac7 09/03/2016 02:00:00 Cardiac catheter 10/02/2009 02:00:00 Coronary angioplasty Cerbral Angiogram Echocardiography8 09/04/2015 02:00:00 Holter monitor test interpretation9 04/21/2019 02:00:00 Hysterectomy Left diagnostic mammogram 09/23/2015 02:00:00 Bone density scan10 12/06/2014 02:00:00 EKG11 03/17/2018 02:00:00 Diabetic eye exam 06/03/2016 02:00:00 Ouspgctvz43 03/02/2016 02:00:00 Holter monitor test tegdnchfcdbmie03 04/18/2019 02:00:00 Mqfkazihtxyont39 03/18/2018 02:00:00 Oncology care w/ Dr Saldaña Icsozuzivlclhl40 01/07/2015 02:00:00 Mammogram - affxripul47 03/06/2018 02:00:00 Cardiology F/U17 10/19/2016 02:00:00 DEXA of hip and spine18 03/06/2018 02:00:00 Carotid US 01/07/2015 02:00:00 Chest X-ray19 06/26/2020 02:00:00 Cvhvwplwjkiqbq81, 21 04/19/2019 02:00:00 Colectomy Ultrasound liver22 06/26/2020 02:00:00 Needle biopsy left hkovph33 09/10/2014 02:00:00 Mammogram - pltigsgjh05 Stent in branch of right coronary artery.25 Diabetic Education 01/06/2017 02:00:00 Chest X-ray26 03/17/2018 02:00:00 Nephrology continued care for CKD27 11/15/2019 02:00:00 Slnnpbzdjth64 01/21/2014 02:00:00 1NIDDM without background diabetic retinopathy branch retinal nicolette occlusion (see office visit note) EF 25-30% Moderate to severe mitral iufagraz0Mulevnysdj: stenosis Impression: moderate atheromatous changes percent stenosis [...] (see office visit note)5ef = 68%6with extensive ftkrfpktwkls8JN Lexiscan infusion given to the patient was negative by symptoms, negative by EKG for ischemia. Nuclear images showed normal perfusion scan. Ejection fraction 68% with normal LV cavity.8See scanned sazyjh9Qgoefxbtww: cerebral infarction; unspecified Impression: negative Holter monitor per criteria (normal) (see radiologists' report)[id number] [address]KG [address] ST depression in leads V3 and V4 Repeat EKG showed normalization of ST sreanoxpla65cdfzob00Uukgmepflr: embolic stroke Impression: normal (see report)14Bilateral enlargement, left greater than right. Biventricular enlargement both midly increased. Mild to moderate concentric left ventricular hypertrophy with normal left ventricular systolic function and grade II diastolic dysfunction. Moderately severe tricupsid valve insufficency with associated moderate pulmonary hypertension. Mild mitral insufficiency and mild pulmonic valve insufficiency.15ef = 60%16No mammographic evidence of malignancy f/u in 1 year is nhhticuvont66[facility] AB43Jihpdb bone mineral density lumbar spine and both ivwm45Lmdbhrcihs: CHF: unstable angina Impression: cardiomegaly and right basilar infiltrate moderately reduced LV systolic function; global hypokinesis ejection fraction 35-40% mild mitral stenosis; mean gradient through the valve of 3 to 3.7 mild to moderate mitral insufficiency mild to moderate tricuspid insufficiency mildly elevated RVSF at 44 mmHG (see office visit note)20Indication: XLJ45pguovcvq estimated ejection fraction 60-65%22Impression: findings grossly normal; common duct of 4 mm; liver is of normal echogenicity hepatic veins and protal veins are within normal limits incidental note is made ofsmall right pleural effusion gallbladder not seen Impression: normal exam; nonvisualization of the qwmavsrmmaz44Xynhzbtf ductal prgcxelqq74Lghunubqkf: screening Impression: normal (see radiologists' report)[id number] w/o JWM81nfg scanned note28 Colonic polyps, diverticulosis, uncomplicated internal hemorrhoids. Repeat in 3-5 years.
--- OUTSIDE RECORDS SUMMARY | 2022-02-20 14:33 | External Medical Summary | Continuity of Care Document ---
:[address] [facility] Address [address] [place] [address] Care Team Providers Name Role Phone Isael Jimenez Unavailable Unavailable Not On Staff, Physician Unavailable Unavailable Insurance Providers Payer Name Policy Number Subscriber Name Relationship Medicare Part A & B [id number] Dania Peña Self/Same as Patient Other 2 Medicare [id number] Dania Peña Self/Same as Pa tient Supplement [employer] Choice Care Open [id number] Dania Peña Alf Self/Gene e as Patient Acc Research [facility] [id number] [facility]Same as Patient Health Only Advance Directives Directive Response Recorded Date/Time Does Patient Have Advance Healthcare Directive No 10/24/14 11:43am Problems Medical Problems Problem Onset Date Status Diabetes 1.5, managed as type 2 Unknown Active Breast cancer Unknown Active Hypertension Unknown Active Surgical Problems Problem Onset Date Recorded Date/Time Status Post-operative state Unknown 10/24/2014 3:59pm Active Medications Medication Dose Route Sig Days/Qty Instructions Order Discont inued Status Date Date [Puralin PM] 1 Tab ORAL At 10/23/ Act timothy Bedtime 15 PRN sleep aid [Tylenol 650 ORAL Every 8 10/23/ Active Arthritis] Mg Hours 15 PRN pain Nitroglycerin 0.4 SUBLINGUA As 100 Qty ONE TABLET 10/23/ Active Mg L Directe EVERY 5 15 d (See MINUTES FOR Comment MAXIMUM OF 3 s) PRN DOSES IN 15 chest MINUTES. pain Aspirin 325 ORAL Daily 30 Qty 10/23/ //15 Discont in Mg For 15 ued blood thinner Mu-Vits-Min 1 ORAL Daily 10/23/ Acti ve Th/Lycopene/Stephanie Each For 15 tein supplem ent Hydralazine 75 Mg ORAL Twice 120 Qty 10/23/ Acti ve Hcl Daily 15 For high blood pressur e Metoprolol 150 ORAL Daily 10/23/ Activ e Succinate Mg For 15 high blood pressur e Losartan 100 ORAL Daily 30 Qty 10/23/ Active Potassium Mg For 15 high blood pressur e Clonidine Hcl 0.2 ORAL Three 270 Qty 10/23/ Ac tive Mg Times 15 Daily For high blood pressur e Allopurinol 100 ORAL Daily 90 Qty 10/23/ Acti ve Mg For 15 gout Levothyroxine 125 ORAL Daily 90 Qty 10/23/ Ac tive Sodium Mcg For 15 thyroid Torsemide 30 Mg ORAL Every 225 Qty 10/23/ Active Morning 15 For water pill Torsemide 20 Mg ORAL Every 30 Qty 10/23/ //15 Disco ntin Evening 15 ued For water pill Amlodipine 10 Mg ORAL Daily 90 Qty 10/23/ Activ e Besylate For 15 (Norvasc) high blood pressur e Atorvastatin 40 Mg ORAL Every 90 Qty 10/23/ Act timothy Calcium Evening 15 (Lipitor) For cholest francesca Glipizide 10 Mg ORAL Every 30 Qty 10/23/ Active Morning 15 For diabete s Ranitidine Hcl 150 ORAL Daily 30 Qty 10/23/ A ctive Mg For 15 heartbu rn Aspirin 325 ORAL Daily 30 Qty 10/24/ Active Mg For 15 blood thinner Hydrocodone 1 Tab ORAL Q4H PRN 30 Qty 10/24/ Acti ve Bit/Acetaminop PAIN, 15 hen Moderat e to Severe( 4-10) Social History Query Response Start Date Stop Date Smoking Status Never A Smoker Hospital Discharge Instructions No hospital discharge instructions. Plan of Care No plan of care. Functional Status Query Response Date Recorded Mental Status Oriented To Own Ability October 24, 2014 11: 44am Allergies, Adverse Reactions, Alerts Allergen Type Severity Reaction Status Last Updated BRENTON Inhibitors Allergy Unknown Unknown, stomach Active 09/28 12/11 problems Sulfa (Sulfonamide Allergy Unknown unknown Active Antibiotics) chlorhexidine Allergy Unknown hives, turn red all Active over carvedilol Allergy Unknown makes my blood cold Active 10/23 meloxicam Allergy Unknown stomach problems Active 10/23/14 clopidogrel Allergy Unknown stomach problems Active 5 Immunizations No immunization records. Vital Signs Acute Vital Signs Vital Response Date/Time Temperature 97.6 degrees F (97.6 - 100.4) 10/24/2014 11:35am Patient Temperature 36.4 degrees C (36.4 - 38.0) 10/24/2014 11:35am Pulse Pulse Rate 61 bpm (60 - 100) 10/24/2014 11:35am Respiratory Rate 20 breaths per min (12 - 20) 10/24/2014 11:35am Bedside Pulse Oximetry 97 % (92 - 100) 10/24/2014 11:35a m Blood Pressure 163/76 mmHg 10/24/2014 11:35am Height 5 ft 5 in 10/24/2014 11:32am Weight 218 lb 10/24/2014 11:32am Body Mass Index 36.39 10/24/2014 11:32am Results Laboratory Results Test Name Result Units Flags Reference Collection Result Comments Date/Time Date/Time White Blood Count 10.7 K/uL 3.5-10.9 10/16/2014 10/16/2014 12:15pm 3:13pm Red Blood Count 3.40 M/uL L 3.60-5.04 10/16/2014 10/16/2014 12:15pm 3:13pm Hemoglobin 10.6 g/dL L 11.0-15.2 10/16/2014 10/16/2014 12:15pm 3:13pm Hematocrit 30.2 % L 33.0-44.8 10/16/2014 10/16/2014 12:15pm 3:13pm Mean Corpuscular 88.7 fL 81-100 10/16/2014 10/16/2014 Volume 12:15pm 3:13pm Mean Corpuscular 31.0 pg 27.3-33.9 10/16/2014 10/16/2014 Hemoglobin 12:15pm 3:13pm Mean Corpuscular 35.0 g/dL 31.7-35.5 10/16/2014 10/16/2014 Hemoglobin Concent 12:15pm 3:13pm Red Cell 15.5 % 11.0-15.5 10/16/2014 10/16/2014 Distribution Width 12:15pm 3:13pm Platelet Count 267 k/cmm 150-450 10/16/2014 10/16/2014 12:15pm 3:13pm Mean Platelet 8.9 fL 7.5-12.5 10/16/2014 10/16/2014 Volume 12:15pm 3:13pm Segmented 65.4 % 37-78 10/16/2014 10/16/2014 Neutrophils % 12:15pm 3:13pm Lymphocytes % 22.5 % 15-49 10/16/2014 10/16/2014 12:15pm 3:13pm Monocytes % 7.0 % 0-8 10/16/2014 10/16/2014 12:15pm 3:13pm Eosinophils % 4.0 % 0-5 10/16/2014 10/16/2014 12:15pm 3:13pm Basophils % 1.1 % 0-2 10/16/2014 10/16/2014 12:15pm 3:13pm Neutrophils # 7.000 k/uL 1.800-8.500 10/16/2014 10/16/2014 12:15pm 3:13pm Lymphocytes # 2.400 k/uL 1.000-4.800 10/16/2014 10/16/2014 12:15pm 3:13pm Monocytes # 0.700 k/uL 0.000-0.800 10/16/2014 10/16/2014 12:15pm 3:13pm Eosinophils # 0.400 k/uL 0.000-0.700 10/16/2014 10/16/2014 12:15pm 3:13pm Basophils # 0.100 k/uL 0.000-0.400 10/16/2014 10/16/2014 12:15pm 3:13pm Glucose Level 146 MG/DL H 74-118 10/16/2014 10/16/2014 12:15pm 3:17pm Sodium Level 140 MMOL/L 136-144 10/16/2014 10/16/2014 12:15pm 3:17pm Potassium Level 4.6 MMOL/L 3.4-5.0 10/16/2014 10/16/2014 12:15pm 3:17pm Chloride Level 107 MMOL/L 101-111 10/16/2014 10/16/2014 12:15pm 3:17pm Carbon Dioxide 25 MMOL/L 22-32 10/16/2014 10/16/2014 Level 12:15pm 3:17pm Anion Gap 8 1-15 10/16/2014 10/16/2014 12:15pm 3:17pm Blood Urea Nitrogen 55 MG/DL H 8-26 10/16/2014 5 12:15pm 3:17pm Creatinine 2.46 MG/DL H 0.40-1.10 10/16/2014 10/16/2014 12:15pm 3:17pm Calcium Level 9.8 MG/DL 8.3-10.9 10/16/2014 10/16/2014 12:15pm 3:17pm Total Protein 6.1 GM/DL 6.1-7.9 10/16/2014 10/16/2014 12:15pm 3:17pm Albumin 3.6 GM/DL 3.5-4.8 10/16/2014 10/16/2014 12:15pm 3:17pm Total Bilirubin 0.2 MG/DL L 0.3-1.2 10/16/2014 10/16/2014 12:15pm 3:17pm Aspartate Amino 24 U/L 15-41 10/16/2014 10/16/2014 Transf (AST/SGOT) 12:15pm 3:17pm Alanine 19 U/L 14-54 10/16/2014 10/16/2014 Aminotransferase 12:15pm 3:17pm (ALT/SGPT) Alkaline 70 U/L 32-91 10/16/2014 10/16/2014 Phosphatase 12:15pm 3:17pm Estimated GFR 19 /1.73 M2 10/16/2014 10/16/2014 (Non- 12:15pm 3:17pm Micronesian Estimated GFR 22 /1.73 M2 >60 10/16/2014 10/16/2014 () 12:15pm 3:17pm Bedside Glucose 151 mg/dL H 74-118 10/24/2014 10/24/2014 4:45pm 4:55pm Potassium (Blood 4.6 mmol/L 3.4-5.0 10/24/2014 10/24/2014 Gas) 11:12am 11:22am Procedures No known history of procedures. Encounters Encounter Location Arrival/Admit Date Discharge/Dep art Date Departed [facility] 10/24/14 10:37am 5:55pm Recent Diagnosis Diabetes 1.5, managed as type 2 Breast cancer Hypertension
--- OUTSIDE RECORDS SUMMARY | 2022-02-20 14:33 | External Medical Summary | CCD ---
:1945 Author Organization [facility] Care Team Providers Name Role Phone Princess Carrasco Primary Care Provider [phone] Allergies, Adverse Reactions, Alerts Substance Reaction Status [...] HS, # 90 tab(s), 3 Refill(s), Pharmacy: [facility], 1 tab(s) PO HS sevelamer hydrochloride 800 mg 1 tab(s) ( 800 mg ), PO , BID, Instructions: with meals, # 180 tab(s), 0 Refill(s) 03/22/2019 Ordered oral tablet with meals cloNIDine 0.2 mg oral tablet 1 tab(s), PO, TID, # 270 11/02/2019 Ordered tab(s), 3 Refill(s), Pharmacy: [facility], 1 tab(s) PO TID glipiZIDE 5 mg oral tablet, 1 tab(s), PO, Daily, # 90 11/02/2019 Ordered extended release tab(s), 3 Refill(s), Pharmacy: [facility], 1 tab(s) PO Daily levothyroxine 137 mcg (0.137 1 tab(s), PO, Daily, # 90 11/02/2019 Ordered mg) oral tablet tab(s), 3 Refill(s), Pharmacy: [facility], 1 tab(s) PO Daily amLODIPine 10 mg oral tablet 1 tab(s), PO, Daily, # 90 11/02/2019 Ordered tab(s), 3 Refill(s), Pharmacy: [facility], 1 tab(s) PO Daily allopurinol 100 mg oral tablet 1 tab(s), PO, Daily, # 90 11/02/2019 Ordered tab(s), 3 Refill(s), Pharmacy: [facility], 1 tab(s) PO Daily hydrALAZINE 100 mg oral tablet 1 tab(s), PO, TID, # 270 11/02/2019 Ordered tab(s), 3 Refill(s), Pharmacy: [facility], 1 tab(s) PO TID Pepcid 20 mg oral tablet 1 tab(s) ( 20 mg ), PO, 11/02/2019 Ordered Once a day (at bedtime), # 90 tab(s), 3 Refill(s), Pharmacy: [facility], 1 tab(s) PO Once a day (at bedtime) atorvastatin 40 mg oral tablet 1 tab(s), PO, Daily, # 90 11/02/2019 Ordered tab(s), 4 Refill(s), Pharmacy: [facility], 1 tab(s) PO Daily torsemide 20 mg oral tablet See Instructions, Instruct ions: Take 2 tablets in the morning and 2 tablets at noon., # 360 tab(s), 4 Refill(s), Pharmacy: [facility], Take 2 tablets in the morning and 2 tablets at noon. 11/02/2019 Ordered Take 2 tablets in the morning and 2 tablets at noon. metoprolol succinate 100 mg 1 tab(s) ( 100 mg ), PO, 11/02/2019 Ordered oral tablet, extended release Daily, # 90 tab(s), 3 Refill(s), Pharmacy: [facility], 1 tab(s) PO Daily ProAir HFA 90 mcg/inh 2 puff(s), INH, q4hr, PRN: 01/08/2019 Ordered inhalation aerosol shortness of breath or wheezing, # 8.5 gm, 0 Refill(s), Pharmacy: [facility], 2 puff(s) INH q4hr,PRN:shortness of breath or wheezing cilostazol 100 mg oral tablet 1 tab(s) ( 100 mg ), PO, 07/20/2019 Ordered BID, # 60 tab(s), 0 Refill(s), Pharmacy: [facility], 1 tab(s) PO BID Immunizations Vaccine Date Status Refusal Reason influenza, inactivated 03/12/2019 Recorded influenza, inactivated 02/25/2014 Recorded influenza, unspecified formulation1 03/13/2018 Recorded pneumococcal, unspecified formulation 03/13/2018 Recorded pneumococcal 13-valent vaccine 03/19/2016 Recorded Td 06/30/2001 Recorded pneumococcal (PPSV23) 05/07/2009 Recorded 1Result Comment: Fluzone Tri-Valent High dose Results Most recent to oldest [Reference Range]: 1 INR POC 3.1 (02/20/2020 09:38:00) Procedures Procedures Date Related Diagnosis AV Fistula [...] Echocardiogram8 03/18/2018 02:00:00 Echocardiogram9, 10 04/19/2019 02:00:00 Lyessgljsjfyuake11 09/04/2015 02:00:00 EKG12 03/17/2018 02:00:00 Exploratory bayjrqpbml49 07/28/2016 02:00:00 Holter monitor test gsasxvjlkmgcrf14 04/21/2019 02:00:00 Holter monitor test [id number] 04/18/2019 02:00:00 Hysterectomy Left Lumpectomy Left diagnostic mammogram 09/23/2015 02:00:00 Hgaavqakj50 03/02/2016 02:00:00 Mammogram - bjwulhllm43 03/06/2018 02:00:00 Mammogram - gftzpjkop32 Needle biopsy left iezmmt34 09/10/2014 02:00:00 Nephrology continued care for CKD20 11/15/2019 02:00:00 NM Ugyenus21 09/03/2016 02:00:00 Nuclear stress test 03/31/2010 02:00:00 Nuclear Stress Test22 09/03/2016 02:00:00 Oncology care w/ Dr Saldaña Ultrasound Carotid 09/13/2018 14:00:00 [id number] CB4lanbckieplqf w/o [id number] polyps, diverticulosis, uncomplicated internal hemorrhoids. Repeat in [...] CAD 10visually estimated ejection fraction 60-65%11See scanned [id number] depression in leads V3 and V4 Repeat EKG showed normalization of ST ufzqsqzkwu41uolq extensive [id number] Indication: cerebral infarction; unspecified Impression: negative Holter monitor per criteria (normal) (see radiologists' report)15Indication: embolic stroke Impression: normal (see report)[id number] mammographic evidence of malignancy f/u in 1 year is tunzmbbgege17Fyifcsyoxj: screening Impression: normal (see radiologists' report)19Invasive ductal [id number] scanned wmzs86AM Lexiscan infusion given to the patient was negative by symptoms, negative by EKG for ischemia. Nuclear images showed normal perfusion scan. Ejection fraction 68% with normal LV cavity.22ef = 68%23Indication: stenosis Impression: moderate atheromatous changes percent stenosis right ICA less than 50% percent stenosis left ICA 50-69% no hemodynamically significant stenosis (see radiology report)
--- OUTSIDE RECORDS SUMMARY | 2022-02-20 14:33 | External Medical Summary ---
:1945 Author Care Team Providers Name Role Phone [facility] OTHER [phone] KAREN ALCANTARA MD Interventional Radiologist [phone] [facility] OTHER [phone] JEREMIAS BANKS Primary Care Provider [phone] Allergies Code Code System Name Reaction Severity Status Onset 1191 RxNorm Aspirin Active 05/20/2020 020502 RxNorm Shrimp Active 12/13/2020 Juan Ramon Inhibitors Active 87568 RxNorm Carvedilol Other Moderate Active 2358 RxNorm Chlorhexidine Rash Active 43198 RxNorm Clopidogrel Hives Moderate to Active Severe 3521 RxNorm Dipyridamole Active 734701 RxNorm Hibiclens Rash Moderate to Active Severe 58118 RxNorm Meloxicam Active 444879 RxNorm Mobic Active Sulfa (Sulfonamide Active Antibiotics) Medications Name Status Start Date Stop Date Aggrenox 25 mg-200 mg capsule, extended release Completed 07/20/2019 Take 1 capsule twice a day by oral route. allopurinol 100 mg tablet Completed 2021 amlodipine 10 mg tablet Completed 09/05/19 amoxicillin 500 mg capsule Completed 10/12 amoxicillin 500 mg-potassium clavulanate 125 mg tablet Completed 07/16/2019 aspirin 325 mg tablet,delayed release Completed 12/07/2019 Take 1 tablet every day by oral route. aspirin 81 mg tablet Active Not availab le Take 1 tablet every day by oral route. atorvastatin 40 mg tablet Active Not av ailable captopril 12.5 mg tablet Completed captopril 25 mg tablet Completed cholecalciferol (vitamin D3) 25 mcg (1,000 unit) tablet Active Not available Take 1 tablet every day by oral route. cholecalciferol (vitamin D3) 50 mcg (2,000 unit) chewable tablet Completed 12/07/2019 Take 1 tablet every day by oral route. cilostazol 100 mg tablet Completed Take 1 tablet every day by oral route for 30 days. ciprofloxacin 250 mg tablet Completed 08/2020 clonidine HCl 0.1 mg tablet Active Not available Take 1 tablet twice a day by oral route. clonidine HCl 0.2 mg tablet Completed 12/2020 cyclobenzaprine 10 mg tablet Completed Take 1 tablet every day by oral route as needed for 90 days. Eliquis 5 mg tablet Completed 12/07/2019 exemestane 25 mg tablet Active Not avai lable famotidine 20 mg tablet Active Not avai lable Take 1 tablet every day by oral route. gentamicin 0.1 % topical cream Active N ot available glipizide 5 mg tablet Completed 10/12/2021 Take 1 tablet twice a day by oral route. glipizide ER 10 mg tablet, extended release 24 hr Completed 12/07/2018 Take 1 tablet every day by oral route in the morning for 90 day s. glipizide ER 5 mg tablet, extended release 24 hr Active Not available hydralazine 10 mg tablet Completed hydralazine 100 mg tablet Active Not av ailable hydroxyzine HCl 10 mg tablet Completed isosorbide mononitrate ER 30 mg tablet,extended release Active Not available 24 hr latanoprost 0.005 % eye drops Completed Instill 1 drop every day by ophthalmic route. letrozole 2.5 mg tablet Completed 12/07/19 20 levothyroxine 137 mcg tablet Active Not available lisinopril 40 mg tablet Active Not avai lable metoprolol succinate ER 100 mg tablet,extended release Completed 10/12/2021 24 hr metoprolol succinate ER 25 mg tablet,extended release 24 Complet ed 07/31/2020 hr metoprolol succinate ER 50 mg tablet,extended release 24 hr Acti ve Not available Take 1 tablet twice a day by oral route. nifedipine ER 60 mg tablet,extended release Completed 11/26/2021 nifedipine ER 60 mg tablet,extended release 24 hr Completed 02/16/2021 Take 1 tablet every day by oral route for 90 days. nitroglycerin 0.4 mg sublingual tablet Active Not available ondansetron HCl 8 mg tablet Active Not available prasugrel 10 mg tablet Completed prednisone 10 mg tablet Completed 10/13/19 prednisone 20 mg tablet Completed 10/13/19 22 ranitidine 150 mg tablet Completed 021 sevelamer carbonate 800 mg tablet Completed 12/07/2019 Take 1 tablet twice a day by oral route for 90 days. spironolactone 25 mg tablet Completed 11/27 Take 1 tablet every day by oral route. 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 Active 11/28 Chronic Kidney Disease Unknown 11/30/2019 Amaurosis Fugax Active 07/31/2020 Cardiac Implant in Situ Active 10/20/2020 Paroxysmal Atrial Fibrillation Active 12/10/2020 Hyperlipidemia Active 01/05/2021 Mitral Valve Stenosis Active 01/05/2021 Coronary Arteriosclerosis Active 01/05/2021 Ischemic Dilated Cardiomyopathy Due to Coronary Artery Active 01/05/2021 Disease Dilated Cardiomyopathy Active 01/05/2021 End Stage Renal Failure on Dialysis Active 01/05/2021 Stented Coronary Artery Active 01/05/2021 Procedures Date Name Performed by 12/14/2020 Heart Catheterization Information not av ailable Notes: Coronary arteriogra phy and right coronary artery PTCA and stentplacement. 10/23/2020 Peritoneal Dialysis Catheter Maintenance Information not available 06/30/2020 Fistulogram Information not avai lable 06/26/2020 Heart Catheterization Information not av ailable Notes: 1. 98% stenosis of the proximal RCA, status post PTCA and stent witha drug-eluting stent with excellent angiographic results.2. Only mild disease in the left coronary system as described above. 08/02/2016 Laparotomy Information not avai lable Notes: Exploratory laparotomy with ext ensive adhesiolysis. 05/07/2015 Fistulogram Information not avai lable 09/27/2014 Lumpectomy Information not avai lable Notes: Left BREAST 01/02/2014 Cerebral Angiogram Information not avai lable 04/29/1998 Colon Resection Information not avai lable 05/30/1982 Hysterectomy Information not avai lable 05/30/1975 Appendectomy Information not avai lable 05/30/1974 Cholecystectomy Information not avai lable 05/30/1966 Cyst Removal Information not avai lable Notes: Ganglion Tumor removed from lef t wrist 08/25/2018 US, Duplex, Carotid Artery [facility] [address] [place] [phone] (Work Place) 08/13/2019 US, Echocardiogram [facility] [address] [place] [address] (Work Place) 11/07/2020 US, Duplex, Carotid Artery [facility] [address] [place] [address] (Work Place) 07/31/2020 US, Duplex, Carotid Artery [facility] [address] [place] [address] (Work Place) 11/21/2020 US, Duplex, Hemodialysis Access [facility] [address] [place] [address] (Work Place) 03/18/2021 US, Duplex, Hemodialysis Access [facility] [address] [place] [id number] (Work Place) 04/30/2021 US, Duplex, Hemodialysis Access [facility] [address] [place] [address] (Work Place) 02/16/2021 Electrocardiogram [facility] [address] [place] [phone] (Work Place) 08/06/2021 US, Duplex, Hemodialysis [facility] [address] [place] [address] (Work Place) 11/04/2021 US, Duplex, Hemodialysis [facility] [address] [place] [address] (Work Place) 02/10/2022 US, Duplex, Hemodialysis [facility] [address] [place] [address] (Work Place) Results Lab Results Date Name Specimen Result Interpretation Description Value Range Status Address 11/29/2019 CBC W/ Automated blood Wbc 10.7 4.50-11.00 Final Pathologists' Auto basophil count K/mcL K/mcL Re gional Lab: Diff (number/volume) [address] [facility] Automated blood Low Rbc 3.46 3.59-5.38 Final Pathologists' basophil count M/mcL M/mcL Re gional Lab: (number/volume) [address] [facility] Automated blood Low Hemoglo 10.2 11.2-15.7 Fin al Pathologists' basophil count bin g/dL g/dL Re gional Lab: (number/volume) [address] [place] [address] Automated blood Low Hematoc 31.8 % 34.1-44.9 % F inal Pathologists' basophil count rit Re gional Lab: (number/volume) [address] [place] [address] Automated blood Mean 91.9 80.0-100.0 Rosanne l Pathologists' basophil count Cell fL fL Re gional Lab: (number/volume) Volume [address] [place] [address] Automated blood Mean 29.5 26.0-34.0 Final Pathologists' basophil count Corpuscu pg pg Regional Lab: (number/volume) lar [address] , Hemoglob [place] in Automated blood Mean 32.1 31.0-36.0 Final Pathologists' basophil count Corpuscu g/dL g/dL Regional Lab: (number/volume) lar HGB [address] , Conc [place] Automated blood High Red 15.1 % 11.5-14.5 % Fin al Pathologists' basophil count Cell Re gional Lab: (number/volume) Distribu [address] , tion [place] Width Automated blood Platele 241 140-440 Final Pathologists' basophil count t Count K/mcL K/mcL R egional Lab: (number/volume) [address] [facility] Automated blood High Mean 11.2 7.4-10.4 fL Fin al Pathologists' basophil count Platelet fL Regional Lab: (number/volume) Volume [address] [place] [address] Automated blood Gran % 63.7 % 38.0-78.0 % Fi nal Pathologists' basophil count Re gional Lab: (number/volume) St, [place] Automated blood Lymph % 20.2 % 15.5-49.0 % F inal Pathologists' basophil count Re gional Lab: (number/volume) St, [place] Automated blood [place] % 9.1 % 1.0-12.0 % Fin al Pathologists' basophil count Re gional Lab: (number/volume) St, [place] Automated blood Eos % 5.8 % 0.0-7.0 % Final Pathologists' basophil count Re gional Lab: (number/volume) St, [place] Automated blood Baso % 1.2 % 0.0-2.0 % Rosanne l Pathologists' basophil count Re gional Lab: (number/volume) St, [place] Automated blood Gran # 6.80 1.80-8.00 Rosanne l Pathologists' basophil count K/mcL K/mcL Re gional Lab: (number/volume) St, [place] Automated blood Lymph # 2.16 1.50-4.80 Fin al Pathologists' basophil count K/mcL K/mcL Re gional Lab: (number/volume) St, [place] Automated blood High [place] # 0.97 0.10-0.90 Rosanne l Pathologists' basophil count K/mcL K/mcL Re gional Lab: (number/volume) St, [place] Automated blood Eos # 0.62 0.00-0.70 Final Pathologists' basophil count K/mcL K/mcL Re gional Lab: (number/volume) St, [place] Automated blood Baso # 0.13 0.00-0.30 Rosanne l Pathologists' basophil count K/mcL K/mcL Re gional Lab: (number/volume) [address], [place] 11/29/2019 PT/INR Platelet poor Prothro 12.3 11.9-14.5 F inal Pathologists' plasma or whole mbin sec sec R egional Lab: blood Time [address] , international (Patient L [place] normalized ratio ) (INR) Platelet poor Inr 0.9 0.9-1.1 Final Pa thologists' plasma or whole R egional Lab: blood [address] , international [place] normalized ratio (INR) Platelet poor Results P athologists' plasma or whole R egional Lab: blood [address] , international [place] normalized ratio (INR) 11/29/2019 CMP, Estimation of Glucose 89 70-105 Rosanne l Pathologists' Serum glomerular ,random mg/dL mg/dL Regio nal Lab: or filtration rate [address], Plasma (GFR)/1.73 sq m [place] using serum, plasma, or whole blood creatin Estimation of High Blood 66 8-23 mg/dL Final Pathologists' glomerular Urea mg/dL Region al Lab: filtration rate Nitrogen [address], (GFR)/1.73 sq m [place] using serum, plasma, or whole blood creatin Estimation of High Creatin 3.3 0.6-1.1 Final Pathologists' glomerular ine mg/dL mg/dL Region al Lab: filtration rate [address], (GFR)/1.73 sq m [place] using serum, plasma, or whole blood creatin Estimation of Sodium 139 133-145 Final P athologists' glomerular mmol/L mmol/L Region al Lab: filtration rate [address], (GFR)/1.73 sq m [place] using serum, plasma, or whole blood creatin Estimation of Potassi 4.1 3.3-5.1 Final Pathologists' glomerular um mmol/L mmol/L Region al Lab: filtration rate [address], (GFR)/1.73 sq m [place] using serum, plasma, or whole blood creatin Estimation of Chlorid 103 96-108 Final P athologists' glomerular e mmol/L mmol/L Region al Lab: filtration rate [address], (GFR)/1.73 sq m [place] using serum, plasma, or whole blood creatin Estimation of Carbon 22 22-30 Final Pa thologists' glomerular Dioxide mmol/L mmol/L Regio nal Lab: filtration rate [address], (GFR)/1.73 sq m [place] using serum, plasma, or whole blood creatin Estimation of Anion 14.0 8-16 Final Pat hologists' glomerular Gap Region al Lab: filtration rate [address], (GFR)/1.73 sq m [place] using serum, plasma, or whole blood creatin Estimation of Calcium 10.1 8.6-10.4 Final Pathologists' glomerular mg/dL mg/dL Region al Lab: filtration rate [address], (GFR)/1.73 sq m [place] using serum, plasma, or whole blood creatin Estimation of Total 6.4 5.9-8.4 Final Pa thologists' glomerular Protein gm/dL gm/dL Regio nal Lab: filtration rate [address], (GFR)/1.73 sq m [place] using serum, plasma, or whole blood creatin Estimation of Albumin 3.8 3.2-5.2 Final Pathologists' glomerular gm/dL gm/dL Region al Lab: filtration rate [address], (GFR)/1.73 sq m [place] using serum, plasma, or whole blood creatin Estimation of Globuli 2.6 2.2-3.7 Final Pathologists' glomerular n gm/dL gm/dL Region al Lab: filtration rate [address], (GFR)/1.73 sq m [place] using serum, plasma, or whole blood creatin Estimation of Alb/pooja 1.5 1.0-2.3 Final Pathologists' glomerular b Ratio Regio nal Lab: filtration rate [address], (GFR)/1.73 sq m L [place] using serum, plasma, or whole blood creatin Estimation of Bilirub 0.4 0.0-1.0 Final Pathologists' glomerular in,total mg/dL mg/dL Skylar onal Lab: filtration rate [address], (GFR)/1.73 sq m L [place] using serum, plasma, or whole blood creatin Estimation of AST/SGO 20 U/l 0-37 U/l Final Pathologists' glomerular T Region al Lab: filtration rate [address], (GFR)/1.73 sq m [place] using serum, plasma, or whole blood creatin Estimation of ALT/SGP 9 U/l 0-40 U/l Final Pathologists' glomerular T Region al Lab: filtration rate [address], (GFR)/1.73 sq m [place] using serum, plasma, or whole blood creatin Estimation of Alkalin 74 U/L 39-117 U/L Rosanne l Pathologists' glomerular e Region al Lab: filtration rate Phosphat [address], (GFR)/1.73 sq m ase L [place] using serum, plasma, or whole blood creatin Estimation of Glomeru 13 Final P athologists' glomerular lar Region al Lab: filtration rate Filtrati [address], (GFR)/1.73 sq m on Rate Archana using serum, plasma, or whole blood creatin Estimation of Results P athologists' glomerular Region al Lab: filtration rate [address], (GFR)/1.73 sq m L anjelica using serum, plasma, or whole blood creatin Past Encounters 01/06/2022 Cardiac Implant in Situ Raissa Geiger, TRASH TRUCK DRIVER: [address] [place] [phone], Ph. 11/26/2021 Cerebrovascular Accident; History of Emb olic Stroke without Deficits Karen Alcantara MD: [address] [place] [address] [place] [phone], Ph. 10/12/2021 Coronary Arteriosclerosis; Chronic Systo lic Heart Failure; Rheumatic Mitral Stenosis; Cerebrovascular Accident; Cardiac Implant in Situ; Ischemic Dilated Cardiomyopathy Due to Coronary Artery Disease; P aroxysmal Atrial Fibrillation; Dilated C ardiomyopathy Chava Jimenez MD: [address] [place] [address] , [place] [phone], Ph. 09/29/2021 Cardiac Implant in Situ Raissa Geiger TRASH TRUCK DRIVER: [address] [place] [address], [place] [phone], Ph. 08/03/2021 Cardiac Implant in Situ Raissa Geiger, TRASH TRUCK DRIVER: [address] [place] [address], [place] [phone], Ph. 04/30/2021 Cardiac Implant in Situ Raissa Geiger TRASH TRUCK DRIVER: [address] [place] [address], [place] [phone], Ph. 03/16/2021 Cardiac Implant in Situ Chava Jimenez MD: [address] [place] [address] , [place] [phone], Ph. 02/16/2021 Coronary Arteriosclerosis; Chronic Systo lic Heart Failure; Rheumatic Mitral Stenosis; Cerebrovascular Accident; Cardiac Implant in Situ; Ischemic Dilated Cardiomyopathy Due to Coronary Artery Disease Chava Jimenez MD: [address] [place] [address] , [place] [address], Ph. 01/28/2021 Cardiac Implant in Situ Chava Jimenez MD: [address] [place] [address] , [place] [phone], Ph. 01/05/2021 Cardiac Implant in Situ; Coronary Arteri osclerosis; Hyperlipidemia; Ischemic Dilated Cardiomyopathy Due to Coronary Artery Disease; Paroxysmal Atrial Fibrillation; Stented Coronary Artery Carmen Hercules, TRASH TRUCK DRIVER: [address] [place] [address], [place] [phone], Ph. 12/25/2020 Cardiac Implant in Situ Chava Jimenez MD: [address] [place] [address] , [place] [phone], Ph. 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 11/24/2020 Cardiac Implant in Situ Chava Jimenez MD: [address] [place] [address] , [place] [phone], Ph. 10/20/2020 Cardiac Implant in Situ Chava Jimenez MD: [address] [place] [address] , [place] [phone], Ph. 09/18/2020 Preoperative Cardiovascular Examination; Dilated Cardiomyopathy; Coronary Arteriosclerosis; Chronic Systolic Heart Failure; Rheumatic Mitral Stenosis; Cerebrovascular Accident; Cardiac Implant in Situ Chava Jimenez MD: [address] [place] [address] , [place] [phone], Ph. 09/18/2020 Cerebrovascular Accident; Amaurosis Fuga x of Right Eye; Paroxysmal Atrial Fibrillation Karen Alcantara MD: [address] [place] [address], [place] [phone], Ph. 09/04/2020 Cerebrovascular Accident Donnie Crystal MD: [address] [place] [address], [address] [place] [phone], Ph. Social History Tobacco Smoking Status Never Smoker Vaccine List Vaccine Type COVID-19, mRNA, LNP-S, PF, 30 mcg/0.3 mL dose ([employer] 07/10/2020 07/29/2020 03/31/2021 influenza, injectable, quadrivalent 03/15/2017 Plan of Care Patient Instructions She will continue coumadin and f/u as n eeded. Reminders Provider Appointments None recorded. Lab None recorded. Referral None recorded. Procedures None recorded. Surgeries None recorded. Imaging None recorded. Vitals 11/26/2021 04:00PM IR- ESTABLISHED Height Weight BMI Blood Pressure 5 ft 2 in 194.4 lbs 35.6 kg/m2 135/38 mm[Hg] 10/12/2021 09:45AM CARDIO-ESTABLISHED PATIENT Height Weight BMI Blood Pressure 5 ft 2 in 194.5 lbs 35.6 kg/m2 144/68 mm[Hg] 02/16/2021 11:30AM CARDIO-ESTABLISHED PATIENT Height Weight BMI Blood Pressure 5 ft 2 in 175 lbs 32 kg/m2 128/52 mm[Hg] 01/05/2021 02:30PM CARDIO-ESTABLISHED PATIENT Height Weight BMI Blood Pressure 5 ft 2 in 175 lbs 32 kg/m2 135/61 mm[Hg] 12/11/2020 02:40PM IR- ESTABLISHED Height Weight BMI Blood Pressure 5 ft 2 in 170 lbs 31.1 kg/m2 155/66 mm[Hg] 09/18/2020 03:45PM CARDIO- NEW PATIENT Height Weight BMI Blood Pressure 5 ft 2 in 168 lbs 30.7 kg/m2 126/60 mm[Hg] 09/18/2020 03:00PM IR- ESTABLISHED Height Weight BMI Blood Pressure 5 ft 2 in 168.2 lbs 30.8 kg/m2 153/48 mm[Hg] 09/04/2020 04:00PM Established Patient 15 Height Weight BMI Blood Pressure 5 ft 2 in 171.6 lbs 31.4 kg/m2 148/54 mm[Hg] 07/31/2020 03:20PM IR- ESTABLISHED Height Weight BMI Blood Pressure 5 ft 2 in 177 lbs 32.4 kg/m2 134/71 mm[Hg] 12/07/2019 11:30AM Established Patient 15 Height Weight BMI Blood Pressure 5 ft 2 in 183 lbs 33.5 kg/m2 151/61 mm[Hg] 11/29/2019 09:45AM Established Patient 15 Height Weight BMI Blood Pressure 5 ft 2 in 183.2 lbs 33.5 kg/m2 130/60 mm[Hg] 08/13/2019 11:30AM Established Patient 15 Height Weight BMI Blood Pressure 5 ft 3 in 178.2 lbs 31.6 kg/m2 148/51 mm[Hg] 07/16/2019 01:15PM Established Patient 15 Height Weight BMI Blood Pressure 5 ft 3 in 181.2 lbs 32.1 kg/m2 (1) 139/60 mm[H g] (2) 132/68 mm[Hg ] (3) 122/64 mm[Hg ] 12/07/2018 01:00PM Established Patient 15 Height Weight BMI Blood Pressure 5 ft 3 in 194 lbs 34.4 kg/m2 154/73 mm[Hg] 10/06/2017 10:30AM Any 30 Height Weight BMI Blood Pressure 5 ft 3 in 197 lbs 34.9 kg/m2 155/60 mm[Hg] 08/28/2015 Weight Blood Pressure 214.2 lbs 161/53 mm[Hg]
--- OUTSIDE RECORDS SUMMARY | 2022-02-20 14:33 | External Medical Summary | Encounter Summary ---
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 Mckeon for f istmelanie, Patient has had an US 11/09/2021. Assessment and Plan Assessment Note Elissa is a very pleasant 75-year-old f emale who has a history of end-stage renal disease on peritoneal dialysis. We do not need to follow her for this. I will see her on as-needed basis for dialysis. Her fistula appears to be functioning well. I will see her on an as-needed basis for other neurovascular and peripheral vascular issues. 1. Cerebrovascular accident 2. History of embolic stroke without de ficits Discussion Note: None recorded.Patient educational handouts: No information available. Plan of Care Reminders Provider Appointments Ir- Established 02/25/2022 Sarah Wang 4:00PM Cardio-established Patient 04/05/2022 Edw amycol Jimenez MD 12:45PM Cardio- Remote Check 04/12/2022 Device_cl inic, TUNGSTEN REFINER-I 3:00PM Ir- Established 06/03/2022 Sarah Wang 9:00AM Ir- Established 08/26/2022 Sarah Wang 2:20PM Lab None recorded. Referral None recorded. Procedures None recorded. Surgeries None recorded. Imaging None recorded. Medications Name Start Date aspirin 81 mg tablet Take 1 tablet every day by oral route. atorvastatin 40 mg tablet Take 1 tablet every day by oral route. cholecalciferol (vitamin D3) 25 mcg (1,000 unit) table t Take 1 tablet every day by oral route. clonidine HCl 0.1 mg tablet Take 1 tablet twice a day by oral route. exemestane 25 mg tablet famotidine 20 mg tablet Take 1 tablet every day by oral route. gentamicin 0.1 % topical cream Apply by topical route as needed for 30 days. glipizide ER 5 mg tablet, extended release 24 hr hydralazine 100 mg tablet Take 1 tablet 3 times a day by oral route. isosorbide mononitrate ER 30 mg tablet,extended releas e 24 hr Take 1 tablet every day by oral route. levothyroxine 137 mcg tablet Take 1 tablet every day by oral route. lisinopril 40 mg tablet Take 1 tablet every day by oral route. metoprolol succinate ER 50 mg tablet,extended release 24 hr Take 1 tablet twice a day by oral route. nitroglycerin 0.[address] 1 tablet as needed by sublingual route as direc roger for 20 days. ondansetron HCl 8 mg tablet torsemide 20 mg tablet Take 2 tablets twice a day by oral route. warfarin 3 1/2 mg 3x weekly and then 1 2 1/2 the other 4 days or as directed Notes: versenio 200 mg tablet - for [facility] cancer - is going to be restarting it soon -[facility], [facility] 11/26/21 Medications Administered None recorded. Vitals Height Weight BMI Blood Pressure 5 ft 2 in 194.4 lbs 35.6 kg/m2 135/38 mm[Hg] Results Lab Results None recorded. Allergies Code Code System Name Reaction Severity Onset 1191 RxNorm Aspirin 05/20/2020 487263 RxNorm Shrimp 12/13/2020 Juan Ramon Inhibitors 97390 RxNorm Carvedilol Other Moderate 2358 RxNorm Chlorhexidine Rash 45633 RxNorm Clopidogrel Hives Moderate to Severe 3521 RxNorm Dipyridamole 259588 RxNorm Hibiclens Rash Moderate to Severe 52503 RxNorm Meloxicam 713984 RxNorm Mobic Sulfa (Sulfonamide Antibiotics) Problems Name Status Onset Date Source Cerebrovascular Accident Active 11/29/2019 History of Embolic Stroke without Deficits Active 11/28 Amaurosis Fugax Active 07/31/2020 Cardiac Implant in Situ Active 10/20/2020 Paroxysmal Atrial Fibrillation Active 12/10/2020 Hyperlipidemia Active 01/05/2021 Mitral Valve Stenosis Active 01/05/2021 Coronary Arteriosclerosis Active 01/05/2021 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 Are you able to walk? YESWOREST Are you able to care for Y yourself? Are you currently employed? N Have you processed blood or N body fluids from an Ebola virus disease patient without appropriate PPE? How much tobacco do you chew? none What is your relationship Notes: [place] - Ck status? What is your level of alcohol Occasional Notes: R ARE consumption? Do you have any pets? N Education 12 Which illicit or recreational NONE drugs have you used? Have you been to an area known N to be high risk for COVID-19? What type of children's program coordinator do you none use? Are you passively exposed to N smoke? Do you use your seat belt or Y car seat routinely? swimming/diving Y Do you or have you ever used N any other forms of tobacco or nicotine? Smoke alarm in home Y Seat belts used routinely Y At what age did you start 0 smoking tobacco? 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 How many children do you have? 2 Has tobacco cessation Y counseling been provided? Do you have smoke and carbon Y monoxide detectors in your home? In the 14 days before symptom N onset, have you had close contact with a person who is under investigation for COVID-19 while that person was ill? Do you reside in or have you N traveled to an area where Ebola virus transmission is active? What was the date of your most 11/26/2021 recent tobacco screening? Do you use sunscreen routinely? Y Notes: OCCASIONAL Do you or have you ever used Never used electronic e-cigarettes or vape? cigarettes Do you have an advanced Y directive? General stress level Low Do you use any illicit or N recreational drugs? How many years have you smoked 0 tobacco? In the 14 days before symptom N onset, have you had close contact with a laboratory-confirmed COVID-19 while that case was ill? What is your exercise level? None Live alone or with others? with others Notes: Moises and Shady Stover Do you or have you ever used Never used smokeless smokeless tobacco? tobacco On what date was tobacco 11/26/2021 cessation counseling provided? Hard of hearing or deaf in one N or both ears? What is your level of caffeine Moderate Notes: 2-3 CUPS/DAY TEA consumption? Do you feel stressed (tense, [id number] restless, nervous, or anxious, or unable to sleep at night)? 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 Past Encounters 11/26/2021 Cerebrovascular Accident; History of Emb olic Stroke without Deficits Kurtis Mckeon MD: [address] [place] [address], [place] [address], Ph. History of Present Illness Note: <p>Elissa is a very pleasant 73-year-old female who I follow for carotid artery disease. Between last years visit in this year's visit supposedly she had a mild heart attack. Unfortunately no coronary angiography was performed due to her renal insufficiency. She is here for follow-up. Her follow-up carotid duplex demonstrates stability of her carotid artery disease. Otherwise she is doing well. I have emphasized that she should follow-up with her normal marker shipments Dr. Arcos.</p><div>
</div><p>July 16, 2019: Mrs. Nesbitt returns today for follow-up. She has complaints of left arm pain which starts at around 830 to 9:30 at night. Last for approximately 4 hours. This is been getting worse over the last 3 months. She describes the pain as burning.She feels that putting a cold compress makes it feel better. It feels worse when she lies flat. Occasionally sticking it in on ice makes it feel better. Her medication regimen is usually 4 times daily including 8 AM 9 AM 5:55 PM and 10 PM dosing cycles. Her 5:55 PM dose includes Aggrenox. This is right over her fistula site. She had a fistula placed in 2016 which is never been used. Interestingly, she was placed on Aggrenox approximately 3 months ago. This was after a diagnosis of stroke. There is an MRI dated May 02, 2019 which demonstrates multiple bilateral diffusion restricted areas on DWI sequences. This would indicate a thromboembolic source. The most likely source should be the heart. She does not have significant carotid artery disease. For this she was placed on Aggrenox 25/200 twicedaily.</p><div>
</div><p>August 13, 2019: Dania returns today for follow-up. She is stopped taking her Aggrenox completely. Her symptoms of left arm pain has resolved. More importantly however is the fact that her source of stroke has yet to be determined. She had a car otid duplex which demonstrates no evidence of significant stenosis. She also had a campus monitor for 2 weeks which did not detect atrial fibrillation. She may still have paroxysmal atrial fibrillation. Currently she is taking 325 mg of aspirin.</p><div>
</div><p>September 06, 2019: This is a telehealth visit. Patient does not have access to video. Patient has given consent for phone interview.</p><div>
</div><p>Elissa recently had echocardiography to determine the source of her stroke. This too has shown to be largely negative. I initially placed her on Eliquis. She has not taken this due to cost. I also placed her on some cilostazol. She was waiting for the results of her echocardiogram to take it. Thus she has not taken that either.However she is feeling good after stopping her Aggrenox. She has had no more symptoms. She feels better now than she did before. Currently she continues to take her 325 mg of aspirin.</p><div>
</div><p>December 07, 2019: Elissa is a very pleasant 73-year-old female who hasa history of TIA. She is on warfarin for anticoagulation and has not had symptoms since then. She was initially placed on Eliquis although this was not affordable. In addition she was placed on Aggrenox which caused left arm pain. Her INR is not at a stable level at this point. They are still adjusting it. I believe that the source of her strokes is paroxysmal atrial fibrillation.</p><div>
</div><p>July 31, 2020: Mrs. Nesbitt is a very pleasant 74-year-old female who Ilast saw in November 2019. At that time she had a history of transient ischemic attacks. 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 She states that in January 2020 she was taken off of her Coumadin which she had been on forparoxysmal atrial fibrillation. Since then she has had a history of an myocardial infarct. This was treated by Dr. Manzano here at the hospital. She was then placed on Effient and baby aspirin. This previous Tuesday at 6:15 AM she was sitting with her when she noticed that her right eye becamenearly completely blind. 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
</div><p>September 18, 2020: Elissa is a very pleasant 74-year-old female who developed sudden onset of of complete blindness of the right eye. She was taken off Coumadin in January 2020. She was on Coumadin for atrial fibrillation. In July she developed sudden onset of complete right eye blindness. Her most recent carotid duplex demonstrates an ICA to CCA ratio of 1.6 on the right and 2.8 on the left. I still suspect that the source of her amaurosis is cardiac in nature.</p><div>
</div><p>December 11, 2020: Elissa is chris pleasant 75-year-old female who had sudden onset of complete right eye blindness. This happenedafter she was taken off her Coumadin in January 2020. She had a carotid ultrasound on December 02, 2020. This demonstrates an ICA to CCA ratio 1.1 on the right 1.7 on the left. The source of her amaurosisis likely to be cardiac in nature. She is on Coumadin, likely for life.</p><div>October: Mrs. 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 He also has a history of cardiac disease. According to her she was transferred to [place] for issues with angina. She was found to have multiple stenotic vessels in her coronaries.

Due to her issues with breast malignancy no intervention was performed. She is on peritoneal dialysis. She also has a left upper extremity fistula.

</div> Review of Systems Comprehensive General Adult Interventional Radiology ROS Reported By: Patient Constitutional: Constitutional: no fever, no night sweats, no significant weight gain, no significant weight loss, no exercise intolerance, no chills, no m alaise Eyes: Eyes: no vision change, no i rritation, no eye disease/injury, wears glasses/contact lenses ENMT: Ears: no difficulty hearing, no ear pain. Nose: no frequent nosebleeds, no nose problems , no sinus problems. Mouth/Throat: no sore throat, no bleeding gums, no snoring, no dry mouth, no mouth ulcers, no oral abnorm alities, no teeth problems, no sinusitis Cardiovascular: Cardiovascular: no chest debra n, no arm pain on exertion, no shortness of breath when lyi ng down, no palpitations, no known heart murmur, shortness of b reath when walking, ankle swelling; hx of recent heart attacks Respiratory: Respiratory: no cough, no wh eezing, no shortness of breath, no coughing up blood, sleep mechanic welder truck driver ea Gastrointestinal: Gastrointestinal: no abdomin al pain, no nausea, no vomiting, normal appetite, no diarrhea , not vomiting blood, no dyspepsia, no GERD Genitourinary: Genitourinary: no incontinen ce, no difficulty urinating, no hematuria, increased urinary frequency Musculoskeletal: Musculoskeletal: no back debra n, no neck pain, no osteoporosis, no fractures, muscle aches, muscle weakness, arthralgias/joint pain, swelling in the extrem ities, difficulty walking Integumentary: Skin: no abnormal mole, no j aundice, no rashes, no laceration, no changes in hair/nails, no psoriasis, no change in skin color, no breast lump, dry s kin Neurologic: Neurologic: no loss of consc iousness, no numbness, no seizures, no dizziness, no m igraines, no headaches, no tremor, no paralysis, weakness, gait dysfunction Psychiatric: Psych: no depression, no sle ep disturbances, feeling safe in a relationship, no alcohol abu se, no anxiety, no hallucinations, no suicidal thoughts, no moo d swings, no memory loss, no agitation, no dementia, no d elirium Endocrine: Endocrine: no fatigue Hematologic/Lymphatic: Hematologic/Lymphatic no swo llen glands, no excessive bleeding, no anemia, no phle bitis, easy bruising Allergic/Immunologic: Allergy/Immunologic: no runn y nose, no sinus pressure, no itching, no hives, no freque nt sneezing Physical Exam Interventional Radiology Exa m Reported By: Patient Constitutional: General Appearance: well-nou rished, well-developed, appears stated age. Level of Distress: comf ortable Psychiatric: Mental Status: alert, normal affect. Orientation: oriented to time, place, and person. Ins ight: good judgment Eyes: Lids and Conjunctivae: non-i njected, anicteric, no discharge, no pallor, no arcus senilis, no xanthelasma; Evaluation of the right eye [id number] demonstrat es near complete blindness of the right eye specifically from midline to the left. This is not demonstrated in the left eye ENMT: Lips, Teeth, and Gums: casey l dentition. Ears: no lesions on external ear, EACs clear, TM s clear, TM mobility normal. Nose: no lesions on external nose, na res patent, no septal deviation, nasal passages clear, no sinus ten derness, no nasal discharge. Oropharynx: no cyanosis, no pallor Neck: Neck: suppleness, trachea mi dline, no masses, FROM. Carotid Arteries: bilateral normal u pstroke, no thrills, bruit on the left. Jugular Veins: normal jugular venous pressure, Kussmaul's sign absent. Cervical Lymph Nodes: non tender, not enlarged. Thyroid: not enlarged, non t angela, no nodules Lungs: Respiratory Effort: unlabore d. Chest Exam: normal curvature, no thoracic deformity, no chest wall tenderness. Percussion: resonant. Auscultation: jimenez r, no wheezing, no rales, no rhonchi Cardiovascular: Rate And Rhythm: regular. He art Sounds: normal S1, no rub, no gallop, no click, Murmurs. E xtremities: no cyanosis, no edema, no peripheral signs of emboli Peripheral Pulses: Radial Pulse: ; Left upper e xtremity fistula is pulsatile with good palpable thrill. The ar ea of pain is along the ventral surface of the arm as well a s half-way down the left forearm. It is only on the ventral side not the dorsal side Abdomen: Inspection and Palpation: so ft, non distended, normal aorta, no bruit, non tender, no masses . Liver: non tender, no hepatomegaly. Spleen: non tender, no splen omegaly Musculoskeletal: Inspection: no joint tendern ess, no joint swelling, no erythema Neurologic: Gait: normal gait. Motor: no rmal strength, normal tone. Sensation no lateralizing focal sensor y or motor deficits, normal speech Skin: Inspection and Palpation: wa rm and dry. Nails: no clubbing
--- OUTSIDE RECORDS SUMMARY | 2022-02-20 14:33 | External Medical Summary | Encounter Summary ---
:1945 Author Care Team Providers Name Role Phone Princess Carrasco Primary Care Provider [phone] [facility] OTHER [phone] [facility] OTHER [phone] Kurtis Mckeon MD Interventional Radiologist [phone] Reason for Visit Remote Device Check Assessment and Plan 1. Cardiac implant in situ ARM interrogation of Loop recorder place d 04/09/2020 for cryptogenic stroke Findings: Normal loop recorder evaluatio n with no significant arrhythmias or alerts Routine device clinic f/u Discussion Note: None recorded.Patient educational handouts: No information available. Plan of Care Reminders Provider Appointments Ir- Established 02/25/2022 Sarah Wang 4:00PM Cardio-established Patient 04/05/2022 Edw maycol Jimenez MD 12:45PM Cardio- Remote Check 04/12/2022 Device_cl inic, METER ENGINEER-I 3:00PM Ir- Established 06/03/2022 Sarah Wang 9:00AM [...] is going to be restarting it soon -DANY BALBUENA 11/26/21 Medications Administered None recorded. Vitals None recorded. Results Lab Results None recorded. Allergies Code Code System Name Reaction Severity Onset 1191 RxNorm Aspirin 05/20/2020 009490 RxNorm Shrimp 12/13/2020 Juan Ramon Inhibitors 75087 RxNorm Carvedilol Other Moderate 2358 RxNorm Chlorhexidine Rash 18424 RxNorm Clopidogrel Hives Moderate to Severe 3521 RxNorm Dipyridamole 485393 RxNorm Hibiclens Rash Moderate to Severe 27864 RxNorm Meloxicam 906521 RxNorm Mobic Sulfa (Sulfonamide Antibiotics) Problems Name [...] Ganglion Tumor removed from lef t wrist Vaccine List Vaccine Type COVID-19, mRNA, LNP-S, PF, 30 mcg/0.3 mL dose ([facility]) 07/10/2020 07/29/2020 03/31/2021 influenza, injectable, quadrivalent 03/15/2017 [...] chew? none What is your relationship Notes: [facility] nd - Ck status? What is your level of alcohol Occasional Notes: R ARE consumption? Do you have any pets? N Education 12 Which illicit or recreational NONE drugs have you used? Have you been to an area known N to be high risk for COVID-19? What type of childcare provider do you none use? Are you passively [...] TEA consumption? Do you feel stressed (tense, [id number] restless, nervous, or anxious, or unable to sleep at night)? 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 Past Encounters 01/06/2022 Cardiac Implant in Situ Raissa Geiger, [employer]: [address] [place] [address], [place] [address], Ph. History of Present Illness Note: <div>Loop recorder placed 04/09/2020 for cryptogenic stroke</div><div>
</div><div>
</div> Review of Systems None recorded. Physical Exam None recorded.
[2022-02-20] MEDS ORDERED: DEXTROSE 31 GM ORAL.SUSP PO PRN (14:42)
[2022-02-20] MEDS ORDERED: ONDANSETRON 4 MG/2 ML VIAL IV PRN (14:42)
[2022-02-20] MEDS ORDERED: DEXTROSE 50% 50 ML VIAL IV PRN (14:42)
[2022-02-20] MEDS ORDERED: IPRATROPIUM/ALBUTEROL 3 ML AMPUL.NEB NEB PRN (14:42)
[2022-02-20] MEDS ORDERED: LACTULOSE 20 GM/30 ML ORAL.SOL PO PRN (14:42)
[2022-02-20] MEDS ORDERED: SENNOSIDES 1 TABLET PO PRN (14:42)
[2022-02-20] MEDS ORDERED: NITROGLYCERIN 0.4 MG TAB.SUBL SL SCH (14:42)
[2022-02-20] MEDS ORDERED: hydrALAZINE 25 MG TABLET PO SCH (15:00)
[2022-02-20] MEDS ORDERED: CLONIDINE HCL 0.2 MG PO SCH (15:00)
--- NOTE | 2022-02-20 15:14 | Nephrology Consult Note ---
HPI Data of Consult Consult date: 02/20/22 Requesting physician: Socrates Penny Primary Care Provider: Princess Carrasco Consult Narrative Chief complaint: Weakness Reason for consult: End stage renal disease on peritoneal dialysis History of present illness: She has end stage renal disease on peritoneal dialysis, metastatic breast cancer, recent nonSTEMI s/p stents, hypertension, history of CVAs. She presented to [facility] ED for confusion and found to have hypoglycemia. She was in ED previously for bilateral hip pain and was given oipoids. Her labs were otherwise significant for AST 214, ALT 285, Sodium 135, Potassium 4.2. She had a CT of head and CT abdomen and plevis. Reports are not avauilable. She received D10W until arrival here. cc:: CC: Socrates Penny MD Constitutional Constitutional: Present fatigue and weakness EENT Nose, mouth and throat: Absent nasal congestion or sore throat Cardiovascular Cardiovascular: Absent chest pain or palpatations Respiratory Respiratory: Absent dyspnea or wheezing Gastrointestinal Gastrointestinal: Absent abdominal pain, diarrhea or nausea Genitourinary Genitourinary: Absent dysuria or hematuria Musculoskeletal Musculoskeletal: Present muscle weakness; Absent joint swelling Integumentary Integumentary: Absent rash or wounds Neurological Neurological: Present weakness; Absent confusion Psychiatric Psychiatric: Absent anxiety or panic attacks Hematologic/Lymphatic Hematologic/Lymphatic: Absent easy bleeding or easy bruising Allergic/Immunologic Allergic/Immunologic: Absent tongue swelling or throat swelling PFSH PFSH All Active Problems (Updated 02/20/22 @ 14:56 by Socrates Penny MD) Hypoglycemia associated with type 2 diabetes mellitus (Acute) On home O2 (Acute) Breast cancer (Acute) Atrial fibrillation (Acute) Hypothyroidism (acquired) (Acute) ESRD on peritoneal dialysis (Chronic) Acute non-ST elevation myocardial infarction (NSTEMI) (Acute) Abnormal electrocardiogram finding (Acute) Localized edema due to fluid overload (Chronic) Left carotid artery stenosis (Chronic) Iron deficiency anemia, unspecified (Chronic) Hypertension, essential (Chronic) History of hysterectomy (Chronic) History of coronary angioplasty (Chronic) History of colectomy (Chronic) History of cholecystectomy (Acute) Vitamin D deficiency (Acute) Stroke (Chronic) Secondary hyperparathyroidism of renal origin (Chronic) Disturbance of skin sensation (Chronic) Morbid obesity (Acute) prison current use of aspirin (Acute) IBS (irritable bowel syndrome) (Acute) Hypertension, essential (Chronic) Hyperlipidemia (Acute) Homocystinemia (Acute) Gout (Chronic) Edema (Chronic) Diabetes mellitus, type II (Chronic ~2002) CAD (coronary artery disease) (Chronic) Medical History (Updated 02/20/22 @ 14:56 by Socrates Penny MD) CAD (coronary artery disease) Diabetes mellitus, type II (~2002) Disturbance of skin sensation Numbness, tingling, burning. Edema Gout Homocystinemia Hyperlipidemia Hypertension, essential Hypertension, essential IBS (irritable bowel syndrome) prison current use of aspirin Morbid obesity Secondary hyperparathyroidism of renal origin Small bowel obstruction Stroke Most recent in March 2019; obtain records from [facility]. Vitamin D deficiency Surgical History History of cholecystectomy History of colectomy History of coronary angioplasty History of exploratory laparotomy 07/28/2016-with extensive adhesiolysis History of hysterectomy Family History Father Alcohol abuse, Onset Age: 64 Mother Malignant neoplasm of breast Chronic obstructive pulmonary disease, Onset Age: 84 Essential hypertension Unknown Malignant neoplasm of cervix Chronic Kidney Disease Disorder of metabolism Social History marital status: education level: high school occupational status: retired alcohol intake frequency: does not drink MEDS/ALLERGIES Home Medications and Allergies Home Medications Medication Instructions Recorded Confirmed Type allopurinol 100 mg tablet 100 mg PO QDAY 12/18/14 05/20/20 History atorvastatin 40 mg tablet 40 mg PO QHS 12/18/14 05/20/20 History nitroglycerin 0.4 mg sublingual 0.4 mg sublingual Q5-15MIN PRN 12/18/14 05/20/20 History tablet chest pain 3 doses ranitidine HCl 150 mg tablet 150 mg PO QDAY 12/18/14 05/20/20 History levothyroxine 137 mcg tablet 137 mcg PO QDAY 04/01/15 05/20/20 History hydralazine 100 mg tablet 100 mg PO TID 90 days #270 tabs 05/10/16 05/20/20 Rx amlodipine 10 mg tablet 10 mg PO QDAY 04/05/17 05/20/20 History glipizide 5 mg tablet, extended 5 mg PO QDAY 12/19/17 05/20/20 History release 24 hr clonidine HCl 0.2 mg tablet 0.2 mg PO TID 05/08/19 05/20/20 History torsemide 20 mg tablet 40 mg PO BID 07/10/19 05/20/20 History metoprolol succinate 50 mg 50 mg PO QDAY #90 tabs 03/20/20 05/20/20 Rx tablet,extended release 24 hr gentamicin 0.1 % topical cream 1 applic topical DIRECTED PD 01/16/21 Rx catheter #30 grams cholecalciferol (vitamin D3) 125 125 mcg PO QDAY #90 tabs 06/15/21 Rx mcg (5,000 unit) tablet Allergies Allergy/AdvReac Type Severity Reaction Status Date / Time Sulfa (Sulfonamide Allergy Severe SWELLING/HI Verified 05/20/20 11:10 Antibiotics) VES [SULFA (SULFONAMIDE ANTIBIOTICS)] adhesive Allergy Intermediate bleeding Verified 05/20/20 11:10 sores chlorhexidine Allergy Mild Hives Verified 05/20/20 11:10 [From Hibiclens] clopidogrel [From Plavix] Allergy Mild Hives Verified 05/20/20 11:10 BRENTON Inhibitors Allergy Unknown Unknown Verified 05/20/20 11:10 aspirin [From Aggrenox] AdvReac Mild pain Verified 02/20/22 14:45 dipyridamole [From Aggrenox] AdvReac Mild pain Verified 02/20/22 14:45 meloxicam [From Mobic] AdvReac Mild Gastrointestinal Verified 05/20/20 11:10 Upset sucroferric oxyhydroxide AdvReac Mild GI upset Verified 02/20/22 14:45 [From Velphoro] Physical Examination General Appearance General appearance: chronically ill, fatigue and frail EENT EENT: mucous membranes moist Neck Neck: JVD Respiratory Respiratory: rales Cardiovascular Cardiology: edema, regular rate and regular rhythm Gastrointestinal Gastrointestinal: no tenderness and no guarding Integumentary Integumentary: no rash and warm and dry Neurologic Neurologic: no focal deficit and alert and oriented x3 Psychiatric Psychiatric: mood/affect appropriate and cooperative A/P Assessment and plan (1) ESRD on peritoneal dialysis: Assessment and plan: She has end stage renal disease on peritoneal dialysis, metastatic breast cancer, recent nonSTEMI s/p stents, hypertension, history of CVAs. She presented to [facility] ED for confusion and found to have hypoglycemia. She was in ED previously for bilateral hip pain and was given oipoids. Her labs were otherwise significant for AST 214, ALT 285, Sodium 135, Potassium 4.2. She had a CT of head and CT abdomen and plevis. Reports are not available. She received D10W until arrival here. End stage renal disease on peritoneal dialysis. Left arm AV fistula with thrill. Chronic anemia due to ESRD. Hb 10.4 on 02/17/22. Fluid overload. Hyponatremia, mild associated with ESRD and fluid overload. Plan: Renal diet with sodium and fluid restriction. Furosemide 100 mg IV x 1. Continue Torsemide 40 mg twice daily. Will hold Amlodipine, Hydralazine and Clonidine for hypotension and bradycardia. She may need antiplatelets for recent stents. Discharge summary med list need to be requested from [facility]. CCPD with 2.5%, 1,800 ml, 4 exchanges for 8 hours. Palliative care assessment for comfort care/hospice. PT evaluation and assessment of ability to continue PD before discharge. Status: Chronic Time Spent With Patient Time: Total time spent is greater than 50% in coordination of care (as documented) at patient's floor/unit and/or counseling patient:
[2022-02-20] MEDS ORDERED: hydrALAZINE 20 MG/ML VIAL IV PRN (15:37)
[2022-02-20] MEDS: FUROSEMIDE 100 MG/10 ML VIAL IV ONE ×2 (15:42→17:36)
[2022-02-20] MEDS: INSULIN LISPRO 1 UNIT/0.01 ML UNIT SQ SCH ×2 (16:15→20:14)
[2022-02-20] MEDS ORDERED: EPOETIN ALFA 20000 UNIT/ML SUB-Q SCH (17:15)
[2022-02-20] MEDS: ACETAMINOPHEN 325 MG TABLET PO PRN (18:01)
[2022-02-20] MEDS: ATORVASTATIN 40 MG TABLET PO SCH (20:24)
[2022-02-20] MEDS: DOCUSATE SODIUM 100 MG CAPSULE PO SCH (20:24)
[2022-02-20] MEDS: 0.9 % SODIUM CHLORIDE 10 ML SYRINGE IV SCH (20:25)
[2022-02-20] MEDS ORDERED: ATORVASTATIN 40 MG TABLET PO SCH (21:00)
[2022-02-20] MEDS ORDERED: TORSEMIDE 20 MG TABLET PO SCH (21:00)
[2022-02-21] MEDS: INSULIN LISPRO 1 UNIT/0.01 ML UNIT SQ SCH ×6 (00:01→21:25)
[2022-02-21] MEDS: ACETAMINOPHEN 325 MG TABLET PO PRN (02:25)
[2022-02-21] MEDS ORDERED: DILTIAZEM 125 MG/25 ML VIAL IV ONE (03:01)
[2022-02-21] MEDS: 0.9 % SODIUM CHLORIDE 10 ML SYRINGE IV SCH ×3 (05:57→21:30)
[2022-02-21 06:27] LABS: Basophils # (Auto) 0.07 K/mcL (0.00-0.30); Basophils % (Auto) 0.6 % (0.0-2.0); Eosinophils # (Auto) 0.35 K/mcL (0.00-0.70); Eosinophils % (Auto) 3.2 % (0.0-7.0); Hematocrit 31.2 % (34.1-44.9); Hemoglobin 9.8 g/dL (11.2-15.7); Lymphocytes # (Auto) 0.91 K/mcL (1.50-4.80); Lymphocytes % (Auto) 8.3 % (15.5-49.0); Mean Cell Volume 93.7 fL (80.0-100.0); Mean Corpuscular HGB Conc 31.4 g/dL (31.0-36.0); Mean Platelet Volume 11.2 fL (8.8-12.5); Monocytes # (Auto) 1.28 K/mcL (0.10-0.90); Monocytes % (Auto) 11.6 % (1.0-12.0); Neutrophils % (Auto) 75.8 % (38.0-78.0); Platelet Count 133 K/mcL (140-440); RBC 3.33 M/mcL (3.59-5.38); Red Cell Distribution Width 17.7 % (11.5-14.5)
[2022-02-21 06:39] LABS: INR 1.4 (0.9-1.1); Prothrombin Time 18.2 sec (11.9-14.5)
[2022-02-21 07:16] LABS: ALT/SGPT 115 U/L (<40); AST/SGOT 84 U/L (<32); Albumin 2.2 gm/dL (3.2-5.2); Albumin/Globulin Ratio 0.7 (1.0-2.3); Alkaline Phosphatase 116 U/L (39-117); Bilirubin,Total 0.5 mg/dL (0.1-1.0); Blood Urea Nitrogen 59 mg/dL (8-23); Calcium 7.8 mg/dL (8.6-10.4); Carbon Dioxide 23 mmol/L (22-30); Chloride 95 mmol/L (96-108); Globulin 3.2 gm/dL (2.2-3.7); Glomerular Filtration Rate 5; Glucose 93 mg/dL (70-105)
--- NOTE | 2022-02-21 07:38 | Nephrology Progress Note ---
SUBJECTIVE Subjective Patient information: Note initiated : 02/21/22 at 7:35 am Patient: Dania Nesbitt 76 y/o F admitted on 02/20/22 for Hypoglycemia, dialysis. Chief Complaint: Weakness Pertinent ROS: Diffuse pain Weakness Edema Sanchez catheter Constitutional Vitals: Vital Signs Temp Pulse Resp BP Pulse Ox O2 Del Method O2 Flow Rate 98.2 F 62 14 123/44 96 2 02/21/22 00:01 02/21/22 02:01 02/21/22 07:01 02/21/22 07:01 02/21/22 07:01 02/21/22 06:01 02/21/22 06:01 Period Temp Pulse Resp BP Sys/Garza Pulse Ox O2 Del Method O2 Flow Rate Last 24 Hr 97.2 F-98.2 F 63 -21 96-126/34-96 88-100 Nasal Cannula- Nasal Cannula 2-2 Intake and Output 02/20/22 02/21/22 02/21/22 21:59 05:59 13:59 Intake Total 0 225 Output Total 45 Balance 0 225 -45 Weight 185 lb Intake & Output: Intake & Output 02/20/22 02/21/22 02/21/22 21:59 05:59 13:59 Intake Total 0 225 Output Total 45 Balance 0 225 -45 Weight 185 lb Intake: Oral 0 225 Output: Void Amount 45 Other: Meal Dinner Percent of Meal Consumed 25% Urine Appearance Uretheral (Sanchez) Clear Urine Color Dark Yellow Uretheral (Sanchez) Dark Yellow Head Head exam: Present atraumatic and normal inspection Eye Eye exam: Present normal appearance ENT ENT exam: Present mucous membranes moist, normal exam and normal external ear exam Neck Neck exam: Present normal inspection Respiratory Respiratory exam: Present normal respiratory exam Cardiovascular Cardiovascular exam: Present normal rate and rhythm GI/Abdominal GI/Abdominal exam: Present normal bowel sounds Extremities Exam Extremities exam: Present pedal edema Back Exam Back exam: Present normal inspection Neurological Exam Neurological exam: Present alert and oriented X3 Skin Skin exam: Present intact and warm A/P Assessment and plan (1) ESRD on peritoneal dialysis: Assessment and plan: She has end stage renal disease on peritoneal dialysis, breast cancer (not treated due to heart disease), recent nonSTEMI s/p stents, hypertension, history of CVAs. She presented to [facility] ED for confusion and found to have hypoglycemia. She was in ED previously for bilateral hip pain and was given opioids. Her labs were otherwise significant for AST 214, ALT 285, Sodium 135, Potassium 4.2. She had a CT of head and CT abdomen and pelvis. Reports are not available. She received D10W until arrival here. End stage renal disease on peritoneal dialysis. Left arm AV fistula with thrill. Chronic anemia due to ESRD. Hb 9.8 on 02/21/22. Fluid overload. Weakness. Diffuse pain. PROGRESS Hypotension and bradycardia improved. Med list obtained from [facility]. CCPD on 02/20/22: 2.5%, 1,800 ml, 4 exchanges for 8 hours. PLAN Renal diet with sodium and fluid restriction. CCPD with 2.5%, 1,800 ml, 4 exchanges for 8 hours. HD with UF on 02/22/22 for fluid overload: 4 hours for a target UF of 4 kg (<13 ml/kg/hour). Status: Chronic Time Spent With Patient Time: Total time spent is greater than 50% in coordination of care (as documented) at patient's floor/unit and/or counseling patient:
[2022-02-21] MEDS: ALLOPURINOL 100 MG TABLET PO SCH (08:53)
[2022-02-21] MEDS: DOCUSATE SODIUM 100 MG CAPSULE PO SCH ×2 (08:53→21:29)
[2022-02-21] MEDS: LEVOTHYROXINE 25 MCG TABLET PO SCH (08:53)
[2022-02-21] MEDS: LEVOTHYROXINE SODIUM 112 MCG TABLET PO SCH (08:53)
[2022-02-21] MEDS: FAMOTIDINE 20 MG TABLET PO SCH (08:53)
[2022-02-21] MEDS: ASPIRIN 81 MG TAB.CHEW PO SCH (08:54)
[2022-02-21] MEDS: VITAMIN D3 125 MCG TABLET PO SCH (08:54)
[2022-02-21] MEDS ORDERED: METOPROLOL SUCCINATE 50 MG TAB.XL.24H PO SCH (09:00)
[2022-02-21] MEDS ORDERED: amLODIPine 10 MG TABLET PO SCH (09:00)
[2022-02-21] MEDS ORDERED: NON FORMULARY MEDICATION 1 DOSE MISCELL (Levothyroxine 137 mcg tablet) PO SCH (09:00)
[2022-02-21] MEDS ORDERED: ISOSORBIDE MONONITRATE 60 MG TAB.XL.24H PO SCH (09:00)
[2022-02-21] MEDS ORDERED: oxyCODONE HCL 5 MG TABLET PO PRN (09:01)
[2022-02-21] MEDS: oxyCODONE HCL 5 MG TABLET PO PRN ×3 (09:14→22:35)
--- NOTE | 2022-02-21 09:17 | Internal Med Progress Note ---
SUBJECTIVE Subjective Patient information: Note initiated : 02/21/22 at 9:12 am Service Date, if different from initiated Date: [] Patient: Dania Nesbitt a 76 y/o F admitted on 02/20/22 for Hypoglycemia, dialysis. Chief Complaint: [] Interval history: Ms. Nesbitt is a 76 year old F history of breast cancer, type 2 diabetes mellitus, end-stage renal disease on peritoneal dialysis, essential hypertensions, mixed dyslipidemia, CAD status post PCI with drug-eluting stents, CVA, gout, hypothyroidism, atrial fibrillation, presenting with lethargy and syncope. Patient is on glipizide and her is helping her to manage the medications. She was found to be extremely lethargic and syncope/near syncope by day of . EMS recall and blood glucose level was checked at the scene in the 20s. D50 X2 were given in route to the outside ER, where she was being started on D10 drip. Repeat blood sugar level was 120s, D10 drip started. Transfer request called for peritoneal dialysis capacity in our facility. [employer] Dr. Pleitez consulted for peritoneal dialysis needs. 02/21: Another episode of hypoglycemia with blood sugar 63 this morning around 830. INR 1.4. Status post peritoneal dialysis overnight. Patient is coming of general weakness at baseline. She denies any syncope or near syncope. She denies any chest pain or shortness of breath. She is complaining of 10 out of 10 bilateral lower extremity sharp pain. Keep Accu-Chek Q4 and low-dose sign scale insulin every 4. Renal/CC diet. Dr. Pleitez. will switch patients to hemodialysis starting tomorrow on Tuesday, February 22, 2022. Pending physical therapy and Occupational Therapy evaluation and treatments for placement purposes. Constitutional Vitals: Vital Signs Temp Pulse Resp BP Pulse Ox O2 Del Method O2 Flow Rate 36.3 C 62 17 127/53 97 2 02/21/22 08:01 02/21/22 02:01 02/21/22 09:01 02/21/22 09:01 02/21/22 09:01 02/21/22 09:01 02/21/22 09:01 Period Temp Pulse Resp BP Sys/Garza Pulse Ox O2 Del Method O2 Flow Rate Last 24 Hr 36.2 C-36.8 C 25-63 11-21 96-127/34-96 88-100 Nasal Cannula- Nasal Cannula 2-2 Intake and Output 02/20/22 02/21/22 02/21/22 21:59 05:59 13:59 Intake Total 0 225 360 Output Total 45 Balance 0 225 315 Weight 83.915 kg Intake & Output: Intake & Output 02/20/22 02/21/22 02/21/22 21:59 05:59 13:59 Intake Total 0 225 360 Output Total 45 Balance 0 225 315 Weight 83.915 kg Intake: Oral 0 225 360 Output: Void Amount 45 Other: Meal Dinner Breakfast Percent of Meal Consumed 25% 33% Feeding Ability Independent Urine Appearance Uretheral (Sanchez) Clear Urine Color Dark Yellow Uretheral (Sanchez) Dark Yellow Head Head exam: Present atraumatic and normal inspection Eye Eye exam: Present normal appearance ENT ENT exam: Present mucous membranes moist, normal exam and normal external ear exam Neck Neck exam: Present normal inspection Respiratory Respiratory exam: Present normal respiratory exam Cardiovascular Cardiovascular exam: Present normal rate and rhythm GI/Abdominal GI/Abdominal exam: Present normal bowel sounds Additional comments: Sanchez catheter in place Extremities Exam Additional comments: AV fistula left arm Back Exam Back exam: Present normal inspection Neurological Exam Neurological exam: Present alert and oriented X3 Skin Skin exam: Present intact and warm OBJ DATA Labs CBC & Chem 7: 02/21/22 05:37 02/21/22 05:37 Labs: Abnormal Lab Results 02/21/22 02/21/22 02/21/22 05:38 05:37 05:37 RBC Hgb Hct RDW Plt Count Lymph % (Auto) Lymph # (Auto) [place] # (Auto) Absolute Neutrophils PT 18.2 H INR 1.4 H Chloride 95 L BUN 59 H Creatinine 6.9 H* Calcium 7.8 L Phosphorus 7.5 H* AST 84 H ALT 115 H Total Protein 5.4 L Albumin 2.2 L Albumin/Globulin Ratio 0.7 L 02/21/22 05:37 RBC 3.33 L Hgb 9.8 L Hct 31.2 L RDW 17.7 H Plt Count 133 L Lymph % (Auto) 8.3 L Lymph # (Auto) 0.91 L [place] # (Auto) 1.28 H Absolute Neutrophils 8.36 H PT INR Chloride BUN Creatinine Calcium Phosphorus AST ALT Total Protein Albumin Albumin/Globulin Ratio Meds: Medications Acetaminophen (Acetaminophen 325 Mg Tablet) 650 mg PO Q6HP PRN; Protocol PRN Reason: Per Pain Protocol/Fever > 101 Last Admin: 02/21/22 02:25 Dose: 650 mg Albuterol/Ipratropium (Ipratropium/Albuterol 3 Ml Ampul.Neb) 3 ml NEB Q4HRT PRN PRN Reason: Wheezing Allopurinol (Allopurinol 100 Mg Tablet) 100 mg PO QDAY [facility] Last Admin: 02/21/22 08:53 Dose: 100 mg Aspirin (Aspirin 81 Mg Tab.Chew) 81 mg PO DAILY [facility] Last Admin: 02/21/22 08:54 Dose: 81 mg Atorvastatin Calcium (Atorvastatin 40 Mg Tablet) 80 mg PO HS [facility] Last Admin: 02/20/22 20:24 Dose: 80 mg Dextrose (Dextrose 50% 50 Ml Vial) 0 ml IV UD PRN PRN Reason: Per Sliding Scale Diagnostic Test (Pha) (Accu-Chek 1 Each Strip) 1 each FS Q4 [facility] Last Admin: 02/21/22 08:40 Dose: 1 each Docusate Sodium (Docusate Sodium 100 Mg Capsule) 100 mg PO BID [facility] Last Admin: 02/21/22 08:53 Dose: 100 mg Famotidine (Famotidine 20 Mg Tablet) 20 mg PO QDAY [facility] Last Admin: 02/21/22 08:53 Dose: 20 mg Gentamicin Sulfate (Gentamicin Crm 0.1% Tube 15gm) 1 dose TOPICAL DAILY [facility]; Protocol Glucose (Dextrose 31 Gm Oral.Susp) 15 gm PO PRN PRN PRN Reason: Hypoglycemia Hydralazine HCl (Hydralazine 20 Mg/Ml Vial) 10 mg IV Q4-6HP PRN PRN Reason: Hypertension Insulin Human Lispro (Insulin Lispro 1 Unit/0.01 Ml Unit) 0 unit SQ Q4 JIAN; Protocol Last Admin: 02/21/22 08:25 Dose: Not Given Isosorbide Mononitrate (Isosorbide Mononitrate 60 Mg Tab.Xl.24h) 60 mg PO DAILY [facility] Last Admin: 02/21/22 08:53 Dose: 60 mg Lactulose (Lactulose 20 Gm/30 Ml Oral.Shahnaz) 10 gm PO DAILYP PRN PRN Reason: Constipation Levothyroxine Sodium (Levothyroxine Sodium 112 Mcg Tablet) 112 mcg PO QAMAC [facility] Last Admin: 02/21/22 08:53 Dose: 112 mcg Levothyroxine Sodium (Levothyroxine 25 Mcg Tablet) 25 mcg PO QAMAC [facility] Last Admin: 02/21/22 08:53 Dose: 25 mcg Nitroglycerin (Nitroglycerin 0.4 Mg Tab.Subl) 0.4 mg SL Q5MIN [facility] Ondansetron HCl (Ondansetron 4 Mg/2 Ml Vial) 4 mg IV Q4HP PRN; Protocol PRN Reason: Nausea And Vomiting Oxycodone HCl (Oxycodone Hcl 5 Mg Tablet) 5 mg PO Q6HP PRN; Protocol PRN Reason: Per Pain Protocol Ticagrelor 90 Mg (Tablet) 1 dose PO BID [facility] Last Admin: 02/20/22 20:49 Dose: Not Given Senna (Sennosides 1 Tablet) 2 tab PO HSP PRN PRN Reason: Constipation Sodium Chloride (0.9 % Sodium Chloride 10 Ml Syringe) 10 ml IV Q8 [facility] Last Admin: 02/21/22 05:57 Dose: 10 ml Vitamin D (Vitamin D3 125 Mcg Tablet) 125 mcg PO QDAY [facility] Last Admin: 02/21/22 08:54 Dose: 125 mcg Warfarin Sodium (Warfarin Per Pharmacy) 1 order PO DAILY@1400 [facility] A/P Assessment and plan (1) ESRD on peritoneal dialysis: Status: Chronic (2) Acute non-ST elevation myocardial infarction (NSTEMI): Status: Acute (3) Hypertension, essential: Status: Chronic (4) Stroke: Status: Chronic Comment: Most recent in March 2019[facility] (5) Hyperlipidemia: Status: Acute (6) Gout: Status: Chronic (7) Diabetes mellitus, type II: Status: Chronic (8) Hypothyroidism (acquired): Status: Acute (9) Atrial fibrillation: Status: Acute (10) Breast cancer: Status: Acute (11) On home O2: Status: Acute Narrative A/P Narrative: Assessment and Plans: 1. T2DM with hypoglycemia: Inpatient PCU Hold any oral hypoglycemics Accu Chek q4hr Lispro SSI q4hr Hypoglycemia protocol Renal/Diabetic diet Diabetic education 2. h/o breast cancer: Continue to follow up outpatient oncology Oxycodone 5mg PO q6hr PRN pain 3. ESRD on peritoneal dialysis: Consult Dr. Pleitez for peritoneal dialysis needs Plan to switch to hemodialysis Tuesday02/22/22 4. Essential hypertension: d/c Clonidine d/c PO Hydralazine d/c Lisinopril d/c Torsemide Holding Metoprolol ER, currently normotensive and HR in the 60s. Resume when blood pressure/heart rate increase/worsen Hydralazine 10mg IV q4-6 hr PRN SBP>=180 and/or DBP>=110mmHg 5. Dyslipidemia: Continue statin therapy 6. c/o NSTEMI s/p PCI with drug eluting stent: Aspirin Ticagrelor Statin 7. Hypothyroidism: Continue thyroid replacement therapy 8. h/o Gout: Allopurinol 9. h/o CVA: On anticoagulation therapy Coumadin 10. h/o atrial fibrillation: Holding Metoprolol ER, currently normotensive and HR in the 60s. Resume when blood pressure/heart rate increase/worsen On anticoagulation therapy Coumadin, with daily INR for dosing GI ppx: Famotidine DVT ppx: Coumadin Code status: DNR Prognosis: Guarded Disposition: Inpatient PCU; PT OT Time Spent With Patient Time: Total time spent is greater than 50% in coordination of care (as documented) at patient's floor/unit and/or counseling patient: Total time spent with greater than 50% in coordination of care (as documented) at patient's floor/unit and/or counseling patient:: 35 - 50 minutes
[2022-02-21] MEDS: GENTAMICIN CRM 0.1% TUBE 15GM TOPICAL SCH (12:38)
[2022-02-21] MEDS ORDERED: WARFARIN 5 MG TABLET PO ONE (14:00)
[2022-02-21] MEDS: ATORVASTATIN 40 MG TABLET PO SCH (21:29)
[2022-02-22] MEDS: INSULIN LISPRO 1 UNIT/0.01 ML UNIT SQ SCH ×6 (01:52→20:33)
[2022-02-22] MEDS: 0.9 % SODIUM CHLORIDE 10 ML SYRINGE IV SCH ×3 (06:02→22:52)
[2022-02-22 07:08] LABS: Basophils # (Auto) 0.07 K/mcL (0.00-0.30); Basophils % (Auto) 0.5 % (0.0-2.0); Eosinophils # (Auto) 0.25 K/mcL (0.00-0.70); Eosinophils % (Auto) 1.9 % (0.0-7.0); Hematocrit 31.7 % (34.1-44.9); Hemoglobin 10.1 g/dL (11.2-15.7); Lymphocytes # (Auto) 0.79 K/mcL (1.50-4.80); Lymphocytes % (Auto) 6.2 % (15.5-49.0); Mean Cell Volume 92.2 fL (80.0-100.0); Mean Corpuscular HGB Conc 31.9 g/dL (31.0-36.0); Mean Platelet Volume 11.4 fL (8.8-12.5); Monocytes # (Auto) 1.54 K/mcL (0.10-0.90); Neutrophils % (Auto) 78.9 % (38.0-78.0); Platelet Count 142 K/mcL (140-440); RBC 3.44 M/mcL (3.59-5.38); Red Cell Distribution Width 17.7 % (11.5-14.5); WBC 12.8 K/mcL (4.5-11.0)
[2022-02-22 07:19] LABS: ALT/SGPT 97 U/L (<40); AST/SGOT 63 U/L (<32); Albumin 2.1 gm/dL (3.2-5.2); Albumin/Globulin Ratio 0.6 (1.0-2.3); Alkaline Phosphatase 122 U/L (39-117); Bilirubin,Total 0.6 mg/dL (0.1-1.0); Blood Urea Nitrogen 54 mg/dL (8-23); Calcium 7.9 mg/dL (8.6-10.4); Carbon Dioxide 23 mmol/L (22-30); Chloride 92 mmol/L (96-108); Globulin 3.3 gm/dL (2.2-3.7); Glomerular Filtration Rate 6; Glucose 86 mg/dL (70-105)
--- NOTE | 2022-02-22 07:44 | Nephrology Progress Note ---
SUBJECTIVE Subjective Patient information: Note initiated : 02/22/22 at 7:43 am Patient: Dania Nesbitt 76 y/o F admitted on 02/20/22 for Hypoglycemia, dialysis. Chief Complaint: Diffuse pain Pertinent ROS: Diffuse pain Weakness Edema Sanchez catheter Constitutional Vitals: Vital Signs Temp Pulse Resp BP Pulse Ox O2 Del Method O2 Flow Rate 97.4 F 51 L 15 113/69 95 2 02/22/22 04:03 02/22/22 06:02 02/22/22 06:02 02/22/22 06:02 02/22/22 06:02 02/22/22 06:02 02/22/22 05:15 Period Temp Pulse Resp BP Sys/Garza Pulse Ox O2 Del Method O2 Flow Rate Last 24 Hr 97.2 F-98.3 F 46-64 12-20 71-130/37-80 66-100 Nasal Cannula- Room Air 2-2 Intake and Output 02/21/22 02/22/22 02/22/22 21:59 05:59 13:59 Intake Total 360 Output Total 150 50 Balance 210 -50 Weight 186 lb 4.8 oz Intake & Output: Intake & Output 02/21/22 02/22/22 02/22/22 21:59 05:59 13:59 Intake Total 360 Output Total 150 50 Balance 210 -50 Weight 186 lb 4.8 oz Intake: Oral 360 Output: Urine Catheter Amount 50 50 Void Amount 100 Other: Meal Dinner Percent of Meal Consumed 100% Feeding Ability Independent Urine Appearance Mucous Threads Clear Uretheral (Sanchez) Clear Urine Color Dark Yellow Dark Yellow Uretheral (Sanchez) Yellow General appearance: cooperative and no acute distress Head Head exam: Present normal inspection Eye Eye exam: Present normal appearance ENT ENT exam: Present mucous membranes moist Respiratory Respiratory exam: Absent respiratory distress Cardiovascular Cardiovascular exam: Present normal rate and rhythm GI/Abdominal GI/Abdominal exam: Present soft; Absent tenderness Extremities Exam Extremities exam: Present pedal edema Neurological Exam Neurological exam: Present alert and oriented X3 Psychiatric Psychiatric exam: Present normal affect and normal mood Skin Skin exam: Present warm; Absent rash A/P Assessment and plan (1) ESRD on peritoneal dialysis: Assessment and plan: She has end stage renal disease on peritoneal dialysis, breast cancer (not treated due to heart disease), recent nonSTEMI s/p stents, hypertension, history of CVAs. She presented to [facility] ED for confusion and found to have hypoglycemia. She was in ED previously for bilateral hip pain and was given opioids. Her labs were otherwise significant for AST 214, ALT 285, Sodium 135, Potassium 4.2. She had a CT of head and CT abdomen and pelvis. Reports are not available. She received D10W until arrival here. End stage renal disease on peritoneal dialysis. Left arm AV fistula with thrill. Chronic anemia due to ESRD. Hb 9.8 on 02/21/22. Fluid overload. Hypotension and bradycardia. Weakness. Diffuse pain. PROGRESS Hypotension and bradycardia. Med list obtained from [facility]. CCPD on 02/20/22: 2.5%, 1,800 ml, 4 exchanges for 8 hours. CCPD on 02/21/22: 2.5%, 1,800 ml, 4 exchanges for 8 hours. PLAN Renal diet with sodium and fluid restriction. CCPD with 2.5%, 1,800 ml, 4 exchanges for 8 hours. HD with UF on 02/22/22 for fluid overload: 4 hours for a target UF of 4 kg (<13 ml/kg/hour). Isosorbide will be held due to hypotension. Midodrine 10 mg PO x 1 before dialysis for hypotension. Anticipate SNF discharge with switching from PD to HD temporarily. Status: Chronic Time Spent With Patient Time: Total time spent is greater than 50% in coordination of care (as documented) at patient's floor/unit and/or counseling patient:
[2022-02-22] MEDS: LEVOTHYROXINE 25 MCG TABLET PO SCH (07:52)
[2022-02-22] MEDS: LEVOTHYROXINE SODIUM 112 MCG TABLET PO SCH (07:52)
[2022-02-22] MEDS: GENTAMICIN CRM 0.1% TUBE 15GM TOPICAL SCH (08:23)
[2022-02-22 08:26] LABS: INR 1.6 (0.9-1.1); Prothrombin Time 19.9 sec (11.9-14.5)
[2022-02-22] MEDS: ASPIRIN 81 MG TAB.CHEW PO SCH (08:30)
[2022-02-22] MEDS ORDERED: MIDODRINE 5 MG TABLET PO SCH (08:30)
[2022-02-22] MEDS: ALLOPURINOL 100 MG TABLET PO SCH ×2 (08:31→08:38)
[2022-02-22] MEDS: VITAMIN D3 125 MCG TABLET PO SCH (08:31)
[2022-02-22] MEDS: DOCUSATE SODIUM 100 MG CAPSULE PO SCH ×2 (08:31→20:44)
[2022-02-22] MEDS: FAMOTIDINE 20 MG TABLET PO SCH (08:31)
[2022-02-22] MEDS: oxyCODONE HCL 5 MG TABLET PO PRN ×3 (08:39→22:49)
--- NOTE | 2022-02-22 10:31 | Internal Med Progress Note ---
SUBJECTIVE Subjective Patient information: Note initiated : 02/22/22 at 10:25 am Service Date, if different from initiated Date: [] Patient: Dania Nesbitt a 76 y/o F admitted on 02/20/22 for Hypoglycemia, dialysis. Chief Complaint: [] Interval history: Ms. Nesbitt is a 76 year old F history of breast cancer, type 2 diabetes mellitus, end-stage renal disease on peritoneal dialysis, essential hypertensions, mixed dyslipidemia, CAD status post PCI with drug-eluting stents, CVA, gout, hypothyroidism, atrial fibrillation, presenting with lethargy and syncope. Patient is on glipizide and her is helping her to manage the medications. She was found to be extremely lethargic and syncope/near syncope by day of . EMS recall and blood glucose level was checked at the scene in the 20s. D50 X2 were given in route to the outside ER, where she was being started on D10 drip. Repeat blood sugar level was 120s, D10 drip started. Transfer request called for peritoneal dialysis capacity in our facility. [employer] Dr. Pleitez consulted for peritoneal dialysis needs. 02/21: Another episode of hypoglycemia with blood sugar 63 this morning around 830. INR 1.4. Status post peritoneal dialysis overnight. Patient is coming of general weakness at baseline. She denies any syncope or near syncope. She denies any chest pain or shortness of breath. She is complaining of 10 out of 10 bilateral lower extremity sharp pain. Keep Accu-Chek Q4 and low-dose sign scale insulin every 4. Renal/CC diet. Dr. Pleitez. will switch patients to hemodialysis starting tomorrow on Tuesday, February 22, 2022. Pending physical therapy and Occupational Therapy evaluation and treatments for placement purposes. 02/22: Fasting blood sugar level 135 this morning. No reported hypoglycemic episode overnight. Status post peritoneal dialysis last night. Pending hemodialysis today. INR 1.6 this morning. Patient is coming of general weakness at baseline. She denies any syncope or near syncope. She denies any chest pain or shortness of breath. She is complaining of mild bilateral lower extremity sharp pain. Keep Accu-Chek Q4 and low-dose sign scale insulin every 4. Renal/CC diet. Pending hemodialysis today. Pending physical therapy and Occupational Therapy evaluation and treatments for placement purposes. Constitutional Vitals: Vital Signs Temp Pulse Resp BP Pulse Ox O2 Del Method O2 Flow Rate 36.3 C 54 L 17 138/124 99 1 02/22/22 08:01 02/22/22 09:01 02/22/22 09:01 02/22/22 09:01 02/22/22 09:01 02/22/22 08:31 02/22/22 08:31 Period Temp Pulse Resp BP Sys/Garza Pulse Ox O2 Del Method O2 Flow Rate Last 24 Hr 36.2 C-36.8 C 46-64 12-20 71-138/37-124 66-100 Nasal Cannula- Room Air 1-2 Intake and Output 02/21/22 02/22/22 02/22/22 21:59 05:59 13:59 Intake Total 360 Output Total 150 50 Balance 210 -50 Weight 84.504 kg Intake & Output: Intake & Output 02/21/22 02/22/22 02/22/22 21:59 05:59 13:59 Intake Total 360 Output Total 150 50 Balance 210 -50 Weight 84.504 kg Intake: Oral 360 Output: Urine Catheter Amount 50 50 Void Amount 100 Other: Meal Dinner Breakfast Percent of Meal Consumed 100% 75% Feeding Ability Independent Independent Urine Appearance Mucous Threads Clear Uretheral (Sanchez) Clear Urine Color Dark Yellow Dark Yellow Uretheral (Sanchez) Yellow Head Head exam: Present atraumatic and normal inspection Eye Eye exam: Present normal appearance ENT ENT exam: Present mucous membranes moist, normal exam and normal external ear exam Neck Neck exam: Present normal inspection Respiratory Respiratory exam: Present normal respiratory exam Cardiovascular Cardiovascular exam: Present bradycardia and irregular rhythm GI/Abdominal GI/Abdominal exam: Present normal bowel sounds Extremities Exam Extremities exam: Present full ROM Additional comments: AV fistula left arm Back Exam Back exam: Present normal inspection Neurological Exam Neurological exam: Present alert and oriented X3 Skin Skin exam: Present intact and warm OBJ DATA Labs CBC & Chem 7: 02/22/22 06:07 02/22/22 06:06 Labs: Abnormal Lab Results 02/22/22 02/22/22 02/22/22 06:08 06:07 06:07 WBC 12.8 H RBC 3.44 L Hgb 10.1 L Hct 31.7 L RDW 17.7 H Plt Count Neut % (Auto) 78.9 H Lymph % (Auto) 6.2 L Lymph # (Auto) 0.79 L [place] # (Auto) 1.54 H Immature Gran # 0.06 H Absolute Neutrophils 10.12 H PT 19.9 H INR 1.6 H Sodium Chloride BUN Creatinine Calcium Phosphorus 7.3 H* AST ALT Alkaline Phosphatase Total Protein Albumin Albumin/Globulin Ratio 02/22/22 02/21/22 02/21/22 06:06 05:38 05:37 WBC RBC Hgb Hct RDW Plt Count Neut % (Auto) Lymph % (Auto) Lymph # (Auto) Madison # (Auto) Immature Gran # Absolute Neutrophils PT 18.2 H INR 1.4 H Sodium 131 L Chloride 92 L BUN 54 H Creatinine 6.5 H* Calcium 7.9 L Phosphorus 7.5 H* AST 63 H ALT 97 H Alkaline Phosphatase 122 H Total Protein 5.4 L Albumin 2.1 L Albumin/Globulin Ratio 0.6 L 02/21/22 02/21/22 05:37 05:37 WBC RBC 3.33 L Hgb 9.8 L Hct 31.2 L RDW 17.7 H Plt Count 133 L Neut % (Auto) Lymph % (Auto) 8.3 L Lymph # (Auto) 0.91 L [place] # (Auto) 1.28 H Immature Gran # Absolute Neutrophils 8.36 H PT INR Sodium Chloride 95 L BUN 59 H Creatinine 6.9 H* Calcium 7.8 L Phosphorus AST 84 H ALT 115 H Alkaline Phosphatase Total Protein 5.4 L Albumin 2.2 L Albumin/Globulin Ratio 0.7 L Meds: Medications Acetaminophen (Acetaminophen 325 Mg Tablet) 650 mg PO Q6HP PRN; Protocol PRN Reason: Per Pain Protocol/Fever > 101 Last Admin: 02/21/22 02:25 Dose: 650 mg Albuterol/Ipratropium (Ipratropium/Albuterol 3 Ml Ampul.Neb) 3 ml NEB Q4HRT PRN PRN Reason: Wheezing Allopurinol (Allopurinol 100 Mg Tablet) 100 mg PO QDAY [facility] Last Admin: 02/22/22 08:38 Dose: Not Given Aspirin (Aspirin 81 Mg Tab.Chew) 81 mg PO DAILY [facility] Last Admin: 02/22/22 08:30 Dose: 81 mg Atorvastatin Calcium (Atorvastatin 40 Mg Tablet) 80 mg PO HS [facility] Last Admin: 02/21/22 21:29 Dose: 80 mg Dextrose (Dextrose 50% 50 Ml Vial) 0 ml IV UD PRN PRN Reason: Per Sliding Scale Diagnostic Test (Pha) (Accu-Chek 1 Each Strip) 1 each FS Q4 [facility] Last Admin: 02/22/22 08:01 Dose: 1 each Docusate Sodium (Docusate Sodium 100 Mg Capsule) 100 mg PO BID [facility] Last Admin: 02/22/22 08:31 Dose: 100 mg Famotidine (Famotidine 20 Mg Tablet) 20 mg PO QDAY [facility] Last Admin: 02/22/22 08:31 Dose: 20 mg Gentamicin Sulfate (Gentamicin Crm 0.1% Tube 15gm) 1 dose TOPICAL DAILY [facility]; Protocol Last Admin: 02/22/22 08:23 Dose: Not Given Glucose (Dextrose 31 Gm Oral.Susp) 15 gm PO PRN PRN PRN Reason: Hypoglycemia Last Admin: 02/21/22 12:07 Dose: 15 gm Hydralazine HCl (Hydralazine 20 Mg/Ml Vial) 10 mg IV Q4-6HP PRN PRN Reason: Hypertension Insulin Human Lispro (Insulin Lispro 1 Unit/0.01 Ml Unit) 0 unit SQ Q4 [facility]; Protocol Last Admin: 02/22/22 08:01 Dose: Not Given Lactulose (Lactulose 20 Gm/30 Ml Oral.Shahnaz) 10 gm PO DAILYP PRN PRN Reason: Constipation Levothyroxine Sodium (Levothyroxine Sodium 112 Mcg Tablet) [facility] Last Admin: 02/22/22 07:52 Dose: 112 mcg Levothyroxine Sodium (Levothyroxine 25 Mcg Tablet) 25 mcg PO QAMAC [facility] Last Admin: 02/22/22 07:52 Dose: 25 mcg Nitroglycerin (Nitroglycerin 0.4 Mg Tab.Subl) 0.4 mg SL Q5MIN [facility] Ondansetron HCl (Ondansetron 4 Mg/2 Ml Vial) 4 mg IV Q4HP PRN; Protocol PRN Reason: Nausea And Vomiting Oxycodone HCl (Oxycodone Hcl 5 Mg Tablet) 5 mg PO Q6HP PRN; Protocol PRN Reason: Per Pain Protocol Last Admin: 02/22/22 08:39 Dose: 5 mg Ticagrelor 90 Mg (Tablet) 1 dose PO BID [facility] Last Admin: 02/22/22 08:31 Dose: 1 dose Senna (Sennosides 1 Tablet) 2 tab PO HSP PRN PRN Reason: Constipation Sodium Chloride (0.9 % Sodium Chloride 10 Ml Syringe) 10 ml IV Q8 [facility] Last Admin: 02/22/22 06:02 Dose: 10 ml Vitamin D (Vitamin D3 125 Mcg Tablet) 125 mcg PO QDAY [facility] Last Admin: 02/22/22 08:31 Dose: 125 mcg Warfarin Sodium (Warfarin Per Pharmacy) 1 order PO UD [facility] A/P Assessment and plan (1) ESRD on peritoneal dialysis: Status: Chronic (2) Acute non-ST elevation myocardial infarction (NSTEMI): Status: Acute (3) Hypertension, essential: Status: Chronic (4) Stroke: Status: Chronic Comment: Most recent in March 2019[facility] (5) Hyperlipidemia: Status: Acute (6) Gout: Status: Chronic (7) Diabetes mellitus, type II: Status: Chronic (8) Hypothyroidism (acquired): Status: Acute (9) Atrial fibrillation: Status: Acute (10) Breast cancer: Status: Acute (11) On home O2: Status: Acute Narrative A/P Narrative: Assessment and Plans: 1. T2DM with hypoglycemia: Inpatient PCU Hold any oral hypoglycemics Accu Chek q4hr Lispro SSI q4hr Hypoglycemia protocol Renal/Diabetic diet Diabetic education 2. h/o breast cancer: Continue to follow up outpatient oncology Oxycodone 5mg PO q6hr PRN pain 3. ESRD on peritoneal dialysis: Consult Dr. Pleitez for peritoneal dialysis needs Hemodialysis as per Dr. Pleitez 4. Essential hypertension: d/c Clonidine d/c PO Hydralazine d/c Lisinopril d/c Torsemide Holding Metoprolol ER, currently normotensive and HR in the 50s. Resume when blood pressure/heart rate increase/worsen Hydralazine 10mg IV q4-6 hr PRN SBP>=180 and/or DBP>=110mmHg 5. Dyslipidemia: Continue statin therapy 6. c/o NSTEMI s/p PCI with drug eluting stent: Aspirin Ticagrelor Statin 7. Hypothyroidism: Continue thyroid replacement therapy 8. h/o Gout: Allopurinol 9. h/o CVA: On anticoagulation therapy Coumadin; Daily INR for Coumadin dosing 10. h/o atrial fibrillation: Holding Metoprolol ER, currently normotensive and HR in the 50s. Resume when blood pressure/heart rate increase/worsen On anticoagulation therapy Coumadin, with daily INR for dosing GI ppx: Famotidine DVT ppx: Coumadin Code status: DNI Prognosis: Guarded Disposition: Inpatient PCU; PT OT Time Spent With Patient Time: Total time spent is greater than 50% in coordination of care (as documented) at patient's floor/unit and/or counseling patient: Total time spent with greater than 50% in coordination of care (as documented) at patient's floor/unit and/or counseling patient:: 35 - 50 minutes
[2022-02-22] MEDS ORDERED: GABAPENTIN 100 MG CAPSULE PO ONE (13:22)
[2022-02-22] MEDS ORDERED: WARFARIN 5 MG TABLET PO ONE (14:00)
[2022-02-22] MEDS: ATORVASTATIN 40 MG TABLET PO SCH (20:44)
[2022-02-23] MEDS: ISOSORBIDE MONONITRATE 30 MG TAB.XL.24H PO SCH ×2 (00:35→21:47)
[2022-02-23] MEDS: INSULIN LISPRO 1 UNIT/0.01 ML UNIT SQ SCH ×6 (00:35→19:36)
[2022-02-23] MEDS: oxyCODONE HCL 5 MG TABLET PO PRN ×3 (05:30→19:36)
[2022-02-23] MEDS: 0.9 % SODIUM CHLORIDE 10 ML SYRINGE IV SCH ×3 (07:48→21:48)
[2022-02-23 07:49] LABS: Basophils # (Auto) 0.08 K/mcL (0.00-0.30); Basophils % (Auto) 0.6 % (0.0-2.0); Eosinophils # (Auto) 0.13 K/mcL (0.00-0.70); Hematocrit 30.8 % (34.1-44.9); Hemoglobin 9.9 g/dL (11.2-15.7); Lymphocytes # (Auto) 0.89 K/mcL (1.50-4.80); Lymphocytes % (Auto) 6.7 % (15.5-49.0); Mean Cell Volume 90.9 fL (80.0-100.0); Mean Corpuscular HGB Conc 32.1 g/dL (31.0-36.0); Mean Platelet Volume 11.1 fL (8.8-12.5); Monocytes # (Auto) 1.75 K/mcL (0.10-0.90); Monocytes % (Auto) 13.1 % (1.0-12.0); Platelet Count 115 K/mcL (140-440); RBC 3.39 M/mcL (3.59-5.38); Red Cell Distribution Width 17.5 % (11.5-14.5); WBC 13.3 K/mcL (4.5-11.0)
[2022-02-23] MEDS: LEVOTHYROXINE SODIUM 112 MCG TABLET PO SCH (07:49)
[2022-02-23] MEDS: LEVOTHYROXINE 25 MCG TABLET PO SCH (07:49)
[2022-02-23 07:57] LABS: ALT/SGPT 73 U/L (<40); AST/SGOT 50 U/L (<32); Albumin 1.8 gm/dL (3.2-5.2); Albumin/Globulin Ratio 0.5 (1.0-2.3); Alkaline Phosphatase 120 U/L (39-117); Bilirubin,Total 0.8 mg/dL (0.1-1.0); Blood Urea Nitrogen 22 mg/dL (8-23); Calcium 8.1 mg/dL (8.6-10.4); Carbon Dioxide 25 mmol/L (22-30); Chloride 95 mmol/L (96-108); Globulin 3.6 gm/dL (2.2-3.7); Glomerular Filtration Rate 11; Glucose 117 mg/dL (70-105)
[2022-02-23 08:15] LABS: INR 1.8 (0.9-1.1)
--- NOTE | 2022-02-23 08:31 | Nephrology Progress Note ---
SUBJECTIVE Subjective Patient information: Note initiated : 02/23/22 at 8:27 am Patient: Dania Nesbitt 76 y/o F admitted on 02/20/22 for Hypoglycemia, dialysis. Chief Complaint: Weakness Pertinent ROS: Mental status at baseline Weakness Edema Constitutional Vitals: Vital Signs Temp Pulse Resp BP Pulse Ox O2 Del Method O2 Flow Rate 97.5 F 62 18 152/45 93 1 02/23/22 08:01 02/23/22 08:01 02/23/22 08:01 02/23/22 08:01 02/23/22 08:01 02/23/22 08:01 02/23/22 08:01 Period Temp Pulse Resp BP Sys/Garza Pulse Ox O2 Del Method O2 Flow Rate Last 24 Hr 96.8 F-98.9 F 49-104 11-25 73-157/35-124 57-100 Nasal Cannula- Nasal Cannula 1-1 Intake and Output 02/22/22 02/23/22 02/23/22 21:59 05:59 13:59 Intake Total 200 Output Total 4036 62 Balance -3836 -62 Weight 176 lb 9.6 oz Intake & Output: Intake & Output 02/22/22 02/23/22 02/23/22 21:59 05:59 13:59 Intake Total 200 Output Total 4036 62 Balance -3836 -62 Weight 176 lb 9.6 oz Intake: Oral 200 Output: Urine Catheter Amount 36 62 Hemodialysis UF 4000 Other: Meal Dinner Percent of Meal Consumed 75% Feeding Ability Assist with Tray Set Up Urine Appearance Clear Cloudy Urine Color Dark Yellow Dark Yellow General appearance: cooperative and no acute distress Head Head exam: Present normal inspection Eye Eye exam: Present normal appearance ENT ENT exam: Present mucous membranes moist Respiratory Respiratory exam: Absent respiratory distress Cardiovascular Cardiovascular exam: Present normal rate and rhythm GI/Abdominal GI/Abdominal exam: Present soft; Absent tenderness Extremities Exam Extremities exam: Present pedal edema Neurological Exam Neurological exam: Present alert and oriented X3 Psychiatric Psychiatric exam: Present normal affect and normal mood Skin Skin exam: Present warm; Absent rash Additional comments: anasarca A/P Assessment and plan (1) ESRD on peritoneal dialysis: Assessment and plan: She has end stage renal disease on peritoneal dialysis, breast cancer (not treated due to heart disease), recent nonSTEMI s/p stents, hypertension, history of CVAs. She presented to [facility] ED for confusion and found to have hypoglycemia. She was in ED previously for bilateral hip pain and was given opioids. Her labs were otherwise significant for AST 214, ALT 285, Sodium 135, Potassium 4.2. She had a CT of head and CT abdomen and pelvis. Reports are not available. She received D10W until arrival here. End stage renal disease on peritoneal dialysis. Left arm AV fistula with thrill. Chronic anemia due to ESRD. Hb 9.8 on 02/21/22. Fluid overload. Hypotension and bradycardia. Weakness. Diffuse pain. PROGRESS Hypotension and bradycardia, improved. CCPD on 02/20/22: 2.5%, 1,800 ml, 4 exchanges for 8 hours. CCPD on 02/21/22: 2.5%, 1,800 ml, 4 exchanges for 8 hours. CCPD on 02/22/22: 2.5%, 1,800 ml, 4 exchanges, interrupted with alarms and treatment terminated early. HD on 02/22/22 for fluid overload: 4 hours with 4 kg UF (<13 ml/kg/hour). PLAN Renal diet with sodium and fluid restriction. HD with UF on 02/22/22 for fluid overload: 3 hours for a target UF of 3 kg (<13 ml/kg/hour). Midodrine discontinued since hypotension resolved. Cardiac meds and antihypertensives will be reviewed after dialysis. Anticipate SNF discharge with switching from PD to HD temporarily. Status: Chronic Time Spent With Patient Time: Total time spent is greater than 50% in coordination of care (as documented) at patient's floor/unit and/or counseling patient:
[2022-02-23] MEDS: ASPIRIN 81 MG TAB.CHEW PO SCH (08:35)
[2022-02-23] MEDS: FAMOTIDINE 20 MG TABLET PO SCH (08:36)
[2022-02-23] MEDS: ALLOPURINOL 100 MG TABLET PO SCH (08:36)
[2022-02-23] MEDS: GENTAMICIN CRM 0.1% TUBE 15GM TOPICAL SCH (08:36)
[2022-02-23] MEDS: DOCUSATE SODIUM 100 MG CAPSULE PO SCH ×2 (08:36→21:48)
[2022-02-23] MEDS: VITAMIN D3 125 MCG TABLET PO SCH (08:36)
[2022-02-23] MEDS ORDERED: MIDODRINE 5 MG TABLET PO SCH (09:00)
--- NOTE | 2022-02-23 12:08 | Internal Med Progress Note ---
SUBJECTIVE Subjective Patient information: Note initiated : 02/23/22 at 12:03 pm Service Date, if different from initiated Date: [] Patient: Dania Nesbitt a 76 y/o F admitted on 02/20/22 for Hypoglycemia, dialysis. Chief Complaint: [] Interval history: Ms. Nesbitt is a 76 year old F history of breast cancer, type 2 diabetes mellitus, end-stage renal disease on peritoneal dialysis, essential hypertensions, mixed dyslipidemia, CAD status post PCI with drug-eluting stents, CVA, gout, hypothyroidism, atrial fibrillation, presenting with lethargy and syncope. Patient is on glipizide and her is helping her to manage the medications. She was found to be extremely lethargic and syncope/near syncope by day of . EMS recall and blood glucose level was checked at the scene in the 20s. D50 X2 were given in route to the outside ER, where she was being started on D10 drip. Repeat blood sugar level was 120s, D10 drip started. Transfer request called for peritoneal dialysis capacity in our facility. [employer] Dr. Pleitez consulted for peritoneal dialysis needs. 02/21: Another episode of hypoglycemia with blood sugar 63 this morning around 830. INR 1.4. Status post peritoneal dialysis overnight. Patient is coming of general weakness at baseline. She denies any syncope or near syncope. She denies any chest pain or shortness of breath. She is complaining of 10 out of 10 bilateral lower extremity sharp pain. Keep Accu-Chek Q4 and low-dose sign scale insulin every 4. Renal/CC diet. Dr. Pleitez. will switch patients to hemodialysis starting tomorrow on Tuesday, February 22, 2022. Pending physical therapy and Occupational Therapy evaluation and treatments for placement purposes. 02/22: Fasting blood sugar level 135 this morning. No reported hypoglycemic episode overnight. Status post peritoneal dialysis last night. Pending hemodialysis today. INR 1.6 this morning. Patient is coming of general weakness at baseline. She denies any syncope or near syncope. She denies any chest pain or shortness of breath. She is complaining of mild bilateral lower extremity sharp pain. Keep Accu-Chek Q4 and low-dose sign scale insulin every 4. Renal/CC diet. Pending hemodialysis today. Pending physical therapy and Occupational Therapy evaluation and treatments for placement purposes. 02/23: Blood sugar was as low as 73 yesterday afternoon at 4 PM. INR 1.8 this morning. Status post last long of his peritoneal dialysis yesterday night as well as first round of hemodialysis yesterday during the day. Patient is about to receive second round of hemodialysis this afternoon. She is complaining of bilateral leg pains. Denies any abdominal pain. Denies any nausea or vomiting. Tolerating oral intake fine. Keep Accu-Chek Q4 and low-dose sign scale insulin every 4. Renal/CC diet. Continue hemodialysis as per Dr. Pleitez. Pending physical therapy and Occupational Therapy evaluation and treatments for placement planning. Constitutional Vitals: Vital Signs Temp Pulse Resp BP Pulse Ox O2 Del Method O2 Flow Rate 36.4 C 65 15 137/33 97 1 02/23/22 08:01 02/23/22 11:01 02/23/22 11:01 02/23/22 11:01 02/23/22 11:01 02/23/22 10:01 02/23/22 09:02 Period Temp Pulse Resp BP Sys/Garza Pulse Ox O2 Del Method O2 Flow Rate Last 24 Hr 36.2 C-37.2 C 52-104 11-25 73-157/33-130 57-100 Nasal Cannula- Nasal Cannula 1-1 Intake and Output 02/22/22 02/23/22 02/23/22 21:59 05:59 13:59 Intake Total 560 180 Output Total 4036 62 Balance -3476 -62 180 Weight 80.104 kg Intake & Output: Intake & Output 02/22/22 02/23/22 02/23/22 21:59 05:59 13:59 Intake Total 560 180 Output Total 4036 62 Balance -3476 -62 180 Weight 80.104 kg Intake: Oral 560 180 Output: Urine Catheter Amount 36 62 Hemodialysis UF 4000 Other: Meal Dinner Breakfast Percent of Meal Consumed 75% 75% Feeding Ability Assist with Tray Set Up Independent Urine Appearance Clear Cloudy Urine Color Dark Yellow Dark Yellow Head Head exam: Present atraumatic and normal inspection Eye Eye exam: Present normal appearance ENT ENT exam: Present mucous membranes moist, normal exam and normal external ear exam Neck Neck exam: Present normal inspection Respiratory Respiratory exam: Present normal respiratory exam Cardiovascular Cardiovascular exam: Present irregular rhythm GI/Abdominal GI/Abdominal exam: Present normal bowel sounds Extremities Exam Additional comments: AV fistula left arm Back Exam Back exam: Present normal inspection Neurological Exam Neurological exam: Present alert and oriented X3 Skin Skin exam: Present intact and warm OBJ DATA Labs CBC & Chem 7: 02/23/22 06:15 02/23/22 06:15 Labs: Abnormal Lab Results 02/23/22 02/23/22 02/23/22 06:15 06:15 06:15 WBC 13.3 H RBC 3.39 L Hgb 9.9 L Hct 30.8 L RDW 17.5 H Plt Count 115 L Immature Gran % (Auto) 0.6 H Neut % (Auto) Lymph % (Auto) 6.7 L Cascade % (Auto) 13.1 H Lymph # (Auto) 0.89 L Cascade # (Auto) 1.75 H Immature Gran # 0.08 H Absolute Neutrophils 10.40 H PT 22.0 H INR 1.8 H Sodium 129 L Chloride 95 L BUN Creatinine 3.6 H Glucose 117 H Calcium 8.1 L Phosphorus AST 50 H ALT 73 H Alkaline Phosphatase 120 H Total Protein 5.4 L Albumin 1.8 L Albumin/Globulin Ratio 0.5 L 02/22/22 02/22/22 02/22/22 06:08 06:07 06:07 WBC 12.8 H RBC 3.44 L Hgb 10.1 L Hct 31.7 L RDW 17.7 H Plt Count Immature Gran % (Auto) Neut % (Auto) 78.9 H Lymph % (Auto) 6.2 L Cascade % (Auto) Lymph # (Auto) 0.79 L Cascade # (Auto) 1.54 H Immature Gran # 0.06 H Absolute Neutrophils 10.12 H PT 19.9 H INR 1.6 H Sodium Chloride BUN Creatinine Glucose Calcium Phosphorus 7.3 H* AST ALT Alkaline Phosphatase Total Protein Albumin Albumin/Globulin Ratio 02/22/22 02/21/22 02/21/22 06:06 05:38 05:37 WBC RBC Hgb Hct RDW Plt Count Immature Gran % (Auto) Neut % (Auto) Lymph % (Auto) Cascade % (Auto) Lymph # (Auto) Cascade # (Auto) Immature Gran # Absolute Neutrophils PT 18.2 H INR 1.4 H Sodium 131 L Chloride 92 L BUN 54 H Creatinine 6.5 H* Glucose Calcium 7.9 L Phosphorus 7.5 H* AST 63 H ALT 97 H Alkaline Phosphatase 122 H Total Protein 5.4 L Albumin 2.1 L Albumin/Globulin Ratio 0.6 L 02/21/22 02/21/22 05:37 05:37 WBC RBC 3.33 L Hgb 9.8 L Hct 31.2 L RDW 17.7 H Plt Count 133 L Immature Gran % (Auto) Neut % (Auto) Lymph % (Auto) 8.3 L Cascade % (Auto) Lymph # (Auto) 0.91 L Cascade # (Auto) 1.28 H Immature Gran # Absolute Neutrophils 8.36 H PT INR Sodium Chloride 95 L BUN 59 H Creatinine 6.9 H* Glucose Calcium 7.8 L Phosphorus AST 84 H ALT 115 H Alkaline Phosphatase Total Protein 5.4 L Albumin 2.2 L Albumin/Globulin Ratio 0.7 L Meds: Medications Acetaminophen (Acetaminophen 325 Mg Tablet) 650 mg PO Q6HP PRN; Protocol PRN Reason: Per Pain Protocol/Fever > 101 Last Admin: 02/21/22 02:25 Dose: 650 mg Albuterol/Ipratropium (Ipratropium/Albuterol 3 Ml Ampul.Neb) 3 ml NEB Q4HRT PRN PRN Reason: Wheezing Allopurinol (Allopurinol 100 Mg Tablet) 100 mg PO QDAY [facility] Last Admin: 02/23/22 08:36 Dose: Not Given Aspirin (Aspirin 81 Mg Tab.Chew) 81 mg PO DAILY [facility] Last Admin: 02/23/22 08:35 Dose: 81 mg Atorvastatin Calcium (Atorvastatin 40 Mg Tablet) 80 mg PO HS [facility] Last Admin: 02/22/22 20:44 Dose: 80 mg Dextrose (Dextrose 50% 50 Ml Vial) 0 ml IV UD PRN PRN Reason: Per Sliding Scale Diagnostic Test (Pha) (Accu-Chek 1 Each Strip) 1 each FS Q4 [facility] Last Admin: 02/23/22 12:00 Dose: 1 each Docusate Sodium (Docusate Sodium 100 Mg Capsule) 100 mg PO BID [facility] Last Admin: 02/23/22 08:36 Dose: 100 mg Famotidine (Famotidine 20 Mg Tablet) 20 mg PO QDAY [facility] Last Admin: 02/23/22 08:36 Dose: 20 mg Gentamicin Sulfate (Gentamicin Crm 0.1% Tube 15gm) 1 dose TOPICAL DAILY [facility]; Protocol Last Admin: 02/23/22 08:36 Dose: Not Given Glucose (Dextrose 31 Gm Oral.Susp) 15 gm PO PRN PRN PRN Reason: Hypoglycemia Last Admin: 02/21/22 12:07 Dose: 15 gm Insulin Human Lispro (Insulin Lispro 1 Unit/0.01 Ml Unit) 0 unit SQ Q4 [facility]; Protocol Last Admin: 02/23/22 12:01 Dose: Not Given Isosorbide Mononitrate (Isosorbide Mononitrate 30 Mg Tab.Xl.24h) 30 mg PO HS [facility] Last Admin: 02/23/22 00:35 Dose: 30 mg Lactulose (Lactulose 20 Gm/30 Ml Oral.Hsahnaz) 10 gm PO DAILYP PRN PRN Reason: Constipation Levothyroxine Sodium (Levothyroxine Sodium 112 Mcg Tablet) 112 mcg PO QAMAC [facility] Last Admin: 02/23/22 07:49 Dose: 112 mcg Levothyroxine Sodium (Levothyroxine 25 Mcg Tablet) 25 mcg PO QAMAC [facility] Last Admin: 02/23/22 07:49 Dose: 25 mcg Nitroglycerin (Nitroglycerin 0.4 Mg Tab.Subl) 0.4 mg SL Q5MIN [facility] Ondansetron HCl (Ondansetron 4 Mg/2 Ml Vial) 4 mg IV Q4HP PRN; Protocol PRN Reason: Nausea And Vomiting Oxycodone HCl (Oxycodone Hcl 5 Mg Tablet) 5 mg PO Q6HP PRN; Protocol PRN Reason: Per Pain Protocol Last Admin: 02/23/22 05:30 Dose: 5 mg Ticagrelor 90 Mg (Tablet) 1 dose PO BID [facility] Last Admin: 02/23/22 08:36 Dose: 1 dose Senna (Sennosides 1 Tablet) 2 tab PO HSP PRN PRN Reason: Constipation Sodium Chloride (0.9 % Sodium Chloride 10 Ml Syringe) 10 ml IV Q8 [facility] Last Admin: 02/23/22 07:48 Dose: 10 ml Vitamin D (Vitamin D3 125 Mcg Tablet) 125 mcg PO QDAY [facility] Last Admin: 02/23/22 08:36 Dose: 125 mcg Warfarin Sodium (Warfarin Per Pharmacy) 1 order PO UD [facility] A/P Assessment and plan (1) ESRD on peritoneal dialysis: Status: Chronic (2) Acute non-ST elevation myocardial infarction (NSTEMI): Status: Acute (3) Hypertension, essential: Status: Chronic (4) Stroke: Status: Chronic Comment: Most recent in March 2019; obtain records from [facility]. (5) Hyperlipidemia: Status: Acute (6) Gout: Status: Chronic (7) Diabetes mellitus, type II: Status: Chronic (8) Hypothyroidism (acquired): Status: Acute (9) Atrial fibrillation: Status: Acute (10) Breast cancer: Status: Acute (11) On home O2: Status: Acute Narrative A/P Narrative: Assessment and Plans: 1. T2DM with hypoglycemia: Inpatient PCU Hold any oral hypoglycemics such as glipizide Accu Chek q4hr Lispro SSI q4hr Hypoglycemia protocol Renal/Diabetic diet Diabetic education 2. h/o breast cancer: Continue to follow up outpatient oncology Oxycodone 5mg PO q6hr PRN pain 3. ESRD on peritoneal dialysis: Consult Dr. Pleitez for peritoneal dialysis needs Hemodialysis as per Dr. Pleitez 4. Essential hypertension: d/c Clonidine d/c PO Hydralazine d/c Lisinopril d/c Torsemide Holding Metoprolol ER, currently normotensive and HR in the 60s. Resume when blood pressure/heart rate increase/worsen Hydralazine 10mg IV q4-6 hr PRN SBP>=180 and/or DBP>=110mmHg 5. Dyslipidemia: Continue statin therapy 6. c/o NSTEMI s/p PCI with drug eluting stent: Aspirin Ticagrelor Statin 7. Hypothyroidism: Continue thyroid replacement therapy 8. h/o Gout: Allopurinol 9. h/o CVA: On anticoagulation therapy Coumadin; Daily INR for Coumadin dosing 10. h/o atrial fibrillation: Holding Metoprolol ER, currently normotensive and HR in the 60s. Resume when blood pressure/heart rate increase/worsen On anticoagulation therapy Coumadin, with daily INR for dosing GI ppx: Famotidine DVT ppx: Coumadin Code status: DNI Prognosis: Guarded Disposition: Inpatient PCU; PT OT Time Spent With Patient Time: Total time spent is greater than 50% in coordination of care (as documented) at patient's floor/unit and/or counseling patient: Total time spent with greater than 50% in coordination of care (as documented) at patient's floor/unit and/or counseling patient:: 25 - 35 minutes
[2022-02-23] MEDS ORDERED: WARFARIN 3 MG TABLET PO ONE (14:00)
[2022-02-23] MEDS: ACETAMINOPHEN 325 MG TABLET PO PRN (15:23)
[2022-02-23] MEDS: ATORVASTATIN 40 MG TABLET PO SCH (21:48)
[2022-02-24] MEDS: ACETAMINOPHEN 325 MG TABLET PO PRN ×2 (00:08→12:36)
[2022-02-24] MEDS: INSULIN LISPRO 1 UNIT/0.01 ML UNIT SQ SCH ×6 (00:09→21:05)
[2022-02-24] MEDS: traZODone HCL 50 MG TABLET PO SCH ×3 (00:37→21:11)
[2022-02-24] MEDS ORDERED: traZODone HCL 50 MG TABLET ONE ×2 (00:47→01:56)
[2022-02-24] MEDS: oxyCODONE HCL 5 MG TABLET PO PRN ×3 (01:48→15:14)
[2022-02-24] MEDS ORDERED: traZODone HCL 50 MG TABLET PO SCH (02:00)
[2022-02-24] MEDS: 0.9 % SODIUM CHLORIDE 10 ML SYRINGE IV SCH ×3 (05:22→21:15)
[2022-02-24 06:53] LABS: Basophils # (Auto) 0.08 K/mcL (0.00-0.30); Basophils % (Auto) 0.6 % (0.0-2.0); Eosinophils # (Auto) 0.08 K/mcL (0.00-0.70); Eosinophils % (Auto) 0.6 % (0.0-7.0); Hematocrit 34.5 % (34.1-44.9); Hemoglobin 11.2 g/dL (11.2-15.7); Lymphocytes # (Auto) 0.82 K/mcL (1.50-4.80); Mean Cell Volume 91.5 fL (80.0-100.0); Mean Corpuscular HGB Conc 32.5 g/dL (31.0-36.0); Mean Platelet Volume 11.8 fL (8.8-12.5); Monocytes # (Auto) 1.24 K/mcL (0.10-0.90); Neutrophils % (Auto) 83.1 % (38.0-78.0); Platelet Count 128 K/mcL (140-440); RBC 3.77 M/mcL (3.59-5.38); Red Cell Distribution Width 17.3 % (11.5-14.5); WBC 13.7 K/mcL (4.5-11.0)
--- NOTE | 2022-02-24 07:06 | Nephrology Progress Note ---
SUBJECTIVE Subjective Patient information: Note initiated : 02/24/22 at 7:03 am Patient: Dania Nesbitt 76 y/o F admitted on 02/20/22 for Hypoglycemia, dialysis. Chief Complaint: Weakness Pertinent ROS: Weakness Diffuse pain Edema Constitutional Vitals: Vital Signs Temp Pulse Resp BP Pulse Ox O2 Del Method O2 Flow Rate 101.0 F H 69 14 131/45 100 1 02/24/22 06:11 02/24/22 06:11 02/24/22 06:11 02/24/22 06:11 02/24/22 06:11 02/24/22 04:01 02/24/22 04:01 Period Temp Pulse Resp BP Sys/Garza Pulse Ox O2 Del Method O2 Flow Rate Last 24 Hr 96.0 F-101.0 F 58-75 9-29 78-157/29-130 93-100 Nasal Cannula- Room Air 1-1 Intake and Output 02/23/22 02/24/22 02/24/22 21:59 05:59 13:59 Intake Total 100 300 Output Total 3100 Balance -3000 300 Weight 175 lb 14.4 oz Intake & Output: Intake & Output 02/23/22 02/24/22 02/24/22 21:59 05:59 13:59 Intake Total 100 300 Output Total 3100 Balance -3000 300 Weight 175 lb 14.4 oz Intake: Oral 100 300 Output: Urine Catheter Amount 100 Hemodialysis UF 3000 Other: Meal Dinner Percent of Meal Consumed 0% Urine Appearance Cloudy Sediment Urine Color Yellow General appearance: cooperative and no acute distress Head Head exam: Present normal inspection Eye Eye exam: Present normal appearance ENT ENT exam: Present mucous membranes moist Respiratory Respiratory exam: Absent respiratory distress Cardiovascular Cardiovascular exam: Present normal rate and rhythm GI/Abdominal GI/Abdominal exam: Present soft; Absent tenderness Extremities Exam Extremities exam: Present pedal edema Neurological Exam Neurological exam: Present alert and oriented X3 Psychiatric Psychiatric exam: Present normal affect and normal mood Skin Skin exam: Present warm; Absent rash Additional comments: anasarca A/P Assessment and plan (1) ESRD on peritoneal dialysis: Assessment and plan: She has end stage renal disease on peritoneal dialysis, breast cancer (not treated due to heart disease), recent nonSTEMI s/p stents, hypertension, history of CVAs. She presented to [facility] ED for confusion and found to have hypoglycemia. She was in ED previously for bilateral hip pain and was given opioids. Her labs were otherwise significant for AST 214, ALT 285, Sodium 135, Potassium 4.2. She had a CT of head and CT abdomen and pelvis. Reports are not available. She received D10W until arrival here. End stage renal disease on peritoneal dialysis. Left arm AV fistula with thrill. Chronic anemia due to ESRD. Hb 9.8 on 02/21/22. Fluid overload. Hypotension and bradycardia. Weakness. Diffuse pain. PROGRESS Hypotension and bradycardia, improved. CCPD on 02/20/22: 2.5%, 1,800 ml, 4 exchanges for 8 hours. [facility]CPD on 02/21/22: 2.5%, 1,800 ml, 4 exchanges for 8 hours. CCPD on 02/22/22: 2.5%, 1,800 ml, 4 exchanges, interrupted with alarms and treatment terminated early. HD on 02/22/22: 4 hours with 4 kg UF (<13 ml/kg/hour). HD (PUF) on 02/23/22: 3 hours with 3 kg UF (<13 ml/kg/hour). SBP 103-146, HR 62-75 in the past 12 hours. PLAN Renal diet with sodium and fluid restriction. HD on 02/24/22: 3 hours for a target UF of 3 kg (<13 ml/kg/hour). The patient seen and evaluated during dialysis at 12:45. She is restless and has pain all over. Anticipate SNF discharge with switching from PD to HD temporarily. Status: Chronic Time Spent With Patient Time: Total time spent is greater than 50% in coordination of care (as documented) at patient's floor/unit and/or counseling patient:
[2022-02-24 07:20] LABS: ALT/SGPT 68 U/L (<40); AST/SGOT 59 U/L (<32); Albumin/Globulin Ratio 0.5 (1.0-2.3); Alkaline Phosphatase 138 U/L (39-117); Bilirubin,Total 1.1 mg/dL (0.1-1.0); Blood Urea Nitrogen 35 mg/dL (8-23); Calcium 8.6 mg/dL (8.6-10.4); Carbon Dioxide 23 mmol/L (22-30); Chloride 95 mmol/L (96-108); Glomerular Filtration Rate 9; Glucose 87 mg/dL (70-105)
[2022-02-24 07:23] LABS: INR 2.2 (0.9-1.1); Prothrombin Time 25.6 sec (11.9-14.5)
[2022-02-24] MEDS: LEVOTHYROXINE 25 MCG TABLET PO SCH (08:17)
[2022-02-24] MEDS: LEVOTHYROXINE SODIUM 112 MCG TABLET PO SCH (08:17)
[2022-02-24] MEDS: ALLOPURINOL 100 MG TABLET PO SCH (08:47)
[2022-02-24] MEDS: ASPIRIN 81 MG TAB.CHEW PO SCH (08:47)
[2022-02-24] MEDS: DOCUSATE SODIUM 100 MG CAPSULE PO SCH ×2 (08:47→21:12)
[2022-02-24] MEDS: FAMOTIDINE 20 MG TABLET PO SCH (08:47)
[2022-02-24] MEDS: VITAMIN D3 125 MCG TABLET PO SCH (09:01)
[2022-02-24] MEDS: GENTAMICIN CRM 0.1% TUBE 15GM TOPICAL SCH (09:02)
--- NOTE | 2022-02-24 10:48 | Internal Med Progress Note ---
SUBJECTIVE Subjective Patient information: Note initiated : 02/24/22 at 10:43 am Service Date, if different from initiated Date: [] Patient: Dania Nesbitt a 76 y/o F admitted on 02/20/22 for Hypoglycemia, dialysis. Chief Complaint: [] Interval history: Ms. Nesbitt is a 76 year old F history of breast cancer, type 2 diabetes mellitus, end-stage renal disease on peritoneal dialysis, essential hypertensions, mixed dyslipidemia, CAD status post PCI with drug-eluting stents, CVA, gout, hypothyroidism, atrial fibrillation, presenting with lethargy and syncope. Patient is on glipizide and her is helping her to manage the medications. She was found to be extremely lethargic and syncope/near syncope by day of . EMS recall and blood glucose level was checked at the scene in the 20s. D50 X2 were given in route to the outside ER, where she was being started on D10 drip. Repeat blood sugar level was 120s, D10 drip started. Transfer request called for peritoneal dialysis capacity in our facility. [employer] [facility]. Pleitez consulted for peritoneal dialysis needs. 02/21: Another episode of hypoglycemia with blood sugar 63 this morning around 830. INR 1.4. Status post peritoneal dialysis overnight. Patient is coming of general weakness at baseline. She denies any syncope or near syncope. She denies any chest pain or shortness of breath. She is complaining of 10 out of 10 bilateral lower extremity sharp pain. Keep Accu-Chek Q4 and low-dose sign scale insulin every 4. Renal/CC diet. Dr. Pleitez. will switch patients to hemodialysis starting tomorrow on Tuesday, February 22, 2022. Pending physical therapy and Occupational Therapy evaluation and treatments for placement purposes. 02/22: Fasting blood sugar level 135 this morning. No reported hypoglycemic episode overnight. Status post peritoneal dialysis last night. Pending hemodialysis today. INR 1.6 this morning. Patient is coming of general weakness at baseline. She denies any syncope or near syncope. She denies any chest pain or shortness of breath. She is complaining of mild bilateral lower extremity sharp pain. Keep Accu-Chek Q4 and low-dose sign scale insulin every 4. Renal/CC diet. Pending hemodialysis today. Pending physical therapy and Occupational Therapy evaluation and treatments for placement purposes. 02/23: Blood sugar was as low as 73 yesterday afternoon at 4 PM. INR 1.8 this morning. Status post last long of his peritoneal dialysis yesterday night as well as first round of hemodialysis yesterday during the day. Patient is about to receive second round of hemodialysis this afternoon. She is complaining of bilateral leg pains. Denies any abdominal pain. Denies any nausea or vomiting. Tolerating oral intake fine. Keep Accu-Chek Q4 and low-dose sign scale insulin every 4. Renal/CC diet. Continue hemodialysis as per Dr. Pleitez. Pending physical therapy and Occupational Therapy evaluation and treatments for placement planning. 02/24: Fasting glucose 84, no hypoglycemia episode over the past 24 hours. s/p hemodialysis on 02/22 and 02/23. She is complaining of bilateral leg cramping pains. Denies any abdominal pain. Denies any nausea or vomiting. Tolerating oral intake fine. Transfer to med surg telemetry. Accu Chek and low-dose sign scale insulin AC HS. Renal/CC diet. Continue hemodialysis as per Dr. Pleitez. Pending SNF placement tomorrow 02/25. Constitutional Vitals: Vital Signs Temp Pulse Resp BP Pulse Ox O2 Del Method O2 Flow Rate 36.5 C 70 15 127/103 97 1 02/24/22 08:01 02/24/22 08:01 02/24/22 08:01 02/24/22 08:01 02/24/22 08:01 02/24/22 08:01 02/24/22 08:01 Period Temp Pulse Resp BP Sys/Garza Pulse Ox O2 Del Method O2 Flow Rate Last 24 Hr 35.6 C-38.3 C 58-75 9-29 78-146/29-108 94-100 Nasal Cannula- Room Air 1-1 Intake and Output 02/23/22 02/24/22 02/24/22 21:59 05:59 13:59 Intake Total 100 300 Output Total 3100 Balance -3000 300 Weight 79.787 kg Intake & Output: Intake & Output 02/23/22 02/24/22 02/24/22 21:59 05:59 13:59 Intake Total 100 300 Output Total 3100 Balance -3000 300 Weight 79.787 kg Intake: Oral 100 300 Output: Urine Catheter Amount 100 Hemodialysis UF 3000 Other: Meal Dinner Percent of Meal Consumed 0% Urine Appearance Cloudy Sediment Urine Color Yellow Head Head exam: Present atraumatic and normal inspection Eye Eye exam: Present normal appearance ENT ENT exam: Present mucous membranes moist, normal exam and normal external ear exam Additional comments: Nasal cannula in place Neck Neck exam: Present normal inspection Respiratory Respiratory exam: Present normal respiratory exam Cardiovascular Cardiovascular exam: Present irregular rhythm GI/Abdominal GI/Abdominal exam: Present normal bowel sounds Extremities Exam Extremities exam: Present tenderness (hips) Back Exam Back exam: Present normal inspection Neurological Exam Neurological exam: Present alert and oriented X3 Skin Skin exam: Present intact and warm OBJ DATA Labs CBC & Chem 7: 02/24/22 06:06 02/24/22 06:06 Labs: Abnormal Lab Results 02/24/22 02/24/22 02/24/22 06:06 06:06 06:06 WBC RBC Hgb Hct RDW Plt Count Immature Gran % (Auto) Neut % (Auto) Lymph % (Auto) Milam % (Auto) Lymph # (Auto) Milam # (Auto) Immature Gran # Absolute Neutrophils PT 25.6 H INR 2.2 H Sodium 129 L Potassium 5.3 H Chloride 95 L BUN 35 H Creatinine 4.6 H Glucose Calcium Phosphorus 6.0 H* Total Bilirubin 1.1 H AST 59 H ALT 68 H Alkaline Phosphatase 138 H Total Protein Albumin 2.0 L Globulin 4.0 H Albumin/Globulin Ratio 0.5 L 02/24/22 02/23/22 02/23/22 06:06 06:15 06:15 WBC 13.7 H RBC Hgb Hct RDW 17.3 H Plt Count 128 L Immature Gran % (Auto) 0.7 H Neut % (Auto) 83.1 H Lymph % (Auto) 6.0 L Milam % (Auto) Lymph # (Auto) 0.82 L Milam # (Auto) 1.24 H Immature Gran # 0.10 H Absolute Neutrophils 11.40 H PT 22.0 H INR 1.8 H Sodium 129 L Potassium Chloride 95 L BUN Creatinine 3.6 H Glucose 117 H Calcium 8.1 L Phosphorus Total Bilirubin AST 50 H ALT 73 H Alkaline Phosphatase 120 H Total Protein 5.4 L Albumin 1.8 L Globulin Albumin/Globulin Ratio 0.5 L 02/23/22 02/22/22 02/22/22 06:15 06:08 06:07 WBC 13.3 H RBC 3.39 L Hgb 9.9 L Hct 30.8 L RDW 17.5 H Plt Count 115 L Immature Gran % (Auto) 0.6 H Neut % (Auto) Lymph % (Auto) 6.7 L Milam % (Auto) 13.1 H Lymph # (Auto) 0.89 L Milam # (Auto) 1.75 H Immature Gran # 0.08 H Absolute Neutrophils 10.40 H PT 19.9 H INR 1.6 H Sodium Potassium Chloride BUN Creatinine Glucose Calcium Phosphorus 7.3 H* Total Bilirubin AST ALT Alkaline Phosphatase Total Protein Albumin Globulin Albumin/Globulin Ratio 02/22/22 02/22/22 06:07 06:06 WBC 12.8 H RBC 3.44 L Hgb 10.1 L Hct 31.7 L RDW 17.7 H Plt Count Immature Gran % (Auto) Neut % (Auto) 78.9 H Lymph % (Auto) 6.2 L Milam % (Auto) Lymph # (Auto) 0.79 L Milam # (Auto) 1.54 H Immature Gran # 0.06 H Absolute Neutrophils 10.12 H PT INR Sodium 131 L Potassium Chloride 92 L BUN 54 H Creatinine 6.5 H* Glucose Calcium 7.9 L Phosphorus Total Bilirubin AST 63 H ALT 97 H Alkaline Phosphatase 122 H Total Protein 5.4 L Albumin 2.1 L Globulin Albumin/Globulin Ratio 0.6 L Meds: Medications Acetaminophen (Acetaminophen 325 Mg Tablet) 650 mg PO Q6HP PRN; Protocol PRN Reason: Per Pain Protocol/Fever > 101 Last Admin: 02/24/22 00:08 Dose: 650 mg Albuterol/Ipratropium (Ipratropium/Albuterol 3 Ml Ampul.Neb) 3 ml NEB Q4HRT PRN PRN Reason: Wheezing Allopurinol (Allopurinol 100 Mg Tablet) 100 mg PO QDAY [facility] Last Admin: 02/24/22 08:47 Dose: 100 mg Aspirin (Aspirin 81 Mg Tab.Chew) 81 mg PO DAILY [facility] Last Admin: 02/24/22 08:47 Dose: 81 mg Atorvastatin Calcium (Atorvastatin 40 Mg Tablet) 80 mg PO HS [facility] Last Admin: 02/23/22 21:48 Dose: 80 mg Cyclobenzaprine HCl (Cyclobenzaprine 10 Mg Tablet) 5 mg PO BIDP PRN PRN Reason: Muscle Spasm Dextrose (Dextrose 50% 50 Ml Vial) 0 ml IV UD PRN PRN Reason: Per Sliding Scale Diagnostic Test (Pha) (Accu-Chek 1 Each Strip) 1 each FS ACHS [facility] Docusate Sodium (Docusate Sodium 100 Mg Capsule) 100 mg PO BID [facility] Last Admin: 02/24/22 08:47 Dose: 100 mg Famotidine (Famotidine 20 Mg Tablet) 20 mg PO QDAY [facility] Last Admin: 02/24/22 08:47 Dose: 20 mg Gentamicin Sulfate (Gentamicin Crm 0.1% Tube 15gm) 1 dose TOPICAL DAILY [facility]; Protocol Last Admin: 02/24/22 09:02 Dose: Not Given Glucose (Dextrose 31 Gm Oral.Susp) 15 gm PO PRN PRN PRN Reason: Hypoglycemia Last Admin: 02/21/22 12:07 Dose: 15 gm Insulin Human Lispro (Insulin Lispro 1 Unit/0.01 Ml Unit) 0 unit SQ [facility]; Protocol Isosorbide Mononitrate (Isosorbide Mononitrate 30 Mg Tab.Xl.24h) 30 mg PO HS [facility] Last Admin: 02/23/22 21:47 Dose: 30 mg Lactulose (Lactulose 20 Gm/30 Ml Oral.Shahnaz) 10 gm PO DAILYP PRN PRN Reason: Constipation Levothyroxine Sodium (Levothyroxine Sodium 112 Mcg Tablet) 112 mcg PO QAMAC [facility] Last Admin: 02/24/22 08:17 Dose: 112 mcg Levothyroxine Sodium (Levothyroxine 25 Mcg Tablet) 25 mcg PO QAMAC [facility] Last Admin: 02/24/22 08:17 Dose: 25 mcg Nitroglycerin (Nitroglycerin 0.4 Mg Tab.Subl) 0.4 mg SL Q5MIN [facility] Ondansetron HCl (Ondansetron 4 Mg/2 Ml Vial) 4 mg IV Q4HP PRN; Protocol PRN Reason: Nausea And Vomiting Oxycodone HCl (Oxycodone Hcl 5 Mg Tablet) 5 mg PO Q6HP PRN; Protocol PRN Reason: Per Pain Protocol Last Admin: 02/24/22 08:26 Dose: 5 mg Ticagrelor 90 Mg (Tablet) 1 dose PO BID [facility] Last Admin: 02/24/22 08:49 Dose: 1 dose Senna (Sennosides 1 Tablet) 2 tab PO HSP PRN PRN Reason: Constipation Sodium Chloride (0.9 % Sodium Chloride 10 Ml Syringe) 10 ml IV Q8 [facility] Last Admin: 02/24/22 05:22 Dose: 10 ml Trazodone HCl (Trazodone Hcl 50 Mg Tablet) 25 mg PO HS [facility] Last Admin: 02/24/22 01:52 Dose: 25 mg Trazodone HCl (Trazodone Hcl 50 Mg Tablet) 25 mg PO ONCE [facility] Last Admin: 02/24/22 01:53 Dose: Not Given Vitamin D (Vitamin D3 125 Mcg Tablet) 125 mcg PO QDAY [facility] Last Admin: 02/24/22 09:01 Dose: 125 mcg Warfarin Sodium (Warfarin Per Pharmacy) 1 order PO UD [facility] Warfarin Sodium (Warfarin 2.5 Mg Tablet) 2.5 mg PO ONCE@1400 ONE Stop: 02/24/22 14:01 A/P Assessment and plan (1) ESRD on peritoneal dialysis: Status: Chronic (2) Acute non-ST elevation myocardial infarction (NSTEMI): Status: Acute (3) Hypertension, essential: Status: Chronic (4) Stroke: Status: Chronic Comment: [facility] March 2019[facility] (5) Hyperlipidemia: Status: Acute (6) Gout: Status: Chronic (7) Diabetes mellitus, type II: Status: Chronic (8) Hypothyroidism (acquired): Status: Acute (9) Atrial fibrillation: Status: Acute (10) Breast cancer: Status: Acute (11) On home O2: Status: Acute Narrative A/P Narrative: Assessment and Plans: 1. T2DM with hypoglycemia: Inpatient med surg telemetry Hold any oral hypoglycemics such as glipizide Accu Chek AC HS Lispro SSI AC HS Hypoglycemia protocol Renal/Diabetic diet Diabetic education 2. h/o breast cancer: Continue to follow up outpatient oncology Oxycodone 5mg PO q6hr PRN pain 3. ESRD on peritoneal dialysis: Consult Dr. Pleitez for peritoneal dialysis needs Hemodialysis as per Dr. Pleitez 4. Essential hypertension: d/c Clonidine d/c PO Hydralazine d/c Lisinopril d/c Torsemide Resume Metoprolol ER Hydralazine 10mg IV q4-6 hr PRN SBP>=180 and/or DBP>=110mmHg 5. Dyslipidemia: Continue statin therapy 6. c/o NSTEMI s/p PCI with drug eluting stent: Aspirin Ticagrelor Statin 7. Hypothyroidism: Continue thyroid replacement therapy 8. h/o Gout: Allopurinol 9. h/o CVA: On anticoagulation therapy Coumadin; Daily INR for Coumadin dosing 10. h/o atrial fibrillation: Resume Metoprolol ER On anticoagulation therapy Coumadin, with daily INR for dosing GI ppx: Famotidine DVT ppx: Coumadin Code status: DNI Prognosis: Guarded Disposition: Inpatient PCU; SNF Time Spent With Patient Time: Total time spent is greater than 50% in coordination of care (as documented) at patient's floor/unit and/or counseling patient: Total time spent with greater than 50% in coordination of care (as documented) at patient's floor/unit and/or counseling patient:: 35 - 50 minutes
[2022-02-24] MEDS: CYCLOBENZAPRINE 10 MG TABLET PO PRN (10:55)
--- NOTE | 2022-02-24 11:51 | Cat Scan Report ---
CLINICAL INFORMATION: Confusion COMPARISON: Brain MRI 04/18/2019. TECHNIQUE: 2.5 mm helical slices were obtained in the skull base to vertex. Following reconstruction, axial reformatted images were reviewed at bone and parenchymal windows. The exam was performed using radiation dose optimization techniques including, but not limited to, automated exposure control, adjustment of the mA and/or kV according to patient size and use of iterative reconstruction technique. FINDINGS: The ventricles, sulci, fissures, and cisterns are symmetrically enlarged compatible with mild age-related atrophy. No extra-axial fluid collections are identified. Mild patchy chronic ischemic changes, in the deep cerebral white matter, are expected for age. Bilateral remote lacunar infarcts appreciated: 5 mm the thalamus 5 mm left lentiform nucleus 5 mm right lentiform nucleus and 9 mm in the right caudate nucleus. Bilateral lacunar infarct in left thalamus appreciated. There is no hemorrhage, mass effect, or edema. Bone windows show no osseous abnormality. IMPRESSION: Mild atrophy and chronic ischemic changes in the deep cerebral white matter-expected for age. Scattered remote lacunar infarcts in the basal ganglia. No hemorrhage or other acute finding. Stable Interpreted and Authenticated by: Kurtis Lizama 02/24/22
--- NOTE | 2022-02-24 12:45 | XRay Report ---
CLINICAL INFORMATION: Hip pain COMPARISON: None. FINDINGS: Sacroiliac and hip joints are normal in width and alignment without arthritic change. There is no fracture or osseous abnormality. Catheter overlies the central pelvis. Mild ileus noted IMPRESSION: No osseous abnormality. Mild ileus with possible stool impaction in the rectum. Interpreted and Authenticated by: Kurtis Lizama 02/24/22
[2022-02-24] MEDS: LIDOCAINE PATCH TOPICAL SCH (13:59)
[2022-02-24] MEDS ORDERED: WARFARIN 2.5 MG TABLET PO ONE (14:00)
[2022-02-24] MEDS: morphine 2 MG/ML VIAL IV PRN (19:34)
[2022-02-24] MEDS ORDERED: morphine 2 MG/ML VIAL ONE (19:37)
[2022-02-24] MEDS: ISOSORBIDE MONONITRATE 30 MG TAB.XL.24H PO SCH (21:12)
[2022-02-24] MEDS: METOPROLOL SUCCINATE 50 MG TAB.XL.24H PO SCH (21:12)
[2022-02-24] MEDS: ATORVASTATIN 40 MG TABLET PO SCH (21:12)
[2022-02-25] MEDS: oxyCODONE HCL 5 MG TABLET PO PRN ×3 (00:29→23:55)
--- NOTE | 2022-02-25 03:38 | Ultrasound Report ---
CLINICAL INFORMATION: Pain and induration over the left thigh and right hip COMPARISON: None. FINDINGS: There is no mass, fluid collection or other abnormality seen in the indurated regions of the left thigh and right hip.. IMPRESSION: Negative ultrasound. For worrisome, recurrent or persistent symptoms, suggest pelvic and thigh CT Interpreted and Authenticated by: Kurtis Lizama 02/25/22
[2022-02-25] MEDS: 0.9 % SODIUM CHLORIDE 10 ML SYRINGE IV SCH ×3 (05:29→21:58)
[2022-02-25] MEDS: INSULIN LISPRO 1 UNIT/0.01 ML UNIT SQ SCH ×4 (07:24→22:07)
--- NOTE | 2022-02-25 08:22 | Nephrology Progress Note ---
SUBJECTIVE Subjective Patient information: Note initiated : 02/25/22 at 8:20 am Patient: Dania Nesbitt 76 y/o F admitted on 02/20/22 for Hypoglycemia, dialysis. Chief Complaint: Weakness Pertinent ROS: Weakness Diffuse pain Edema Constitutional Vitals: Vital Signs Temp Pulse Resp BP Pulse Ox O2 Del Method O2 Flow Rate 98.2 F 91 H 18 131/58 97 2 02/25/22 04:03 02/25/22 04:03 02/25/22 04:03 02/25/22 04:03 02/25/22 04:03 02/25/22 04:03 02/25/22 04:03 Period Temp Pulse Resp BP Sys/Garza Pulse Ox O2 Del Method O2 Flow Rate Last 24 Hr 96.0 F-98.6 F 64-114 13-29 60-143/38-119 90-100 Nasal Cannula- Nasal Cannula 1-2 Intake and Output 02/24/22 02/25/22 02/25/22 21:59 05:59 13:59 Intake Total 200 80 Output Total 3025 50 Balance -2825 30 Weight 170 lb 1.6 oz Intake & Output: Intake & Output 02/24/22 02/25/22 02/25/22 21:59 05:59 13:59 Intake Total 200 80 Output Total 3025 50 Balance -2825 30 Weight 170 lb 1.6 oz Intake: Oral 200 80 Output: Urine Catheter Amount 225 50 Hemodialysis UF 2800 Other: Urine Appearance Clear Clear Urine Color Yellow Dark Yellow Pale Urine Odor Normal General appearance: cooperative and no acute distress Head Head exam: Present normal inspection Eye Eye exam: Present normal appearance ENT ENT exam: Present mucous membranes moist Respiratory Respiratory exam: Absent respiratory distress Cardiovascular Cardiovascular exam: Present normal rate and rhythm GI/Abdominal GI/Abdominal exam: Present soft; Absent tenderness Extremities Exam Extremities exam: Absent joint swelling or pedal edema Neurological Exam Neurological exam: Present alert and oriented X3 Psychiatric Psychiatric exam: Present normal affect and normal mood Skin Skin exam: Present warm; Absent rash A/P Assessment and plan (1) ESRD on peritoneal dialysis: Assessment and plan: She has end stage renal disease on peritoneal dialysis, breast cancer (not treated due to heart disease), recent nonSTEMI s/p stents, hypertension, history of CVAs. She presented [facility] ED for confusion and found to have hypoglycemia. She was in ED previously for bilateral hip pain and was given opioids. Her labs were otherwise significant for AST 214, ALT 285, Sodium 135, Potassium 4.2. She had a CT of head and CT abdomen and pelvis. Reports are not available. She received D10W until arrival here. End stage renal disease on peritoneal dialysis. Left arm AV fistula with thrill. Chronic anemia due to ESRD. Fluid overload, improved. Hypotension and bradycardia, resolved. Weakness. Diffuse pain. PROGRESS Hypotension and bradycardia, improved. CCPD on 02/20/22: 2.5%, 1,800 ml, 4 exchanges for 8 hours. CCPD on 02/21/22: 2.5%, 1,800 ml, 4 exchanges for 8 hours. CCPD on 02/22/22: 2.5%, 1,800 ml, 4 exchanges, interrupted with alarms and treatment terminated early. HD on 02/22/22: 4 hours with 4 kg UF (<13 ml/kg/hour). HD (PUF) on 02/23/22: 3 hours with 3 kg UF (<13 ml/kg/hour). HD on 02/24/22: 3 hours with 2.8 kg UF (<13 ml/kg/hour). PLAN Renal diet with sodium and fluid restriction. HD today for 3 hours for a target UF of 3 kg (<13 ml/kg/hour), if not ready for discharge to SNF. Status: Chronic Time Spent With Patient Time: Total time spent is greater than 50% in coordination of care (as documented) at patient's floor/unit and/or counseling patient:
[2022-02-25 08:35] LABS: Phosphorous 5.2 mg/dL (2.5-4.5)
[2022-02-25] MEDS: FAMOTIDINE 20 MG TABLET PO SCH (08:37)
[2022-02-25] MEDS: LEVOTHYROXINE SODIUM 112 MCG TABLET PO SCH (08:37)
[2022-02-25] MEDS: ALLOPURINOL 100 MG TABLET PO SCH (08:37)
[2022-02-25] MEDS: DOCUSATE SODIUM 100 MG CAPSULE PO SCH ×2 (08:37→22:01)
[2022-02-25] MEDS: METOPROLOL SUCCINATE 50 MG TAB.XL.24H PO SCH ×2 (08:37→22:01)
[2022-02-25] MEDS: ASPIRIN 81 MG TAB.CHEW PO SCH (08:37)
[2022-02-25] MEDS: LEVOTHYROXINE 25 MCG TABLET PO SCH (08:37)
[2022-02-25] MEDS: VITAMIN D3 125 MCG TABLET PO SCH (08:37)
[2022-02-25] MEDS: GENTAMICIN CRM 0.1% TUBE 15GM TOPICAL SCH (08:38)
[2022-02-25 08:39] LABS: ALT/SGPT 53 U/L (<40); AST/SGOT 54 U/L (<32); Albumin 1.7 gm/dL (3.2-5.2); Albumin/Globulin Ratio 0.5 (1.0-2.3); Alkaline Phosphatase 130 U/L (39-117); Bilirubin,Total 1.1 mg/dL (0.1-1.0); Blood Urea Nitrogen 25 mg/dL (8-23); Calcium 8.3 mg/dL (8.6-10.4); Carbon Dioxide 28 mmol/L (22-30); Chloride 95 mmol/L (96-108); Globulin 3.7 gm/dL (2.2-3.7); Glomerular Filtration Rate 12; Glucose 84 mg/dL (70-105)
[2022-02-25 08:46] LABS: INR 2.7 (0.9-1.1); Prothrombin Time 29.3 sec (11.9-14.5)
[2022-02-25] MEDS: CYCLOBENZAPRINE 10 MG TABLET PO PRN ×2 (08:47→22:46)
[2022-02-25] MEDS: morphine 2 MG/ML VIAL IV PRN ×3 (08:48→21:56)
[2022-02-25 08:56] LABS: Basophils # (Auto) 0.04 K/mcL (0.00-0.30); Basophils % (Auto) 0.3 % (0.0-2.0); Eosinophils # (Auto) 0.07 K/mcL (0.00-0.70); Eosinophils % (Auto) 0.5 % (0.0-7.0); Hematocrit 29.7 % (34.1-44.9); Hemoglobin 9.7 g/dL (11.2-15.7); Mean Corpuscular HGB Conc 32.7 g/dL (31.0-36.0); Mean Platelet Volume 12.9 fL (8.8-12.5); Monocytes # (Auto) 1.38 K/mcL (0.10-0.90); Monocytes % (Auto) 10.4 % (1.0-12.0); Neutrophils % (Auto) 82.3 % (38.0-78.0); Platelet Count 82 K/mcL (140-440); Red Cell Distribution Width 17.4 % (11.5-14.5); WBC 13.3 K/mcL (4.5-11.0)
[2022-02-25] MEDS ORDERED: LIDOCAINE PATCH TOPICAL SCH (10:00)
[2022-02-25] MEDS ORDERED: HYDROmorphone 0.5 MG/0.5 ML SYRINGE IV ONE (10:20)
[2022-02-25] MEDS: LIDOCAINE PATCH TOPICAL SCH (10:58)
--- NOTE | 2022-02-25 15:54 | Internal Med Progress Note ---
SUBJECTIVE Subjective Patient information: Note initiated : 02/25/22 at 3:46 pm Service Date, if different from initiated Date: [] Patient: Dania Nesbitt a 76 y/o F admitted on 02/20/22 for Hypoglycemia, dialysis. Chief Complaint: [] Interval history: Ms. Nesbitt is a 76 year old F history of breast cancer, type 2 diabetes mellitus, end-stage renal disease on peritoneal dialysis, essential hypertensions, mixed dyslipidemia, CAD status post PCI with drug-eluting stents, CVA, gout, hypothyroidism, atrial fibrillation, presenting with lethargy and syncope. Patient is on glipizide and her is helping her to manage the medications. She was found to be extremely lethargic and syncope/near syncope by day of . EMS recall and blood glucose level was checked at the scene in the 20s. D50 X2 were given in route to the outside ER, where she was being started on D10 drip. Repeat blood sugar level was 120s, D10 drip started. Transfer request called for peritoneal dialysis capacity in our facility. Administrative Professional Dr. Pleitez consulted for peritoneal dialysis needs. 02/21: Another episode of hypoglycemia with blood sugar 63 this morning around 830. INR 1.4. Status post peritoneal dialysis overnight. Patient is coming of general weakness at baseline. She denies any syncope or near syncope. She denies any chest pain or shortness of breath. She is complaining of 10 out of 10 bilateral lower extremity sharp pain. Keep Accu-Chek Q4 and low-dose sign scale insulin every 4. Renal/CC diet. Dr. Pleitez. will switch patients to hemodialysis starting tomorrow on Tuesday, February 22, 2022. Pending physical therapy and Occupational Therapy evaluation and treatments for placement purposes. 02/22: Fasting blood sugar level 135 this morning. No reported hypoglycemic episode overnight. Status post peritoneal dialysis last night. Pending hemodialysis today. INR 1.6 this morning. Patient is coming of general weakness at baseline. She denies any syncope or near syncope. She denies any chest pain or shortness of breath. She is complaining of mild bilateral lower extremity sharp pain. Keep Accu-Chek Q4 and low-dose sign scale insulin every 4. Renal/CC diet. Pending hemodialysis today. Pending physical therapy and Occupational Therapy evaluation and treatments for placement purposes. 02/23: Blood sugar was as low as 73 yesterday afternoon at 4 PM. INR 1.8 this morning. Status post last long of his peritoneal dialysis yesterday night as well as first round of hemodialysis yesterday during the day. Patient is about to receive second round of hemodialysis this afternoon. She is complaining of bilateral leg pains. Denies any abdominal pain. Denies any nausea or vomiting. Tolerating oral intake fine. Keep Accu-Chek Q4 and low-dose sign scale insulin every 4. Renal/CC diet. Continue hemodialysis as per Dr. Pleitez. Pending physical therapy and Occupational Therapy evaluation and treatments for placement planning. 02/24: Fasting glucose 84, no hypoglycemia episode over the past 24 hours. s/p hemodialysis on 02/22 and 02/23. She is complaining of bilateral leg cramping pains. Denies any abdominal pain. Denies any nausea or vomiting. Tolerating oral intake fine. Transfer to [facility] telemetry. Accu Chek and low-dose sign scale insulin AC HS. Renal/CC diet. Continue hemodialysis as per Dr. Pleitez. Pending SNF placement tomorrow 02/25. 02/25: Head CT and hip x-ray as well as bilateral lower extremity ultrasound does not show any acute pathologies. No fracture or joint dislocations. No abscess seen. No sign of stroke or skull fractures. Fasting sugar 86 this morning with no hypoglycemia episode overnight. Patient is currently being hemodialyzed and she does not have any complaint at the moment. Continue hemodialysis today. Accu Chek and low-dose sign scale insulin AC HS. we will arrange for care conference tomorrow regarding prognosis and goals of care for discharge placement planning. Constitutional Vitals: Vital Signs Temp Pulse Resp BP Pulse Ox O2 Del Method O2 Flow Rate 35.9 C L 86 18 88/45 99 2 02/25/22 13:20 02/25/22 15:25 02/25/22 12:00 02/25/22 15:25 02/25/22 12:00 02/25/22 12:00 02/25/22 08:00 Period Temp Pulse Resp BP Sys/Garza Pulse Ox O2 Del Method O2 Flow Rate Last 24 Hr 35.9 C-37.0 C 60-104 18-20 88-173/45-154 93-100 Nasal Cannula- Room Air 1-2 Intake and Output 02/25/22 02/25/22 02/25/22 05:59 13:59 21:59 Intake Total 80 Output Total 50 Balance 30 Intake & Output: Intake & Output 02/25/22 02/25/22 02/25/22 05:59 13:59 21:59 Intake Total 80 Output Total 50 Balance 30 Intake: Oral 80 Output: Urine Catheter Amount 50 Other: Urine Appearance Clear Urine Color Dark Yellow Stool Size Copious Stool Color Brown Stool Consistency Soft # Bowel Movements 1 Head Head exam: Present atraumatic and normal inspection Eye Eye exam: Present normal appearance ENT ENT exam: Present mucous membranes moist, normal exam and normal external ear exam Additional comments: Nasal cannula in place Neck Neck exam: Present normal inspection Respiratory Respiratory exam: Present normal respiratory exam Cardiovascular Cardiovascular exam: Present irregular rhythm GI/Abdominal GI/Abdominal exam: Present normal bowel sounds Extremities Exam Extremities exam: Present tenderness; Absent full ROM or normal inspection Additional comments: Erythema, swelling of bilateral lateral thigh and hips and buttocks Back Exam Back exam: Present normal inspection Neurological Exam Neurological exam: Present alert and oriented X3 Skin Skin exam: Present intact and warm OBJ DATA Labs CBC & Chem 7: 02/25/22 05:17 02/25/22 05:17 Labs: Abnormal Lab Results 02/25/22 02/25/22 02/25/22 05:17 05:17 05:17 WBC RBC Hgb Hct RDW Plt Count MPV Immature Gran % (Auto) Neut % (Auto) Lymph % (Auto) [place] % (Auto) Lymph # (Auto) [place] # (Auto) Immature Gran # Absolute Neutrophils PT 29.3 H INR 2.7 H Sodium Potassium Chloride 95 L BUN 25 H Creatinine 3.4 H Glucose Calcium 8.3 L Phosphorus 5.2 H Total Bilirubin 1.1 H AST 54 H ALT 53 H Alkaline Phosphatase 130 H Total Protein 5.4 L Albumin 1.7 L Globulin Albumin/Globulin Ratio 0.5 L 02/25/22 02/24/22 02/24/22 05:17 06:06 06:06 WBC 13.3 H RBC 3.30 L Hgb 9.7 L Hct 29.7 L RDW 17.4 H Plt Count 82 L MPV 12.9 H Immature Gran % (Auto) Neut % (Auto) 82.3 H Lymph % (Auto) 6.0 L [place] % (Auto) Lymph # (Auto) 0.80 L [place] # (Auto) 1.38 H Immature Gran # 0.07 H Absolute Neutrophils 10.91 H PT 25.6 H INR 2.2 H Sodium Potassium Chloride BUN Creatinine Glucose Calcium Phosphorus 6.0 H* Total Bilirubin AST ALT Alkaline Phosphatase Total Protein Albumin Globulin Albumin/Globulin Ratio 02/24/22 02/24/22 02/23/22 06:06 06:06 06:15 WBC 13.7 H RBC Hgb Hct RDW 17.3 H Plt Count 128 L MPV Immature Gran % (Auto) 0.7 H Neut % (Auto) 83.1 H Lymph % (Auto) 6.0 L [place] % (Auto) Lymph # (Auto) 0.82 L [place] # (Auto) 1.24 H Immature Gran # 0.10 H Absolute Neutrophils 11.40 H PT 22.0 H INR 1.8 H Sodium 129 L Potassium 5.3 H Chloride 95 L BUN 35 H Creatinine 4.6 H Glucose Calcium Phosphorus Total Bilirubin 1.1 H AST 59 H ALT 68 H Alkaline Phosphatase 138 H Total Protein Albumin 2.0 L Globulin 4.0 H Albumin/Globulin Ratio 0.5 L 02/23/22 02/23/22 06:15 06:15 WBC 13.3 H RBC 3.39 L Hgb 9.9 L Hct 30.8 L RDW 17.5 H Plt Count 115 L MPV Immature Gran % (Auto) 0.6 H Neut % (Auto) Lymph % (Auto) 6.7 L [place] % (Auto) 13.1 H Lymph # (Auto) 0.89 L [place] # (Auto) 1.75 H Immature Gran # 0.08 H Absolute Neutrophils 10.40 H PT INR Sodium 129 L Potassium Chloride 95 L BUN Creatinine 3.6 H Glucose 117 H Calcium 8.1 L Phosphorus Total Bilirubin AST 50 H ALT 73 H Alkaline Phosphatase 120 H Total Protein 5.4 L Albumin 1.8 L Globulin Albumin/Globulin Ratio 0.5 L Meds: Medications Acetaminophen (Acetaminophen 325 Mg Tablet) 650 mg PO Q6HP PRN; Protocol PRN Reason: Per Pain Protocol/Fever > 101 Last Admin: 02/24/22 12:36 Dose: 650 mg Albuterol/Ipratropium (Ipratropium/Albuterol 3 Ml Ampul.Neb) 3 ml NEB Q4HRT PRN PRN Reason: Wheezing Allopurinol (Allopurinol 100 Mg Tablet) 100 mg PO QDAY [facility] Last Admin: 02/25/22 08:37 Dose: 100 mg Aspirin (Aspirin 81 Mg Tab.Chew) 81 mg PO DAILY [facility] Last Admin: 02/25/22 08:37 Dose: 81 mg Atorvastatin Calcium (Atorvastatin 40 Mg Tablet) 80 mg PO HS [facility] Last Admin: 02/24/22 21:12 Dose: 80 mg Cyclobenzaprine HCl (Cyclobenzaprine 10 Mg Tablet) 5 mg PO BIDP PRN PRN Reason: Muscle Spasm Last Admin: 02/25/22 08:47 Dose: 5 mg Dextrose (Dextrose 50% 50 Ml Vial) 0 ml IV UD PRN PRN Reason: Per Sliding Scale Diagnostic Test (Pha) (Accu-Chek 1 Each Strip) 1 each FS [facility] Last Admin: 02/25/22 12:12 Dose: 1 each Docusate Sodium (Docusate Sodium 100 Mg Capsule) 100 mg PO BID [facility] Last Admin: 02/25/22 08:37 Dose: 100 mg Famotidine (Famotidine 20 Mg Tablet) 20 mg PO QDAY [facility] Last Admin: 02/25/22 08:37 Dose: 20 mg Gentamicin Sulfate (Gentamicin Crm 0.1% Tube 15gm) 1 dose TOPICAL DAILY [facility]; Protocol Last Admin: 02/25/22 08:38 Dose: Not Given Glucose (Dextrose 31 Gm Oral.Susp) 15 gm PO PRN PRN PRN Reason: Hypoglycemia Last Admin: 02/21/22 12:07 Dose: 15 gm Insulin Human Lispro (Insulin Lispro 1 Unit/0.01 Ml Unit) 0 unit SQ [facility]; Protocol Last Admin: 02/25/22 12:13 Dose: Not Given Isosorbide Mononitrate (Isosorbide Mononitrate 30 Mg Tab.Xl.24h) 30 mg PO HS [facility] Last Admin: 02/24/22 21:12 Dose: 30 mg Lactulose (Lactulose 20 Gm/30 Ml Oral.Shahnaz) 10 gm PO DAILYP PRN PRN Reason: Constipation Last Admin: 02/25/22 12:26 Dose: 10 gm Levothyroxine Sodium (Levothyroxine Sodium 112 Mcg Tablet) 112 mcg PO QAMAC [facility] Last Admin: 02/25/22 08:37 Dose: 112 mcg Levothyroxine Sodium (Levothyroxine 25 Mcg Tablet) 25 mcg PO QAMAC [facility] Last Admin: 02/25/22 08:37 Dose: 25 mcg Lidocaine (Lidocaine Patch) 1 patch TOPICAL DAILY@1000 [facility] Last Admin: 02/25/22 10:58 Dose: 1 patch Metoprolol Succinate (Metoprolol Succinate 50 Mg Tab.Xl.24h) 50 mg PO BID [facility] Last Admin: 02/25/22 08:37 Dose: 50 mg Morphine Sulfate (Morphine 2 Mg/Ml Vial) 2 mg IV Q4HP PRN; Protocol PRN Reason: Per Pain Protocol Last Admin: 02/25/22 12:26 Dose: 2 mg Nitroglycerin (Nitroglycerin 0.4 Mg Tab.Subl) 0.4 mg SL Q5MIN [facility] Ondansetron HCl (Ondansetron 4 Mg/2 Ml Vial) 4 mg IV Q4HP PRN; Protocol PRN Reason: Nausea And Vomiting Oxycodone HCl (Oxycodone Hcl 5 Mg Tablet) 5 mg PO Q6HP PRN; Protocol PRN Reason: Per Pain Protocol Last Admin: 02/25/22 08:48 Dose: 5 mg Ticagrelor 90 Mg (Tablet) 1 dose PO BID [facility] Last Admin: 02/25/22 08:37 Dose: 1 dose Senna (Sennosides 1 Tablet) 2 tab PO HSP PRN PRN Reason: Constipation Sodium Chloride (0.9 % Sodium Chloride 10 Ml Syringe) 10 ml IV Q8 [facility] Last Admin: 02/25/22 12:57 Dose: 10 ml Trazodone HCl (Trazodone Hcl 50 Mg Tablet) 25 mg PO HS [facility] Last Admin: 02/24/22 21:11 Dose: 25 mg Vitamin D (Vitamin D3 125 Mcg Tablet) 125 mcg PO QDAY [facility] Last Admin: 02/25/22 08:37 Dose: 125 mcg Warfarin Sodium (Warfarin Per Pharmacy) 1 order PO UD [facility] A/P Assessment and plan (1) ESRD on peritoneal dialysis: Status: Chronic (2) Acute non-ST elevation myocardial infarction (NSTEMI): Status: Acute (3) Hypertension, essential: Status: Chronic (4) Stroke: Status: Chronic Comment: Most recent in March 2019; [facility] (5) Hyperlipidemia: Status: Acute (6) Gout: Status: Chronic (7) Diabetes mellitus, type II: Status: Chronic (8) Hypothyroidism (acquired): Status: Acute (9) Atrial fibrillation: Status: Acute (10) Breast cancer: Status: Acute (11) On home O2: Status: Acute Narrative A/P Narrative: Assessment and Plans: 1. T2DM with hypoglycemia: Inpatient med surg telemetry Hold any oral hypoglycemics such as glipizide Accu Chek AC HS Lispro SSI AC HS Hypoglycemia protocol Renal/Diabetic diet Diabetic education 2. h/o breast cancer: Continue to follow up outpatient oncology Oxycodone 5mg PO q6hr PRN pain 3. ESRD on peritoneal dialysis: Consult Dr. Pleitez for peritoneal dialysis needs Hemodialysis as per Dr. Pleitez 4. Essential hypertension: d/c Clonidine d/c PO Hydralazine d/c Lisinopril d/c Torsemide Resume Metoprolol ER Hydralazine 10mg IV q4-6 hr PRN SBP>=180 and/or DBP>=110mmHg 5. Dyslipidemia: Continue statin therapy 6. c/o NSTEMI s/p PCI with drug eluting stent: Aspirin Ticagrelor Statin 7. Hypothyroidism: Continue thyroid replacement therapy 8. h/o Gout: Allopurinol 9. h/o CVA: On anticoagulation therapy Coumadin; Daily INR for Coumadin dosing 10. h/o atrial fibrillation: Resume Metoprolol ER On anticoagulation therapy Coumadin, with daily INR for dosing Will have care conference tomorrow regarding prognosis and goal of care GI ppx: Famotidine DVT ppx: Coumadin Code status: DNI Prognosis: Poor Disposition: Inpatient PCU; SNF Time Spent With Patient Time: Total time spent is greater than 50% in coordination of care (as documented) at patient's floor/unit and/or counseling patient: Total time spent with greater than 50% in coordination of care (as documented) at patient's floor/unit and/or counseling patient:: 35 - 50 minutes
[2022-02-25] MEDS: ISOSORBIDE MONONITRATE 30 MG TAB.XL.24H PO SCH (22:01)
[2022-02-25] MEDS: ATORVASTATIN 40 MG TABLET PO SCH (22:01)
[2022-02-25] MEDS: traZODone HCL 50 MG TABLET PO SCH ×2 (22:01→23:53)
[2022-02-25] MEDS: ACETAMINOPHEN 325 MG TABLET PO PRN (23:54)
[2022-02-26] MEDS: morphine 2 MG/ML VIAL IV PRN ×2 (00:35→10:48)
[2022-02-26] MEDS ORDERED: morphine 2 MG/ML VIAL ONE (00:42)
[2022-02-26] MEDS: 0.9 % SODIUM CHLORIDE 10 ML SYRINGE IV SCH ×2 (04:47→12:05)
--- NOTE | 2022-02-26 07:11 | Nephrology Progress Note ---
SUBJECTIVE Subjective Patient information: Note initiated : 02/26/22 at 7:08 am Patient: Dania Nesbitt 76 y/o F admitted on 02/20/22 for Hypoglycemia, dialysis. Chief Complaint: Weakness Pertinent ROS: Weakness Diffuse pain Confusion and restlessness episodes during dialysis Constitutional Vitals: Vital Signs Temp Pulse Resp BP Pulse Ox O2 Del Method O2 Flow Rate 97.2 F 82 16 119/62 96 2 02/25/22 23:05 02/26/22 04:49 02/26/22 04:49 02/25/22 23:05 02/26/22 04:49 02/26/22 04:49 02/26/22 04:49 Period Temp Pulse Resp BP Sys/Garza Pulse Ox O2 Del Method O2 Flow Rate Last 24 Hr 96.3 F-97.6 F 60-100 16-18 80-173/41-154 94-100 Nasal Cannula- Room Air 2-2 Intake and Output 02/25/22 02/26/22 02/26/22 21:59 05:59 13:59 Intake Total 50 Output Total 1999 100 Balance -1999 -50 Weight 163 lb 14.4 oz Intake & Output: Intake & Output 02/25/22 02/26/22 02/26/22 21:59 05:59 13:59 Intake Total 50 Output Total 1999 100 Balance -1999 -50 Weight 163 lb 14.4 oz Intake: Oral 50 Output: Urine Catheter Amount 100 Hemodialysis UF 2000 Other: Meal Breakfast Percent of Meal Consumed 100% Urine Appearance Clear Uretheral (Sanchez) Clear Urine Color Dark Yellow Uretheral (Sanchez) Dark Yellow General appearance: cooperative and no acute distress Head Head exam: Present normal inspection Eye Eye exam: Present normal appearance ENT ENT exam: Present mucous membranes moist Respiratory Respiratory exam: Absent respiratory distress Cardiovascular Cardiovascular exam: Present normal rate and rhythm GI/Abdominal GI/Abdominal exam: Present soft; Absent tenderness Extremities Exam Extremities exam: Absent joint swelling or pedal edema Neurological Exam Neurological exam: Present alert and oriented X3 Psychiatric Psychiatric exam: Present normal affect and normal mood Skin Skin exam: Present warm; Absent rash A/P Assessment and plan (1) ESRD on peritoneal dialysis: Assessment and plan: She has end stage renal disease on peritoneal dialysis, breast cancer (not treated due to heart disease), recent nonSTEMI s/p stents, hypertension, history of CVAs. She presented to [facility] ED for confusion and found to have hypoglycemia. She was in ED previously for bilateral hip pain and was given opioids. Her labs were otherwise significant for AST 214, ALT 285, Sodium 135, Potassium 4.2. She had a CT of head and CT abdomen and pelvis. Reports are not available. She received D10W until arrival here. End stage renal disease on peritoneal dialysis. Left arm AV fistula with thrill. Chronic anemia due to ESRD. Fluid overload, improved. Hypotension and bradycardia, resolved. Weakness. Diffuse pain. PROGRESS Hypotension and bradycardia, improved. Fluid overload: I/O: -10L since admit. Dialysis: [facility] on 02/20/22: 2.5%, 1,800 ml, 4 exchanges for 8 hours. [facility] on 02/21/22: 2.5%, 1,800 ml, 4 exchanges for 8 hours. [facility] on 02/22/22: 2.5%, 1,800 ml, 4 exchanges, interrupted with alarms and treatment terminated early. HD on 02/22/22: 4 hours with 4 kg UF (<13 ml/kg/hour). HD (PUF) on 02/23/22: 3 hours with 3 kg UF (<13 ml/kg/hour). HD on 02/24/22: 3 hours with 2.8 kg UF (<13 ml/kg/hour). HD on 02/25/22: 3 hours with 2.0 kg UF (<13 ml/kg/hour). PLAN Renal diet with sodium and fluid restriction. Family care conference for further plans today. SNF discharge with outpatient HD is considered. Status: Chronic Time Spent With Patient Time: Total time spent is greater than 50% in coordination of care (as documented) at patient's floor/unit and/or counseling patient:
[2022-02-26 07:20] LABS: Basophils # (Auto) 0.05 K/mcL (0.00-0.30); Basophils % (Auto) 0.3 % (0.0-2.0); Eosinophils # (Auto) 0.06 K/mcL (0.00-0.70); Eosinophils % (Auto) 0.4 % (0.0-7.0); Hematocrit 29.8 % (34.1-44.9); Hemoglobin 9.7 g/dL (11.2-15.7); Lymphocytes # (Auto) 0.91 K/mcL (1.50-4.80); Lymphocytes % (Auto) 6.3 % (15.5-49.0); Mean Corpuscular HGB Conc 32.6 g/dL (31.0-36.0); Monocytes # (Auto) 1.15 K/mcL (0.10-0.90); Neutrophils % (Auto) 84.5 % (38.0-78.0); Platelet Count 48 K/mcL (140-440); RBC 3.31 M/mcL (3.59-5.38); Red Cell Distribution Width 17.4 % (11.5-14.5); WBC 14.5 K/mcL (4.5-11.0)
[2022-02-26] MEDS: INSULIN LISPRO 1 UNIT/0.01 ML UNIT SQ SCH (07:33)
[2022-02-26 07:46] LABS: INR 2.4 (0.9-1.1); Prothrombin Time 26.6 sec (11.9-14.5)
[2022-02-26] MEDS: FAMOTIDINE 20 MG TABLET PO SCH (08:06)
[2022-02-26] MEDS: CYCLOBENZAPRINE 10 MG TABLET PO PRN ×2 (08:06→18:59)
[2022-02-26] MEDS: DOCUSATE SODIUM 100 MG CAPSULE PO SCH (08:06)
[2022-02-26] MEDS: ALLOPURINOL 100 MG TABLET PO SCH (08:06)
[2022-02-26] MEDS: oxyCODONE HCL 5 MG TABLET PO PRN ×2 (08:07→19:00)
[2022-02-26] MEDS: LEVOTHYROXINE 25 MCG TABLET PO SCH (08:08)
[2022-02-26] MEDS: ASPIRIN 81 MG TAB.CHEW PO SCH (08:08)
[2022-02-26] MEDS: LEVOTHYROXINE SODIUM 112 MCG TABLET PO SCH (08:08)
[2022-02-26] MEDS: GENTAMICIN CRM 0.1% TUBE 15GM TOPICAL SCH (08:09)
[2022-02-26] MEDS: VITAMIN D3 125 MCG TABLET PO SCH (08:10)
[2022-02-26] MEDS: METOPROLOL SUCCINATE 50 MG TAB.XL.24H PO SCH (08:10)
[2022-02-26 08:17] LABS: ALT/SGPT 46 U/L (<40); AST/SGOT 50 U/L (<32); Albumin 1.6 gm/dL (3.2-5.2); Albumin/Globulin Ratio 0.5 (1.0-2.3); Alkaline Phosphatase 126 U/L (39-117); Bilirubin,Total 1.2 mg/dL (0.1-1.0); Blood Urea Nitrogen 23 mg/dL (8-23); Carbon Dioxide 28 mmol/L (22-30); Chloride 95 mmol/L (96-108); Globulin 3.5 gm/dL (2.2-3.7); Glomerular Filtration Rate 16; Glucose 76 mg/dL (70-105)
[2022-02-26] MEDS ORDERED: LACTOPEROXI/GLUC OXID/POT THIO 1 EACH GEL..EA. TOPICAL PRN (10:45)
[2022-02-26] MEDS ORDERED: ONDANSETRON 4 MG ODT TABLET SL PRN (10:45)
[2022-02-26] MEDS ORDERED: morphine 4 MG/ML VIAL NEB PRN (10:45)
[2022-02-26] MEDS ORDERED: morphine 4 MG/ML VIAL IV PRN (10:45)
[2022-02-26] MEDS ORDERED: LORazepam 2 MG/ML VIAL IV PRN ×2 (10:45→20:42)
--- NOTE | 2022-02-26 10:51 | Internal Med Progress Note ---
SUBJECTIVE Subjective Patient information: Note initiated : 02/26/22 at 10:49 am Service Date, if different from initiated Date: [] Patient: Dania Nesbitt a 76 y/o F admitted on 02/20/22 for Hypoglycemia, dialysis. Chief Complaint: [] Interval history: Ms. Nesbitt is a 76 year old F history of breast cancer, type 2 diabetes mellitus, end-stage renal disease on peritoneal dialysis, essential hypertensions, mixed dyslipidemia, CAD status post PCI with drug-eluting stents, CVA, gout, hypothyroidism, atrial fibrillation, presenting with lethargy and syncope. Patient is on glipizide and her is helping her to manage the medications. She was found to be extremely lethargic and syncope/near syncope by day of . EMS recall and blood glucose level was checked at the scene in the 20s. D50 X2 were given in route to the outside ER, where she was being started on D10 drip. Repeat blood sugar level was 120s, D10 drip started. Transfer request called for peritoneal dialysis capacity in our facility. Research Worker Kitchen Dr. Pleitez consulted for peritoneal dialysis needs. 02/21: Another episode of hypoglycemia with blood sugar 63 this morning around 830. INR 1.4. Status post peritoneal dialysis overnight. Patient is coming of general weakness at baseline. She denies any syncope or near syncope. She denies any chest pain or shortness of breath. She is complaining of 10 out of 10 bilateral lower extremity sharp pain. Keep Accu-Chek Q4 and low-dose sign scale insulin every 4. Renal/CC diet. Dr. Pleitez. will switch patients to hemodialysis starting tomorrow on Tuesday, February 22, 2022. Pending physical therapy and Occupational Therapy evaluation and treatments for placement purposes. 02/22: Fasting blood sugar level 135 this morning. No reported hypoglycemic episode overnight. Status post peritoneal dialysis last night. Pending hemodialysis today. INR 1.6 this morning. Patient is coming of general weakness at baseline. She denies any syncope or near syncope. She denies any chest pain or shortness of breath. She is complaining of mild bilateral lower extremity sharp pain. Keep Accu-Chek Q4 and low-dose sign scale insulin every 4. Renal/CC diet. Pending hemodialysis today. Pending physical therapy and Occupational Therapy evaluation and treatments for placement purposes. 02/23: Blood sugar was as low as 73 yesterday afternoon at 4 PM. INR 1.8 this morning. Status post last long of his peritoneal dialysis yesterday night as well as first round of hemodialysis yesterday during the day. Patient is about to receive second round of hemodialysis this afternoon. She is complaining of bilateral leg pains. Denies any abdominal pain. Denies any nausea or vomiting. Tolerating oral intake fine. Keep Accu-Chek Q4 and low-dose sign scale insulin every 4. Renal/CC diet. Continue hemodialysis as per Dr. Pleitez. Pending physical therapy and Occupational Therapy evaluation and treatments for placement planning. 02/24: Fasting glucose 84, no hypoglycemia episode over the past 24 hours. s/p hemodialysis on 02/22 and 02/23. She is complaining of bilateral leg cramping pains. Denies any abdominal pain. Denies any nausea or vomiting. Tolerating oral intake fine. Transfer to [facility] telemetry. Accu Chek and low-dose sign scale insulin AC HS. Renal/CC diet. Continue hemodialysis as per Dr. Pleitez. Pending SNF placement tomorrow 02/25. 02/25: Head CT and hip x-ray as well as bilateral lower extremity ultrasound does not show any acute pathologies. No fracture or joint dislocations. No abscess seen. No sign of stroke or skull fractures. Fasting sugar 86 this morning with no hypoglycemia episode overnight. Patient is currently being hemodialyzed and she does not have any complaint at the moment. Continue hemodialysis today. Accu Chek and low-dose sign scale insulin AC HS. we will arrange for care conference tomorrow regarding prognosis and goals of care for discharge placement planning. 02/26: Had a care conference with the family and the rest of the team regarding prognosis and goals of care. Family chose to go with palliative care comfort care only. We will start working on placement and will touch base with the family and keep them updated. We will stop dialysis and order necessary labs and medications at this point and will only do medication to keep the patient as comfortable as possible. Constitutional Vitals: Vital Signs Temp Pulse Resp BP Pulse Ox O2 Del Method O2 Flow Rate 37.3 C H 82 20 106/51 94 2 02/26/22 07:54 02/26/22 04:49 02/26/22 07:54 02/26/22 07:54 02/26/22 07:54 02/26/22 07:54 02/26/22 04:49 Period Temp Pulse Resp BP Sys/Garza Pulse Ox O2 Del Method O2 Flow Rate Last 24 Hr 35.7 C-37.3 C 60-100 16-20 80-173/41-154 94-99 Nasal Cannula- Room Air 2-2 Intake and Output 02/25/22 02/26/22 02/26/22 21:59 05:59 13:59 Intake Total 50 Output Total 1999 100 Balance -1999 Weight 74.344 kg Intake & Output: Intake & Output 02/25/22 02/26/22 02/26/22 21:59 05:59 13:59 Intake Total 50 Output Total 1999 100 Balance -1999 Weight 74.344 kg Intake: Oral 50 Output: Urine Catheter Amount 100 Hemodialysis UF 1999 Other: Meal Breakfast Percent of Meal Consumed 100% Urine Appearance Clear Uretheral (Sanchez) Clear Urine Color Dark Yellow Uretheral (Sanchez) Dark Yellow General appearance: average body habitus and no acute distress Head Head exam: Present atraumatic and normal inspection Eye Eye exam: Present normal appearance ENT ENT exam: Present mucous membranes moist, normal exam and normal external ear exam Neck Neck exam: Present normal inspection Respiratory Respiratory exam: Present normal respiratory exam Cardiovascular Cardiovascular exam: Present normal rate and rhythm GI/Abdominal GI/Abdominal exam: Present normal bowel sounds Back Exam Back exam: Present normal inspection Neurological Exam Neurological exam: Present altered Additional comments: Lethargic Skin Skin exam: Present intact and warm OBJ DATA Labs CBC & Chem 7: 02/26/22 05:36 02/26/22 05:36 Labs: Abnormal Lab Results 02/26/22 02/26/22 02/26/22 05:37 05:36 05:36 WBC RBC Hgb Hct RDW Plt Count MPV Immature Gran % (Auto) Neut % (Auto) Lymph % (Auto) Lymph # (Auto) [place] # (Auto) Immature Gran # Absolute Neutrophils PT 26.6 H INR 2.4 H Sodium Potassium Chloride 95 L BUN Creatinine 2.7 H Calcium 8.0 L Phosphorus 4.9 H Total Bilirubin 1.2 H AST 50 H ALT 46 H Alkaline Phosphatase 126 H Total Protein 5.1 L Albumin 1.6 L Globulin Albumin/Globulin Ratio 0.5 L 02/26/22 02/25/22 02/25/22 05:36 05:17 05:17 WBC 14.5 H RBC 3.31 L Hgb 9.7 L Hct 29.8 L RDW 17.4 H Plt Count 48 L* MPV Immature Gran % (Auto) Neut % (Auto) 84.5 H Lymph % (Auto) 6.3 L Lymph # (Auto) 0.91 L [place] # (Auto) 1.15 H Immature Gran # 0.07 H Absolute Neutrophils 12.21 H PT 29.3 H INR 2.7 H Sodium Potassium Chloride BUN Creatinine Calcium Phosphorus 5.2 H Total Bilirubin AST ALT Alkaline Phosphatase Total Protein Albumin Globulin Albumin/Globulin Ratio 02/25/22 02/25/22 02/24/22 05:17 05:17 06:06 WBC 13.3 H RBC 3.30 L Hgb 9.7 L Hct 29.7 L RDW 17.4 H Plt Count 82 L MPV 12.9 H Immature Gran % (Auto) Neut % (Auto) 82.3 H Lymph % (Auto) 6.0 L Lymph # (Auto) 0.80 L [place] # (Auto) 1.38 H Immature Gran # 0.07 H Absolute Neutrophils 10.91 H PT 25.6 H INR 2.2 H Sodium Potassium Chloride 95 L BUN 25 H Creatinine 3.4 H Calcium 8.3 L Phosphorus Total Bilirubin 1.1 H AST 54 H ALT 53 H Alkaline Phosphatase 130 H Total Protein 5.4 L Albumin 1.7 L Globulin Albumin/Globulin Ratio 0.5 L 02/24/22 02/24/22 02/24/22 06:06 06:06 06:06 WBC 13.7 H RBC Hgb Hct RDW 17.3 H Plt Count 128 L MPV Immature Gran % (Auto) 0.7 H Neut % (Auto) 83.1 H Lymph % (Auto) 6.0 L Lymph # (Auto) 0.82 L [place] # (Auto) 1.24 H Immature Gran # 0.10 H Absolute Neutrophils 11.40 H PT INR Sodium 129 L Potassium 5.3 H Chloride 95 L BUN 35 H Creatinine 4.6 H Calcium Phosphorus 6.0 H* Total Bilirubin 1.1 H AST 59 H ALT 68 H Alkaline Phosphatase 138 H Total Protein Albumin 2.0 L Globulin 4.0 H Albumin/Globulin Ratio 0.5 L Meds: Medications Acetaminophen (Acetaminophen 325 Mg Tablet) 650 mg PO Q6HP PRN; Protocol PRN Reason: Per Pain Protocol/Fever > 101 Last Admin: 02/25/22 23:54 Dose: 650 mg Albuterol/Ipratropium (Ipratropium/Albuterol 3 Ml Ampul.Neb) 3 ml NEB Q4HRT PRN PRN Reason: Wheezing Cyclobenzaprine HCl (Cyclobenzaprine 10 Mg Tablet) 5 mg PO BIDP PRN PRN Reason: Muscle Spasm Last Admin: 02/26/22 08:06 Dose: 5 mg Docusate Sodium (Docusate Sodium 100 Mg Capsule) 100 mg PO BID JIAN Famotidine (Famotidine 20 Mg Tablet) 20 mg PO QDAY [facility] [place] Last Admin: 02/26/22 08:06 Dose: 20 mg Gentamicin Sulfate (Gentamicin Crm 0.1% Tube 15gm) 1 dose TOPICAL DAILY JIAN; P rotocol Last Admin: 02/26/22 08:09 Dose: Not Given Glucose Oxid/Lactoperoxid/Muramidas (Lactoperoxi/Gluc Oxid/Pot Thio 1 Each Gel..Ea.) 1 each TOPICAL PRN PRN PRN Reason: Dry Mouth Hydromorphone HCl (Hydromorphone 1 Mg/Ml Syringe) 0.5 - 2 mg IV Q2HP PRN; Protocol PRN Reason: Per Pain Protocol Isosorbide Mononitrate (Isosorbide Mononitrate 30 Mg Tab.Xl.24h) 30 mg PO HS [facility] [place] Last Admin: 02/25/22 22:01 Dose: 30 mg Lactulose (Lactulose 20 Gm/30 Ml Oral.Shahnaz) 10 gm PO DAILYP PRN PRN Reason: Constipation Last Admin: 02/25/22 12:26 Dose: 10 gm Lidocaine (Lidocaine Patch) 1 patch TOPICAL DAILY@1000 JIAN Last Admin: 02/25/22 10:58 Dose: 1 patch Lorazepam (Lorazepam 2 Mg/Ml Vial) 0 mg IV Q1HP PRN; Protocol PRN Reason: ANXIETY/SEDATION Morphine Sulfate (Morphine 2 Mg/Ml Vial) 2 mg IV Q2HP PRN; Protocol PRN Reason: Per Pain Protocol Last Admin: 02/26/22 10:48 Dose: 2 mg Morphine Sulfate (Morphine 4 Mg/Ml Vial) 2 - 6 mg IV Q1HP PRN; Protocol PRN Reason: Per Pain Protocol Morphine Sulfate (Morphine 4 Mg/Ml Vial) 4 mg NEB Q4HP PRN PRN Reason: Shortness Of Breath Nitroglycerin (Nitroglycerin 0.4 Mg Tab.Subl) 0.4 mg SL Q5MIN JIAN Ondansetron HCl (Ondansetron 4 Mg/2 Ml Vial) 4 mg IV Q4HP PRN; Protocol PRN Reason: Nausea And Vomiting Ondansetron HCl (Ondansetron 4 Mg Odt Tablet) 4 mg SL Q4HP PRN; Protocol PRN Reason: Nausea And Vomiting Oxycodone HCl (Oxycodone Hcl 5 Mg Tablet) 5 mg PO Q4HP PRN; Protocol PRN Reason: Per Pain Protocol Last Admin: 02/26/22 08:07 Dose: 5 mg Senna (Sennosides 1 Tablet) 2 tab PO HSP PRN PRN Reason: Constipation Last Admin: 02/26/22 08:03 Dose: 2 tab Sodium Chloride (0.9 % Sodium Chloride 10 Ml Syringe) 10 ml IV Q8 JIAN Trazodone HCl (Trazodone Hcl 50 Mg Tablet) 25 mg PO HS JIAN Last Admin: 02/25/22 23:53 Dose: 25 mg A/P Assessment and plan (1) ESRD on peritoneal dialysis: Status: Chronic (2) Acute non-ST elevation myocardial infarction (NSTEMI): Status: Acute (3) Hypertension, essential: Status: Chronic (4) Stroke: Status: Chronic Comment: Most recent in March 2019; obtain records from [facility]. (5) Hyperlipidemia: Status: Acute (6) Gout: Status: Chronic (7) Diabetes mellitus, type II: Status: Chronic (8) Hypothyroidism (acquired): Status: Acute (9) Atrial fibrillation: Status: Acute (10) Breast cancer: Status: Acute (11) On home O2: Status: Acute Narrative A/P Narrative: Had a care conference with the family and the rest of the team regarding prognosis and goals of care. Family chose to go with palliative care comfort care only. We will start working on placement and will touch base with the family and keep them updated. We will stop dialysis and order necessary labs and medications at this point and will only do medication to keep the patient as comfortable as possible. Time Spent With Patient Time: Total time spent is greater than 50% in coordination of care (as documented) at patient's floor/unit and/or counseling patient: Total time spent with greater than 50% in coordination of care (as documented) at patient's floor/unit and/or counseling patient:: 25 - 35 minutes
[2022-02-26] MEDS: LIDOCAINE PATCH TOPICAL SCH (11:39)
[2022-02-26] MEDS: HYDROmorphone 1 MG/ML SYRINGE IV PRN ×3 (12:04→20:31)
[2022-02-26] MEDS ORDERED: WARFARIN 2.5 MG TABLET PO ONE (14:00)
--- NOTE | 2022-02-26 15:21 | Internal Med Progress Note ---
SUBJECTIVE Subjective Patient information: Note initiated : 02/26/22 at 3:18 pm Service Date, if different from initiated Date: [] Patient: Dania Nesbitt a 76 y/o F admitted on 02/20/22 for Hypoglycemia, dialysis. Chief Complaint: [] Interval history: Ms. Nesbitt is a 76 year old F history of breast cancer, type 2 diabetes mellitus, end-stage renal disease on peritoneal dialysis, essential hypertensions, mixed dyslipidemia, CAD status post PCI with drug-eluting stents, CVA, gout, hypothyroidism, atrial fibrillation, presenting with lethargy and syncope. Patient is on glipizide and her is helping her to manage the medications. She was found to be extremely lethargic and syncope/near syncope by day of . EMS recall and blood glucose level was checked at the scene in the 20s. D50 X2 were given in route to the outside ER, where she was being started on D10 drip. Repeat blood sugar level was 120s, D10 drip started. Transfer request called for peritoneal dialysis capacity in our facility. Mobility Architect Manager Dr. Pleitez consulted for peritoneal dialysis needs. 02/21: Another episode of hypoglycemia with blood sugar 63 this morning around 830. INR 1.4. Status post peritoneal dialysis overnight. Patient is coming of general weakness at baseline. She denies any syncope or near syncope. She denies any chest pain or shortness of breath. She is complaining of 10 out of 10 bilateral lower extremity sharp pain. Keep Accu-Chek Q4 and low-dose sign scale insulin every 4. Renal/CC diet. Dr. Pleitez. will switch patients to hemodialysis starting tomorrow on Tuesday, February 22, 2022. Pending physical therapy and Occupational Therapy evaluation and treatments for placement purposes. 02/22: Fasting blood sugar level 135 this morning. No reported hypoglycemic episode overnight. Status post peritoneal dialysis last night. Pending hemodialysis today. INR 1.6 this morning. Patient is coming of general weakness at baseline. She denies any syncope or near syncope. She denies any chest pain or shortness of breath. She is complaining of mild bilateral lower extremity sharp pain. Keep Accu-Chek Q4 and low-dose sign scale insulin every 4. Renal/CC diet. Pending hemodialysis today. Pending physical therapy and Occupational Therapy evaluation and treatments for placement purposes. 02/23: Blood sugar was as low as 73 yesterday afternoon at 4 PM. INR 1.8 this morning. Status post last long of his peritoneal dialysis yesterday night as well as first round of hemodialysis yesterday during the day. Patient is about to receive second round of hemodialysis this afternoon. She is complaining of bilateral leg pains. Denies any abdominal pain. Denies any nausea or vomiting. Tolerating oral intake fine. Keep Accu-Chek Q4 and low-dose sign scale insulin every 4. Renal/CC diet. Continue hemodialysis as per Dr. Pleitez. Pending physical therapy and Occupational Therapy evaluation and treatments for placement planning. 02/24: Fasting glucose 84, no hypoglycemia episode over the past 24 hours. s/p hemodialysis on 02/22 and 02/23. She is complaining of bilateral leg cramping pains. Denies any abdominal pain. Denies any nausea or vomiting. Tolerating oral intake fine. Transfer to [facility] telemetry. Accu Chek and low-dose sign scale insulin AC HS. Renal/CC diet. Continue hemodialysis as per Dr. Pleitez. Pending SNF placement tomorrow 02/25. 02/25: Head CT and hip x-ray as well as bilateral lower extremity ultrasound does not show any acute pathologies. No fracture or joint dislocations. No abscess seen. No sign of stroke or skull fractures. Fasting sugar 86 this morning with no hypoglycemia episode overnight. Patient is currently being hemodialyzed and she does not have any complaint at the moment. Continue hemodialysis today. Accu Chek and low-dose sign scale insulin AC HS. we will arrange for care conference tomorrow regarding prognosis and goals of care for discharge placement planning. 02/26: Had a care conference with the family and the rest of the team regarding prognosis and goals of care. Family chose to go with palliative care comfort care only. We will start working on placement and will touch base with the family and keep them updated. We will stop dialysis and order necessary labs and medications at this point and will only do medication to keep the patient as comfortable as possible. 02/27 Constitutional Vitals: Vital Signs Temp Pulse Resp BP Pulse Ox O2 Del Method O2 Flow Rate 98.7 F 82 16 104/61 98 2 02/26/22 12:22 02/26/22 04:49 02/26/22 12:02/26/22 12:02/26/22 12:22 02/26/22 12:22 02/26/22 04:49 Period Temp Pulse Resp BP Sys/Garza Pulse Ox O2 Del Method O2 Flow Rate Last 24 Hr 96.3 F-99.2 F 75-88 16-20 80-126/41-62 94-99 Nasal Cannula- Room Air 2-2 Intake and Output 02/26/22 02/26/22 02/26/22 05:59 13:59 21:59 Intake Total 50 Output Total 100 Balance -50 Intake & Output: Intake & Output 02/26/22 02/26/22 02/26/22 05:59 13:59 21:59 Intake Total 50 Output Total 100 Balance -50 Intake: Oral 50 Output: Urine Catheter Amount 100 Other: Urine Appearance Clear Urine Color Dark Yellow Exam: General: Alert, Awake, No acute Distress Eyes/N/T: EOMI, Head/Neck: neck supple, CV: RRR, No murmurs, Pulm: Clear b/l, no wheezing/rhonchi/rales Abd: soft, nontender, +BS x4 Ext: no clubbing/cyanosis/edema Neuro: Alert, no focal deficits, moves all extremities, Skin: warm/dry OBJ DATA Labs CBC & Chem 7: 02/26/22 05:36 02/26/22 05:36 Labs: Abnormal Lab Results 02/26/22 02/26/22 02/26/22 05:37 05:36 05:36 WBC RBC Hgb Hct RDW Plt Count MPV Immature Gran % (Auto) Neut % (Auto) Lymph % (Auto) Lymph # (Auto) [place] # (Auto) Immature Gran # Absolute Neutrophils PT 26.6 H INR 2.4 H Sodium Potassium Chloride 95 L BUN Creatinine 2.7 H Calcium 8.0 L Phosphorus 4.9 H Total Bilirubin 1.2 H AST 50 H ALT 46 H Alkaline Phosphatase 126 H Total Protein 5.1 L Albumin 1.6 L Globulin Albumin/Globulin Ratio 0.5 L 02/26/22 02/25/22 02/25/22 05:36 05:17 05:17 WBC 14.5 H RBC 3.31 L Hgb 9.7 L Hct 29.8 L RDW 17.4 H Plt Count 48 L* MPV Immature Gran % (Auto) Neut % (Auto) 84.5 H Lymph % (Auto) 6.3 L Lymph # (Auto) 0.91 L [place] # (Auto) 1.15 H Immature Gran # 0.07 H Absolute Neutrophils 12.21 H PT 29.3 H INR 2.7 H Sodium Potassium Chloride BUN Creatinine Calcium Phosphorus 5.2 H Total Bilirubin AST ALT Alkaline Phosphatase Total Protein Albumin Globulin Albumin/Globulin Ratio 02/25/22 02/25/22 02/24/22 05:17 05:17 06:06 WBC 13.3 H RBC 3.30 L Hgb 9.7 L Hct 29.7 L RDW 17.4 H Plt Count 82 L MPV 12.9 H Immature Gran % (Auto) Neut % (Auto) 82.3 H Lymph % (Auto) 6.0 L Lymph # (Auto) 0.80 L [place] # (Auto) 1.38 H Immature Gran # 0.07 H Absolute Neutrophils 10.91 H PT 25.6 H INR 2.2 H Sodium Potassium Chloride 95 L BUN 25 H Creatinine 3.4 H Calcium 8.3 L Phosphorus Total Bilirubin 1.1 H AST 54 H ALT 53 H Alkaline Phosphatase 130 H Total Protein 5.4 L Albumin 1.7 L Globulin Albumin/Globulin Ratio 0.5 L 02/24/22 02/24/22 02/24/22 06:06 06:06 06:06 WBC 13.7 H RBC Hgb Hct RDW 17.3 H Plt Count 128 L MPV Immature Gran % (Auto) 0.7 H Neut % (Auto) 83.1 H Lymph % (Auto) 6.0 L Lymph # (Auto) 0.82 L [place] # (Auto) 1.24 H Immature Gran # 0.10 H Absolute Neutrophils 11.40 H PT INR Sodium 129 L Potassium 5.3 H Chloride 95 L BUN 35 H Creatinine 4.6 H Calcium Phosphorus 6.0 H* Total Bilirubin 1.1 H AST 59 H ALT 68 H Alkaline Phosphatase 138 H Total Protein Albumin 2.0 L Globulin 4.0 H Albumin/Globulin Ratio 0.5 L Meds: Medications Acetaminophen (Acetaminophen 325 Mg Tablet) 650 mg PO Q6HP PRN; Protocol PRN Reason: Per Pain Protocol/Fever > 101 Last Admin: 02/25/22 23:54 Dose: 650 mg Albuterol/Ipratropium (Ipratropium/Albuterol 3 Ml Ampul.Neb) 3 ml NEB Q4HRT PRN PRN Reason: Wheezing Cyclobenzaprine HCl (Cyclobenzaprine 10 Mg Tablet) 5 mg PO BIDP PRN PRN Reason: Muscle Spasm Last Admin: 02/26/22 08:06 Dose: 5 mg Docusate Sodium (Docusate Sodium 100 Mg Capsule) 100 mg PO BID JIAN Famotidine (Famotidine 20 Mg Tablet) 20 mg PO QDAY [facility] Last Admin: 02/26/22 08:06 Dose: 20 mg Gentamicin Sulfate (Gentamicin Crm 0.1% Tube 15gm) 1 dose TOPICAL DAILY JIAN; Protocol Last Admin: 02/26/22 08:09 Dose: Not Given Glucose Oxid/Lactoperoxid/Muramidas (Lactoperoxi/Gluc Oxid/Pot Thio 1 Each Gel..Ea.) 1 each TOPICAL PRN PRN PRN Reason: Dry Mouth Hydromorphone HCl (Hydromorphone 1 Mg/Ml Syringe) 0.5 - 2 mg IV Q2HP PRN; Pr otocol PRN Reason: Per Pain Protocol Last Admin: 02/26/22 14:57 Dose: 1 mg Isosorbide Mononitrate (Isosorbide Mononitrate 30 Mg Tab.Xl.24h) 30 mg PO HS [facility] Last Admin: 02/25/22 22:01 Dose: 30 mg Lactulose (Lactulose 20 Gm/30 Ml Oral.Shahnaz) 10 gm PO DAILYP PRN PRN Reason: Constipation Last Admin: 02/25/22 12:26 Dose: 10 gm Lidocaine (Lidocaine Patch) 1 patch TOPICAL DAILY@1000 JIAN Last Admin: 02/26/22 11:39 Dose: 1 patch Lorazepam (Lorazepam 2 Mg/Ml Vial) 0 mg IV Q1HP PRN; Protocol PRN Reason: ANXIETY/SEDATION Morphine Sulfate (Morphine 4 Mg/Ml Vial) 2 - 6 mg IV Q1HP PRN; Protocol PRN Reason: Per Pain Protocol Morphine Sulfate (Morphine 4 Mg/Ml Vial) 4 mg NEB Q4HP PRN PRN Reason: Shortness Of Breath Nitroglycerin (Nitroglycerin 0.4 Mg Tab.Subl) 0.4 mg SL Q5MIN [facility] Ondansetron HCl (Ondansetron 4 Mg/2 Ml Vial) 4 mg IV Q4HP PRN; Protocol PRN Reason: Nausea And Vomiting Ondansetron HCl (Ondansetron 4 Mg Odt Tablet) 4 mg SL Q4HP PRN; Protocol PRN Reason: Nausea And Vomiting Oxycodone HCl (Oxycodone Hcl 5 Mg Tablet) 5 mg PO Q4HP PRN; Protocol PRN Reason: Per Pain Protocol Last Admin: 02/26/22 08:07 Dose: 5 mg Senna (Sennosides 1 Tablet) 2 tab PO HSP PRN PRN Reason: Constipation Last Admin: 02/26/22 08:03 Dose: 2 tab Sodium Chloride (0.9 % Sodium Chloride 10 Ml Syringe) 10 ml IV Q8 JIAN Last Admin: 02/26/22 12:05 Dose: 10 ml Trazodone HCl (Trazodone Hcl 50 Mg Tablet) 25 mg PO HS [facility] Last Admin: 02/25/22 23:53 Dose: 25 mg A/P Narrative A/P Narrative: A: * T2DM with hypoglycemia: *h/o breast cancer: *ESRD on peritoneal dialysis: *Essential hypertension: * Dyslipidemia: *h/o NSTEMI s/p PCI with drug eluting stent: *Hypothyroidism: *h/o Gout: *h/o CVA: *h/o atrial fibrillation: P: -Comfort care only -Patient family support Time Spent With Patient Time: Total time spent is greater than 50% in coordination of care (as documented) at patient's floor/unit and/or counseling patient:
[2022-02-26] MEDS: ACETAMINOPHEN 325 MG TABLET PO PRN (19:00)
[2022-02-26] MEDS ORDERED: DOCUSATE SODIUM 100 MG CAPSULE PO SCH (21:00)
[2022-02-27] MEDS: ISOSORBIDE MONONITRATE 30 MG TAB.XL.24H PO SCH (00:13)
[2022-02-27] MEDS: traZODone HCL 50 MG TABLET PO SCH (00:13)
[2022-02-27] MEDS: 0.9 % SODIUM CHLORIDE 10 ML SYRINGE IV SCH ×2 (00:14)
[2022-02-27] MEDS: HYDROmorphone 1 MG/ML SYRINGE IV PRN (00:15)
--- NOTE | 2022-02-27 08:47 | Internal Med Progress Note ---
SUBJECTIVE Subjective Patient information: Note initiated : 02/27/22 at 8:47 am Service Date, if different from initiated Date: [] Patient: Dania Nsebitt a 76 y/o F admitted on 02/20/22 for Hypoglycemia, dialysis. Chief Complaint: [] Interval history: Ms. Nesbitt is a 76 year old F history of breast cancer, type 2 diabetes mellitus, end-stage renal disease on peritoneal dialysis, essential hypertensions, mixed dyslipidemia, CAD status post PCI with drug-eluting stents, CVA, gout, hypothyroidism, atrial fibrillation, presenting with lethargy and syncope. Patient is on glipizide and her is helping her to manage the medications. She was found to be extremely lethargic and syncope/near syncope by day of . EMS recall and blood glucose level was checked at the scene in the 20s. D50 X2 were given in route to the outside ER, where she was being started on D10 drip. Repeat blood sugar level was 120s, D10 drip started. Transfer request called for peritoneal dialysis capacity in our facility. Injection Operator Dr. Pleitez consulted for peritoneal dialysis needs. 02/21: Another episode of hypoglycemia with blood sugar 63 this morning around 830. INR 1.4. Status post peritoneal dialysis overnight. Patient is coming of general weakness at baseline. She denies any syncope or near syncope. She denies any chest pain or shortness of breath. She is complaining of 10 out of 10 bilateral lower extremity sharp pain. Keep Accu-Chek Q4 and low-dose sign scale insulin every 4. Renal/CC diet. Dr. Pleitez. will switch patients to hemodialysis starting tomorrow on Tuesday, February 22, 2022. Pending physical therapy and Occupational Therapy evaluation and treatments for placement purposes. 02/22: Fasting blood sugar level 135 this morning. No reported hypoglycemic episode overnight. Status post peritoneal dialysis last night. Pending hemodialysis today. INR 1.6 this morning. Patient is coming of general weakness at baseline. She denies any syncope or near syncope. She denies any chest pain or shortness of breath. She is complaining of mild bilateral lower extremity sharp pain. Keep Accu-Chek Q4 and low-dose sign scale insulin every 4. Renal/CC diet. Pending hemodialysis today. Pending physical therapy and Occupational Therapy evaluation and treatments for placement purposes. 02/23: Blood sugar was as low as 73 yesterday afternoon at 4 PM. INR 1.8 this morning. Status post last long of his peritoneal dialysis yesterday night as well as first round of hemodialysis yesterday during the day. Patient is about to receive second round of hemodialysis this afternoon. She is complaining of bilateral leg pains. Denies any abdominal pain. Denies any nausea or vomiting. Tolerating oral intake fine. Keep Accu-Chek Q4 and low-dose sign scale insulin every 4. Renal/CC diet. Continue hemodialysis as per Dr. Pleitez. Pending physical therapy and Occupational Therapy evaluation and treatments for placement planning. 02/24: Fasting glucose 84, no hypoglycemia episode over the past 24 hours. s/p hemodialysis on 02/22 and 02/23. She is complaining of bilateral leg cramping pains. Denies any abdominal pain. Denies any nausea or vomiting. Tolerating oral intake fine. Transfer to [facility] telemetry. Accu Chek and low-dose sign scale insulin AC HS. Renal/CC diet. Continue hemodialysis as per Dr. Pleitez. Pending SNF placement tomorrow 02/25. 02/25: Head CT and hip x-ray as well as bilateral lower extremity ultrasound does not show any acute pathologies. No fracture or joint dislocations. No abscess seen. No sign of stroke or skull fractures. Fasting sugar 86 this morning with no hypoglycemia episode overnight. Patient is currently being hemodialyzed and she does not have any complaint at the moment. Continue hemodialysis today. Accu Chek and low-dose sign scale insulin AC HS. we will arrange for care conference tomorrow regarding prognosis and goals of care for discharge placement planning. 02/26: Had a care conference with the family and the rest of the team regarding prognosis and goals of care. Family chose to go with palliative care comfort care only. We will start working on placement and will touch base with the family and keep them updated. We will stop dialysis and order necessary labs and medications at this point and will only do medication to keep the patient as comfortable as possible. 02/27 Constitutional Vitals: Vital Signs Temp Pulse Resp BP Pulse Ox O2 Del Method O2 Flow Rate 98.2 F 83 20 104/61 98 2 02/26/22 19:24 02/26/22 19:24 02/26/22 19:02/26/22 12:02/26/22 20:00 02/26/22 20:00 02/26/22 20:00 Period Temp Pulse Resp BP Sys/Garza Pulse Ox O2 Del Method O2 Flow Rate Last 24 Hr 98.2 F-98.7 F 83 16-20 104/61 98-98 Nasal Cannula-Room Air 2- 2 Intake & Output: Intake & Output 02/26/22 02/27/22 02/27/22 21:59 05:59 13:59 Other: Meal Lunch Percent of Meal Consumed Refused Urine Appearance Uretheral (Sanchez) Clear Urine Color Uretheral (Sanchez) Yellow Exam: General: Alert, Awake, No acute Distress Eyes/N/T: EOMI, Head/Neck: neck supple, CV: RRR, No murmurs, Pulm: Clear b/l, no wheezing/rhonchi/rales Abd: soft, nontender, +BS x4 Ext: no clubbing/cyanosis/edema Neuro: Alert, no focal deficits, moves all extremities, Skin: warm/dry OBJ DATA Labs CBC & Chem 7: 02/26/22 05:36 02/26/22 05:36 Labs: Abnormal Lab Results 02/26/22 02/26/22 02/26/22 05:37 05:36 05:36 WBC RBC Hgb Hct RDW Plt Count MPV Neut % (Auto) Lymph % (Auto) Lymph # (Auto) Ritchie # (Auto) Immature Gran # Absolute Neutrophils PT 26.6 H INR 2.4 H Chloride 95 L BUN Creatinine 2.7 H Calcium 8.0 L Phosphorus 4.9 H Total Bilirubin 1.2 H AST 50 H ALT 46 H Alkaline Phosphatase 126 H Total Protein 5.1 L Albumin 1.6 L Albumin/Globulin Ratio 0.5 L 02/26/22 02/25/22 02/25/22 05:36 05:17 05:17 WBC 14.5 H RBC 3.31 L Hgb 9.7 L Hct 29.8 L RDW 17.4 H Plt Count 48 L* MPV Neut % (Auto) 84.5 H Lymph % (Auto) 6.3 L Lymph # (Auto) 0.91 L Ritchie # (Auto) 1.15 H Immature Gran # 0.07 H Absolute Neutrophils 12.21 H PT 29.3 H INR 2.7 H Chloride BUN Creatinine Calcium Phosphorus 5.2 H Total Bilirubin AST ALT Alkaline Phosphatase Total Protein Albumin Albumin/Globulin Ratio 02/25/22 02/25/22 05:17 05:17 WBC 13.3 H RBC 3.30 L Hgb 9.7 L Hct 29.7 L RDW 17.4 H Plt Count 82 L MPV 12.9 H Neut % (Auto) 82.3 H Lymph % (Auto) 6.0 L Lymph # (Auto) 0.80 L Ritchie # (Auto) 1.38 H Immature Gran # 0.07 H Absolute Neutrophils 10.91 H PT INR Chloride 95 L BUN 25 H Creatinine 3.4 H Calcium 8.3 L Phosphorus Total Bilirubin 1.1 H AST 54 H ALT 53 H Alkaline Phosphatase 130 H Total Protein 5.4 L Albumin 1.7 L Albumin/Globulin Ratio 0.5 L Meds: Medications Acetaminophen (Acetaminophen 325 Mg Tablet) 650 mg PO Q6HP PRN; Protocol PRN Reason: Per Pain Protocol/Fever > 101 Last Admin: 02/26/22 19:00 Dose: 650 mg Albuterol/Ipratropium (Ipratropium/Albuterol 3 Ml Ampul.Neb) 3 ml NEB Q4HRT PRN PRN Reason: Wheezing Cyclobenzaprine HCl (Cyclobenzaprine 10 Mg Tablet) 5 mg PO BIDP PRN PRN Reason: Muscle Spasm Last Admin: 02/26/22 18:59 Dose: 5 mg Docusate Sodium (Docusate Sodium 100 Mg Capsule) 100 mg PO BID [facility] Last Admin: 02/27/22 00:13 Dose: Not Given Famotidine (Famotidine 20 Mg Tablet) 20 mg PO QDAY [facility] Last Admin: 02/26/22 08:06 Dose: 20 mg Gentamicin Sulfate (Gentamicin Crm 0.1% Tube 15gm) 1 dose TOPICAL DAILY [facility]; Protocol Last Admin: 02/26/22 08:09 Dose: Not Given Glucose Oxid/Lactoperoxid/Muramidas (Lactoperoxi/Gluc Oxid/Pot Thio 1 Each Gel..Ea.) 1 each TOPICAL PRN PRN PRN Reason: Dry Mouth Hydromorphone HCl (Hydromorphone 1 Mg/Ml Syringe) 0.5 - 2 mg IV Q2HP PRN; Protocol PRN Reason: Per Pain Protocol Last Admin: 02/27/22 00:15 Dose: 1 mg Isosorbide Mononitrate (Isosorbide Mononitrate 30 Mg Tab.Xl.24h) 30 mg PO [facility] Last Admin: 02/27/22 00:13 Dose: Not Given Lactulose (Lactulose 20 Gm/30 Ml Oral.Shahnaz) 10 gm PO DAILYP PRN PRN Reason: Constipation Last Admin: 02/25/22 12:26 Dose: 10 gm Lidocaine (Lidocaine Patch) 1 patch TOPICAL DAILY@1000 JIAN Last Admin: 02/26/22 11:39 Dose: 1 patch Lorazepam (Lorazepam 2 Mg/Ml Vial) 2 mg IV Q2HP PRN PRN Reason: ANXIETY/SEDATION Morphine Sulfate (Morphine 4 Mg/Ml Vial) 2 - 6 mg IV Q1HP PRN; Protocol PRN Reason: Per Pain Protocol Last Admin: 02/26/22 19:54 Dose: 4 mg Morphine Sulfate (Morphine 4 Mg/Ml Vial) 4 mg NEB Q4HP PRN PRN Reason: Shortness Of Breath Nitroglycerin (Nitroglycerin 0.4 Mg Tab.Subl) 0.4 mg SL Q5MIN [facility] Ondansetron HCl (Ondansetron 4 Mg/2 Ml Vial) 4 mg IV Q4HP PRN; Protocol PRN Reason: Nausea And Vomiting Ondansetron HCl (Ondansetron 4 Mg Odt Tablet) 4 mg SL Q4HP PRN; Protocol PRN Reason: Nausea And Vomiting Oxycodone HCl (Oxycodone Hcl 5 Mg Tablet) 5 mg PO Q4HP PRN; Protocol PRN Reason: Per Pain Protocol Last Admin: 02/26/22 19:00 Dose: 5 mg Senna (Sennosides 1 Tablet) 2 tab PO HSP PRN PRN Reason: Constipation Last Admin: 02/26/22 08:03 Dose: 2 tab Sodium Chloride (0.9 % Sodium Chloride 10 Ml Syringe) 10 ml IV Q8 [facility] Last Admin: 02/27/22 00:14 Dose: 10 ml Trazodone HCl (Trazodone Hcl 50 Mg Tablet) 25 mg PO [facility] Last Admin: 02/27/22 00:13 Dose: Not Given A/P Narrative A/P Narrative: A: * T2DM with hypoglycemia: *h/o breast cancer: *ESRD on peritoneal dialysis: *Essential hypertension: * Dyslipidemia: *h/o NSTEMI s/p PCI with drug eluting stent: *Hypothyroidism: *h/o Gout: *h/o CVA: *h/o atrial fibrillation: P: -Comfort care only -Patient family support Time Spent With Patient Time: Total time spent is greater than 50% in coordination of care (as documented) at patient's floor/unit and/or counseling patient:
--- NOTE | 2022-02-27 10:30 | Death Note ---
Discharge Sum: Prov Provider Patient information: Note initiated : 02/27/22 at 10:29 am Service Date, if different from initiated Date: [] Patient: Dania Nesbitt 76 y/o F admitted on 02/20/22 for Hypoglycemia, dialysis. Chief Complaint: [] Primary care physician: Princess Carrasco Consults: 02/20/22 14:42 Consult to Physician [CONS] Routine Comment: peritoneal dialysis Consulting Provider: Olga Lidia Pleitez Reason For Exam: Physician to Consult 02/24/22 09:28 Consult to Physician [CONS] Routine Comment: snf referral Consulting Provider: [facility] Reason For Exam: Physician to Consult 02/27/22 02:41 Consult to Physician [CONS] Routine Comment: Consulting Provider: [facility] Reason For Exam: Physician to Consult Discharge Sum: Diag Contributing Factors (1) ESRD on peritoneal dialysis: (2) Acute non-ST elevation myocardial infarction (NSTEMI): (3) Hypertension, essential: (4) Stroke: (5) Hyperlipidemia: (6) Gout: (7) Diabetes mellitus, type II: (8) Hypothyroidism (acquired): (9) Atrial fibrillation: (10) Breast cancer: (11) On home O2: Discharge Sum: Summary Date and Time Date of admission: 02/20/22 14:29 Date of : 02/27/22 Time of : 02:30 Summary Details: Chief Complaint: [] Interval history: Ms. Nesbitt is a 76 year old F history of breast cancer, type 2 diabetes mellitus, end-stage renal disease on peritoneal dialysis, essential hypertensions, mixed dyslipidemia, CAD status post PCI with drug-eluting stents, CVA, gout, hypothyroidism, atrial fibrillation, presenting with lethargy and syncope. Patient is on glipizide and her is helping her to manage the medications. She was found to be extremely lethargic and syncope/near syncope by day of . EMS recall and blood glucose level was checked at the scene in the 20s. D50 X2 were given in route to the outside ER, where she was being started on D10 drip. Repeat blood sugar level was 120s, D10 drip started. Transfer request called for peritoneal dialysis capacity in our facility. Mandarin Chinese Teacher Dr. Pleitez consulted for peritoneal dialysis needs. 02/21: Another episode of hypoglycemia with blood sugar 63 this morning around 830. INR 1.4. Status post peritoneal dialysis overnight. Patient is coming of general weakness at baseline. She denies any syncope or near syncope. She denies any chest pain or shortness of breath. She is complaining of 10 out of 10 bilateral lower extremity sharp pain. Keep Accu-Chek Q4 and low-dose sign scale insulin every 4. Renal/CC diet. Dr. Pleitez. will switch patients to hemodialysis starting tomorrow on Tuesday, February 22, 2022. Pending physical therapy and Occupational Therapy evaluation and treatments for placement purposes. 02/22: Fasting blood sugar level 135 this morning. No reported hypoglycemic episode overnight. Status post peritoneal dialysis last night. Pending hemodialysis today. INR 1.6 this morning. Patient is coming of general weakness at baseline. She denies any syncope or near syncope. She denies any chest pain or shortness of breath. She is complaining of mild bilateral lower extremity sharp pain. Keep Accu-Chek Q4 and low-dose sign scale insulin every 4. Renal/CC diet. Pending hemodialysis today. Pending physical therapy and Occupational Therapy evaluation and treatments for placement purposes. 02/23: Blood sugar was as low as 73 yesterday afternoon at 4 PM. INR 1.8 this morning. Status post last long of his peritoneal dialysis yesterday night as well as first round of hemodialysis yesterday during the day. Patient is about to receive second round of hemodialysis this afternoon. She is complaining of bilateral leg pains. Denies any abdominal pain. Denies any nausea or vomiting. Tolerating oral intake fine. Keep Accu-Chek Q4 and low-dose sign scale insulin every 4. Renal/CC diet. Continue hemodialysis as per Dr. Pleitez. Pending physical therapy and Occupational Therapy evaluation and treatments for placement planning. 02/24: Fasting glucose 84, no hypoglycemia episode over the past 24 hours. s/p hemodialysis on 02/22 and 02/23. She is complaining of bilateral leg cramping pains. Denies any abdominal pain. Denies any nausea or vomiting. Tolerating oral intake fine. Transfer to med surg telemetry. Accu Chek and low-dose sign scale insulin AC HS. Renal/CC diet. Continue hemodialysis as per Dr. Pleitez. Pending SNF placement tomorrow 02/25. 02/25: Head CT and hip x-ray as well as bilateral lower extremity ultrasound does not show any acute pathologies. No fracture or joint dislocations. No abscess seen. No sign of stroke or skull fractures. Fasting sugar 86 this morning with no hypoglycemia episode overnight. Patient is currently being hemodialyzed and she does not have any complaint at the moment. Continue hemodialysis today. Accu Chek and low-dose sign scale insulin AC HS. we will arrange for care conference tomorrow regarding prognosis and goals of care for discharge placement planning. 02/26: Had a care conference with the family and the rest of the team regarding prognosis and goals of care. Family chose to go with palliative care comfort care only. We will start working on placement and will touch base with the family and keep them updated. We will stop dialysis and order necessary labs and medications at this point and will only do medication to keep the patient as comfortable as possible. Patient at 0230. A: * T2DM with hypoglycemia: *h/o breast cancer: *ESRD on peritoneal dialysis: *Essential hypertension: * Dyslipidemia: *h/o NSTEMI s/p PCI with drug eluting stent: *Hypothyroidism: *h/o Gout: *h/o CVA: *h/o atrial fibrillation: Additional Data Attending physician: Socrates Penny MD
== END 2022-02-27 11:53 | disposition expired | DRG 699 ==
LOC: ICU 14:29 → MEDSUR 02-24 18:15
PROVIDERS: ADMIT Internal Medicine; ATTEND Internal Medicine